=== PATIENT | female | born 1950 | race Caucasian/White ===

== ENCOUNTER 2016-04-10 22:28 | Inpatient (IN) | payer OTHER ==
[~2016-04-10] VITALS: Ht 165.1 cm; Wt 105.4 kg
[~2016-04-10 22:28] MED LIST: ASPEC81 PO; Acetamin/Butalbital/Caffeine PO; CTP/1 PO; LSN20 PO; NTRGSL/4 UT; ONDA4TAB46 PO; PRLSR20 PO; TPM25 PO
[2016-04-10] MEDS ORDERED: ONDANSETRON INJ 2 MG/ML 2 ML VIAL IV STA (22:59)
[2016-04-10] MEDS ORDERED: MoRPHine SULFATE 4 MG/ML 1 ML CARP\\VIAL IV STA (22:59)
[2016-04-10] MEDS ORDERED: CLONIDINE HCL 0.1 MG TAB PO ONE (23:45)
[2016-04-11] VITALS (7 sets, daily range): BP systolic 114–165; BP diastolic 67–91; PULSE 62–69; TEMP 36.3–36.8; O2SAT 92–96; Ht 165.1 cm; Wt 105.4 kg
[2016-04-11 00:21] LABS: BASO % 0.5 %; BASO ABS # 0.04 K/uL (0-0.2); COMPLETE YES; EOS % 1.7 %; HEMATOCRIT 43.6 % (37-47); IG% 0.1 %; LYMPH % 32.1 %; LYMPH ABS # 2.41 K/uL (1.2-3.4); MEAN CELL VOLUME 90.3 fL (80-100); MEAN CORPUSCULAR HEMOGLOBIN 31.1 pg (25-34); MEAN CORPUSCULAR HGB CONC 34.4 g/dl (32-36); MEAN PLATELET VOLUME 10.5 fL (7.4-10.4); MONO % 8.9 %; NEUT % 56.7 %; PLATELET COUNT 181 K/uL (130-400); RED BLOOD COUNT 4.83 M/uL (4.2-5.4)
[2016-04-11 00:30] LABS: ALT/SGPT 75 U/L (12-78); AST/SGOT 27 U/L (15-37); BLOOD UREA NITROGEN 17 mg/dl (7-18); BUN/CREATININE RATIO 22.1 (10-20); CALCIUM 8.7 mg/dl (8.5-10.1); CARBON DIOXIDE 25 mmol/L (21-32); CHLORIDE 110 mmol/L (98-107); CREATININE 0.78 mg/dl (0.60-1.20); GLUCOSE 134 mg/dl (70-99); POTASSIUM 3.7 mmol/L (3.5-5.1); SODIUM 147 mmol/L (136-145)
[2016-04-11] MEDS ORDERED: PRLSR20 PO (00:30)
[2016-04-11 00:32] LABS: PARTIAL THROMBOPLASTIN RATIO 0.9; PROTHROMBIN TIME (PATIENT) 10.4 SECONDS (9.0-12.0)
--- NOTE | 2016-04-11 00:43 | EMERGENCY ROOM VISIT NOTE ---
ED Visit Note First contact with patient: 22:54 I did evaluate and examine this patient myself. I did guide management for the patient. I agree with the PA's assessment as discussed. Please see the PAs dictation for further details. I did independently review the CT of the head, twelve-lead EKG, x-rays and blood work.
[2016-04-11 00:49] LABS: ALKALINE PHOSPHATASE 71 U/L (45-117); CKMB/CK RATIO 1.7 (0-3.0)
[2016-04-11] MEDS ORDERED: MAGNESIUM HYDROXIDE SUSP 30 ML UDC PO PRN (02:00)
[2016-04-11] MEDS ORDERED: ONDANSETRON INJ 2 MG/ML 2 ML VIAL IV PRN (02:00)
[2016-04-11] MEDS ORDERED: ACETAMINOPHEN 325 MG TAB PO PRN (02:00)
[2016-04-11] MEDS ORDERED: NITROGLYCERIN 0.4 MG SL PER TAB CHARGE UT PRN (02:00)
[2016-04-11] MEDS ORDERED: POLYETHYLENE (MIRALAX) 17 GM PACK PO PRN (02:00)
[2016-04-11] MEDS ORDERED: ALUMINUM/MAGNESIUM/SIMETH (MAALOX MAX) 30 ML UDC PO PRN (02:00)
[2016-04-11] MEDS ORDERED: HydrALAZINE HCL 20 MG/ML VIAL ONE (02:09)
[2016-04-11] MEDS ORDERED: OPTIRAY 320 IV PRN (02:15)
--- NOTE | 2016-04-11 02:21 | History and Physical ---
History & Physical Date & Time of Service: Apr 11, 2016 at 02:13 Chief Complaint: Chest Pressure,High Bp Primary Care Physician: RV. Joiner MD History of Present Illness Source: patient, family (granddaughter), spouse Is a pleasant 66-year-old female, who presents today with 4 days of chest pain, headache, malaise. She is accompanied today to the ER, by her and granddaughter. He does not speak Icelandic and her granddaughter translates. She notes that 4 days ago, she had headaches. She had been measuring her blood pressures at home and they were 180/120 which is also what they run when she is apparently well. She is also been having increasing ambulatory difficulty. She describes "blackout periods ". She notes that on several occasions when she tried to stand up, she felt so weak that her had to slowly lower her to the ground. At no point did she lose consciousness. She did not have any usual unilateral weakness. It would take her approximately 15 minutes to summon the strength to stand up. She did not have any dysphagias or aphasias, or altered sensations. In addition, she also describes a sharp, pressing 6/10 chest pain. The pain is on both sides but currently it is only on the left side of her chest. She also notes having some diffuse back pain. The pain does not radiate to the jaw or into the arms. The pain is overall constant but was much worse at home. She cannot time the pain with exertion. She denies palpitations. She has noted that for the first few days of her symptoms she did feel her legs were slightly swollen, but feels that they've improved. She is also getting short of breath with any form of movement, but is not dyspneic at rest. She denies any cough. He does state that her throat hurts. She denies wheezing She is apparently meant to be on oxygen at home by nasal cannula for sleep apnea and nocturnal hypoxemia. She used it for about 6 months, but ran daughter notes that because of equipment issues she has not used. Her appetite has been good. She has no problems with urination or bowel movement He does note a previous history of myocardial infarction, many years ago in [facility]. She did not have stents placed, or CABG. She has been managed medically. She currently does take aspirin, but does not take a statin. She has been on an ARTIE inhibitor in the past but did not tolerate. She does take a nitroglycerin when necessary. Last ejection fraction on May 2014 was 55-60%. Past Medical/Surgical History Medical Problems: (1) ESOPHAGEAL REFLUX Status: Chronic (2) HEART DISEASE NOS Status: Chronic (3) HYPERLIPIDEMIA NEC/NOS Status: Chronic (4) HYPERTENSION NOS Status: Chronic (5) HYPOTHYROIDISM NOS Status: Chronic Family History No pertinent family history Mother had a history of hypertension Social History Smoking Status: Never Smoker Smokeless Tobacco Use: No Alcohol Use: none Drug Use: none Marital Status: Housing status: lives with family Occupational Status: unemployed Immunizations History of Influenza Vaccine: No History of Tetanus Vaccine?: Unknown History of Pneumococcal: Yes History of Hepatitis B Vaccine: Yes Allergies Coded Allergies: Azithromycin (Unverified Allergy, Unknown, BLOOD IN STOOL, MYALGIA, ) Ciprofloxacin (Unverified Allergy, Unknown, BLOOD IN STOOL, MYALGIA, ) Diltiazem (Unverified Allergy, Unknown, HEADACHE, TACHYCARDIA, 04/11/16) Home Medications Scheduled Aspirin (Aspirin Ec), 81 MG PO DAILY Clonidine Hcl (Catapres), 0.1 MG PO TID Omeprazole (Prilosec), 20 MG PO BID Scheduled PRN Nitroglycerin (Nitrostat), 0.4 MG UT PRN PRN for Chest Pain Review of Systems A 10 point review of systems was negative unless stated above in the history of present illness Physical Exam Vital Signs Date Time Temp Pulse Resp B/P Pulse Ox O2 Delivery O2 Flow Rate FiO2 04/11/16 02:03 66 04/11/16 01:54 63 20 173/91 94 Room Air 2.0 04/11/16 00:30 59 20 144/86 95 Room Air 04/10/16 23:55 92 Nasal Cannula 3.0 04/10/16 23:53 63 20 160/84 93 Nasal Cannula 3.0 04/10/16 23:50 85 Room Air 04/10/16 23:20 91 Room Air 04/10/16 22:49 71 04/10/16 22:30 36.5 84 20 223/111 93 Room Air General Appearance: WD/WN, + mild distress, + pertinent finding (plethoric) Head: normocephalic, atraumatic Eyes: normal inspection, EOMI ENT: hearing grossly normal, pharynx normal Neck: supple, no adenopathy, no JVD Respiratory/Chest: + pertinent finding (mild crackles bibasilar) Cardiovascular: regular rate, rhythm, no gallop, no murmur Abdomen/GI: normal bowel sounds, non tender, soft Back: no CVA tenderness, + pertinent finding (diffuse tenderness to palpation along the paraspinal muscles) Extremities/Musculoskelatal: no calf tenderness, no pedal edema Neurologic/Psych: alert, normal mood/affect, oriented x 3 Skin: normal color, warm/dry, + rash Diagnostics Laboratory Results Results Past 24 Hours Test 04/10/16 23:20 Range/Units White Blood Count 7.50 4.8-10.8 K/uL Red Blood Count 4.83 4.2-5.4 M/uL Hemoglobin 15.0 12.0-16.0 g/dL Hematocrit 43.6 37-47 % Mean Corpuscular Volume 90.3 80-100 fL Mean Corpuscular Hemoglobin 31.1 25-34 pg Mean Corpuscular Hemoglobin Concent 34.4 32-36 g/dl Platelet Count 181 130-400 K/uL Mean Platelet Volume 10.5 7.4-10.4 fL Neutrophils (%) (Auto) 56.7 % Lymphocytes (%) (Auto) 32.1 % Monocytes (%) (Auto) 8.9 % Eosinophils (%) (Auto) 1.7 % Basophils (%) (Auto) 0.5 % Neutrophils # (Auto) 4.24 1.4-6.5 K/uL Lymphocytes # (Auto) 2.41 1.2-3.4 K/uL Monocytes # (Auto) 0.67 0.11-0.59 K/uL Eosinophils # (Auto) 0.13 0-0.5 K/uL Basophils # (Auto) 0.04 0-0.2 K/uL RDW Standard Deviation 42.6 36.4-46.3 fL RDW Coefficient of Variation 12.9 11.5-14.5 % Immature Granulocyte % (Auto) 0.1 % Immature Granulocyte # (Auto) 0.01 0.00-0.02 K/uL Prothrombin Time 10.4 9.0-12.0 SECONDS Prothromb Time International Ratio 1.0 0.9-1.1 Activated Partial Thromboplast Time 23.6 21.0-31.0 SECONDS Partial Thromboplastin Ratio 0.9 Sodium Level 147 136-145 mmol/L Potassium Level 3.7 3.5-5.1 mmol/L Chloride Level 110 98-107 mmol/L Carbon Dioxide Level 25 21-32 mmol/L Anion Gap 12.0 3-11 mmol/L Blood Urea Nitrogen 17 7-18 mg/dl Creatinine 0.78 0.60-1.20 mg/dl Estimated GFR () 91.2 Estimated GFR (Non- 78.7 BUN/Creatinine Ratio 22.1 10-20 Random Glucose 134 70-99 mg/dl Calcium Level 8.7 8.5-10.1 mg/dl Total Bilirubin 0.3 0.2-1 mg/dl Direct Bilirubin < 0.1 0-0.2 mg/dl Aspartate Amino Transf (AST/SGOT) 27 15-37 U/L Alanine Aminotransferase (ALT/SGPT) 75 12-78 U/L Alkaline Phosphatase 71 45-117 U/L Total Creatine Kinase 66 26-192 U/L Creatine Kinase MB 1.1 0.5-3.6 ng/ml Creatine Kinase MB Ratio 1.7 0-3.0 Troponin I < 0.015 0-0.045 ng/ml Total Protein 7.0 6.4-8.2 gm/dl Albumin 3.3 3.4-5.0 gm/dl Thyroid Stimulating Hormone (TSH) 4.720 0.300-4.500 uIu/ml Chemistry Specimen Hemolysis Diagnostic Radiology Final report not available yet Chest x-ray does appear to show cardiomegaly, , and possible infiltrate at left base EKG Normal sinus rhythm rate 72 Moderate voltage criteria for LVH, maybe normal variant Nonspecific T-wave abnormality, lateral leads No ectopy or pauses Impression Assessment and Plan 59 -year-old female with a past history of coronary artery disease treated conservatively who presents to the emergency room with malaise and chest pain. Given that she has a history of cardiac disease, she is intermediate probability and requires admission for chest pain rule out and serial cardiac enzyme monitoring. Our plan for her is as follows: Chest pain - Etiology unclear at this time: Would consider ACS, pneumonia, PE, aortic dissection And does not necessarily seem anginal but I still maintain a high index of suspicion because she has a previous history of CAD - Cardiac enzymes 1 are negative; there are nonspecific lateral T-wave changes Trend cardiac enzymes every 6 hours until peak; EKG with chest pain; sublingual nitroglycerin with chest pain ASA 81 mg daily, per home regimen Patient does not take a statin. She would benefit from discussion on taking daily for the purposes of secondary prevention Echocardiogram in a.m.; patient's previous echocardiogram in 05/2014 reports an EF of 55-60% - Blood pressure also noted to be very high at baseline. Given pain in the back , I am concerned as well about possible aortic dissection CT scan dissection protocol - Patient also has history of sleep apnea with questionable compliance, at high risk for pulmonary hypertension Echocardiogram as above Hypertension - Continue home dose of clonidine - Blood pressure remains elevated in the ED, systolic blood pressure 180 - We'll start patient on 10 mg hydralazine IV PRN for SBP > 160 or DBP >100 Obstructive sleep apnea - Patient has been followed for severe obstructive sleep apnea by Dr. lCinton. Patient was reportedly noncompliant with CPAP and it was stopped - Patient apparently changed over oxygen by nasal cannula is at nighttime but has not been doing so for several months - Currently she is on 2 L by nasal cannula Titrate oxygen to goal of greater than 94% GERD - Omeprazole not available in the hospital; pharmacy to replace DVT prophylaxis - Enoxaparin 40 mg subcutaneous daily CODE STATUS - Full level I code - designated as substitute decision-maker if patient cannot make decisions for herself Disposition - Telemetry - OT and PT orders have been placed Resident Physician Supervision Note: I was present with [Name of resident] during the history and exam. I discussed the case with the resident and agree with the findings and plan as documented in the note. Any exceptions or clarifications are listed here: Pt seen/examined - discussed with pt and family at bedside Presents with CP and back pain as above Pt has also been generally ill and weak and symptoms are not acute although they may be worsening Pt has been hypertensive at over 170 systolic O/E AAO x 3 - appears uncomfortable S1,2 reg CTAB - poor effort NT, NT upper ext mild pitting edema - face appears edematous P: Considering labs and symptoms we would want to R/O dissection and possibly SVC syndrome\\ Pt is pending a CTA If negative will focus on eval for ACS and controlling SBP Documented By: Bryan Tran Level of Care Telemetry Resuscitation Status FULL RESUSCITATION VTE Prophylaxis VTE Risk Assessment Done? Y/N: Yes Risk Level: Moderate Given or contraindicated: Enoxaparin (Lovenox)SQ
[2016-04-11] MEDS ORDERED: ASPI81TA28 PO (02:44)
[2016-04-11] MEDS ORDERED: ACETAMINOPHEN IV 100 ML IV STA (03:37)
--- NOTE | 2016-04-11 04:14 | EMERGENCY ROOM VISIT NOTE ---
History First contact with patient: 22:54 Chief Complaint: HEADACHE Stated Complaint: CHEST PAIN History of Present Illness The patient is a 66 year old female who presents to the Emergency Room with complaints of severe headache with chest pain and feeling foggy with elevated blood pressure for the past 3 days. Patient is Palauan-speaking and is requesting her granddaughter to translate. She was offered the language line and declined. She describes the pain as pressure, ranging in severity 8 out of 10 throughout her chest that comes and goes in severity. She's had this pain before. She has prior heart disease. Patient is unsure she's had a heart attack. Patient describe the headache as severe, 9 out of 10 throughout the frontal region. Normal imaging in the past. Patient denies localized weakness , fever, chills, cough, congestion, dyspnea, leg pain or swelling. Review of Systems See HPI for pertinent positives & negatives. A total of 10 systems reviewed and were otherwise negative. Past Medical/Surgical History Medical Problems: (1) Chest pain (2) ESOPHAGEAL REFLUX (3) HEART DISEASE NOS (4) HYPERLIPIDEMIA NEC/NOS (5) HYPERTENSION NOS (6) HYPOTHYROIDISM NOS Family History No pertinent family history Social History Smoking Status: Never Smoker Smokeless Tobacco Use: No Alcohol Use: none Drug Use: none Marital Status: Housing Status: lives with family Occupation Status: unemployed Current/Historical Medications Scheduled Aspirin (Aspirin Ec), 81 MG PO DAILY Clonidine Hcl (Catapres), 0.1 MG PO TID Omeprazole (Prilosec), 20 MG PO BID Scheduled PRN Nitroglycerin (Nitrostat), 0.4 MG UT PRN PRN for Chest Pain Allergies Coded Allergies: Azithromycin (Unverified Allergy, Unknown, BLOOD IN STOOL, MYALGIA, ) Ciprofloxacin (Unverified Allergy, Unknown, BLOOD IN STOOL, MYALGIA, ) Diltiazem (Unverified Allergy, Unknown, HEADACHE, TACHYCARDIA, 04/11/16) Physical Exam Vital Signs Date Time Temp Pulse Resp B/P Pulse Ox O2 Delivery O2 Flow Rate FiO2 04/11/16 01:54 63 20 173/91 94 Room Air 2.0 04/11/16 00:30 59 20 144/86 95 Room Air 04/10/16 23:55 92 Nasal Cannula 3.0 04/10/16 23:53 63 20 160/84 93 Nasal Cannula 3.0 04/10/16 23:50 85 Room Air 04/10/16 23:20 91 Room Air 04/10/16 22:49 71 04/10/16 22:30 36.5 84 20 223/111 93 Room Air Physical Exam VITALS: Vitals are noted on the nurse's note and reviewed by myself. Vital signs hypertensive GENERAL: Pleasant female who appears uncomfortable, in no acute distress, nondiaphoretic, well-developed well-nourished. SKIN: The skin was without rashes, erythema, edema, or bruising. There is no tenting of the skin. Capillary reflex less than 2 seconds. HEAD: Normocephalic atraumatic. EARS: External auditory canals clear, tympanic membranes pearly iglesias without erythema or effusion bilaterally. EYES: Pupils equal round and reactive to light and accommodation. Conjunctivae without injection, sclerae without icterus. Extraocular movements intact. NOSE: Patent, turbinates without inflammation or discharge. No sinus tenderness. MOUTH: Mucous membranes moist. Pharynx without erythema or exudate. Uvula midline. Airway patent. Tongue does not deviate. NECK: Supple without nuchal rigidity. No lymphadenopathy. No thyromegaly. Cervical spine is nontender. No JVD. HEART: Regular rate and rhythm LUNGS: Clear to auscultation bilaterally without wheezes, rales or rhonchi. No dullness to percussion. No retractions or accessory muscle use. ABDOMEN: Positive bowel sounds x 4. Normal tympanic percussion. Soft, nontender, without masses or organomegaly. Hand sign negative. No guarding or rebound tenderness. MUSCULOSKELETAL: No muscle atrophy, erythema, noted. NEURO: Patient was alert and oriented to person place and time. Normal sensation to light and sharp touch. No focal neurological deficits. Cranial nerves II through XII grossly intact. No pharyngeal bruits although exam intact. 5 out of 5 strength throughout Medical Decision & Procedures Laboratory Results 04/10/16 23:20 Red Blood Count 4.83, Mean Corpuscular Volume 90.3, Mean Corpuscular Hemoglobin 31.1, Mean Corpuscular Hemoglobin Concent 34.4, Mean Platelet Volume 10.5, Neutrophils (%) (Auto) 56.7, Lymphocytes (%) (Auto) 32.1, Monocytes (%) (Auto) 8.9, Eosinophils (%) (Auto) 1.7, Basophils (%) (Auto) 0.5, Neutrophils # (Auto) 4.24, Lymphocytes # (Auto) 2.41, Monocytes # (Auto) 0.67, Eosinophils # (Auto) 0.13, Basophils # (Auto) 0.04 04/10/16 23:20 Test 04/10/16 23:20 White Blood Count 7.50 K/uL (4.8-10.8) Red Blood Count 4.83 M/uL (4.2-5.4) Hemoglobin 15.0 g/dL (12.0-16.0) Hematocrit 43.6 % (37-47) Mean Corpuscular Volume 90.3 fL (80-100) Mean Corpuscular Hemoglobin 31.1 pg (25-34) Mean Corpuscular Hemoglobin Concent 34.4 g/dl (32-36) Platelet Count 181 K/uL (130-400) Mean Platelet Volume 10.5 fL (7.4-10.4) Neutrophils (%) (Auto) 56.7 % Lymphocytes (%) (Auto) 32.1 % Monocytes (%) (Auto) 8.9 % Eosinophils (%) (Auto) 1.7 % Basophils (%) (Auto) 0.5 % Neutrophils # (Auto) 4.24 K/uL (1.4-6.5) Lymphocytes # (Auto) 2.41 K/uL (1.2-3.4) Monocytes # (Auto) 0.67 K/uL (0.11-0.59) Eosinophils # (Auto) 0.13 K/uL (0-0.5) Basophils # (Auto) 0.04 K/uL (0-0.2) RDW Standard Deviation 42.6 fL (36.4-46.3) RDW Coefficient of Variation 12.9 % (11.5-14.5) Immature Granulocyte % (Auto) 0.1 % Immature Granulocyte # (Auto) 0.01 K/uL (0.00-0.02) Prothrombin Time 10.4 SECONDS (9.0-12.0) Prothromb Time International Ratio 1.0 (0.9-1.1) Activated Partial Thromboplast Time 23.6 SECONDS (21.0-31.0) Partial Thromboplastin Ratio 0.9 Anion Gap 12.0 mmol/L (3-11) Estimated GFR () 91.2 Estimated GFR (Non- 78.7 BUN/Creatinine Ratio 22.1 (10-20) Calcium Level 8.7 mg/dl (8.5-10.1) Total Bilirubin 0.3 mg/dl (0.2-1) Direct Bilirubin < 0.1 mg/dl (0-0.2) Aspartate Amino Transf (AST/SGOT) 27 U/L (15-37) Alanine Aminotransferase (ALT/SGPT) 75 U/L (12-78) Alkaline Phosphatase 71 U/L (45-117) Total Creatine Kinase 66 U/L (26-192) Creatine Kinase MB 1.1 ng/ml (0.5-3.6) Creatine Kinase MB Ratio 1.7 (0-3.0) Troponin I < 0.015 ng/ml (0-0.045) Total Protein 7.0 gm/dl (6.4-8.2) Albumin 3.3 gm/dl (3.4-5.0) Thyroid Stimulating Hormone (TSH) 4.720 uIu/ml (0.300-4.500) Chemistry Specimen Hemolysis Medications Administered Medications (Trade) Dose Ordered Sig/Jesika Route Start Time Stop Time Status Last Admin Dose Admin Morphine Sulfate (MoRPHine SULFATE INJ) 4 mg NOW STAT IV 04/10/16 22:59 04/10/16 23:01 DC 04/10/16 23:27 4 MG Ondansetron HCl (Zofran Inj) 4 mg NOW STAT IV 04/10/16 22:59 04/10/16 23:02 DC 04/10/16 23:26 4 MG Clonidine HCl (Catapres Tab) 0.1 mg NOW ONCE PO 04/10/16 23:45 04/11/16 00:03 DC 04/10/16 23:52 0.1 MG ED Course Prior records/ancillary studies reviewed. Triage Nursing notes reviewed. Additional history obtained from family. The patient's history was concerning for chest pain. Differential diagnosis: Etiologies such as cardiac ischemia, aortic dissection, pulmonary embolism, pneumonia, pneumothorax, musculoskeletal, infections, pericarditis, myocarditis , esophageal rupture, gastrointestinal, cute intracranial bleed, CVA, postural headache, meningitis, encephalitis, mass or mass effect, sinusitis, infection, temporal arteritis, trigeminal neuralgia, pseudotumor cerebri, tension headache , cluster headache, carbon monoxide exposure, migraine, as well as others were entertained. Physical examination: As above. ER treatment provided: Morphine, Zofran, Catapres On reassessment the patient felt better. Diagnostic interpretation by me: The electrocardiogram was normal sinus, normal intervals, T wave inversions in the anterolateral leads, EKG compared to prior EKG with prior T-wave inversions present. Impression normal sinus rhythm with T-wave inversions in the anterolateral leads started by myself The labs revealed negative troponin. Stable H&H Imaging studies: Chest x-ray with no acute consolidation, pneumothorax or free air. Cardiomegaly unchanged from prior chest x-ray per my interpretation CT of the head was negative for intracranial bleed per radiology Consultation: A consultation was placed with the hospitalist, Dr Tran. The case was discussed and diagnostics were reviewed. The patient was evaluated in the ER for further treatment. Exam and history seem consistent with chest pain concerning for possible ACS. Patient will be evaluated by medicine for possible admission. Head CT was negative. Troponin. Blood pressure came down after being medicated as above. Patient was neurovascularly and neurologically intact. Family agrees to treatment plan of admission. By the evaluation outlined above emergent etiologies such as aortic dissection, pulmonary embolism, pneumonia, pneumothorax, infections, pericarditis, myocarditis, gastrointestinal, as well as others were deemed relatively unlikely. The pt informed about the findings as listed above. All questions were answered and pleased with the treatment. Case reviewed with my attending Medical Decision As above Impression Primary Impression: Precordial chest pain Additional Impressions: Hypertensive urgency Headache Departure Information Dispostion Being Evaluated By Hospitalist Condition FAIR Referrals RV. Joiner MD (PCP) Patient Instructions My [facility] Problem Qualifiers
[2016-04-11] MEDS ORDERED: SODIUM CHLORIDE 0.9% 1000ML 1,000 ML IV ONE (05:00)
--- NOTE | 2016-04-11 06:34 | DIAGNOSTIC IMAGING REPORT ---
CT OF THE HEAD WITHOUT CONTRAST CLINICAL HISTORY: Severe hypertension. Headache. COMPARISON STUDY: Head CT May 22, 2014 and MRI of the brain May 23, 2014. CT DOSE: 614.27 mGy.cm TECHNIQUE: Helical axial images of the head were obtained without IV contrast. Automated exposure control was utilized for the study. FINDINGS: No acute intracranial hemorrhage, midline shift or mass effect is present. Ventricular system is normal. Basilar cisterns are patent. No extra-axial collections are present. Feliciano-white differentiation is maintained. There are no findings to suggest acute dural sinus thrombosis or acute territorial infarct. Visualized portions of the sinuses and mastoid air cells are clear. There are no significant calvarial abnormalities. IMPRESSION: No acute intracranial findings. Electronically signed by: Jaret Stevenson M.D. 04/11/2016 6:33 AM Dictated Date/Time: 04/11/2016 6:31 AM
[2016-04-11] MEDS ORDERED: IV FLUIDS COMPLETED PRN (06:45)
--- NOTE | 2016-04-11 06:48 | DIAGNOSTIC IMAGING REPORT ---
CHEST ONE VIEW PORTABLE CLINICAL HISTORY: Chest pain. COMPARISON STUDY: Chest radiograph May 21, 2014. FINDINGS: Lung volumes are diminished. No consolidation is identified. No pneumothorax or pleural effusion is noted. Mild cardiomegaly is noted. There is no evidence of pulmonary edema. IMPRESSION: 1. No acute findings. 2. Mild cardiomegaly. Electronically signed by: Jaret Stevenson M.D. 04/11/2016 6:47 AM Dictated Date/Time: 04/11/2016 6:45 AM
--- NOTE | 2016-04-11 07:22 | DIAGNOSTIC IMAGING REPORT ---
CT ANGIO ABD/PELVIS COMBO CT DOSE: 3758.58 mGy.cm CLINICAL HISTORY: Chest and abdominal pain. Possible dissection. TECHNIQUE: Unenhanced images were obtained through the upper abdomen. The patient was then scanned in a dynamic helical fashion during intravenous administration of 93 cc of Optiray 320. COMPARISON STUDY: 04/22/2010 FINDINGS: The visualized portions lung bases reveal increased basal markings likely atelectatic. No hepatic masses are visualized. No gallbladder abnormalities are visualized. No splenic masses are visualized. No pancreatic masses are visualized. No adrenal masses are visualized. This 43 mm right renal cyst. There is a 13 mm upper pole left renal cyst. No renal, ureteral, or bladder calculi are visualized. There are no transition zones indicate bowel obstruction. There is no acute diverticulitis. There are no findings to indicate acute appendicitis. There is no evidence of abdominal aortic aneurysm. There is no evidence of celiac or superior mesenteric artery stenosis. There is an accessory left renal artery. There is no evidence of renal artery stenosis. There is no evidence of iliac artery stenosis. Inferior mesenteric artery is patent. IMPRESSION: 1. No evidence of abdominal aortic aneurysm or dissection 2. No evidence of celiac, superior mesenteric, or renal artery stenosis 3. No evidence of bowel obstruction. No evidence of free air. Electronically signed by: Andrew Adame M.D. 04/11/2016 7:21 AM Dictated Date/Time: 04/11/2016 7:16 AM
[2016-04-11 08:33] LABS: BLOOD UREA NITROGEN 16 mg/dl (7-18); BUN/CREATININE RATIO 21.8 (10-20); CALCIUM 8.8 mg/dl (8.5-10.1); CARBON DIOXIDE 28 mmol/L (21-32); CHLORIDE 109 mmol/L (98-107); CHOLESTEROL 160 mg/dl (0-200); CREATININE 0.74 mg/dl (0.60-1.20); GLUCOSE 106 mg/dl (70-99); SODIUM 145 mmol/L (136-145)
[2016-04-11 08:39] LABS: HEMATOCRIT 41.7 % (37-47); MEAN CELL VOLUME 90.8 fL (80-100); MEAN CORPUSCULAR HEMOGLOBIN 30.7 pg (25-34); MEAN CORPUSCULAR HGB CONC 33.8 g/dl (32-36); MEAN PLATELET VOLUME 10.4 fL (7.4-10.4); PLATELET COUNT 197 K/uL (130-400); RED BLOOD COUNT 4.59 M/uL (4.2-5.4); WHITE BLOOD COUNT 7.07 K/uL (4.8-10.8)
[2016-04-11 08:40] LABS: BASO % 0.7 %; BASO ABS # 0.05 K/uL (0-0.2); COMPLETE YES; EOS % 1.3 %; IG% 0.1 %; LYMPH % 26.3 %; LYMPH ABS # 1.86 K/uL (1.2-3.4); MONO % 8.9 %; NEUT % 62.7 %
[2016-04-11 08:42] LABS: CHOLESTEROL/HDL RATIO 3.8; HDL CHOLESTEROL 42 mg/dl; LDL CHOLESTEROL CALCULATED 96 mg/dl; TRIGLYCERIDES 108 mg/dl (0-150); VERY LOW DENSITY LIPOPROT CALC 22 mg/dl
[2016-04-11] MEDS: CLONIDINE HCL 0.1 MG TAB PO SCH ×3 (09:56→21:02)
[2016-04-11] MEDS: ASPIRIN 81 MG ECTAB PO SCH (09:56)
[2016-04-11] MEDS: PANTOprazole SOD 40 MG TAB PO SCH ×2 (09:56→21:02)
[2016-04-11] MEDS: ENOXAPARIN 40 MG/0.4 ML SYR SC SCH (09:57)
[2016-04-11 10:30] LABS: POTASSIUM 3.7 mmol/L (3.5-5.1)
[2016-04-11] MEDS: ACETAMINOPHEN IV 1,000 MG in EMPTY BAG 0 ML IV SCH ×2 (11:41→21:02)
[2016-04-11 15:09] LABS: CKMB/CK RATIO 1.6 (0-3.0)
[2016-04-11 20:06] LABS: CKMB/CK RATIO 1.7 (0-3.0)
--- NOTE | 2016-04-11 20:40 | ECHOCARDIOGRAM REPORT ---
*NOTICE TO RECEIVING [employer] [employer] This information is strictly Confidential and protected under [place] law. [place] law prohibits you from making any further disclosure of this information unless further disclosure is expressly permitted by the written consent of the person to whom it pertains or is authorized by law. A general authorization for the release of medical or other information is not sufficient for this purpose. Hospital accepts no responsibility if the information is made available to any other person, INCLUDING THE PATIENT. Interpretation Summary * Name: LUIS YOUSSEF Study Date: 04/11/2016 07:55 AM BP: 151/84 mmHg * Patient Location: .ED HR: 60 * : 1950 (M/d/yyyy) Gender: Female * Age: 66 yrs Ethnicity: [place] Weight: 235 lb * Ordering Physician: [place] SEGUNDO MD * Performed By: Staci Harp RCS * * Reason For Study: CHEST PAIN * -- Conclusions -- * 1. Normal left ventricular size and systolic function. EF 60-65%. No regional wall motion abnormalities. Moderate concentric left ventricular hypertrophy. Diastolic dysfunction, Grade II (pseudonormalization pattern). * 2. The left atrium is mildly dilated. * 3. No significant valvular abnormalities visualized. * 4. Linear echodensity noted within the aortic arch, which appears to be artifact. If indicated, consider dedicated imaging. * 5. Normal estimated right ventricular systolic pressure; RVSP 27 mmHg. * 6. No significant change from prior study on 05/22/2014. Procedure Details * A complete two-dimensional transthoracic echocardiogram was performed (2D, M-mode, Doppler and color flow Doppler). Left Ventricle * Normal left ventricular size and systolic function. EF 60-65%. No regional wall motion abnormalities. Moderate concentric left ventricular hypertrophy. Right Ventricle * The right ventricle is normal in size and function. * The right ventricular systolic function is normal as assessed by tricuspid annular plane systolic excursion (TAPSE) (normal >1.5 cm). Atria * The left atrium is mildly dilated. * Right atrial size is normal. * There is no evidence of atrial septal defect, but resolution does not allow assessment for a patent foramen ovale. Mitral Valve * The mitral valve is grossly normal. * There is no mitral valve stenosis. * There is trace mitral regurgitation. Tricuspid Valve * The tricuspid valve is not well visualized, but is grossly normal. * There is no tricuspid stenosis. * There is mild tricuspid regurgitation. Aortic Valve * The aortic valve is normal in structure and function. * The aortic valve is trileaflet. * No hemodynamically significant valvular aortic stenosis. * No aortic regurgitation is present. Pulmonic Valve * The pulmonary valve is inadequately visualized, but the Doppler data is adequate for interpretation. * There is no pulmonic valvular stenosis. * Mild pulmonic valvular regurgitation. Great Vessels * The aortic root is normal size. * Ascending aorta of normal dimension * Linear echodensity noted within the aortic arch, which appears to be artifact. If indicated, consider dedicated imaging. * Normal pulmonary venous flow pattern. Pericardium/Pleural * There is no pericardial effusion. Great Vessels * Normal inferior vena cava size and collapsability with sniff indicates a normal right atrial pressure of 3 mmHg Left Ventricular Diastolic Function * Diastolic dysfunction, Grade II (pseudonormalization pattern). MMode 2D Measurements and Calculations IVSd 1.4 cm IVSs 2.0 cm LVIDd 4.6 cm LVIDs 2.9 cm LVPWd 1.4 cm LVPWs 1.4 cm IVS/LVPW 0.96 FS 35.6 % EDV(Teich) 96.4 ml ESV(Teich) 33.6 ml EF(Teich) 65.2 % EDV(cubed) 96.1 ml ESV(cubed) 25.7 ml EF(cubed) 73.3 % % IVS thick 43.1 % % LVPW thick -3.88 % LV mass(C)d 252.6 grams LV mass(C)s 183.7 grams SV(Teich) 62.8 ml SV(cubed) 70.5 ml Ao root diam 3.4 cm Ao root area 8.9 cm\S\2 LA dimension 3.7 cm asc Aorta Diam 2.6 cm LA/Ao 1.1 LVOT diam 2.1 cm LVOT area 3.4 cm\S\2 Doppler Measurements and Calculations MV E max jackelyn 87.9 cm/sec MV A max jackelyn 85.7 cm/sec MV E/A 1.0 MV P1/2t max jackelyn 94.0 cm/sec MV P1/2t 93.1 msec MVA(P1/2t) 2.4 cm\S\2 MV dec slope 296.0 cm/sec\S\2 MV dec time 0.24 sec Ao V2 max 176.0 cm/sec Ao max PG 12.4 mmHg Ao max PG (full) 9.1 mmHg Ao V2 mean 106.0 cm/sec Ao mean PG 5.3 mmHg Ao mean PG (full) 3.7 mmHg Ao V2 VTI 36.8 cm JOCELINE(I,A) 2.0 cm\S\2 JOCELINE(I,D) 2.0 cm\S\2 JOCELINE(V,A) 1.8 cm\S\2 JOCELINE(V,D) 1.8 cm\S\2 LV V1 max PG 3.2 mmHg LV V1 mean PG 1.6 mmHg LV V1 max 90.1 cm/sec LV V1 mean 57.2 cm/sec LV V1 VTI 21.2 cm MR max jackelyn 572.7 cm/sec MR max PG 131.2 mmHg SV(Ao) 326.0 ml SV(LVOT) 72.7 ml TV E max jackelyn 49.6 cm/sec PA V2 max 95.9 cm/sec PA max PG 3.7 mmHg PI max jackelyn 175.4 cm/sec PI max PG 12.3 mmHg PI dec slope 182.3 cm/sec\S\2 PI P1/2t 281.8 msec TR max jackelyn 246.0 cm/sec RVSP(TR) 27.2 mmHg RAP systole 3.0 mmHg
[2016-04-12] VITALS (9 sets, daily range): BP systolic 121–177; BP diastolic 69–104; PULSE 70–95; TEMP 36.2–37; O2SAT 91–97
[2016-04-12 02:23] LABS: BASO % 0.6 %; BASO ABS # 0.04 K/uL (0-0.2); COMPLETE YES; EOS % 1.9 %; HEMATOCRIT 40.9 % (37-47); IG% 0.2 %; LYMPH % 30.1 %; LYMPH ABS # 1.86 K/uL (1.2-3.4); MEAN CELL VOLUME 91.3 fL (80-100); MEAN CORPUSCULAR HEMOGLOBIN 30.4 pg (25-34); MEAN CORPUSCULAR HGB CONC 33.3 g/dl (32-36); MEAN PLATELET VOLUME 9.8 fL (7.4-10.4); MONO % 7.6 %; NEUT % 59.6 %; PLATELET COUNT 165 K/uL (130-400); RED BLOOD COUNT 4.48 M/uL (4.2-5.4); WHITE BLOOD COUNT 6.17 K/uL (4.8-10.8)
[2016-04-12 02:38] LABS: BLOOD UREA NITROGEN 18 mg/dl (7-18); BUN/CREATININE RATIO 24.6 (10-20); CALCIUM 8.3 mg/dl (8.5-10.1); CARBON DIOXIDE 27 mmol/L (21-32); CHLORIDE 109 mmol/L (98-107); CREATININE 0.71 mg/dl (0.60-1.20); GLUCOSE 108 mg/dl (70-99); POTASSIUM 3.9 mmol/L (3.5-5.1); SODIUM 145 mmol/L (136-145)
[2016-04-12 02:43] LABS: CKMB/CK RATIO 1.6 (0-3.0)
[2016-04-12] MEDS: HydrALAZINE HCL 20 MG/ML VIAL IV. PRN ×2 (04:34→14:52)
[2016-04-12] MEDS: ACETAMINOPHEN IV 1,000 MG in EMPTY BAG 0 ML IV SCH ×3 (04:37→22:11)
[2016-04-12] MEDS: CLONIDINE HCL 0.1 MG TAB PO SCH ×3 (07:47→22:00)
[2016-04-12] MEDS: ASPIRIN 81 MG ECTAB PO SCH (07:47)
[2016-04-12] MEDS: ENOXAPARIN 40 MG/0.4 ML SYR SC SCH ×2 (07:47→07:51)
[2016-04-12] MEDS: PANTOprazole SOD 40 MG TAB PO SCH ×2 (07:48→22:00)
[2016-04-12] MEDS ORDERED: BUTALBITAL/ACETAMIN/CAFFEINE TAB PO PRN (11:00)
[2016-04-12] MEDS ORDERED: BUTALBITAL/ACETAMIN/CAFFEINE TAB PO ONE (11:30)
[2016-04-12] MEDS ORDERED: LISINOPRIL 20 MG TAB PO ONE (11:30)
--- NOTE | 2016-04-12 13:51 | Progress Note ---
Subjective Date of Service: Apr 12, 2016. Subjective Pt evaluation today including: conversation w/ patient, physical exam, chart review, lab review, review of studies, review of inpatient medication list Problem List Medical Problems: (1) Headache Status: Acute (2) Hypertensive urgency Status: Acute (3) Precordial chest pain Status: Acute Review of Systems Constitutional: No chills, No fever Respiratory: No cough, No dyspnea on exertion, No shortness of breath, No sputum Cardiac: + palpitations, No chest pain, No orthopnea Abdomen: No constipation, No diarrhea, No nausea, No pain, No vomiting Musculoskeletal: No joint pain, No muscle pain Female : No dysuria, No urinary frequency Neurologic: No paralysis, No weakness Objective Vital Signs Date Time Temp Pulse Resp B/P Pulse Ox O2 Delivery O2 Flow Rate FiO2 04/12/16 13:34 86 142/86 04/12/16 12:00 Nasal Cannula 2.0 04/12/16 11:52 37.0 80 20 177/83 94 Nasal Cannula 2.0 04/12/16 08:00 Nasal Cannula 2.0 04/12/16 07:19 36.2 95 20 174/89 91 Room Air 04/12/16 05:06 36.5 70 18 177/95 97 Nasal Cannula 2.0 04/12/16 04:37 176/104 04/12/16 04:00 Nasal Cannula 2.0 04/12/16 00:00 Nasal Cannula 2.0 04/11/16 23:47 36.3 66 16 154/85 95 Nasal Cannula 2.0 04/11/16 20:00 Nasal Cannula 2.0 04/11/16 19:06 36.7 63 18 126/76 96 2.0 04/11/16 16:00 Nasal Cannula 2.0 04/11/16 15:17 36.5 62 20 114/67 92 Nasal Cannula 2.0 Physical Exam General Appearance: WD/WN, no apparent distress Neck: supple, no adenopathy Respiratory/Chest: lungs clear, normal breath sounds Cardiovascular: no gallop, no JVD Abdomen: non tender, soft Neurologic/Psychiatric: alert, oriented x 3 Laboratory Results Last 24 Hours Test 04/11/16 14:00 04/11/16 19:26 04/12/16 02:15 Total Creatine Kinase 55 U/L 53 U/L 50 U/L Creatine Kinase MB 0.9 ng/ml 0.9 ng/ml 0.8 ng/ml Creatine Kinase MB Ratio 1.6 1.7 1.6 Troponin I < 0.015 ng/ml < 0.015 ng/ml < 0.015 ng/ml White Blood Count 6.17 K/uL Red Blood Count 4.48 M/uL Hemoglobin 13.6 g/dL Hematocrit 40.9 % Mean Corpuscular Volume 91.3 fL Mean Corpuscular Hemoglobin 30.4 pg Mean Corpuscular Hemoglobin Concent 33.3 g/dl Platelet Count 165 K/uL Mean Platelet Volume 9.8 fL Neutrophils (%) (Auto) 59.6 % Lymphocytes (%) (Auto) 30.1 % Monocytes (%) (Auto) 7.6 % Eosinophils (%) (Auto) 1.9 % Basophils (%) (Auto) 0.6 % Neutrophils # (Auto) 3.67 K/uL Lymphocytes # (Auto) 1.86 K/uL Monocytes # (Auto) 0.47 K/uL Eosinophils # (Auto) 0.12 K/uL Basophils # (Auto) 0.04 K/uL RDW Standard Deviation 43.4 fL RDW Coefficient of Variation 13.1 % Immature Granulocyte % (Auto) 0.2 % Immature Granulocyte # (Auto) 0.01 K/uL Sodium Level 145 mmol/L Potassium Level 3.9 mmol/L Chloride Level 109 mmol/L Carbon Dioxide Level 27 mmol/L Anion Gap 9.0 mmol/L Blood Urea Nitrogen 18 mg/dl Creatinine 0.71 mg/dl Est Creatinine Clear Calc Drug Dose 93.3 ml/min Estimated GFR () 102.2 Estimated GFR (Non- 88.1 BUN/Creatinine Ratio 24.6 Random Glucose 108 mg/dl Calcium Level 8.3 mg/dl Assessment and Plan 59 yo female with a past history of coronary artery disease treated conservatively who presents to the emergency room with malaise and chest pain. Given that she has a history of cardiac disease, she is intermediate probability and requires admission for chest pain rule out and serial cardiac enzyme monitoring. Chest pain - Etiology unclear at this time: - Cardiac enzymes 3 negative; there are nonspecific lateral T-wave changes EKG with chest pain; sublingual nitroglycerin with chest pain ASA 81 mg daily, per home regimen Patient does not take a statin. She would benefit from discussion on taking daily for the purposes of secondary prevention Echocardiogram EF 60-65%, no WMA, grade 2 diastolic dysfunction - Blood pressure also noted to be very high at baseline. Started lisinopril and hydralazine PRN and continued clonidine Hypertension - Continue home dose of clonidine, and added hydralazine and lisinopril - Likely contributing to headaches Obstructive sleep apnea - Patient has been followed for severe obstructive sleep apnea by Dr. Clinton. Patient was reportedly noncompliant with CPAP and it was stopped - Patient apparently changed over oxygen by nasal cannula is at nighttime but has not been doing so for several months - Currently she is on 2 L by nasal cannula Titrate oxygen to goal of greater than 94% GERD - Omeprazole not available in the hospital; pharmacy to replace DVT prophylaxis - Enoxaparin 40 mg subcutaneous daily CODE STATUS - Full level I code - designated as substitute decision-maker if patient cannot make decisions for herself Disposition - Telemetry - OT and PT orders have been placed
[2016-04-13 00:19] VITALS: BP 173/90; PULSE 65; TEMP 36.7; O2SAT 95
[2016-04-13] MEDS: ACETAMINOPHEN IV 1,000 MG in EMPTY BAG 0 ML IV SCH ×3 (04:38→21:05)
[2016-04-13 07:03] LABS: BASO % 0.5 %; BASO ABS # 0.03 K/uL (0-0.2); COMPLETE YES; HEMATOCRIT 42.3 % (37-47); LYMPH ABS # 1.77 K/uL (1.2-3.4); MEAN CELL VOLUME 89.2 fL (80-100); MEAN CORPUSCULAR HGB CONC 33.6 g/dl (32-36); MEAN PLATELET VOLUME 9.9 fL (7.4-10.4); MONO % 5.9 %; NEUT % 62.6 %; PLATELET COUNT 166 K/uL (130-400); RED BLOOD COUNT 4.74 M/uL (4.2-5.4); WHITE BLOOD COUNT 6.11 K/uL (4.8-10.8)
[2016-04-13 07:30] LABS: CREATININE 0.68 mg/dl (0.60-1.20)
[2016-04-13 07:32] VITALS: BP 164/88; PULSE 68; TEMP 36.3; O2SAT 98
[2016-04-13] MEDS: ENOXAPARIN 40 MG/0.4 ML SYR SC SCH (08:27)
[2016-04-13] MEDS: LISINOPRIL 20 MG TAB PO SCH (08:28)
[2016-04-13] MEDS: ASPIRIN 81 MG ECTAB PO SCH (08:28)
[2016-04-13] MEDS: PANTOprazole SOD 40 MG TAB PO SCH ×2 (08:28→21:06)
[2016-04-13] MEDS: CLONIDINE HCL 0.1 MG TAB PO SCH ×3 (08:28→21:07)
[2016-04-13] MEDS ORDERED: AMLODIPINE BESYLATE 5 MG TAB PO ONE (08:30)
[2016-04-13] MEDS ORDERED: SUMATRIPTAN SUCCINATE 25 MG TAB PO ONE (11:30)
[2016-04-13 13:35] VITALS: BP 148/87; PULSE 67; O2SAT 93
[2016-04-13 15:32] VITALS: BP 137/80; PULSE 61; TEMP 37.1; O2SAT 94
--- NOTE | 2016-04-13 15:37 | Progress Note ---
Subjective Date of Service: Apr 13, 2016. Subjective Pt evaluation today including: conversation w/ patient, physical exam, chart review, lab review, review of studies, review of inpatient medication list Problem List Medical Problems: (1) Headache Status: Acute (2) Hypertensive urgency Status: Acute (3) Precordial chest pain Status: Acute Review of Systems Constitutional: No chills, No fever Respiratory: No cough, No dyspnea on exertion, No shortness of breath, No sputum, No wheezing Cardiac: No chest pain, No orthopnea Abdomen: No diarrhea, No nausea, No pain, No vomiting Musculoskeletal: No joint pain, No muscle pain Female : No dysuria, No urinary frequency Objective Vital Signs Date Time Temp Pulse Resp B/P Pulse Ox O2 Delivery O2 Flow Rate FiO2 04/13/16 15:32 37.1 61 19 137/80 94 Nasal Cannula 2.0 04/13/16 13:35 67 148/87 93 Nasal Cannula 2.0 04/13/16 09:15 Room Air 04/13/16 07:32 36.3 68 20 164/88 98 Nasal Cannula 2.0 04/13/16 00:19 36.7 65 20 173/90 95 Nasal Cannula 04/13/16 00:13 Nasal Cannula 2.0 04/12/16 19:44 36.5 74 20 121/69 96 Nasal Cannula 2.0 04/12/16 16:00 Nasal Cannula 2.0 Physical Exam General Appearance: WD/WN, + mild distress Neck: supple, no adenopathy Respiratory/Chest: chest non-tender, lungs clear, normal breath sounds Cardiovascular: no gallop, no JVD Abdomen: non tender, soft Neurologic/Psychiatric: alert, normal mood/affect Laboratory Results Last 24 Hours Test 04/13/16 06:30 White Blood Count 6.11 K/uL Red Blood Count 4.74 M/uL Hemoglobin 14.2 g/dL Hematocrit 42.3 % Mean Corpuscular Volume 89.2 fL Mean Corpuscular Hemoglobin 30.0 pg Mean Corpuscular Hemoglobin Concent 33.6 g/dl Platelet Count 166 K/uL Mean Platelet Volume 9.9 fL Neutrophils (%) (Auto) 62.6 % Lymphocytes (%) (Auto) 29.0 % Monocytes (%) (Auto) 5.9 % Eosinophils (%) (Auto) 2.0 % Basophils (%) (Auto) 0.5 % Neutrophils # (Auto) 3.83 K/uL Lymphocytes # (Auto) 1.77 K/uL Monocytes # (Auto) 0.36 K/uL Eosinophils # (Auto) 0.12 K/uL Basophils # (Auto) 0.03 K/uL RDW Standard Deviation 42.5 fL RDW Coefficient of Variation 13.0 % Immature Granulocyte % (Auto) 0.0 % Immature Granulocyte # (Auto) 0.00 K/uL Sodium Level 143 mmol/L Potassium Level 4.0 mmol/L Chloride Level 109 mmol/L Carbon Dioxide Level 28 mmol/L Anion Gap 6.0 mmol/L Blood Urea Nitrogen 20 mg/dl Creatinine 0.68 mg/dl Est Creatinine Clear Calc Drug Dose 96.8 ml/min Estimated GFR () 104.9 Estimated GFR (Non- 90.5 BUN/Creatinine Ratio 29.0 Random Glucose 99 mg/dl Calcium Level 9.0 mg/dl Assessment and Plan 59 yo female with a past history of coronary artery disease treated conservatively who presents to the emergency room with malaise and chest pain. Given that she has a history of cardiac disease, she is intermediate probability and requires admission for chest pain rule out and serial cardiac enzyme monitoring. Chest pain - Etiology unclear at this time: - Cardiac enzymes 3 negative; there are nonspecific lateral T-wave changes EKG with chest pain; sublingual nitroglycerin with chest pain ASA 81 mg daily, per home regimen Patient does not take a statin. She would benefit from discussion on taking daily for the purposes of secondary prevention Echocardiogram EF 60-65%, no WMA, grade 2 diastolic dysfunction - Blood pressure also noted to be very high at baseline. Started lisinopril and hydralazine PRN and continued clonidine, and added norvasc Hypertension - Continue home dose of clonidine, and added hydralazine and lisinopril in addition to norvasc - Likely contributing to headaches Obstructive sleep apnea - Patient has been followed for severe obstructive sleep apnea by Dr. Clinton. Patient was reportedly noncompliant with CPAP and it was stopped - Patient apparently changed over oxygen by nasal cannula is at nighttime but has not been doing so for several months - Currently she is on 2 L by nasal cannula Titrate oxygen to goal of greater than 94% GERD - Omeprazole not available in the hospital; pharmacy to replace DVT prophylaxis - Enoxaparin 40 mg subcutaneous daily CODE STATUS - Full level I code - designated as substitute decision-maker if patient cannot make decisions for herself Disposition - Telemetry - OT and PT orders have been placed
[2016-04-14 00:26] VITALS: BP 161/81; PULSE 59; TEMP 36.5; O2SAT 95
[2016-04-14] MEDS: ACETAMINOPHEN IV 1,000 MG in EMPTY BAG 0 ML IV SCH ×2 (04:17→12:15)
[2016-04-14] MEDS: ENOXAPARIN 40 MG/0.4 ML SYR SC SCH (07:17)
[2016-04-14 07:26] VITALS: BP 164/84; PULSE 66; TEMP 36.5; O2SAT 96
[2016-04-14] MEDS: LISINOPRIL 20 MG TAB PO SCH (07:26)
[2016-04-14] MEDS: PANTOprazole SOD 40 MG TAB PO SCH (07:26)
[2016-04-14] MEDS: CLONIDINE HCL 0.1 MG TAB PO SCH (07:27)
[2016-04-14] MEDS: ASPIRIN 81 MG ECTAB PO SCH (07:27)
[2016-04-14] MEDS ORDERED: AMLODIPINE BESYLATE 5 MG TAB PO SCH (08:00)
[2016-04-14] MEDS ORDERED: APR10 PO (11:19)
[2016-04-14] MEDS ORDERED: NRV5 PO (11:19)
[2016-04-14] MEDS ORDERED: LSN20 PO (11:19)
[2016-04-14] MEDS ORDERED: FRCT/ PO (11:19)
[2016-04-14] MEDS ORDERED: HydrALAZINE 10 MG TAB PO SCH (12:00)
[2016-04-14 12:11] VITALS: BP 148/87; PULSE 64
--- NOTE | 2016-04-14 15:19 | Discharge Instructions ---
Discharge Instructions Admission Reason for Admission: Chest Pain Discharge Discharge Diagnosis / Problem: Chest pain, hypertension Discharge Goals Goal(s): Decrease discomfort, Improve function, Increase independence, Improve disease control, Learn about illness, Diagnostic testing, Prevent Disease Progression Activity Recommendations Activity Limitations: resume your previous activity Lifting Limitations: none Exercise/Sports Limitations: none Shower/Bathe: no limitations . Instructions / Follow-Up Instructions / Follow-Up Patient to be discharged home No need for home oxygen Please note changes in blood pressure medication Hydralazine 10 mg 4 times a day Norvasc 10 mg once daily Lisinopril 20 mg once daily If worsening headache, chest pain or shortness of breath please report to ER Please follow up with Dr Per Gonsales in 1-2 weeks Current Hospital Diet Patient's current hospital diet: AHA Diet (Heart Healthy) Discharge Diet Recommended Diet: AHA Diet (Heart Healthy) Pending Studies Studies pending at discharge: no Laboratory Results Lipid Panel Test 04/11/16 08:00 Range/Units Triglycerides Level 108 0-150 mg/dl Cholesterol Level 160 0-200 mg/dl HDL Cholesterol 42 mg/dl Cholesterol/HDL Ratio 3.8 LDL Cholesterol, Calculated 96 mg/dl Medical Emergencies . Who to Call and When: Medical Emergencies: If at any time you feel your situation is an emergency, please call 911 immediately. . Non-Emergent Contact Non-Emergency issues call your: Primary Care Provider Call Non-Emergent contact if: you have a fever, your pain is not controlled . . "Provider Documentation" section prepared by Fito Pantoja. VTE Core Measure Inpt VTE Proph given/why not?: Enoxaparin (Lovenox)SQ
[2016-04-14 15:30] VITALS: BP 148/87; PULSE 64; TEMP 36.5; O2SAT 96
--- NOTE | 2016-04-14 16:49 | Discharge Summary ---
Discharge Summary Date of Service Apr 14, 2016. Discharge Summary Admission Date: Apr 14, 2016 at 15:11 Discharge Date: Apr 14, 2016 Discharge Disposition: Home Principal Diagnosis: Chest pain, accelerated HTN Immunizations: Have You Had Influenza Vaccine: No History of Tetanus Vaccine?: Unknown History of Pneumococcal: Yes History of Hepatitis B Vaccine: Yes Medication Reconciliation New Medications: Acetamin/Butalbital/Caffeine (Fioricet) 1 Ea Tab 1 TAB PO Q4H PRN for Headache, #30 TAB Amlodipine Besylate (Amlodipine Besylate) 5 Mg Tab 10 MG PO QAM for 30 Days, #30 TAB Hydralazine HCl (Hydralazine HCl) 10 Mg Tab 10 MG PO Q6, #120 TAB Lisinopril (Lisinopril) 20 Mg Tab 20 MG PO QAM for 30 Days, #30 TAB Continued Medications: Aspirin (Aspirin Ec) 81 Mg Tab 81 MG PO DAILY Clonidine Hcl (Catapres) 0.1 Mg Tab 0.1 MG PO TID, TAB Nitroglycerin (Nitrostat) 0.4 Mg Tab 0.4 MG UT PRN PRN for Chest Pain, BTL Omeprazole (Prilosec) 20 Mg Capcr 20 MG PO BID, CAP Discharge Exam Review of Systems: Constitutional: No chills, No fever Respiratory: No cough, No dyspnea at rest, No dyspnea on exertion, No shortness of breath, No sputum, No wheezing Cardiovascular: No chest pain, No orthopnea Abdomen: No constipation, No diarrhea, No nausea, No pain, No vomiting Musculoskeletal: No joint pain Genitourinary - Female: No dysuria, No urinary frequency, No urinary urgency Physical Exam: General Appearance: WD/WN, no apparent distress Neck: supple, no adenopathy Respiratory/Chest: chest non-tender, lungs clear, normal breath sounds Cardiovascular: no edema, no gallop Abdomen / GI: normal bowel sounds, non tender, soft Neurologic/Psychiatric: alert, oriented x 3 Hospital Course 59 yo female with a past history of coronary artery disease treated conservatively who presents to the emergency room with malaise and chest pain. Given that she has a history of cardiac disease, she is intermediate probability and requires admission for chest pain rule out and serial cardiac enzyme monitoring. Chest pain - Etiology unclear at this time: - Cardiac enzymes 3 negative; there are nonspecific lateral T-wave changes EKG with chest pain; sublingual nitroglycerin with chest pain ASA 81 mg daily, per home regimen Patient does not take a statin. She would benefit from discussion on taking daily for the purposes of secondary prevention Echocardiogram EF 60-65%, no WMA, grade 2 diastolic dysfunction - Blood pressure also noted to be very high at baseline. Started lisinopril and hydralazine PRN and continued clonidine, and added norvasc Hypertension - Continue home dose of clonidine, and added hydralazine and lisinopril in addition to norvasc - Likely contributing to headaches - Will need to f/u with PCP for likely titration of antihypertensive medications Obstructive sleep apnea - Patient has been followed for severe obstructive sleep apnea by Dr. Clinton. Patient was reportedly noncompliant with CPAP and it was stopped - Patient apparently changed over oxygen by nasal cannula is at nighttime but has not been doing so for several months - Currently she is on 2 L by nasal cannula Titrate oxygen to goal of greater than 94% GERD - Omeprazole not available in the hospital; pharmacy to replace DVT prophylaxis - Enoxaparin 40 mg subcutaneous daily CODE STATUS - Full level I code - designated as substitute decision-maker if patient cannot make decisions for herself Disposition - Telemetry - OT and PT orders have been placed Total Time Spent: Greater than 30 minutes This includes examination of the patient, discharge planning, medication reconciliation, and communication with other providers. Discharge Instructions Please refer to the electronic Patient Visit Report (Discharge Instructions) for additional information. Additional Copies To RV. Joiner MD
== END 2016-04-14 15:45 | disposition home or self-care (01) | DRG 313 ==
LOC: ENRESERVDT → ENRESERVTM → C.EDB 22:29 → C.EDINP 04-11 01:54 → C.MED 04-11 09:28 → CANBEDREQ 04-12 14:53 → C.MS4W 04-12 21:03 → OBSVTOIN 04-14 15:11
PROVIDERS: ADMIT Student in an Organized Health Care Education/Training Program; ATTEND Hospitalist
DX: R07.9 Chest pain, unspecified (principal); I16.0 Hypertensive urgency; I10 Essential (primary) hypertension; I25.10 Atherosclerotic heart disease of native coronary artery without angina pectoris; R94.31 Abnormal electrocardiogram [ECG] [EKG]; K21.9 Gastro-esophageal reflux disease without esophagitis; G47.33 Obstructive sleep apnea (adult) (pediatric); Z91.19 Patient's noncompliance with other medical treatment and regimen; I25.2 Old myocardial infarction; Z79.82 Long term (current) use of aspirin; Z79.899 Other long term (current) drug therapy

== ENCOUNTER → 2016-05-31 | Outpatient (CLI) | payer OTHER ==
[~2016-05-31] MED LIST changes: +APR10 PO; -ASPEC81 PO; +ASPI81TA28 PO; -Acetamin/Butalbital/Caffeine PO; +FRCT/ PO; +NRV5 PO; -ONDA4TAB46 PO; -TPM25 PO
[2016-05-31 10:07] LABS: BASO % 0.7 %; BASO ABS # 0.04 K/uL (0-0.2); COMPLETE YES; EOS % 1.4 %; IG% 0.2 %; LYMPH % 27.9 %; LYMPH ABS # 1.61 K/uL (1.2-3.4); MEAN CELL VOLUME 88.2 fL (80-100); MEAN PLATELET VOLUME 9.8 fL (7.4-10.4); MONO % 7.8 %; PLATELET COUNT 200 K/uL (130-400); RED BLOOD COUNT 4.76 M/uL (4.2-5.4); WHITE BLOOD COUNT 5.78 K/uL (4.8-10.8)
[2016-05-31 10:39] LABS: ALT/SGPT 57 U/L (12-78); BLOOD UREA NITROGEN 15 mg/dl (7-18); BUN/CREATININE RATIO 20.1 (10-20); CALCIUM 9.1 mg/dl (8.5-10.1); CARBON DIOXIDE 29 mmol/L (21-32); CHLORIDE 106 mmol/L (98-107); CHOLESTEROL 183 mg/dl (0-200); CREATININE 0.75 mg/dl (0.60-1.20); GLUCOSE 90 mg/dl (70-99); POTASSIUM 4.1 mmol/L (3.5-5.1); SODIUM 142 mmol/L (136-145); TRIGLYCERIDES 98 mg/dl (0-150); VERY LOW DENSITY LIPOPROT CALC 20 mg/dl
[2016-05-31 11:09] LABS: ALB/GLOB RATIO 0.9 (0.9-2); ALKALINE PHOSPHATASE 71 U/L (45-117); AST/SGOT 21 U/L (15-37); CHOLESTEROL/HDL RATIO 3.5; HDL CHOLESTEROL 53 mg/dl; LDL CHOLESTEROL CALCULATED 110 mg/dl
== END | disposition home or self-care (01) ==
LOC: C.LAB1850 09:25
PROVIDERS: ATTEND Internal Medicine
DX: I10 Essential (primary) hypertension (principal); E04.2 Nontoxic multinodular goiter

== ENCOUNTER → 2017-04-04 | Outpatient (CLI) | payer OTHER ==
--- NOTE | 2017-04-04 17:22 | DIAGNOSTIC IMAGING REPORT ---
L SHOULDER MIN 2 VIEWS ROUTINE HISTORY: 67 years-old Female M25.512 Left shoulder [id number] acute left shoulder pain COMPARISON: Chest radiograph 04/10/2016 TECHNIQUE: 3 views of the left shoulder FINDINGS: Mild glenohumeral and mild AC joint degenerative changes. The bones appear mildly demineralized. There is no acute fracture or dislocation identified. The clavicle appears intact. Imaged lung saavedra appear clear. There is no opaque foreign body identified. IMPRESSION: Mild degenerative changes without acute fracture or dislocation. The above report was generated using voice recognition software. It may contain grammatical, syntax or spelling errors. Electronically signed by: Marquis Tanner M.D. 04/04/2017 5:21 PM Dictated Date/Time: 04/04/2017 5:20 PM
--- NOTE | 2017-04-04 17:40 | DIAGNOSTIC IMAGING REPORT ---
C-SPINE ROUTINE 4 OR 5 VIEWS CLINICAL HISTORY: 67 years-old Female presenting with M50.90 Cervical disc [id number]. TECHNIQUE: Lateral, bilateral oblique, frontal, open-mouth odontoid, and swimmer's views of the cervical spine were obtained. COMPARISON: None. FINDINGS: Slight straightening of normal cervical lordosis likely positional. The C7 vertebral body is fully visualized on swimmer's view. Vertebral bodies maintain normal height and alignment. Intervertebral disc spaces maintained. No significant degenerative change is radiographically evident. Suboptimal positioning of the oblique view for evaluation of right neural foramina. Within this limitation, no radiographic evidence of osseous neural foraminal narrowing. Lateral masses of C1 articulate normally with C2. Normal atlantodental interval. No prevertebral soft tissue swelling. IMPRESSION: Examination limited by suboptimal positioning on oblique view, which degrades evaluation of right neural foramina. Within this limitation, no significant degenerative change or radiographic evidence of acute osseous injury. Electronically signed by: Zaheer Lopez M.D. 04/04/2017 5:39 PM Dictated Date/Time: 04/04/2017 5:36 PM
== END | disposition home or self-care (01) ==
LOC: C.RAD1850 16:49
PROVIDERS: ATTEND Internal Medicine
DX: M50.90 Cervical disc disorder, unspecified, unspecified cervical region (principal); M25.512 Pain in left shoulder

== ENCOUNTER → 2017-04-12 | Outpatient (CLI) | payer OTHER ==
--- NOTE | 2017-04-12 16:27 | DIAGNOSTIC IMAGING REPORT ---
RIGHT SHOULDER 3 VIEWS HISTORY: Right shoulder pain. COMPARISON: None. FINDINGS: No fracture or dislocation. Mild glenohumeral and AC joint degenerative changes are noted. The right clavicle is intact. Soft tissues are unremarkable. No radiopaque foreign bodies. IMPRESSION: Mild degenerative changes within the right shoulder. No fractures or dislocation. Electronically signed by: Chepe Rose M.D. 04/12/2017 4:26 PM Dictated Date/Time: 04/12/2017 4:24 PM
== END | disposition home or self-care (01) ==
LOC: C.RAD1850 16:00
PROVIDERS: ATTEND Internal Medicine
DX: M25.511 Pain in right shoulder (principal)

== ENCOUNTER → 2017-05-12 | Outpatient (CLI) | payer OTHER ==
[~2017-05-12] MED LIST changes: +ACET-749 PO; +APR25 PO; +ASPI1TAB83 PO; +BUTACAP7 PO; +CTP1CL PO; +LISI-725 PO; +NRN100 PO; +NRV/5 PO; +OMEP20CA9 PO
[2017-05-12 17:30] LABS: BASO % 0.5 %; BASO ABS # 0.04 K/uL (0-0.2); EOS % 1.3 %; HEMATOCRIT 42.7 % (37-47); HEMOGLOBIN 14.5 g/dL (12.0-16.0); IG# 0.01 K/uL (0.00-0.02); LYMPH % 25.7 %; LYMPH ABS # 1.96 K/uL (1.2-3.4); MEAN CELL VOLUME 89.5 fL (80-100); MEAN CORPUSCULAR HEMOGLOBIN 30.4 pg (25-34); MONO % 7.6 %; MONO ABS # 0.58 K/uL (0.11-0.59); NEUT % 64.8 %; NEUT ABS # 4.93 K/uL (1.4-6.5); PLATELET COUNT 185 K/uL (130-400); RED CELL DISTRIBUTION WIDTH CV 12.9 % (11.5-14.5); WHITE BLOOD COUNT 7.62 K/uL (4.8-10.8)
[2017-05-12 17:54] LABS: ALBUMIN 3.4 gm/dl (3.4-5.0); ALT/SGPT 65 U/L (12-78); BLOOD UREA NITROGEN 18 mg/dl (7-18); CALCIUM 8.9 mg/dl (8.5-10.1); CARBON DIOXIDE 29 mmol/L (21-32); CHOLESTEROL 170 mg/dl (0-200); CREATININE 0.88 mg/dl (0.60-1.20); GLUCOSE 103 mg/dl (70-99); POTASSIUM 3.8 mmol/L (3.5-5.1); SODIUM 141 mmol/L (136-145)
[2017-05-12 18:02] LABS: ALKALINE PHOSPHATASE 77 U/L (45-117); AST/SGOT 31 U/L (15-37); LDL CHOLESTEROL CALCULATED 96 mg/dl; TOTAL PROTEIN 7.5 gm/dl (6.4-8.2)
== END | disposition home or self-care (01) ==
LOC: C.LAB1850 17:05
PROVIDERS: ATTEND Internal Medicine
DX: I10 Essential (primary) hypertension (principal); E78.5 Hyperlipidemia, unspecified; E04.2 Nontoxic multinodular goiter

== ENCOUNTER → 2017-05-12 | Outpatient (CLI) | payer OTHER ==
--- NOTE | 2017-05-12 13:54 | DIAGNOSTIC IMAGING REPORT ---
MRI CERVICAL WITHOUT CONTRAST CLINICAL HISTORY: M54.12 Cervical radiculopathy NECK PAIN WITH BILATERAL ARM RADICULOPATHY. TECHNIQUE: Sagittal and axial T1, T2 and STIR images were obtained. COMPARISON STUDY: Conventional radiographic study dated 04/04/2017 [employer] images demonstrate a thyroid goiter. There are no suspicious areas of marrow replacement. No intrinsic cervical cord lesions are visualized. C2-3: There is no evidence of disc bulge or focal herniation. There is no spinal or foraminal stenosis. C3-4: There is no evidence of disc bulge or focal herniation. There is no spinal or foraminal stenosis. C4-5: There is a minor circumferential disc bulge. There is no significant spinal or foraminal stenosis C5-6 :There is a moderate central disc protrusion with deformity anterior thecal sac and mild posterior deflection of the spinal cord. There is no significant foraminal narrowing C6-7: There is no evidence of disc bulge or focal herniation. There is no evidence of spinal or foraminal stenosis. C7-T1: There is no evidence of disc bulge or focal herniation. There is no evidence of spinal or foraminal stenosis. 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 IMPRESSION: 1. Moderate central disc protrusion at the C5-6 level. 2. Prominent thyroid goiter Electronically signed by: Andrew Adame M.D. 05/12/2017 1:52 PM Dictated Date/Time: 05/12/2017 1:47 PM
== END | disposition home or self-care (01) ==
LOC: C.MRI 12:13
PROVIDERS: ATTEND Psychiatry & Neurology Neurology
DX: M50.122 Cervical disc disorder at C5-C6 level with radiculopathy (principal); E04.9 Nontoxic goiter, unspecified

== ENCOUNTER → 2017-05-19 | Outpatient (CLI) | payer OTHER ==
[~2017-05-19] MED LIST changes: +OXYC-57 PO
--- NOTE | 2017-05-19 16:38 | DIAGNOSTIC IMAGING REPORT ---
R UPPER EXT JOINT WITHOUT CLINICAL HISTORY: 67 years-old Female presenting with SHOULDER PAIN, right shoulder pain and limited range of motion, no injury. TECHNIQUE: Multisequence, multiplanar MR imaging of the right shoulder was performed without the use of intravenous contrast. IV contrast: None. COMPARISON: Plain radiographs from 04/12/2017. FINDINGS: Localizer images: Unremarkable. Evaluation limited by motion artifact, which slightly limits diagnostic sensitivity. No bony edema. Mild cartilage thinning of the inferior humeral head suggested. Articular cartilage of the glenoid grossly preserved. Blunting of the posterior labrum likely chronic degenerative change. Tear of the superior glenoid labrum at the level of the biceps labral complex along the undersurface possibly involving the articular cartilage. The tear does not appear to extend through the biceps anchor. This tear appears to extend from 11:00 to 1:00, consistent with a superior labral anterior to posterior tear. The long head of the biceps remains well seated within the intertubercular groove. Short head of the biceps tendon intact. Long head of the triceps tendon intact. Full-thickness tear of the insertional fibers of the supraspinatus. Partial undersurface tear of the critical zone of the anterior infraspinatus suggested. Teres minor and subscapularis tendons intact. Degenerative changes of the acromioclavicular joint. Small shoulder joint effusion. Mild fatty atrophy of the supraspinatus and infraspinatus muscles. Normal signal intensity of the musculature. IMPRESSION: 1. Findings suspicious for superior labral anterior to posterior tear from 11:00 to 1:00. Though this does involve the biceps labral complex, the biceps tendon anchor is spared. 2. Full-thickness tear of the insertional fibers of the supraspinatus. 3. Suspected partial undersurface tear of the critical zone of the anterior fibers of the infraspinatus. 4. Degenerative changes of the acromioclavicular joint. 5. Small shoulder joint effusion. Electronically signed by: Zaheer Lopez M.D. 05/19/2017 4:36 PM Dictated Date/Time: 05/19/2017 4:29 PM
== END | disposition home or self-care (01) ==
LOC: C.MRIBC 15:39
PROVIDERS: ATTEND Internal Medicine
DX: F19.90 Other psychoactive substance use, unspecified, uncomplicated (principal); M25.511 Pain in right shoulder; M25.619 Stiffness of unspecified shoulder, not elsewhere classified; M54.12 Radiculopathy, cervical region; R93.7 Abnormal findings on diagnostic imaging of other parts of musculoskeletal system; S14.3XXA Injury of brachial plexus, initial encounter; X58.XXXA Exposure to other specified factors, initial encounter

== ENCOUNTER 2017-05-23 20:23 | Inpatient (IN) | payer OTHER ==
[~2017-05-23] VITALS: Ht 165.1 cm; Wt 105.0 kg
[~2017-05-23 20:23] MED LIST changes: -ACET-749 PO; -APR25 PO; -ASPI1TAB83 PO; -BUTACAP7 PO; -CTP1CL PO; -LISI-725 PO; -NRN100 PO; -NRV/5 PO; -OMEP20CA9 PO; -OXYC-57 PO
[2017-05-23] MEDS ORDERED: ONDANSETRON INJ 2 MG/ML 2 ML VIAL IV STA (21:21)
[2017-05-23] MEDS ORDERED: MoRPHine SULFATE 10 MG/ML CARP/VIAL IV STA (21:21)
--- NOTE | 2017-05-23 21:38 | DIAGNOSTIC IMAGING REPORT ---
CHEST ONE VIEW PORTABLE HISTORY: Atypical chest pain COMPARISON: Chest 04/10/2016. FINDINGS: The lungs are clear. Cardiac silhouette remains mildly enlarged.. No pleural effusions. No pneumothorax. IMPRESSION: Stable mild cardiomegaly. Electronically signed by: Chepe Rose M.D. 05/23/2017 9:37 PM Dictated Date/Time: 05/23/2017 9:36 PM
[2017-05-23 21:46] LABS: BASO % 0.5 %; BASO ABS # 0.03 K/uL (0-0.2); EOS % 1.6 %; HEMATOCRIT 43.5 % (37-47); HEMOGLOBIN 15.2 g/dL (12.0-16.0); IG# 0.01 K/uL (0.00-0.02); LYMPH % 27.6 %; LYMPH ABS # 1.74 K/uL (1.2-3.4); MEAN CELL VOLUME 88.1 fL (80-100); MEAN CORPUSCULAR HEMOGLOBIN 30.8 pg (25-34); MEAN CORPUSCULAR HGB CONC 34.9 g/dl (32-36); MEAN PLATELET VOLUME 9.8 fL (7.4-10.4); MONO % 7.5 %; MONO ABS # 0.47 K/uL (0.11-0.59); NEUT % 62.6 %; NEUT ABS # 3.95 K/uL (1.4-6.5); PLATELET COUNT 196 K/uL (130-400); RED CELL DISTRIBUTION WIDTH CV 12.8 % (11.5-14.5); RED CELL DISTRIBUTION WIDTH SD 40.6 fL (36.4-46.3)
[2017-05-23] MEDS ORDERED: CTP1CL PO (22:00)
[2017-05-23] MEDS ORDERED: APR25 PO (22:00)
[2017-05-23] MEDS ORDERED: LISI-725 PO (22:00)
[2017-05-23] MEDS ORDERED: NRN100 PO (22:00)
[2017-05-23] MEDS ORDERED: ACET-749 PO (22:00)
[2017-05-23] MEDS ORDERED: OMEP20CA9 PO (22:00)
[2017-05-23] MEDS ORDERED: NRV/5 PO (22:00)
[2017-05-23] MEDS ORDERED: ASPI1TAB83 PO (22:09)
[2017-05-23 22:11] LABS: ALBUMIN 3.5 gm/dl (3.4-5.0); ALT/SGPT 67 U/L (12-78); BLOOD UREA NITROGEN 12 mg/dl (7-18); CALCIUM 9.2 mg/dl (8.5-10.1); CARBON DIOXIDE 29 mmol/L (21-32); CREATININE 0.77 mg/dl (0.60-1.20); GLUCOSE 106 mg/dl (70-99); LIPASE 146 U/L (73-393); POTASSIUM 3.7 mmol/L (3.5-5.1); SODIUM 141 mmol/L (136-145)
[2017-05-23] MEDS ORDERED: BUTACAP7 PO (22:12)
[2017-05-23 22:16] LABS: ALKALINE PHOSPHATASE 77 U/L (45-117); AST/SGOT 26 U/L (15-37); TOTAL PROTEIN 7.9 gm/dl (6.4-8.2)
--- NOTE | 2017-05-23 22:34 | DIAGNOSTIC IMAGING REPORT ---
ABDOMINAL ULTRASOUND, RIGHT UPPER QUADRANT HISTORY: Right upper quadrant abdominal pain. Nausea.. COMPARISON: Abdomen and pelvis CT 04/11/2016. FINDINGS: Pancreas: Obscured by overlying bowel gas. Liver: The liver is echogenic consistent with fatty change. Gallbladder: There is a 1 cm stone at the neck of the gallbladder. Gallbladder wall is borderline thickened at 3 mm. CBD: Not well visualized but may measure up to 7 mm which is top normal in size for the patient's age. Right kidney: No hydronephrosis. A 3.7 cm cyst. IMPRESSION: A 1 cm stone at the neck of the gallbladder with borderline gallbladder wall thickening. Clinical correlation recommended to assess for acute cholecystitis. Electronically signed by: Chepe Rose M.D. 05/23/2017 10:32 PM Dictated Date/Time: 05/23/2017 10:30 PM
--- NOTE | 2017-05-23 23:33 | EMERGENCY ROOM VISIT NOTE ---
ED Visit Note First contact with patient: 23:33 I have personally seen and evaluated the patient with the physician assistant passenger locomotive engineer. I agree with the diagnostic/management decisions and have personally been involved in these decisions and agree with the diagnosis.
[2017-05-24] VITALS (12 sets, daily range): BP systolic 126–174; BP diastolic 69–96; PULSE 61–88; TEMP 36.5–37.1; O2SAT 86–94; Ht 165.1 cm; Wt 105.0 kg
--- NOTE | 2017-05-24 00:10 | Surgery Consultation ---
Consultation Date of Consultation: May 23, 2017. Attending Physician: Reason for Consultation: Acute cholecystitis History of Present Illness Patient is a 67F who presents to the ED this evening due to abdominal pain which started Monday. She is Cam[place]onian-speaking and this history was obtained with assistance from her daughter. She reports her pain has gradually worsened since then. Reports pain wrapping around to her back and right shoulder as well. States she started having pain after she ate a bowl of oatmeal for breakfast on monday. Reports multiple similar episodes in the past but they resolved without any medical intervention. States she has been nauseated but denies any vomiting. Denies changes with bowels or urination. Last ate some soup yesterday around 1100. Denies fever/chills/recent illness. FHx positive for gallbladder disease (mother, sister). She does take Aspirin 81mg PO QD. Denies use of other blood thinning or anticoagulant medications. She has not taken her Aspirin since Monday due to her symptoms. PSHx significant for c- section x2 and appendectomy. PMHx significant for hyperlipidemia, HTN, CVA. WBC and LFTs WNL at this time. RUQ U/S shows a 1 cm gallstone at the gallbladder neck with borderline gallbladder wall thickening suspicious for acute cholecystitis. Past Medical/Surgical History Medical Problems: (1) Headache Status: Acute (2) Precordial chest pain Status: Acute Family History No pertinent family history Social History Smoking Status: Never Smoker Drug Use: none Marital Status: Housing Status: lives with family Occupation Status: unemployed Allergies Coded Allergies: Azithromycin (Unverified Allergy, Unknown, BLOOD IN STOOL, MYALGIA, ) Ciprofloxacin (Unverified Allergy, Unknown, BLOOD IN STOOL, MYALGIA, ) Diltiazem (Unverified Allergy, Unknown, HEADACHE, TACHYCARDIA, 04/11/16) Home Medications Scheduled Amlodipine Besylate (Amlodipine Besylate), 5 MG PO DAILY Aspirin (Aspirin), 1 TAB PO DAILY Clonidine Hcl (Catapres), 0.1 MG PO Q8 Gabapentin (Gabapentin), 200 MG PO HS Hydralazine Hcl (Apresoline), 25 MG PO TID Lisinopril (Zestril), 20 MG PO BID Omeprazole (Prilosec), 20 MG PO BID Scheduled PRN Iekvbrlvev-Khnlykw-Rvdirzur (Butal/Asa/Caff), 1-2 TABS PO Q4 PRN for Headache Review of Systems Constitutional: No fever, No chills Respiratory: No shortness of breath Cardiovascular: No chest pain Abdomen: + pain (RUQ wrapping around to back), + nausea, No vomiting, No diarrhea, No constipation Genitourinary - Female: No dysuria Physical Exam Date Time Temp Pulse Resp B/P (MAP) Pulse Ox O2 Delivery O2 Flow Rate FiO2 05/23/17 22:36 64 05/23/17 22:36 63 18 157/83 91 Room Air 05/23/17 21:55 64 18 181/117 94 Room Air 05/23/17 20:25 36.4 100 18 188/123 94 Room Air General Appearance: WD/WN, no apparent distress Head: normocephalic, atraumatic ENT: hearing grossly normal Neck: trachea midline Respiratory/Chest: no respiratory distress, no accessory muscle use Abdomen/GI: no organomegaly, no pulsatile mass, + tenderness (RUQ TTP, + murphys sign), + distended (mild) Neurologic/Psych: alert, normal mood/affect, oriented x 3 Skin: normal color, warm/dry Laboratory Results Last 24 Hours Test 05/23/17 21:25 05/23/17 21:30 White Blood Count 6.30 K/uL Red Blood Count 4.94 M/uL Hemoglobin 15.2 g/dL Hematocrit 43.5 % Mean Corpuscular Volume 88.1 fL Mean Corpuscular Hemoglobin 30.8 pg Mean Corpuscular Hemoglobin Concent 34.9 g/dl Platelet Count 196 K/uL Mean Platelet Volume 9.8 fL Neutrophils (%) (Auto) 62.6 % Lymphocytes (%) (Auto) 27.6 % Monocytes (%) (Auto) 7.5 % Eosinophils (%) (Auto) 1.6 % Basophils (%) (Auto) 0.5 % Neutrophils # (Auto) 3.95 K/uL Lymphocytes # (Auto) 1.74 K/uL Monocytes # (Auto) 0.47 K/uL Eosinophils # (Auto) 0.10 K/uL Basophils # (Auto) 0.03 K/uL RDW Standard Deviation 40.6 fL RDW Coefficient of Variation 12.8 % Immature Granulocyte % (Auto) 0.2 % Immature Granulocyte # (Auto) 0.01 K/uL Sodium Level 141 mmol/L Potassium Level 3.7 mmol/L Chloride Level 107 mmol/L Carbon Dioxide Level 29 mmol/L Anion Gap 6.0 mmol/L Blood Urea Nitrogen 12 mg/dl Creatinine 0.77 mg/dl Est Creatinine Clear Calc Drug Dose 85.6 ml/min Estimated GFR () 92.0 Estimated GFR (Non- 79.3 BUN/Creatinine Ratio 15.0 Random Glucose 106 mg/dl Calcium Level 9.2 mg/dl Total Bilirubin 0.7 mg/dl Direct Bilirubin 0.1 mg/dl Aspartate Amino Transf (AST/SGOT) 26 U/L Alanine Aminotransferase (ALT/SGPT) 67 U/L Alkaline Phosphatase 77 U/L Troponin I < 0.015 ng/ml Total Protein 7.9 gm/dl Albumin 3.5 gm/dl Lipase 146 U/L Urine Color YELLOW Urine Appearance CLEAR Urine pH 7.0 Urine Specific [place] 1.008 Urine Protein NEG Urine Glucose (UA) NEG Urine Ketones NEG Urine Occult Blood NEG Urine Nitrite NEG Urine Bilirubin NEG Urine Urobilinogen NEG Urine Leukocyte Esterase TRACE Urine WBC (Auto) 1-5 /hpf Urine RBC (Auto) 0-4 /hpf Urine Hyaline Casts (Auto) 0 /lpf Urine Epithelial Cells (Auto) 20-30 /lpf Urine Bacteria (Auto) NEG Assessment & Plan symptomatic cholelithiasis with U/S findings concerning for acute cholecystitis. Discussed findings with patient and her family. Plan for laparoscopic cholecystectomy, possible intraoperative cholangiogram , possible open with Dr. Mathew in the OR Today Admit med/surg, NPO after midnight, IV fluids, IV mefoxin 2g q6h, pain medication PRN, Zofran PRN, SCDs. Will consult medicine for a pre-op risk assessment given her cardiac history. Findings discussed with Dr. Mathew. Please contact with questions or concerns.
--- NOTE | 2017-05-24 00:33 | EMERGENCY ROOM VISIT NOTE ---
History First contact with patient: 20:32 Chief Complaint: ABDOMINAL PAIN Stated Complaint: HIGH BLOOD PRESSURE, ABDOMINAL PAIN Nursing Triage Summary: Pt has been having abdominal pain since breakfast. Nausea. Denies diarrhea. Pt was checking her BP at home and it was 180s/110s. History of Present Illness The patient is a 67 year old female who presents to the Emergency Room with complaints of abdominal pain which began this morning after eating breakfast. The patient states that she had a breakfast of porridge and afterward, developed a vague abdominal pain all over her abdomen. The pain has localized and is mostly in the epigastric region and right upper quadrant. The pain radiates up into her chest and throat as well as down into the lower abdomen. She states it is a burning pain and rates the discomfort in 8/10. She states that nothing has made the pain better or worse. She tried herbal supplements and tea without relief. She has been nauseous but has not vomited. Her last bowel movement was this afternoon and it was normal. She feels more bloated than usual. She does state she has a history of GERD but this is more painful. The patient states that she feels like she has a lump in her throat when she swallows. The patient states that she has been slightly short of breath when she has a severe pain, but denies shortness of breath at rest. She took her blood pressure at home and was concerned because it was elevated, 180/110. She has some dyspnea on exertion but states this is chronic for her. She denies fever/chills or urinary symptoms. The patient does admit that she had a similar episode of pain 2 days ago, but it was not as severe as this. She reports a past medical history of GERD, hypertension, appendectomy, hysterectomy and TIA. History is obtained with the help of the patient's granddaughter, who translates for her as the patient speaks primarily Algerian. Review of Systems A complete 10 point review of systems was reviewed with the patient with pertinent positives and negatives as per history of present illness. All else were negative. Past Medical/Surgical History Medical Problems: (1) Acute cholecystitis due to biliary calculus (2) Chest pain (3) ESOPHAGEAL REFLUX (4) HEART DISEASE NOS (5) HYPERLIPIDEMIA NEC/NOS (6) HYPERTENSION NOS (7) HYPOTHYROIDISM NOS Family History No pertinent family history Social History Smoking Status: Never Smoker Alcohol Use: none Drug Use: none Marital Status: Housing Status: lives with family Occupation Status: unemployed Current/Historical Medications Scheduled Amlodipine Besylate (Amlodipine Besylate), 5 MG PO DAILY Aspirin (Aspirin), 1 TAB PO DAILY Clonidine Hcl (Catapres), 0.1 MG PO Q8 Gabapentin (Gabapentin), 200 MG PO HS Hydralazine Hcl (Apresoline), 25 MG PO TID Lisinopril (Zestril), 20 MG PO BID Omeprazole (Prilosec), 20 MG PO BID Scheduled PRN Ghpjzgamxt-Lxjbcgf-Cmxdfars (Butal/Asa/Caff), 1-2 TABS PO Q4 PRN for Headache Physical Exam Vital Signs Date Time Temp Pulse Resp B/P (MAP) Pulse Ox O2 Delivery O2 Flow Rate FiO2 05/23/17 22:36 64 05/23/17 22:36 63 18 157/83 91 Room Air 05/23/17 21:55 64 18 181/117 94 Room Air 05/23/17 20:25 36.4 100 18 188/123 94 Room Air Physical Exam VITALS: Vitals are noted on the nurse's note and reviewed by myself. Vital signs stable. GENERAL: This is a 67-year-old female, in no acute distress, nondiaphoretic, well-developed well-nourished. SKIN: The skin was without rashes. EARS: External auditory canals clear, tympanic membranes pearly iglesias without erythema or effusion bilaterally. EYES: Pupils equal round and reactive to light and accommodation. MOUTH: Mucous membranes moist. Tonsils are not enlarged. Pharynx without erythema or exudate. NECK: Supple without nuchal rigidity. No lymphadenopathy. HEART: Regular rate and rhythm without murmurs gallops or rubs. LUNGS: Clear to auscultation bilaterally without wheezes, rales or rhonchi. No retractions or accessory muscle use. ABDOMEN: Positive bowel sounds x 4. Soft, nondistended. There is tenderness to palpation across the upper abdomen with marked tenderness in the right upper quadrant. No guarding or rebound tenderness. NEURO: Patient was alert and oriented to person place and time. Medical Decision & Procedures ER Provider Diagnostic Interpretation: CHEST ONE VIEW PORTABLE FINDINGS: The lungs are clear. Cardiac silhouette remains mildly enlarged.. No pleural effusions. No pneumothorax. IMPRESSION: Stable mild cardiomegaly. ABDOMINAL ULTRASOUND, RIGHT UPPER QUADRANT FINDINGS: Pancreas: Obscured by overlying bowel gas. Liver: The liver is echogenic consistent with fatty change. Gallbladder: There is a 1 cm stone at the neck of the gallbladder. Gallbladder wall is borderline thickened at 3 mm. CBD: Not well visualized but may measure up to 7 mm which is top normal in size for the patient's age. Right kidney: No hydronephrosis. A 3.7 cm cyst. IMPRESSION: A 1 cm stone at the neck of the gallbladder with borderline gallbladder wall thickening. Clinical correlation recommended to assess for acute cholecystitis. Laboratory Results 05/23/17 21:25 Red Blood Count 4.94, Mean Corpuscular Volume 88.1, Mean Corpuscular Hemoglobin 30.8, Mean Corpuscular Hemoglobin Concent 34.9, Mean Platelet Volume 9.8, Neutrophils (%) (Auto) 62.6, Lymphocytes (%) (Auto) 27.6, Monocytes (%) (Auto) 7.5, Eosinophils (%) (Auto) 1.6, Basophils (%) (Auto) 0.5, Neutrophils # (Auto) 3.95, Lymphocytes # (Auto) 1.74, Monocytes # (Auto) 0.47, Eosinophils # (Auto) 0.10, Basophils # (Auto) 0.03 05/23/17 21:25 Test 05/23/17 21:25 05/23/17 21:30 White Blood Count 6.30 K/uL (4.8-10.8) Red Blood Count 4.94 M/uL (4.2-5.4) Hemoglobin 15.2 g/dL (12.0-16.0) Hematocrit 43.5 % (37-47) Mean Corpuscular Volume 88.1 fL (80-100) Mean Corpuscular Hemoglobin 30.8 pg (25-34) Mean Corpuscular Hemoglobin Concent 34.9 g/dl (32-36) Platelet Count 196 K/uL (130-400) Mean Platelet Volume 9.8 fL (7.4-10.4) Neutrophils (%) (Auto) 62.6 % Lymphocytes (%) (Auto) 27.6 % Monocytes (%) (Auto) 7.5 % Eosinophils (%) (Auto) 1.6 % Basophils (%) (Auto) 0.5 % Neutrophils # (Auto) 3.95 K/uL (1.4-6.5) Lymphocytes # (Auto) 1.74 K/uL (1.2-3.4) Monocytes # (Auto) 0.47 K/uL (0.11-0.59) Eosinophils # (Auto) 0.10 K/uL (0-0.5) Basophils # (Auto) 0.03 K/uL (0-0.2) RDW Standard Deviation 40.6 fL (36.4-46.3) RDW Coefficient of Variation 12.8 % (11.5-14.5) Immature Granulocyte % (Auto) 0.2 % Immature Granulocyte # (Auto) 0.01 K/uL (0.00-0.02) Anion Gap 6.0 mmol/L (3-11) Est Creatinine Clear Calc Drug Dose 85.6 ml/min Estimated GFR () 92.0 Estimated GFR (Non- 79.3 BUN/Creatinine Ratio 15.0 (10-20) Calcium Level 9.2 mg/dl (8.5-10.1) Total Bilirubin 0.7 mg/dl (0.2-1) Direct Bilirubin 0.1 mg/dl (0-0.2) Aspartate Amino Transf (AST/SGOT) 26 U/L (15-37) Alanine Aminotransferase (ALT/SGPT) 67 U/L (12-78) Alkaline Phosphatase 77 U/L (45-117) Troponin I < 0.015 ng/ml (0-0.045) Total Protein 7.9 gm/dl (6.4-8.2) Albumin 3.5 gm/dl (3.4-5.0) Lipase 146 U/L (73-393) Urine Color YELLOW Urine Appearance CLEAR (CLEAR) Urine pH 7.0 (4.5-7.5) Urine Specific [place] 1.008 (1.000-1.030) Urine Protein NEG (NEG) Urine Glucose (UA) NEG (NEG) Urine Ketones NEG (NEG) Urine Occult Blood NEG (NEG) Urine Nitrite NEG (NEG) Urine Bilirubin NEG (NEG) Urine Urobilinogen NEG (NEG) Urine Leukocyte Esterase TRACE (NEG) Urine WBC (Auto) 1-5 /hpf (0-5) Urine RBC (Auto) 0-4 /hpf (0-4) Urine Hyaline Casts (Auto) 0 /lpf (0-5) Urine Epithelial Cells (Auto) 20-30 /lpf (0-5) Urine Bacteria (Auto) NEG (NEG) Medications Administered Medications (Trade) Dose Ordered Sig/Jesika Route Start Time Stop Time Status Last Admin Dose Admin Morphine Sulfate (MoRPHine SULFATE INJ) 6 mg NOW STAT IV 05/23/17 21:21 05/23/17 21:23 DC 05/23/17 21:55 6 MG Ondansetron HCl (Zofran Inj) 4 mg NOW STAT IV 05/23/17 21:21 05/23/17 21:23 DC 05/23/17 21:55 4 MG ECG Per My Interpretation Indication: abdominal pain Rate (beats per minute): 65 Rhythm: normal sinus Findings: nonspecific-ST abn (Lateral), no acute ischemic change, no ectopy Comparison ECG Date: Nonspecific ST abnormality in lateral leads has improved compared to prior ED Course The patient was evaluated as above. Labs were drawn and IV access was obtained. Patient was medicated with 6 mg morphine IV and 4 mg Zofran IV. Patient was reevaluated and findings were discussed. Ultrasound suggestive of cholecystitis. Case was discussed with Josr Flores PA-C of general surgery. The patient will be admitted by the surgical service. Medical Decision Differential diagnosis includes cholecystitis, gastroenteritis, GERD, gastritis , bowel obstruction, aortic dissection, abdominal aortic aneurysm, ACS, pneumonia, among others. The patient is a 67-year-old female who presents today complaining of upper abdominal pain. Labs revealed no leukocytosis, anemia or concerning electrolyte abnormalities. LFTs were not elevated. Urinalysis was not suggestive of infection. EKG not suggestive of acute ischemia, troponin negative. Chest x-ray shows mild cardiomegaly, unchanged from previous. Patient arrived hypertensive, this did improve after treating pain. Ultrasound of the gallbladder did show a 1 cm stone in the gallbladder neck and findings suggestive of possible cholecystitis. General surgery was consulted and will admit the patient for evaluation and treatment. The patient was independently evaluated by Dr. Grover, ED attending physician, who agreed with my assessment and treatment plan. Medication Reconcilliation Current Medication List: was personally reviewed by me Blood Pressure Screening Patient's blood pressure: Elevated blood pressure Blood pressure disposition: Elevated BP felt to be situational Impression Primary Impression: Calculus of gallbladder with cholecystitis Departure Information Referrals RV. Joiner MD (PCP) Patient Instructions Community Health Problem Qualifiers Primary Impression: Calculus of gallbladder with cholecystitis Cholecystitis acuity: acute
[2017-05-24] MEDS: SODIUM CHLORIDE 0.9% 1000ML 1,000 ML IV SCH ×2 (01:57→12:40)
[2017-05-24] MEDS: ACETAMINOPHEN IV 1,000 MG in EMPTY BAG 0 ML IV SCH ×3 (02:00→18:20)
--- NOTE | 2017-05-24 03:46 | Medical Consult ---
Consultation Date of Consultation: May 24, 2017. Attending Physician: Nilesh Mathew DO Reason for Consultation: Preop Medical Clearance History of Present Illness Pt is a Bolivian speaking 67F with a PMHx of OR, DM2, HTN, "gallbladder issues" that presents with worsening RUQ pain since Monday. Patient is Bolivian speaking and the HPI was done with the assistance of a video equipment services associate phone. Patient rates her pain as 5/10. He states that she has always had gallbladder issues but today the pain became much worse. She understands that he will likely need surgery for the gallbladder to be removed as that's what other doctors have told her. She didn't throw up but she was nauseous. She denies having any fevers or diarrhea. Patient does not see a director of global talent in [place]. ROS: + SOB on exertion, no chest pain on exertion, no fevers, no chills, no diarrhea. PMHx: OR 10 years ago in [facility]. PSHx: appendectomy, fibroidectomy, tubal . FMHx: Gallbladder issues. Allergies: as above Meds: Her prepares her meds and she isn't familiar with the names. SHx: Immigrated to [place] 9 years ago, retired, never smoker, doesn't drink alcohol. Past Medical/Surgical History Medical Problems: (1) Calculus of gallbladder with cholecystitis Status: Acute (2) Headache Status: Acute (3) Precordial chest pain Status: Acute Family History No pertinent family history Social History Smoking Status: Never Smoker Smokeless Tobacco Use: No Alcohol Use: none Drug Use: none Marital Status: Housing Status: lives with family Occupation Status: unemployed Allergies Coded Allergies: Azithromycin (Unverified Allergy, Unknown, BLOOD IN STOOL, MYALGIA, 05/24/17 ) Ciprofloxacin (Unverified Allergy, Unknown, BLOOD IN STOOL, MYALGIA, ) Diltiazem (Unverified Allergy, Unknown, HEADACHE, TACHYCARDIA, 04/11/16) Current Inpatient Medications Current Inpatient Medications Medications (Trade) Dose Ordered Sig/Jesika Route Start Time Stop Time Status Last Admin Dose Admin Ondansetron HCl (Zofran Inj) 4 mg Q6H PRN IV 05/24/17 00:00 06/23/17 00:00 Sodium Chloride 1,000 ml @ 80 mls/hr [id number] IV 05/24/17 02:00 06/23/17 01:59 05/24/17 01:57 80 MLS/HR Cefoxitin Sodium 2000 mg/Dextrose 60 ml @ 100 mls/hr PREOP IV 05/24/17 06:00 05/24/17 18:00 Hydromorphone HCl (Dilaudid Inj) 0.5 mg Q1H PRN IV 05/24/17 00:00 06/07/17 00:00 Hydromorphone HCl (Dilaudid Inj) 1 mg Q1H PRN IV 05/24/17 00:00 06/07/17 00:00 Acetaminophen 1000 mg/Empty Bag 100 ml @ 400 mls/hr Q8H IV 05/24/17 02:00 06/23/17 01:59 05/24/17 02:00 400 MLS/HR Review of Systems Constitutional: No fever, No chills Respiratory: No cough, No sputum, No wheezing, No shortness of breath Abdomen: + pain, + nausea, No vomiting, No diarrhea, No constipation Physical Exam Date Time Temp Pulse Resp B/P (MAP) Pulse Ox O2 Delivery O2 Flow Rate FiO2 05/24/17 00:46 Room Air 05/24/17 00:30 75 18 147/78 98 Room Air 05/23/17 22:36 64 05/23/17 22:36 63 18 157/83 91 Room Air 05/23/17 21:55 64 18 181/117 94 Room Air 05/23/17 20:25 36.4 100 18 188/123 94 Room Air General Appearance: WD/WN, no apparent distress Head: normocephalic, atraumatic Eyes: normal inspection, PERRL ENT: normal ENT inspection Neck: no adenopathy Respiratory/Chest: chest non-tender, lungs clear, normal breath sounds, no respiratory distress, no accessory muscle use Cardiovascular: regular rate, rhythm, no edema, no gallop, no JVD, no murmur, normal peripheral pulses Abdomen/GI: + pertinent finding Back: normal inspection, no CVA tenderness Extremities/Musculoskelatal: normal inspection, no calf tenderness, no pedal edema Neurologic/Psych: registered art therapist II-XII nml as tested, no motor/sensory deficits, alert, normal mood/affect, oriented x 3 Laboratory Results Last 24 Hours Test 05/23/17 21:25 05/23/17 21:30 White Blood Count 6.30 K/uL Red Blood Count 4.94 M/uL Hemoglobin 15.2 g/dL Hematocrit 43.5 % Mean Corpuscular Volume 88.1 fL Mean Corpuscular Hemoglobin 30.8 pg Mean Corpuscular Hemoglobin Concent 34.9 g/dl Platelet Count 196 K/uL Mean Platelet Volume 9.8 fL Neutrophils (%) (Auto) 62.6 % Lymphocytes (%) (Auto) 27.6 % Monocytes (%) (Auto) 7.5 % Eosinophils (%) (Auto) 1.6 % Basophils (%) (Auto) 0.5 % Neutrophils # (Auto) 3.95 K/uL Lymphocytes # (Auto) 1.74 K/uL Monocytes # (Auto) 0.47 K/uL Eosinophils # (Auto) 0.10 K/uL Basophils # (Auto) 0.03 K/uL RDW Standard Deviation 40.6 fL RDW Coefficient of Variation 12.8 % Immature Granulocyte % (Auto) 0.2 % Immature Granulocyte # (Auto) 0.01 K/uL Sodium Level 141 mmol/L Potassium Level 3.7 mmol/L Chloride Level 107 mmol/L Carbon Dioxide Level 29 mmol/L Anion Gap 6.0 mmol/L Blood Urea Nitrogen 12 mg/dl Creatinine 0.77 mg/dl Est Creatinine Clear Calc Drug Dose 85.6 ml/min Estimated GFR () 92.0 Estimated GFR (Non- 79.3 BUN/Creatinine Ratio 15.0 Random Glucose 106 mg/dl Calcium Level 9.2 mg/dl Total Bilirubin 0.7 mg/dl Direct Bilirubin 0.1 mg/dl Aspartate Amino Transf (AST/SGOT) 26 U/L Alanine Aminotransferase (ALT/SGPT) 67 U/L Alkaline Phosphatase 77 U/L Troponin I < 0.015 ng/ml Total Protein 7.9 gm/dl Albumin 3.5 gm/dl Lipase 146 U/L Urine Color YELLOW Urine Appearance CLEAR Urine pH 7.0 Urine Specific [place] 1.008 Urine Protein NEG Urine Glucose (UA) NEG Urine Ketones NEG Urine Occult Blood NEG Urine Nitrite NEG Urine Bilirubin NEG Urine Urobilinogen NEG Urine Leukocyte Esterase TRACE Urine WBC (Auto) 1-5 /hpf Urine RBC (Auto) 0-4 /hpf Urine Hyaline Casts (Auto) 0 /lpf Urine Epithelial Cells (Auto) 20-30 /lpf Urine Bacteria (Auto) NEG Assessment & Plan 67F admitted to surgical service for acute cholecystitis. Pre-Op Clearance. Pt has new T wave changes on EKG - this is of unknown clinical significance. Her last echo was in 2017 with good EF and no wall motion abnormalities. According to the Chema Modified Love Index this patient has a cardiac index score of 2pts or a 6.6% chance of perioperative risk. Will defer to cardiology - pt may need a stress echo prior to surgery. HTN c/w norvasc. c/w Lisinopril. c/w Hydralazine. c/w clonidine. CAD Hold ASA perioperatively. Pinched Nerve c/w Gabapentin. DVT Proph: SCDs Diet: NPO for surgery, has IVF, recommend heart healthy diet when complete. FULL CODE. Attending addendum: I have physically seen this patient, have supervised the medical residents activities, and agree with the H&P unless as otherwise noted. Assessment and Plan: Acute cholecystitis-- Admitted to the surgical service of Dr. Mathew. CAD/hypertension-- Continue with Norvasc, lisinopril, hydralazine and clonidine, all with hold parameters. Hold aspirin. EKG shows new T-wave inversions inferiorly. We will order a 2D echocardiogram with Dopplers, and consult cardiology for their opinion regarding perioperative risk as above. Resident Involvement: Resident Care Provided Care Provided: Adult Hospital Medicine
[2017-05-24 05:57] LABS: BASO % 0.4 %; BASO ABS # 0.03 K/uL (0-0.2); EOS % 0.9 %; EOS ABS # 0.06 K/uL (0-0.5); HEMATOCRIT 44.3 % (37-47); HEMOGLOBIN 15.1 g/dL (12.0-16.0); IG# 0.01 K/uL (0.00-0.02); LYMPH % 25.9 %; LYMPH ABS # 1.82 K/uL (1.2-3.4); MEAN CELL VOLUME 89.5 fL (80-100); MEAN CORPUSCULAR HEMOGLOBIN 30.5 pg (25-34); MEAN CORPUSCULAR HGB CONC 34.1 g/dl (32-36); MEAN PLATELET VOLUME 9.8 fL (7.4-10.4); MONO ABS # 0.49 K/uL (0.11-0.59); NEUT % 65.7 %; NEUT ABS # 4.62 K/uL (1.4-6.5); PLATELET COUNT 188 K/uL (130-400); RED CELL DISTRIBUTION WIDTH CV 12.8 % (11.5-14.5); RED CELL DISTRIBUTION WIDTH SD 41.3 fL (36.4-46.3); WHITE BLOOD COUNT 7.03 K/uL (4.8-10.8)
[2017-05-24] MEDS ORDERED: CEFOXITIN IV 2,000 MG in DEXTROSE 5% 50ML 50 ML IV SCH (06:00)
[2017-05-24 06:36] LABS: ALBUMIN 3.2 gm/dl (3.4-5.0); CREATININE 0.74 mg/dl (0.60-1.20); TOTAL PROTEIN 7.8 gm/dl (6.4-8.2)
[2017-05-24] MEDS: HYDROmorphone INJ 0.5 MG/0.5 ML SYR IV PRN ×2 (07:05→22:22)
[2017-05-24 07:19] LABS: POTASSIUM 3.9 mmol/L (3.5-5.1)
[2017-05-24] MEDS: LISINOPRIL 20 MG TAB PO SCH (07:54)
[2017-05-24] MEDS: PANTOprazole SOD 40 MG TAB PO SCH ×2 (07:54→21:37)
[2017-05-24] MEDS ORDERED: ONDANSETRON INJ 2 MG/ML 2 ML VIAL IV PRN ×3 (08:00→13:15)
[2017-05-24] MEDS ORDERED: ATROPINE SULFATE 0.1 MG/ML 5ML SYR IV PRN ×2 (08:00→13:15)
[2017-05-24] MEDS ORDERED: EpHEDrine SULFATE INJ 50 MG/ML AMP IV PRN ×2 (08:00→13:15)
[2017-05-24] MEDS ORDERED: HYDROmorphone INJ 2 MG/ML SYR/VIAL IV PRN ×2 (08:00)
[2017-05-24] MEDS ORDERED: PHENYLEPHRINE 100MCG/ML 5ML SYR IV PRN ×2 (08:00→13:15)
[2017-05-24] MEDS ORDERED: PNEUMOCOCCAL ADMINISTRATION CHARGE ONE (08:10)
[2017-05-24] MEDS ORDERED: PNEUMOCOCCAL POLYSACCHARIDES 25 MCG/0.5 ML VIAL/SYR IM. ONE (08:10)
[2017-05-24] MEDS ORDERED: AMLODIPINE BESYLATE 5 MG TAB PO SCH (09:00)
[2017-05-24] MEDS ORDERED: HydrALAZINE HCL 20 MG/ML VIAL IV. STA (09:04)
[2017-05-24] MEDS ORDERED: HydrALAZINE HCL 20 MG/ML VIAL IV. PRN (09:15)
[2017-05-24] MEDS ORDERED: AMLODIPINE BESYLATE 5 MG TAB PO ONE (09:59)
[2017-05-24] MEDS ORDERED: LIDOCAINE HCL 2% 2 ML VIAL (20MG/ML) ONE (11:46)
[2017-05-24] MEDS ORDERED: LARYING-O-JET KIT (LTA) ONE (11:46)
[2017-05-24] MEDS ORDERED: FENTANYL CITRATE INJ 50 MCG/1 ML 2 ML VIAL ONE ×2 (11:47→14:17)
--- NOTE | 2017-05-24 11:54 | CARDIOLOGY CONSULTATION REPORT ---
DATE OF CONSULTATION: 05/24/2017 REASON FOR CONSULTATION: 1. Preoperative cardiac evaluation. 2. History of CAD. 3. Acute cholecystitis. HISTORY OF PRESENT ILLNESS: Mrs. Buck is a 67-year-old Monegasque-speaking female with a history of CAD, status post WA (details unknown, occurred 12 years ago in [facility]), Hypertension, Dyslipidemia, GERD, Obesity, and Chronic Abdominal Pain -- who was admitted acutely to [facility] on 05/23/2017 with Acute Cholecystitis. She will be undergoing a laparoscopic cholecystectomy with Dr. Mathew later today. The patient offers no complaints other than her abdominal pain, which radiates to her back and right shoulder. She has also had nausea, but no vomiting. The patient denies any exertional chest pain, heaviness, tightness, pressure, or discomfort. She denies any exertional neck, jaw, back, or arm pain. She does admit to chronic stable dyspnea on exertion, but this has not changed in recent years. The patient is able to walk up 2 flights of stairs with only mild dyspnea. She recovers very quickly. She denies any orthopnea, PND, palpitations, syncope or near syncope. The patient's last Echocardiogram on 04/11/2016 showed normal LV size and systolic function, LVEF 60%-65% without regional wall motion abnormalities, moderate concentric LVH, grade 2 diastolic dysfunction, and a mildly dilated left atrium. Estimated RVSP 27 mmHg. No significant change compared to study in May 2014. MEDICATIONS: 1. Neurontin 200 mg p.o. at bedtime. 2. Hydralazine 10 mg IV q. 6 hours p.r.n. for elevated blood pressure. 3. Norvasc 5 mg daily. 4. Hydralazine 25 mg p.o. t.i.d. 5. Lisinopril 20 mg b.i.d. 6. Protonix 40 mg b.i.d. 7. Dilaudid 0.5 mg IV q. 5 minutes p.r.n. for pain. 8. Zofran 4 mg IV q. 6 hours p.r.n. for nausea and vomiting. 9. Normal saline at 80 mL per hour. 10. Tylenol 1000 mg IV q. 8 hours. ALLERGIES: 1. CIPROFLOXACIN. 2. DILTIAZEM. 3. AZITHROMYCIN. PAST MEDICAL HISTORY: 1. CAD, status post remote myocardial infarction 12 years ago. Details unknown as list occurred when she was still in [facility]. 2. Hypertension. 3. Dyslipidemia. 4. GERD. 5. Obesity. 6. Chronic abdominal pain. 7. History of chest pain syndrome. 8. Currently with acute cholecystitis. 9. History of goiter. 10. Status post appendectomy. 11. History of total abdominal hysterectomy. SOCIAL HISTORY: The patient is and lives with her locally. She did not speak Ethiopian. Her [place] language is Monegasque. Communication was provided through interpreting service today. The patient is a life-long nonsmoker. FAMILY HISTORY: Noncontributory. PHYSICAL EXAMINATION: VITAL SIGNS: Temperature 36.7 degrees Celsius, pulse is 60 and regular, respiratory rate is 16 and unlabored, blood pressure is 170/90, and SpO2 is 94% on 2 L of oxygen via nasal cannula. HEAD, EYES, EARS, NOSE, AND THROAT: Head is atraumatic and normocephalic. EOMs intact. Sclera anicteric. Faces symmetric. No perioral cyanosis. Mucous membranes moist. NECK: Without thyromegaly, adenopathy, or JVD. Carotid upstrokes are +2 bilaterally without bruits. CHEST AND LUNGS: Clear to auscultation throughout all lung saavedra. No wheezes, rales, or rhonchi. CARDIOVASCULAR SYSTEM: S1 and S2 are regular without murmur, gallop, or rub. PMI is nonpalpable. No lifts, heaves, or thrills. No abdominal, aortic or renal bruits. ABDOMINAL EXAMINATION: Bowel sounds are present. Tender to palpation across the bilateral upper quadrants. EXTREMITIES: Without clubbing, cyanosis or edema. Intact femoral pulses bilaterally. Intact radial pulses bilaterally. Intact posterior tibial pulses bilaterally. NEUROLOGIC EXAMINATION: The patient is awake, alert and interactive. Communicates efficiently through a gyroscopic engineering technician service. Follows commands. EKG on admission shows normal sinus rhythm at 65 beats per minute with moderate voltage criteria for LVH and a nonspecific lateral T-wave abnormality. When compared to EKG of 04/11/2016, nonspecific T-wave abnormality in the lateral leads has improved. ASSESSMENT: 1. Acute cholecystitis. 2. Coronary artery disease, status post myocardial infarction 12 years ago (details unknown). 3. Chronic stable dyspnea on exertion. 4. Left ventricular hypertrophy with grade 2 diastolic dysfunction. 5. Hypertension, not adequately controlled. 6. Dyslipidemia. 7. History of gastroesophageal reflux disease. 8. Preoperative cardiac evaluation. 9. Diagnoses as mentioned above. PLAN: 1. The patient presented with acute cholecystitis and will be undergoing laparoscopic cholecystectomy today. Although, the details of her WA and coronary anatomy are unknown she is able to climb 2 flights of stairs with only mild chronic stable dyspnea on exertion and has a normal LV systolic function on most recent Echocardiogram. Additionally, her EKG is improved compared to prior tracing. Based on these factors and the need for her upcoming surgery, the patient is a low to intermediate cardiac surgical risk for laparoscopic cholecystectomy. We would recommend that she take her usual antihypertensive regimen including Hydralazine and Amlodipine on the day of surgery with sips of water. Due to her uncontrolled HTN - we will increase her Amlodipine to 10 mg daily. 2. Continue monitoring daily laboratories. 3. Ongoing DVT prophylaxis as per surgeon. 4. There is no need for further cardiac workup at this time. 5. Resume Lisinopril and Clonidine postoperatively. Thank you for asking us to see this patient in consultation. MALACHI
--- NOTE | 2017-05-24 11:58 | History & Physical Bridge Note ---
H&P Re-Evaluation Bridge Note: I have examined the patient, reviewed the History & Physical and in the interval since the performance of the History & Physical I have noted the following changes of clinical significance: Discussed with cardiology, they do not feel any further testing is needed and allow us to proceed with surgery today. We used the patient's granddaughter who is on staff here as the gta and patient was consented for lap scopic cholecystectomy with possible cholangiogram today. No changes noted
[2017-05-24] MEDS ORDERED: ACETAMINOPHEN 1000 MG/100 ML IV IV ONE (12:25)
[2017-05-24] MEDS ORDERED: PROPOFOL IV EMULSION 10 MG/ML 20 ML VIAL IV ONE (13:38)
[2017-05-24] MEDS ORDERED: ONDANSETRON INJ 2 MG/ML 2 ML VIAL ONE (13:38)
[2017-05-24] MEDS ORDERED: MIDAZOLAM HCL 1 MG/ML 2ML VIAL ONE (13:50)
[2017-05-24] MEDS ORDERED: BUPIVACAINE 0.5 % 5 MG/1 ML MPF 30ML VIAL ONE (13:51)
[2017-05-24] MEDS ORDERED: IOPAMIDOL IV ONE (14:44)
[2017-05-24] MEDS ORDERED: EpHEDrine SULFATE 50MG/5ML SYR ONE (14:59)
[2017-05-24] MEDS ORDERED: VASOPRESSIN 20 UNIT/ML VIAL ONE (14:59)
[2017-05-24] MEDS ORDERED: PHENYLEPHRINE 100MCG/ML 5ML SYR ONE (14:59)
[2017-05-24] MEDS ORDERED: DEXAMETHASONE SOD INJ 4 MG/ML VIAL ONE ×2 (14:59→16:01)
--- NOTE | 2017-05-24 14:59 | DIAGNOSTIC IMAGING REPORT ---
CHOLANGIOGRAM O.R. CLINICAL HISTORY: 67 years-old Female presenting with IOC. TECHNIQUE: Fluoroscopy was provided for an intraoperative cholangiogram status post cholecystectomy. Contrast was injected through the cystic duct remnant. COMPARISON: None. FINDINGS: The common bile duct is normal in course and caliber. There are no filling defects seen within the common bile duct to suggest a retained stone. Contrast extends into the small bowel. There is no intrahepatic bile duct dilatation. Fluoroscopy dosage (mGy): 10.2. Fluoroscopy time: 36.4 seconds. Number of fluoroscopic spot images: 5. IMPRESSION: Fluoroscopy provided for an intraoperative cholangiogram status post cholecystectomy. No filling defects within the common bile duct. Electronically signed by: Zaheer Lopez M.D. 05/24/2017 2:57 PM Dictated Date/Time: 05/24/2017 2:57 PM
--- NOTE | 2017-05-24 15:06 | [facility] Post Operative Brief Note ---
Immediate Operative Summary Operative Date May 24, 2017. Pre-Operative Diagnosis Acute cholecystitis Post-Operative Diagnosis Acute cholecystitis Procedure(s) Performed Laparoscopic Cholecystectomy, Intraoperative Cholangiogram Surgeon Dr. Nilesh Mathew Sales Representative Gas Service Surgeon(s) Fam Green PA-C Estimated Blood Loss 4CC Findings Consistent with Post-Op Diagnosis Window of safety obtained, cholangiogram negative Specimens Permanent specimens A: Gallbladder and contents Drains None Anesthesia Type General Complication(s) none Disposition Accompanied Pt To Recover: no Disposition: Recovery Room / PACU
--- NOTE | 2017-05-24 15:11 | [facility] Operative Report ---
Operative Report Operative Date May 24, 2017. Pre-Operative Diagnosis Acute cholecystitis Post-Operative Diagnosis Acute cholecystitis Procedure(s) Performed Laparoscopic cholecystectomy with intraoperative cholangiogram Surgeon Dr. Nilesh Mathew Generating Plant Superintendent Surgeon(s) Fam Green PA-C Estimated Blood Loss 4CC Findings Window of safety obtained, cholangiogram negative, cystic duct and artery doubly clipped and divided. Good hemostasis. Specimens Permanent specimens A: Gallbladder and contents Drains None Anesthesia General Complication(s) None Disposition Recovery Room / PACU Indications 67-year-old female admitted overnight with acute calculus cholecystitis. After evaluation by internal medicine and cardiology she was deemed appropriate surgical risk. Plan for laparoscopic cholecystectomy with cholangiogram. The risks of the procedure were discussed, all questions were answered, and the patient agreed to proceed with surgery as planned. Description of Procedure The patient was properly identified, consented, and taken to the operating room where she was placed in the supine position. General endotracheal anesthesia was induced. SCDs and a safety belt were placed. Preoperative antibiotics were administered. The patient's abdomen was prepped and draped in the standard sterile fashion. A surgical timeout was performed and all parties were in agreement that this was the correct patient and procedure to be performed and we continued as planned. An incision was made superior and to the left of the umbilicus overlying the rectus muscle and the Veress needle was inserted. Saline drop test confirmed entry into the peritoneum. The abdomen was insufflated with carbon dioxide which the patient tolerated without incident. The abdomen was then entered using the Optiview technique and a 5 mm trocar. The laparoscope was inserted and no damage from initial trocar or Veress needle placement was noted, no gross abnormalities were noted within the 4 quadrants of the abdomen. An 11 mm port was placed in the subxiphoid position and two 5 mm ports were then placed in the right subcostal position. The patient was placed in reverse Trendelenburg position and rotated towards the left. There is moderate inflammation of the gallbladder. The dome of the gallbladder was retracted towards the left upper quadrant and the infundibulum was retracted toward the right lower quadrant revealing Calot's triangle. Peritoneal attachments were taken down with electrocautery and blunt dissection. The cystic duct and artery were circumferentially dissected. A window of safety was obtained showing the cystic duct entering the gallbladder with no aberrant structures noted. The Corby cholangiocatheter was then used to perform an intraoperative cholangiogram which showed no filling defects, and good filling of the duodenum and hepatic radicals with contrast. The cystic duct and artery were doubly clipped and divided. A small posterior branch of the cystic artery was clipped and divided. The gallbladder was then lifted off the gallbladder fossa with electrocautery. The gallbladder was placed in an Endo Catch bag and removed through the umbilical port site. The right upper quadrant was irrigated and hemostasis was found to be good. 5 mm trochars were removed under direct visualization and the abdomen was allowed to collapse. The umbilical port site fascia was closed with 0 Vicryl suture. The wound was irrigated, and the skin of all ports was closed with 4-0 Monocryl subcuticular sutures. Dermabond was placed over the wounds. The patient was extubated in the operating room and taken to the PACU where she recovered without apparent incident. All sponge, instrument and needle counts were correct at the conclusion of the procedure. The patient tolerated the procedure well. The physician's orthodontic technician assistant was present and scrubbed for the entirety of the case. He was critical in positioning the patient, prepping and draping, entry into the abdomen, driving the laparoscope, retraction and exposure, removal of the gallbladder, closure of the incisions, and placement of the dressings per I attest to the content of the Intraoperative Record and any orders documented therein. Any exceptions are noted below.
--- NOTE | 2017-05-24 15:13 | [facility] Operative Report ---
Operative Report Operative Date May 24, 2017. Pre-Operative Diagnosis Acute cholecystitis Surgeon Dr. Nilesh Mathew Findings Fluoroscopy was used and interpreted by the operative surgeon for the cholangiogram. A total of 36.4 seconds of fluoroscopy time was utilized. I attest to the content of the Intraoperative Record and any orders documented therein. Any exceptions are noted below.
--- NOTE | 2017-05-24 15:20 | Progress Note ---
Progress Note Date of Service May 24, 2017. Progress Note Medical consultation completed after midnight. Patient again seen and examined by me this morning. Granddaughter at beside who acted as french pastry cook. Patient reports feeling much better. She only has very minimal pain remaining in the RUQ. She denies any nausea or vomiting. The patient denies fevers, chills, sweats, chest pain, palpitations, claudication, cough, wheezing, shortness of breath, nausea, vomiting, dysuria, hematuria, urinary retention, paralysis, weakness, numbness and tingling. Physical exam positive for mild diffuse tenderness to palpation in the abdomen, otherwise unremarkable. A/P: Acute cholecystitis, pre op clearance -Pt had TWI in leads III, aVF, V3-V6. No chest pain, troponin negative. TWI in leads V3-V6 present in previous EKG as well -Last echo Mar 2016 showed EF 60-65%. No WMA. Moderate LVH. Grade II diastolic dysfunction -Cardiology consulted for pre op clearance, appreciate recs: Patient low to intermediate cardiac surgical risk for lap erica. Recommend continuing usual antihypertensive regimen including hydralazine and amlodipine on day of surgery. Increase amlodipine to 10 mg daily. No further cardiac work up at this time. Resume lisinopril and clonidine postop. -Acceptable risk for surgery -Plan for lap erica today, surgery team to manage HTN--stable -Will hold lisinopril for now, can resume tomorrow if renal function is stable postop. Resume clonidine postop -Continue hydralazine 25 mg PO TID -Amlodipine increased to 10 mg PO qd per cardio CAD, h/o IA -ASA on hold, resume when ok with surgical team Neuropathy -Continue gabapentin 200 mg PO hs
[2017-05-24] MEDS: HYDROmorphone INJ 2 MG/ML SYR/VIAL IV PRN ×3 (15:47→16:10)
[2017-05-24] MEDS ORDERED: SCOPOLAMINE 1.5 MG TDSY TD ONE (16:01)
[2017-05-24] MEDS ORDERED: NURSING VERBAL MED ORDER ONE (16:30)
[2017-05-24] MEDS ORDERED: PROMETHAZINE HCL INJ 6.25 MG in SODIUM CHLORIDE 0.9% 50ML 50 ML IV ONE (16:45)
--- NOTE | 2017-05-24 17:28 | Anesthesiology Progress Note ---
Anesthesia Post Op Note Date & Time May 24, 2017 at 17:28 Vital Signs Pain Intensity: 4 Vital Signs Past 12 Hours Date Time Temp Pulse Resp B/P (MAP) Pulse Ox O2 Delivery O2 Flow Rate FiO2 05/24/17 17:13 64 16 92 05/24/17 17:13 63 16 05/24/17 17:11 121/65 05/24/17 17:08 59 16 94 05/24/17 17:08 58 16 05/24/17 17:06 119/69 05/24/17 17:03 61 17 05/24/17 17:03 60 17 93 05/24/17 17:01 138/66 05/24/17 16:58 62 14 05/24/17 16:58 62 14 92 05/24/17 16:57 61 18 05/24/17 16:57 63 18 92 05/24/17 16:56 134/68 05/24/17 16:52 67 19 05/24/17 16:52 65 19 91 05/24/17 16:51 127/66 05/24/17 16:47 58 14 91 05/24/17 16:47 58 14 05/24/17 16:46 131/63 05/24/17 16:42 58 14 91 05/24/17 16:42 61 14 05/24/17 16:41 133/60 05/24/17 16:37 59 13 05/24/17 16:37 58 13 93 05/24/17 16:36 135/71 05/24/17 16:32 74 47 93 05/24/17 16:32 73 47 05/24/17 16:31 139/63 05/24/17 16:27 62 16 93 05/24/17 16:27 69 16 05/24/17 16:22 57 15 92 05/24/17 16:22 57 15 05/24/17 16:21 138/61 05/24/17 16:18 60 16 05/24/17 16:18 59 16 92 05/24/17 16:16 129/58 05/24/17 16:13 57 15 92 05/24/17 16:13 57 15 05/24/17 16:11 141/67 05/24/17 16:08 74 12 05/24/17 16:08 75 12 97 05/24/17 16:07 84 22 96 05/24/17 16:07 81 22 05/24/17 16:06 129/69 05/24/17 16:02 57 15 05/24/17 16:02 57 15 92 05/24/17 16:01 126/63 05/24/17 15:57 60 15 93 05/24/17 15:57 60 15 05/24/17 15:56 128/63 05/24/17 15:53 57 16 131/68 93 05/24/17 15:53 57 16 05/24/17 15:48 66 14 05/24/17 15:48 66 14 93 05/24/17 15:46 170/97 05/24/17 15:43 85 23 05/24/17 15:43 86 23 99 05/24/17 15:41 148/85 05/24/17 15:38 63 14 05/24/17 15:38 63 14 99 05/24/17 15:36 145/81 05/24/17 15:33 62 16 05/24/17 15:33 63 16 99 05/24/17 15:31 150/82 05/24/17 15:28 71 14 05/24/17 15:28 71 14 95 05/24/17 15:27 71 17 05/24/17 15:27 71 17 94 05/24/17 15:26 147/90 05/24/17 15:22 80 17 05/24/17 15:22 80 17 94 05/24/17 15:21 122/84 05/24/17 15:18 144/78 05/24/17 15:17 96 20 93 05/24/17 15:17 96 20 05/24/17 15:17 36.5 95 18 144/78 93 Oxymask 10 05/24/17 11:57 151/84 (106) 05/24/17 11:50 37.1 86 20 170/96 (120) 94 Nasal Cannula 2.0 05/24/17 10:46 152/92 (112) 05/24/17 09:20 94 Nasal Cannula 2.0 05/24/17 09:08 36.7 61 20 170/90 (116) 94 Nasal Cannula 2.0 05/24/17 09:04 174/84 (114) 05/24/17 07:35 Nasal Cannula 2.0 Notes Mental Status: alert / awake / arousable, participated in evaluation Pt Amnestic to Procedure: Yes Nausea / Vomiting: adequately controlled Pain: adequately controlled Airway Patency, RR, SpO2: stable & adequate BP & HR: stable & adequate Hydration State: stable & adequate Anesthetic Complications: no major complications apparent
[2017-05-24] MEDS: GABAPENTIN 100 MG CAP PO SCH (21:37)
[2017-05-25] VITALS (15 sets, daily range): BP systolic 114–143; BP diastolic 63–78; PULSE 61–70; TEMP 36.8–37.2; O2SAT 85–93
[2017-05-25] MEDS: SODIUM CHLORIDE 0.9% 1000ML 1,000 ML IV SCH ×2 (01:38→13:52)
[2017-05-25] MEDS: ACETAMINOPHEN IV 1,000 MG in EMPTY BAG 0 ML IV SCH ×3 (01:54→17:50)
[2017-05-25] MEDS: HYDROmorphone INJ 0.5 MG/0.5 ML SYR IV PRN ×3 (05:55→20:29)
[2017-05-25 08:10] LABS: HEMATOCRIT 41.8 % (37-47); HEMOGLOBIN 13.9 g/dL (12.0-16.0); MEAN CELL VOLUME 90.7 fL (80-100); MEAN CORPUSCULAR HEMOGLOBIN 30.2 pg (25-34); MEAN CORPUSCULAR HGB CONC 33.3 g/dl (32-36); MEAN PLATELET VOLUME 9.4 fL (7.4-10.4); PLATELET COUNT 203 K/uL (130-400); RED CELL DISTRIBUTION WIDTH SD 42.6 fL (36.4-46.3); WHITE BLOOD COUNT 11.76 K/uL (4.8-10.8)
[2017-05-25 08:44] LABS: CALCIUM 9.1 mg/dl (8.5-10.1); CREATININE 0.83 mg/dl (0.60-1.20); POTASSIUM 4.6 mmol/L (3.5-5.1)
[2017-05-25] MEDS: PANTOprazole SOD 40 MG TAB PO SCH ×2 (08:47→21:57)
[2017-05-25] MEDS: AMLODIPINE BESYLATE 5 MG TAB PO SCH (08:48)
--- NOTE | 2017-05-25 09:01 | Anesthesiology Progress Note ---
Anesthesia Post Op Note Date & Time May 25, 2017 at 08:59 Vital Signs Pain Intensity: 4.0 Vital Signs Past 12 Hours Date Time Temp Pulse Resp B/P (MAP) Pulse Ox O2 Delivery O2 Flow Rate FiO2 05/25/17 07:17 Nasal Cannula 3.0 05/25/17 07:04 36.8 64 16 122/71 (88) 91 3.0 05/25/17 03:40 37.0 68 15 136/74 (94) 92 Nasal Cannula 3.0 05/25/17 00:15 93 Nasal Cannula 4.0 05/24/17 22:49 36.9 88 15 138/80 (99) 90 Nasal Cannula 3.0 Notes Mental Status: alert / awake / arousable Airway Patency, RR, SpO2: stable & adequate BP & HR: stable & adequate Hydration State: stable & adequate RN caring for patient, assessment done by observation only. [place] patient say 4/ 10 pain.
[2017-05-25] MEDS: LISINOPRIL 20 MG TAB PO SCH ×2 (09:28→21:57)
--- NOTE | 2017-05-25 10:12 | CARDIOLOGY PROGRESS NOTE ---
DATE: 05/25/2017 SUBJECTIVE: Mrs. Buck is resting comfortably in bed without complaints of chest pain or dyspnea. Postoperative pain adequately controlled. OBJECTIVE: VITAL SIGNS: Blood pressure 124/74 with a regular pulse of 70. Respiratory rate is 16. The patient is afebrile at 36.8 degrees Celsius. Saturations 92% on 3 liters nasal cannula. NECK: Supple with full carotid upstrokes. No obvious bruits. Jugular venous pressure is flat at 90 degrees. There is no thyromegaly. CARDIOVASCULAR: Reveals a regular rhythm with normal S1, S2. Heart sounds are distant. No obvious murmurs. LUNGS: Clear without rales, rhonchi, or wheeze. ABDOMEN: Soft. Surgical wounds are intact. EXTREMITIES: Reveal intact radial artery pulse bilaterally. Trace pretibial edema is noted. LABORATORY DATA: CBC notes hemoglobin of 13.9, hematocrit 41.8, white count 9.76, and platelet count 203,000. Electrolytes note a sodium of 139, potassium 4.6, chloride 106, bicarbonate 20, BUN 14, creatinine 0.83, glucose 122. IMPRESSION AND PLAN: 1. Status post laparoscopic cholecystectomy -- per Dr. Mathew. 2. Coronary artery disease -- patient has not had a cardiac catheterization, however, apparently had an myocardial infarction approximately 12 years ago. Details unknown. 3. Hypertension -- with mild left ventricular hypertrophy and evidence of diastolic dysfunction. 4. Hypercholesterolemia.
[2017-05-25] MEDS ORDERED: OXYC-57 PO (11:14)
[2017-05-25] MEDS ORDERED: OXYCODONE/ACETAMINOPHEN 5-325 TAB PO PRN (11:15)
--- NOTE | 2017-05-25 11:17 | Discharge Instructions ---
Discharge Instructions Date of Service May 25, 2017. Admission Reason for Admission: Acute Cholecystitis Due To Biliary Calculus Discharge Discharge Diagnosis / Problem: laparoscopic cholecystitis Discharge Goals Goal(s): Decrease discomfort Activity Recommendations Activity Limitations: as noted below Lifting Limitations: no more than 10 pounds Shower/Bathe: no limitations . Instructions / Follow-Up Instructions / Follow-Up Dr. Mathew in 2 weeks, call [phone] to schedule, [address] You can take 2 tabs of the amlodipine you have at home daily until seen by PCP Current Hospital Diet Patient's current hospital diet: Clear Liquid Diet Discharge Diet Recommended Diet: Regular Diet Procedures Procedures Performed: Laparoscopic Cholecystectomy, Intraoperative Cholangiogram Pending Studies Studies pending at discharge: no Laboratory Results Lipid Panel Test 05/12/17 17:08 Range/Units Triglycerides Level 175 H 0-150 mg/dl Cholesterol Level 170 0-200 mg/dl HDL Cholesterol 39 mg/dl Cholesterol/HDL Ratio 4.4 LDL Cholesterol, Calculated 96 mg/dl Medical Emergencies . Who to Call and When: Medical Emergencies: If at any time you feel your situation is an emergency, please call 911 immediately. . Non-Emergent Contact Non-Emergency issues call your: Surgeon Call Non-Emergent contact if: you have a fever, temperature is above 101.5, your pain is not controlled, wound has increased redness, you have any medication questions . "Provider Documentation" section prepared by Fam Green. . [place] Drug Monitoring Program Search Results: no issues identified
[2017-05-25] MEDS ORDERED: NRV5 PO ×3 (11:25→11:30)
--- NOTE | 2017-05-25 12:26 | Surgery Progress Note ---
Surgery Progress Note Date of Service May 25, 2017. Subjective 67-year-old female admitted with acute cholecystitis, POD#1 status post laparoscopic cholecystectomy with negative cholangiogram. She is [place]- speaking and her granddaughter who happens to be an employee in the OR was used for translation. Overall doing well, pain significantly improved, tolerated full liquids this morning. She is still on oxygen. Her blood pressure is significantly improved. Objective Vital Signs: Date Time Temp Pulse Resp B/P (MAP) Pulse Ox O2 Delivery O2 Flow Rate FiO2 05/25/17 12:00 93 Nasal Cannula 3.0 05/25/17 11:59 85 Room Air 05/25/17 11:38 37.2 61 16 92 Room Air 05/25/17 11:16 37.2 61 16 117/63 (81) 92 3.0 05/25/17 11:13 93 Nasal Cannula 3.0 05/25/17 09:25 70 16 124/74 (91) 92 Nasal Cannula 3.0 05/25/17 07:17 Nasal Cannula 3.0 05/25/17 07:04 36.8 64 16 122/71 (88) 91 3.0 05/25/17 03:40 37.0 68 15 136/74 (94) 92 Nasal Cannula 3.0 05/25/17 00:15 93 Nasal Cannula 4.0 05/24/17 22:49 36.9 88 15 138/80 (99) 90 Nasal Cannula 3.0 05/24/17 18:46 36.7 71 20 131/79 (96) 94 Oxymask 4.0 05/24/17 18:17 93 Oxymask 4.0 05/24/17 18:07 36.5 65 16 126/69 (88) 93 Oxymask 4.0 05/24/17 18:00 Oxymask 4.0 05/24/17 17:51 129/68 05/24/17 17:48 36.7 94 Oxymask 4 05/24/17 17:47 64 23 96 05/24/17 17:47 65 23 05/24/17 17:46 131/69 05/24/17 17:42 69 15 05/24/17 17:42 66 15 94 05/24/17 17:41 118/70 05/24/17 17:37 63 17 05/24/17 17:37 64 17 93 4/4/18 17:36 123/71 4/4/18 17:32 65 26 93 4/4/18 17:32 64 26 4/4/18 17:31 116/76 4/4/18 17:27 66 20 95 4/4/18 17:27 65 20 4/4/18 17:26 129/61 4/4/18 17:24 62 15 95 4/4/18 17:24 64 15 4/4/18 17:21 133/66 4/4/18 17:19 63 14 94 4/4/18 17:19 63 14 4/4/18 17:16 124/65 4/4/18 17:14 64 13 //18 17:14 65 13 94 //18 17:13 64 16 92 //18 17:13 63 16 4//18 17:11 121/65 //18 17:08 59 16 94 4//18 17:08 58 16 4//18 17:06 119/69 //18 17:03 61 17 4//18 17:03 60 17 93 4/4/18 17:01 138/66 4//18 16:58 62 14 //18 16:58 62 14 92 //18 16:57 61 18 //18 16:57 63 18 92 4//18 16:56 134/68 4//18 16:52 67 19 4//18 16:52 65 19 91 4/4/18 16:51 127/66 4//18 16:47 58 14 91 /4/18 16:47 58 14 4/4/18 16:46 131/63 4/4/18 16:42 58 14 91 4/4/18 16:42 61 14 4/4/18 16:41 133/60 4/4/18 16:37 59 13 4/4/18 16:37 58 13 93 4/4/18 16:36 135/71 4/4/18 16:32 74 47 93 4/4/18 16:32 73 47 4/4/18 16:31 139/63 4/4/18 16:27 62 16 93 4/4/18 16:27 69 16 4/4/18 16:22 57 15 92 4/4/18 16:22 57 15 4/4/18 16:21 138/61 4/4/18 16:18 60 16 4//18 16:18 59 16 92 4/4/18 16:16 129/58 4/4/18 16:13 57 15 92 4/4/18 16:13 57 15 4//18 16:11 141/67 4/4/18 16:08 74 12 4/4/18 16:08 75 12 97 4//18 16:07 84 22 96 4/4/18 16:07 81 22 4//18 16:06 129/69 4//18 16:02 57 15 4//18 16:02 57 15 92 4//18 16:01 126/63 //18 15:57 60 15 93 4//18 15:57 60 15 4//18 15:56 128/63 //18 15:53 57 16 131/68 93 4//18 15:53 57 16 //18 15:48 66 14 4//18 15:48 66 14 93 4//18 15:46 170/97 4//18 15:43 85 23 4/4/18 15:43 86 23 99 //18 15:41 148/85 //18 15:38 63 14 4//18 15:38 63 14 99 4/4/18 15:36 145/81 4/4/18 15:33 62 16 4//18 15:33 63 16 99 4/4/18 15:31 150/82 4//18 15:28 71 14 4/4/18 15:28 71 14 95 4/4/18 15:27 71 17 4/4/18 15:27 71 17 94 4/4/18 15:26 147/90 4/4/18 15:22 80 17 4/4/18 15:22 80 17 94 4/4/18 15:21 122/84 4/4/18 15:18 144/78 4/4/18 15:17 96 20 93 4/4/18 15:17 96 20 4/4/18 15:17 36.5 95 18 144/78 93 Oxymask 10 General Appearance: WD/WN, no apparent distress Abdomen: normal bowel sounds, non tender, non distended, soft, no organomegaly , no pulsatile mass Incision(s): clean, dry, intact, no erythema, no drainage Laboratory Results: Results Past 24 Hours Test 05/25/17 07:46 Range/Units White Blood Count 11.76 4.8-10.8 K/uL Red Blood Count 4.61 4.2-5.4 M/uL Hemoglobin 13.9 12.0-16.0 g/dL Hematocrit 41.8 37-47 % Mean Corpuscular Volume 90.7 80-100 fL Mean Corpuscular Hemoglobin 30.2 25-34 pg Mean Corpuscular Hemoglobin Concent 33.3 32-36 g/dl RDW Standard Deviation 42.6 36.4-46.3 fL RDW Coefficient of Variation 13.0 11.5-14.5 % Platelet Count 203 130-400 K/uL Mean Platelet Volume 9.4 7.4-10.4 fL Sodium Level 139 136-145 mmol/L Potassium Level 4.6 3.5-5.1 mmol/L Chloride Level 106 98-107 mmol/L Carbon Dioxide Level 28 21-32 mmol/L Anion Gap 6.0 3-11 mmol/L Blood Urea Nitrogen 14 7-18 mg/dl Creatinine 0.83 0.60-1.20 mg/dl Est Creatinine Clear Calc Drug Dose 78.0 ml/min Estimated GFR () 84.0 Estimated GFR (Non- 72.5 BUN/Creatinine Ratio 16.4 10-20 Random Glucose 122 70-99 mg/dl Calcium Level 9.1 8.5-10.1 mg/dl Chemistry Specimen Hemolysis Assessment & Plan POD#1 laparoscopic cholecystectomy with negative cholangiogram, doing well. Advance diet as tolerated Wean oxygen Follow-up internal medicine recommendations for blood pressure Discharge to home later today if tolerates regular diet, pain controlled, and is doing well. Follow up in 2 weeks in the surgery clinic Wound care instructions and return precautions given, call with questions or concerns.
--- NOTE | 2017-05-25 13:18 | Hospitalist Progress Note ---
Hospitalist Progress Note Date of Service May 25, 2017. Subjective Pt evaluation today including: conversation w/ patient, physical exam, chart review, lab review, review of inpatient medication list Patient complains of moderate RUQ pain with intermittent sharp jabs. She is tolerating a PO diet without nausea or vomiting. The patient remains on oxygen. Nursing attempted to wean her off, O2 sat was 85% on room air. She is only 93% on 3L. Pt does not wear oxygen at home. The patient denies fevers, chills, sweats, chest pain, palpitations, claudication, cough, wheezing, shortness of breath, nausea, vomiting, dysuria, hematuria, urinary retention, paralysis, weakness, numbness and tingling. Additional Comments: See HPI for pertinent positives and negatives. All other systems reviewed and negative. Objective Vital Signs Date Time Temp Pulse Resp B/P (MAP) Pulse Ox O2 Delivery O2 Flow Rate FiO2 05/25/17 12:00 93 Nasal Cannula 3.0 05/25/17 11:59 85 Room Air 05/25/17 11:38 37.2 61 16 92 Room Air 05/25/17 11:16 37.2 61 16 117/63 (81) 92 3.0 05/25/17 11:13 93 Nasal Cannula 3.0 05/25/17 09:25 70 16 124/74 (91) 92 Nasal Cannula 3.0 05/25/17 07:17 Nasal Cannula 3.0 05/25/17 07:04 36.8 64 16 122/71 (88) 91 3.0 05/25/17 03:40 37.0 68 15 136/74 (94) 92 Nasal Cannula 3.0 05/25/17 00:15 93 Nasal Cannula 4.0 05/24/17 22:49 36.9 88 15 138/80 (99) 90 Nasal Cannula 3.0 05/24/17 18:46 36.7 71 20 131/79 (96) 94 Oxymask 4.0 05/24/17 18:17 93 Oxymask 4.0 05/24/17 18:07 36.5 65 16 126/69 (88) 93 Oxymask 4.0 05/24/17 18:00 Oxymask 4.0 05/24/17 17:51 129/68 05/24/17 17:48 36.7 94 Oxymask 4 4/4/18 17:47 64 23 96 4//18 17:47 65 23 4//18 17:46 131/69 4//18 17:42 69 15 4//18 17:42 66 15 94 4//18 17:41 118/70 //18 17:37 63 17 4//18 17:37 64 17 93 4//18 17:36 123/71 //18 17:32 65 26 93 //18 17:32 64 26 4//18 17:31 116/76 //18 17:27 66 20 95 //18 17:27 65 20 //18 17:26 129/61 //18 17:24 62 15 95 /18 17:24 64 15 //18 17:21 133/66 /18 17:19 63 14 94 //18 17:19 63 14 /18 17:16 124/65 /18 17:14 64 13 /18 17:14 65 13 94 /18 17:13 64 16 92 /18 17:13 63 16 /18 17:11 121/65 /18 17:08 59 16 94 //18 17:08 58 16 18 17:06 119/69 /18 17:03 61 17 //18 17:03 60 17 93 //18 17:01 138/66 //18 16:58 62 14 //18 16:58 62 14 92 4//18 16:57 61 18 //18 16:57 63 18 92 //18 16:56 134/68 //18 16:52 67 19 //18 16:52 65 19 91 //18 16:51 127/66 //18 16:47 58 14 91 //18 16:47 58 14 //18 16:46 131/63 //18 16:42 58 14 91 //18 16:42 61 14 //18 16:41 133/60 //18 16:37 59 13 4/4/18 16:37 58 13 93 4/4/18 16:36 135/71 4/4/18 16:32 74 47 93 4/4/18 16:32 73 47 4/4/18 16:31 139/63 4/4/18 16:27 62 16 93 4/4/18 16:27 69 16 4/4/18 16:22 57 15 92 4/4/18 16:22 57 15 4/4/18 16:21 138/61 4/4/18 16:18 60 16 4/4/18 16:18 59 16 92 4/4/18 16:16 129/58 4/4/18 16:13 57 15 92 4/4/18 16:13 57 15 4/4/18 16:11 141/67 4/4/18 16:08 74 12 4/4/18 16:08 75 12 97 4/4/18 16:07 84 22 96 4/4/18 16:07 81 22 4/4/18 16:06 129/69 4/4/18 16:02 57 15 4/4/18 16:02 57 15 92 4/4/18 16:01 126/63 4/4/18 15:57 60 15 93 4/4/18 15:57 60 15 4/4/18 15:56 128/63 4/4/18 15:53 57 16 131/68 93 4/4/18 15:53 57 16 4/4/18 15:48 66 14 4/4/18 15:48 66 14 93 4/4/18 15:46 170/97 4/4/18 15:43 85 23 4/4/18 15:43 86 23 99 4/4/18 15:41 148/85 4/4/18 15:38 63 14 4/4/18 15:38 63 14 99 4/4/18 15:36 145/81 4/4/18 15:33 62 16 4/4/18 15:33 63 16 99 4/4/18 15:31 150/82 4/4/18 15:28 71 14 4/4/18 15:28 71 14 95 4/4/18 15:27 71 17 4/4/18 15:27 71 17 94 4/4/18 15:26 147/90 4/4/18 15:22 80 17 4/4/18 15:22 80 17 94 05/24/17 15:21 122/84 05/24/17 15:18 144/78 05/24/17 15:17 96 20 93 05/24/17 15:17 96 20 05/24/17 15:17 36.5 95 18 144/78 93 Oxymask 10 Physical Exam Notes: General appearance: +Obese. Moderate distress. Well-developed, well-nourished Head: Normocephalic, atraumatic Eyes: Normal inspection, PERRL, EOMI ENT: Normal ENT inspection, hearing grossly normal, pharynx normal Neck: Supple, no JVD, trachea midline Respiratory/Chest: +On 3L NC. Lungs clear to auscultation, normal breath sounds, no respiratory distress Cardiovascular: Regular rate & rhythm, no gallop, no murmur Abdomen/GI: +Diffusely TTP, most marked in RUQ. RUQ very tender to even light palpation. Normal bowel sounds, soft Extremities/Musculoskeletal: Normal inspection, no calf tenderness, no pedal edema Neurological/Psych: Alert, normal mood/affect, oriented x 3 Skin: Normal color, warm/dry, no rash Laboratory Results Last 24 Hours Test 05/25/17 07:46 White Blood Count 11.76 K/uL Red Blood Count 4.61 M/uL Hemoglobin 13.9 g/dL Hematocrit 41.8 % Mean Corpuscular Volume 90.7 fL Mean Corpuscular Hemoglobin 30.2 pg Mean Corpuscular Hemoglobin Concent 33.3 g/dl RDW Standard Deviation 42.6 fL RDW Coefficient of Variation 13.0 % Platelet Count 203 K/uL Mean Platelet Volume 9.4 fL Sodium Level 139 mmol/L Potassium Level 4.6 mmol/L Chloride Level 106 mmol/L Carbon Dioxide Level 28 mmol/L Anion Gap 6.0 mmol/L Blood Urea Nitrogen 14 mg/dl Creatinine 0.83 mg/dl Est Creatinine Clear Calc Drug Dose 78.0 ml/min Estimated GFR () 84.0 Estimated GFR (Non- 72.5 BUN/Creatinine Ratio 16.4 Random Glucose 122 mg/dl Calcium Level 9.1 mg/dl Chemistry Specimen Hemolysis Assessment and Plan 67 y/o female with a history of CAD s/p [place], HTN, HLD, neuropathy and GERD who presents with acute cholecystitis. Acute cholecystitis, pre op clearance--s/p lap erica POD #1 -Pt admitted by surgery, medicine consulted for pre op clearance -Pt had TWI in leads III, aVF, V3-V6. No chest pain, troponin negative. TWI in leads V3-V6 present in previous EKG as well -Last echo Mar 2016 showed EF 60-65%. No WMA. Moderate LVH. Grade II diastolic dysfunction -Cardiology consulted for pre op clearance, appreciate recs: Patient low to intermediate cardiac surgical risk for lap erica. Recommend continuing usual antihypertensive regimen including hydralazine and amlodipine on day of surgery. Increase amlodipine to 10 mg daily. No further cardiac work up at this time. Resume lisinopril and clonidine postop. -Acceptable risk for surgery -Plan for lap erica today, surgery team to manage -Pt appears to be moderately distressed secondary to pain on IV pain medications and requiring 3L NC oxygen (new). Would continue to monitor HTN--stable -Renal function stable, resume lisinopril 20 mg PO BID -Resume clonidine 0.1 mg PO q8h -Continue hydralazine 25 mg PO TID -Amlodipine increased to 10 mg PO qd per cardio CAD, h/o [place] -ASA on hold, resume when ok with surgical team Neuropathy -Continue gabapentin 200 mg PO hs
[2017-05-25] MEDS: CLONIDINE HCL 0.1 MG TAB PO SCH ×2 (13:28→21:57)
[2017-05-25] MEDS ORDERED: NURSING VERBAL MED ORDER ONE (18:15)
[2017-05-25] MEDS ORDERED: DiphenhydrAMINE HCL 50 MG/ML VIAL IV PRN ×2 (18:15)
[2017-05-25] MEDS: GABAPENTIN 100 MG CAP PO SCH (21:57)
[2017-05-26] VITALS: O2SAT 92
[2017-05-26] MEDS: ACETAMINOPHEN IV 1,000 MG in EMPTY BAG 0 ML IV SCH ×2 (01:33→10:00)
[2017-05-26] MEDS: CLONIDINE HCL 0.1 MG TAB PO SCH ×2 (06:34→14:12)
[2017-05-26 07:40] VITALS: BP 128/82; PULSE 57; TEMP 37.3; O2SAT 91
[2017-05-26 08:29] LABS: HEMATOCRIT 39.2 % (37-47); MEAN CELL VOLUME 91.6 fL (80-100); MEAN CORPUSCULAR HEMOGLOBIN 30.4 pg (25-34); MEAN CORPUSCULAR HGB CONC 33.2 g/dl (32-36); MEAN PLATELET VOLUME 10.2 fL (7.4-10.4); PLATELET COUNT 137 K/uL (130-400); RED CELL DISTRIBUTION WIDTH CV 13.2 % (11.5-14.5); WHITE BLOOD COUNT 9.88 K/uL (4.8-10.8)
[2017-05-26 09:04] VITALS: BP 120/73; PULSE 71
[2017-05-26 09:05] LABS: CALCIUM 8.8 mg/dl (8.5-10.1); CREATININE 0.7 mg/dl (0.60-1.20)
[2017-05-26] MEDS: LISINOPRIL 20 MG TAB PO SCH (09:05)
[2017-05-26] MEDS: PANTOprazole SOD 40 MG TAB PO SCH (09:05)
[2017-05-26] MEDS: AMLODIPINE BESYLATE 5 MG TAB PO SCH (09:06)
--- NOTE | 2017-05-26 13:19 | Hospitalist Progress Note ---
Hospitalist Progress Note Date of Service May 26, 2017. Subjective Pt evaluation today including: conversation w/ patient, physical exam, chart review, lab review, review of inpatient medication list Patient reports pain is much better controlled now and she is tolerating her diet. She denies any chest pain or shortness of breath. The patient completed a 2 step and will require 2L continuous oxygen. The patient denies fevers, chills, sweats, chest pain, palpitations, claudication, cough, wheezing, shortness of breath, nausea, vomiting, abdominal pain, dysuria, hematuria, urinary retention, paralysis, weakness, numbness and tingling. Additional Comments: See HPI for pertinent positives and negatives. All other systems reviewed and negative. Objective Vital Signs Date Time Temp Pulse Resp B/P (MAP) Pulse Ox O2 Delivery O2 Flow Rate FiO2 05/26/17 09:04 71 120/73 (89) 05/26/17 07:45 Nasal Cannula 3.0 05/26/17 07:40 37.3 57 17 128/82 (97) 91 Room Air 05/26/17 00:00 92 Nasal Cannula 3.0 05/25/17 22:54 93 Nasal Cannula 3.0 05/25/17 22:50 36.9 63 16 114/65 (81) 86 Nasal Cannula 2.0 05/25/17 21:53 143/78 (99) 05/25/17 16:00 Nasal Cannula 3.0 05/25/17 15:44 37.1 66 16 115/69 (84) 91 Nasal Cannula 6.0 05/25/17 13:41 116/63 (80) Physical Exam Notes: General appearance: +Obese. Moderate distress. Well-developed, well-nourished Head: Normocephalic, atraumatic Eyes: Normal inspection, PERRL, EOMI ENT: Normal ENT inspection, hearing grossly normal, pharynx normal Neck: Supple, no JVD, trachea midline Respiratory/Chest: +On 3L NC. Lungs clear to auscultation, normal breath sounds, no respiratory distress Cardiovascular: Regular rate & rhythm, no gallop, no murmur Abdomen/GI: +RUQ and LUQ mildly TTP. Laparoscopic scars healing well, covered in glue. Normal bowel sounds, soft Extremities/Musculoskeletal: Normal inspection, no calf tenderness, no pedal edema Neurological/Psych: Alert, normal mood/affect, oriented x 3 Skin: Normal color, warm/dry, no rash Laboratory Results Last 24 Hours Test 05/26/17 08:21 05/26/17 09:05 White Blood Count 9.88 K/uL Red Blood Count 4.28 M/uL Hemoglobin 13.0 g/dL Hematocrit 39.2 % Mean Corpuscular Volume 91.6 fL Mean Corpuscular Hemoglobin 30.4 pg Mean Corpuscular Hemoglobin Concent 33.2 g/dl RDW Standard Deviation 44.0 fL RDW Coefficient of Variation 13.2 % Platelet Count 137 K/uL Mean Platelet Volume 10.2 fL Sodium Level 139 mmol/L Potassium Level mmol/L 3.8 mmol/L Chloride Level 107 mmol/L Carbon Dioxide Level 27 mmol/L Anion Gap 5.0 mmol/L Blood Urea Nitrogen 12 mg/dl Creatinine 0.70 mg/dl Est Creatinine Clear Calc Drug Dose 92.5 ml/min Estimated GFR () 103.2 Estimated GFR (Non- 89.0 BUN/Creatinine Ratio 16.5 Random Glucose 96 mg/dl Calcium Level 8.8 mg/dl Assessment and Plan 67 y/o female with a history of CAD s/p [place], HTN, HLD, neuropathy and GERD who presents with acute cholecystitis. Acute cholecystitis, pre op clearance--s/p lap erica POD #2 -Pt admitted by surgery, medicine consulted for pre op clearance -Pt had TWI in leads III, aVF, V3-V6. No chest pain, troponin negative. TWI in leads V3-V6 present in previous EKG as well -Last echo Mar 2016 showed EF 60-65%. No WMA. Moderate LVH. Grade II diastolic dysfunction -Cardiology consulted for pre op clearance, appreciate recs: Patient low to intermediate cardiac surgical risk for lap erica. Recommend continuing usual antihypertensive regimen including hydralazine and amlodipine on day of surgery. Increase amlodipine to 10 mg daily. No further cardiac work up at this time. Resume lisinopril and clonidine postop. -Acceptable risk for surgery Hypoxia, likely secondary to atelectasis -Encourage incentive spirometry and ambulation -2 step completed, requires 2L NC continuous HTN--stable -Continue lisinopril 20 mg PO BID and clonidine 0.1 mg PO q8h -Continue hydralazine 25 mg PO TID -Amlodipine increased to 10 mg PO qd per cardio CAD, h/o [place] -ASA on hold, resume when ok with surgical team Neuropathy -Continue gabapentin 200 mg PO hs Pt's pain now controlled and tolerating diet. Stable from a medical standpoint , we will sign off. Clear for discharge as per primary team.
--- NOTE | 2017-05-26 13:20 | Surgery Progress Note ---
Surgery Progress Note Date of Service May 26, 2017. Subjective 67-year-old female postoperative day 2. Laparoscopic cholecystectomy with cholangiogram for acute cholecystitis. She is doing well postop, minimal pain, tolerating food. She remains on oxygen. Objective Vital Signs: Date Time Temp Pulse Resp B/P (MAP) Pulse Ox O2 Delivery O2 Flow Rate FiO2 05/26/17 09:04 71 120/73 (89) 05/26/17 07:45 Nasal Cannula 3.0 05/26/17 07:40 37.3 57 17 128/82 (97) 91 Room Air 05/26/17 00:00 92 Nasal Cannula 3.0 05/25/17 22:54 93 Nasal Cannula 3.0 05/25/17 22:50 36.9 63 16 114/65 (81) 86 Nasal Cannula 2.0 05/25/17 21:53 143/78 (99) 05/25/17 16:00 Nasal Cannula 3.0 05/25/17 15:44 37.1 66 16 115/69 (84) 91 Nasal Cannula 6.0 05/25/17 13:41 116/63 (80) General Appearance: WD/WN, no apparent distress Abdomen: normal bowel sounds, non tender, non distended, soft, no organomegaly , no pulsatile mass Incision(s): clean, dry, intact, no erythema, no drainage Laboratory Results: Results Past 24 Hours Test 05/26/17 08:21 05/26/17 09:05 Range/Units White Blood Count 9.88 4.8-10.8 K/uL Red Blood Count 4.28 4.2-5.4 M/uL Hemoglobin 13.0 12.0-16.0 g/dL Hematocrit 39.2 37-47 % Mean Corpuscular Volume 91.6 80-100 fL Mean Corpuscular Hemoglobin 30.4 25-34 pg Mean Corpuscular Hemoglobin Concent 33.2 32-36 g/dl RDW Standard Deviation 44.0 36.4-46.3 fL RDW Coefficient of Variation 13.2 11.5-14.5 % Platelet Count 137 130-400 K/uL Mean Platelet Volume 10.2 7.4-10.4 fL Sodium Level 139 136-145 mmol/L Potassium Level 3.8 3.5-5.1 mmol/L Chloride Level 107 98-107 mmol/L Carbon Dioxide Level 27 21-32 mmol/L Anion Gap 5.0 3-11 mmol/L Blood Urea Nitrogen 12 7-18 mg/dl Creatinine 0.70 0.60-1.20 mg/dl Est Creatinine Clear Calc Drug Dose 92.5 ml/min Estimated GFR () 103.2 Estimated GFR (Non- 89.0 BUN/Creatinine Ratio 16.5 10-20 Random Glucose 96 70-99 mg/dl Calcium Level 8.8 8.5-10.1 mg/dl Assessment & Plan POD#2 laparoscopic cholecystectomy with negative cholangiogram, doing well. diet as tolerated Wean oxygen, oxygen eval today Discharge to home later today once evaluated for oxygen therapy Follow up in 2 weeks in the surgery clinic Wound care instructions and return precautions given, call with questions or concerns.
[2017-05-26 14:07] VITALS: BP 151/83; PULSE 72; TEMP 37
== END 2017-05-26 16:31 | disposition home or self-care (01) | DRG 419 ==
LOC: C.EDB 20:23 → C.MSW 23:58 → ENRESERV 05-24 00:19
PROVIDERS: ADMIT Surgery; ATTEND Surgery
PROC: 0FT44ZZ Resection of Gallbladder, Percutaneous Endoscopic Approach (ICD-10-PCS; principal; 2017-05-24 10:30)
DX: K80.00 Calculus of gallbladder with acute cholecystitis without obstruction (principal); K21.9 Gastro-esophageal reflux disease without esophagitis; E03.9 Hypothyroidism, unspecified; I10 Essential (primary) hypertension; I25.10 Atherosclerotic heart disease of native coronary artery without angina pectoris; E66.9 Obesity, unspecified; I25.2 Old myocardial infarction; Z90.710 Acquired absence of both cervix and uterus; Z86.73 Personal history of transient ischemic attack (TIA), and cerebral infarction without residual deficits; Z79.82 Long term (current) use of aspirin; Z68.38 Body mass index [BMI] 38.0-38.9, adult

== ENCOUNTER → 2017-06-02 | Outpatient (CLI) | payer OTHER ==
[~2017-06-02] MED LIST changes: +AMLO-110 PO; -APR10 PO; +APR25 PO; +ASPI1TAB83 PO; -ASPI81TA28 PO; +BUTACAP7 PO; +DICL1GEL12 TD; -FRCT/ PO; +LISI-725 PO; -LSN20 PO; +NRN100 PO; -NTRGSL/4 UT; +OMEP20CA9 PO; +OXYC-57 PO; -PRLSR20 PO
--- NOTE | 2017-06-02 12:38 | DIAGNOSTIC IMAGING REPORT ---
SOFT TISS HEAD/NECK-THYROID CLINICAL HISTORY: 67 years-old Female with 241.1,E04.2. Multinodular goiter. COMPARISON: Thyroid ultrasound 05/23/2014 TECHNIQUE: Multiple real time sonographic images of the thyroid were obtained accessing iglesias scale appearance and color doppler flow. FINDINGS: MEASUREMENTS: Right lobe: 6.4 x 3.0 x 3.7 cm Left lobe: 5.2 x 2.1 x 2.6 cm Isthmus: 0.6 cm PARENCHYMA: The thyroid parenchymal echotexture is diffusely heterogeneous. NODULES: Multiple bilateral thyroid nodules are redemonstrated. There is a 1.9 x 1.3 x 1.7 cm isoechoic ovoid circumscribed nodule of the interpolar right thyroid, previously measuring 1.6 x 1.6 x 1.3 cm on study dated 05/23/2014. Suspected isoechoic nodule of the inferior pole right thyroid measures 1.4 x 0.9 x 1.1 cm, previously not measured. Nodule of the interpolar left thyroid is heterogeneous with centrally cystic component and is slightly hyperechoic, 1.5 x 1.0 x 1.0 cm, previously measuring 1.4 x 1.6 x 1.2 cm. IMPRESSION: No significant change of the multinodular goiter from comparison study dated 05/23/2014. The above report was generated using voice recognition software. It may contain grammatical, syntax or spelling errors. Electronically signed by: Marquis Tanner M.D. 06/02/2017 12:37 PM Dictated Date/Time: 06/02/2017 12:33 PM
== END | disposition home or self-care (01) ==
LOC: C.ULTRBC 11:22
PROVIDERS: ATTEND Internal Medicine
DX: E04.2 Nontoxic multinodular goiter (principal)

== ENCOUNTER 2017-06-13 06:22 | Inpatient (IN) | payer OTHER ==
[~2017-06-13] VITALS: Ht 165.1 cm; Wt 101.9 kg
[~2017-06-13 06:22] MED LIST changes: -AMLO-110 PO; -CTP/1 PO; -DICL1GEL12 TD
[2017-06-13] MEDS ORDERED: OXYC-57 PO (06:43)
[2017-06-13] MEDS ORDERED: AMLO-110 PO ×2 (06:43→09:47)
[2017-06-13] MEDS ORDERED: ONDANSETRON INJ 2 MG/ML 2 ML VIAL IV STA (06:47)
[2017-06-13] MEDS ORDERED: SODIUM CHLORIDE 0.9% 1000ML 1,000 ML IV STA (06:47)
[2017-06-13] MEDS ORDERED: CTP/1 PO ×2 (06:47→09:47)
[2017-06-13] MEDS ORDERED: MoRPHine SULFATE 10 MG/ML CARP/VIAL IV STA (06:47)
[2017-06-13] MEDS ORDERED: DICL1GEL12 TD (06:47)
[2017-06-13] MEDS ORDERED: SODIUM CHLORIDE 0.9% 500ML 500 ML IV STA (06:47)
--- NOTE | 2017-06-13 06:57 | EMERGENCY ROOM VISIT NOTE ---
History Report prepared by Niels: Andrew Lopez Under the Supervision of: Dr. Dasia Alcaraz M.D. First contact with patient: 06:36 Chief Complaint: CHEST PAIN Stated Complaint: PAIN Nursing Triage Summary: Pt arrived via [facility] from home. Pt speaks only kittitian. Per EMS, pt presents with severe pain to right chest area that extends to right upper abdomen around flank and into back. Pt reports (with daughter translating) pain started Monday and she feels SOB. Pulse ox reading 89%-92% on room air at rest. Pt had lap choley 1 month ago. Incision areas healing well with no signs of infection. History of Present Illness This HPI was acquired with the help of the patient's daughter and an internet talent program manager as the patient does not speak Kazakh. The patient is a 67 year old female who presents to the Emergency Room with complaints of worsening pain in the right side of her abdomen/ribs for the past 2 days. The patient had a cholecystectomy performed roughly 3 weeks ago. She felt fine following the procedure, and then developed pain on Monday again, 2 days ago. The patient is complaining of shortness of breath, and notes that this is due to worsening of her pain with deep inhalation. She denies any fever or hematochezia. She has vomited since Monday. There have not been any urinary irregularities. Source of History: patient, family, other (Tub Tender) Onset: 2 days Position: abdomen (RUQ) Timing: worsening Modifying Factors (Worsening): breathing (deep inhalation) Associated Symptoms: + vomiting Review of Systems See HPI for pertinent positives & negatives. A total of 10 systems reviewed and were otherwise negative. Past Medical & Surgical Medical Problems: (1) Acute cholecystitis due to biliary calculus (2) Bilateral pulmonary embolism (3) Chest pain (4) ESOPHAGEAL REFLUX (5) HEART DISEASE NOS (6) HYPERLIPIDEMIA NEC/NOS (7) HYPERTENSION NOS (8) HYPOTHYROIDISM NOS Family History No pertinent family history Social History Smoking Status: Never Smoker Alcohol Use: none Drug Use: none Marital Status: Housing Status: lives with family Occupation Status: unemployed Current/Historical Medications Scheduled Amlodipine (Norvasc), 10 MG PO DAILY Clonidine Hcl (Catapres), 0.1 MG PO Q8 Gabapentin (Gabapentin), 200 MG PO HS Hydralazine Hcl (Apresoline), 25 MG PO TID Lisinopril (Zestril), 20 MG PO BID Omeprazole (Prilosec), 20 MG PO BID Scheduled PRN Diclofenac Sodium (Topical) (Voltaren 1% Top Gel), 1 APPLN TD QID PRN for Pain Oxycodone/Acetaminophen 5MG/325MG (Percocet 5MG/325MG), 1-2 TABLETS PO Q4H PRN for Pain Allergies Coded Allergies: Azithromycin (Verified Allergy, Unknown, BLOOD IN STOOL, MYALGIA, 06/13/17) Ciprofloxacin (Verified Allergy, Unknown, BLOOD IN STOOL, MYALGIA, 06/13/17 ) Diltiazem (Verified Allergy, Unknown, HEADACHE, TACHYCARDIA, 06/13/17) Physical Exam Vital Signs Date Time Temp Pulse Resp B/P (MAP) Pulse Ox O2 Delivery O2 Flow Rate FiO2 06/13/17 09:26 79 22 137/81 90 Nasal Cannula 2.0 06/13/17 08:53 93 Nasal Cannula 2.0 06/13/17 08:24 68 22 151/80 93 Nasal Cannula 2.0 06/13/17 07:33 62 18 121/73 94 Nasal Cannula 2.0 06/13/17 06:35 95 Nasal Cannula 2.0 06/13/17 06:35 80 06/13/17 06:32 89 Room Air 06/13/17 06:30 89 06/13/17 06:30 36.8 78 26 133/85 89 Room Air Physical Exam Vital signs reviewed. General: Difficulty taking a deep breath, splinting, no significant distress. HEENT: No scleral icterus, PERRLA, neck supple. Atraumatic. Cardiovascular: Regular rate and rhythm, no extra sounds. Pulmonary: Clear to auscultation bilaterally, normal work of breathing. Splinting, difficulty taking a deep breath. Abdomen: Soft, tender to palpation in the RUQ, nondistended, positive bowel sounds. Musculoskeletal: Atraumatic, no peripheral edema. Neurologic: Patient awake alert and oriented x 3 Skin: Warm, dry, no rash Medical Decision & Procedures ER Provider Diagnostic Interpretation: Radiology results as stated below per my review and radiologist interpretation: SINGLE VIEW CHEST CLINICAL HISTORY: Right upper quadrant abdominal pain, greatest with breathing. FINDINGS: An AP, portable, upright chest radiograph is compared to study dated 05/23/2017. The examination is degraded by portable technique and patient rotation. The heart is mildly enlarged and there is atherosclerotic calcification of the thoracic aorta. The pulmonary vasculature is noncongested. There are low lung volumes. There is patchy airspace consolidation at the right lung base, new from 05/23/2017. Airspace opacities are also simple left lung base. No large pleural effusion or pneumothorax is seen. The skeletal structures are osteopenic. The bony thorax is grossly intact. IMPRESSION: 1. There is patchy airspace consolidation the right lung base, new from 05/23/2017. The appearance is typical for pneumonia. Radiographic follow-up to resolution is recommended. 2. Airspace opacities at the left lung base could represent atelectasis versus pneumonia. 3. Low lung volumes and cardiomegaly. Electronically signed by: Balwinder Page M.D. 06/13/2017 7:09 AM Dictated Date/Time: 06/13/2017 7:07 AM Laboratory Results 06/13/17 06:50 Red Blood Count 4.57, Mean Corpuscular Volume 88.8, Mean Corpuscular Hemoglobin 30.4, Mean Corpuscular Hemoglobin Concent 34.2, Mean Platelet Volume 9.7, Neutrophils (%) (Auto) 74.5, Lymphocytes (%) (Auto) 17.8, Monocytes (%) (Auto) 6.5, Eosinophils (%) (Auto) 0.6, Basophils (%) (Auto) 0.4, Neutrophils # (Auto) 7.91, Lymphocytes # (Auto) 1.89, Monocytes # (Auto) 0.69, Eosinophils # (Auto) 0.06, Basophils # (Auto) 0.04 06/13/17 06:50 Test 06/13/17 06:50 White Blood Count 10.61 K/uL (4.8-10.8) Red Blood Count 4.57 M/uL (4.2-5.4) Hemoglobin 13.9 g/dL (12.0-16.0) Hematocrit 40.6 % (37-47) Mean Corpuscular Volume 88.8 fL (80-100) Mean Corpuscular Hemoglobin 30.4 pg (25-34) Mean Corpuscular Hemoglobin Concent 34.2 g/dl (32-36) Platelet Count 176 K/uL (130-400) Mean Platelet Volume 9.7 fL (7.4-10.4) Neutrophils (%) (Auto) 74.5 % Lymphocytes (%) (Auto) 17.8 % Monocytes (%) (Auto) 6.5 % Eosinophils (%) (Auto) 0.6 % Basophils (%) (Auto) 0.4 % Neutrophils # (Auto) 7.91 K/uL (1.4-6.5) Lymphocytes # (Auto) 1.89 K/uL (1.2-3.4) Monocytes # (Auto) 0.69 K/uL (0.11-0.59) Eosinophils # (Auto) 0.06 K/uL (0-0.5) Basophils # (Auto) 0.04 K/uL (0-0.2) RDW Standard Deviation 39.9 fL (36.4-46.3) RDW Coefficient of Variation 12.5 % (11.5-14.5) Immature Granulocyte % (Auto) 0.2 % Immature Granulocyte # (Auto) 0.02 K/uL (0.00-0.02) Prothrombin Time 10.7 SECONDS (9.0-12.0) Prothromb Time International Ratio 1.0 (0.9-1.1) Anion Gap 8.0 mmol/L (3-11) Estimated GFR () 81.6 Estimated GFR (Non- 70.4 BUN/Creatinine Ratio 14.6 (10-20) Calcium Level 8.8 mg/dl (8.5-10.1) Total Bilirubin 1.1 mg/dl (0.2-1) Direct Bilirubin 0.2 mg/dl (0-0.2) Aspartate Amino Transf (AST/SGOT) 20 U/L (15-37) Alanine Aminotransferase (ALT/SGPT) 63 U/L (12-78) Alkaline Phosphatase 79 U/L (45-117) Troponin I < 0.015 ng/ml (0-0.045) Total Protein 7.9 gm/dl (6.4-8.2) Albumin 3.3 gm/dl (3.4-5.0) Lipase 149 U/L (73-393) Laboratory results per my review. Medications Administered Medications (Trade) Dose Ordered Sig/Jesika Route Start Time Stop Time Status Last Admin Dose Admin Sodium Chloride 1,000 ml @ 150 mls/hr Q6H40M STAT IV 06/13/17 06:47 06/13/17 10:34 DC 06/13/17 06:54 150 MLS/HR Sodium Chloride 500 ml @ 999 mls/hr Q31M STAT IV 06/13/17 06:47 06/13/17 07:17 DC 06/13/17 06:54 999 MLS/HR Morphine Sulfate (MoRPHine SULFATE INJ) 6 mg NOW STAT IV 06/13/17 06:47 06/13/17 06:50 DC 06/13/17 06:54 6 MG Ondansetron HCl (Zofran Inj) 4 mg NOW STAT IV 06/13/17 06:47 06/13/17 06:50 DC 06/13/17 06:53 4 MG Heparin Sodium/ Dextrose (Heparin 25,000 Unit/500ml D5W) 25,000 unit STK-MED ONCE .ROUTE 06/13/17 08:36 06/13/17 08:37 DC 06/13/17 08:44 25,000 UNIT Heparin Sodium (Porcine) (Heparin Sq 5000 Unit/0.5ml) 10,000 unit STK-MED ONCE .ROUTE 06/13/17 08:36 06/13/17 08:37 DC 06/13/17 08:45 6,000 UNIT Morphine Sulfate (MoRPHine SULFATE INJ) 4 mg NOW STAT IV 06/13/17 09:09 06/13/17 09:10 DC 06/13/17 09:20 4 MG ECG Per My Interpretation Indication: chest pain Rate (beats per minute): 80 Rhythm: normal sinus Findings: T-wave inversion (Anterior, Lateral), other (No KATHY/STD) ED Course 0639: Past medical records reviewed. The patient was evaluated in room B2. A complete history and physical examination was performed. 0647: Ordered Zofran 4 mg IV, Morphine Sulfate 6 mg IV, Sodium Chloride 500 mL @ 999 mL/hr IV, Sodium Chloride 1000 mL @ 150 mL?hr IV. 0827: Ordered Heparin Sodium 10,000 units. 0845: I discussed the case with Dr. Rolanda LEONARD Detective Supervisor. He will accept the patient to the floor. 0851: I discussed the case with Dr. Caron LEONARD Hospitalist. He will evaluate the patient for further treatment. 0909: Ordered Morphine Sulfate 4 mg IV. Medical Decision Differential diagnosis: Etiologies such as appendicitis, diverticulitis, PUD, biliary pathology, UTI, pancreatitis, obstruction, mesenteric ischemia, aortic pathology, infections, inflammatory bowel disease, renal colic, as well as others were entertained. This patient was evaluated and appeared to be in no significant distress. IV access was obtained and laboratory work was drawn. The patient was placed on the equipment monitor phototypesetting and found to be in normal sinus rhythm. She has a stable blood pressure. Oxygen saturations have been low however she maintained her oxygen well on nasal cannula. IV fluids were initiated and the patient was given IV morphine and Zofran. CT scans of the chest and abdomen/pelvis were performed and reveal bilateral pulmonary emboli with likely pulmonary infarct. There is no evidence for bile leak. Patient received additional IV morphine for pain management. Patient and family were educated to the findings. An IV heparin drip with bolus was initiated. Initially this presentation was considered provoked as she was recently hospitalized with surgery however the hospitalist has requested a thrombophilia workup. This was ordered but the IV heparin had been initiated already. This will need to be pursued as an outpatient. The patient was discussed with Dr. Del Rio of the geographic analyst service as well as Dr. Reardon of the hospitalist service. Medication Reconcilliation Current Medication List: was personally reviewed by me Blood Pressure Screening Patient's blood pressure: Elevated blood pressure Referred to geographic analyst Consults Time Called: 0843 Consulting Physician: Dr. Rolanda LEONARD Detective Supervisor Returned Call: 0845 I discussed the case with Dr. Rolanda LEONARD Detective Supervisor. He will accept the patient to the floor. Additional Consults: Time Called: 0846 Consulted Physician: Dr. Caron LEONARD Hospitalist Returned Call: 0851 Additional Comments: I discussed the case with Dr. Caron LEONARD Hospitalist. He will evaluate the patient for further treatment. Impression Primary Impression: Bilateral pulmonary embolism Additional Impression: Pulmonary infarct Critical Care * I have personally spent greater than 60 minutes of critical care time in the direct management of this patient. This includes bedside care, interpretation of diagnostic studies, and testing, discussion with consultants, patient, and family members, and other required patient management activities. This 60 minutes is in excess of all separately billable procedures. Scribe Attestation The scribe's documentation has been prepared under my direction and personally reviewed by me in its entirety. I confirm that the note above accurately reflects all work, treatment, procedures, and medical decision making performed by me. Departure Information Dispostion Being Evaluated By Hospitalist Prescriptions Clonidine Hcl (CATAPRES) 0.1 Mg Tab 0.1 MG PO Q8 for 30 Days, #90 TAB PRN IF B/P SIGNIFICANTLY ABOVE 160/90, TAKE ADDITIONAL 0.1 MG. Prov: Lashanda Andrade .PRICILLA 06/13/17 Amlodipine (Norvasc) 5 Mg Tab 10 MG PO DAILY for 30 Days, #60 TAB Prov: Lashanda Andrade PA-C 06/13/17 Referrals RV. Joiner MD (PCP) Patient Instructions My [facility] Problem Qualifiers
[2017-06-13] MEDS ORDERED: OPTIRAY 320 IV PRN (07:00)
[2017-06-13 07:01] LABS: BASO % 0.4 %; BASO ABS # 0.04 K/uL (0-0.2); EOS % 0.6 %; EOS ABS # 0.06 K/uL (0-0.5); HEMATOCRIT 40.6 % (37-47); HEMOGLOBIN 13.9 g/dL (12.0-16.0); IG# 0.02 K/uL (0.00-0.02); LYMPH % 17.8 %; LYMPH ABS # 1.89 K/uL (1.2-3.4); MEAN CELL VOLUME 88.8 fL (80-100); MEAN CORPUSCULAR HEMOGLOBIN 30.4 pg (25-34); MEAN CORPUSCULAR HGB CONC 34.2 g/dl (32-36); MEAN PLATELET VOLUME 9.7 fL (7.4-10.4); MONO % 6.5 %; MONO ABS # 0.69 K/uL (0.11-0.59); NEUT % 74.5 %; NEUT ABS # 7.91 K/uL (1.4-6.5); PLATELET COUNT 176 K/uL (130-400); RED CELL DISTRIBUTION WIDTH CV 12.5 % (11.5-14.5); RED CELL DISTRIBUTION WIDTH SD 39.9 fL (36.4-46.3); WHITE BLOOD COUNT 10.61 K/uL (4.8-10.8)
--- NOTE | 2017-06-13 07:10 | DIAGNOSTIC IMAGING REPORT ---
SINGLE VIEW CHEST CLINICAL HISTORY: Right upper quadrant abdominal pain, greatest with breathing. FINDINGS: An AP, portable, upright chest radiograph is compared to study dated 05/23/2017. The examination is degraded by portable technique and patient rotation. The heart is mildly enlarged and there is atherosclerotic calcification of the thoracic aorta. The pulmonary vasculature is noncongested. There are low lung volumes. There is patchy airspace consolidation at the right lung base, new from 05/23/2017. Airspace opacities are also simple left lung base. No large pleural effusion or pneumothorax is seen. The skeletal structures are osteopenic. The bony thorax is grossly intact. IMPRESSION: 1. There is patchy airspace consolidation the right lung base, new from 05/23/2017. The appearance is typical for pneumonia. Radiographic follow-up to resolution is recommended. 2. Airspace opacities at the left lung base could represent atelectasis versus pneumonia. 3. Low lung volumes and cardiomegaly. Electronically signed by: Balwinder Page M.D. 06/13/2017 7:09 AM Dictated Date/Time: 06/13/2017 7:07 AM
[2017-06-13 07:24] LABS: ALBUMIN 3.3 gm/dl (3.4-5.0); AST/SGOT 20 U/L (15-37); BLOOD UREA NITROGEN 12 mg/dl (7-18); CALCIUM 8.8 mg/dl (8.5-10.1); CARBON DIOXIDE 25 mmol/L (21-32); CREATININE 0.85 mg/dl (0.60-1.20); GLUCOSE 153 mg/dl (70-99); LIPASE 149 U/L (73-393); POTASSIUM 3.5 mmol/L (3.5-5.1); SODIUM 139 mmol/L (136-145)
[2017-06-13 07:29] LABS: ALKALINE PHOSPHATASE 79 U/L (45-117); ALT/SGPT 63 U/L (12-78); TOTAL PROTEIN 7.9 gm/dl (6.4-8.2)
[2017-06-13 07:45] LABS: PTT PATIENT 25.4 SECONDS (21.0-31.0)
--- NOTE | 2017-06-13 07:58 | DIAGNOSTIC IMAGING REPORT ---
ABD/PELVIS IV CONTRAST ONLY CT DOSE: HISTORY: Pain RUQ pain x 2 days, 3 weeks post erica TECHNIQUE: Multiaxial CT images of the abdomen and pelvis were performed following the use of intravenous contrast. A dose lowering technique was utilized adhering to the principles of ALARA. COMPARISON STUDY: 04/11/2016 FINDINGS: interval development of right basilar parenchymal infiltrate. Dependent basilar atelectasis bilaterally. Interval cholecystectomy. Mild fatty infiltration of liver. Kidneys enhance uniformly. There is a stable right renal cyst. Nonobstructive bowel pattern. No free fluid within the pelvic cul-de-sac. No evidence for abscess or collection within the gallbladder fossa region. Bladder is midline. There are several pelvic vascular calcifications. IMPRESSION: 1. No significant abnormality identified within the abdomen or pelvis. 2. Prior cholecystectomy. 3. Interval parenchymal infiltrate right base with superimposed dependent basilar atelectatic change. The above report was generated using voice recognition software. It may contain grammatical, syntax or spelling errors. Electronically signed by: Ibrahima Cruz M.D. 06/13/2017 7:56 AM Dictated Date/Time: 06/13/2017 7:49 AM
--- NOTE | 2017-06-13 08:05 | DIAGNOSTIC IMAGING REPORT ---
CT ANGIOGRAM OF THE CHEST CLINICAL HISTORY: Dyspnea. Atypical chest pain. COMPARISON STUDY: Chest x-ray dated 06/13/2017. Chest CT dated 11/13/2007. TECHNIQUE: Following the IV administration of 94 cc of Optiray 320, CT angiogram of the chest was performed from the upper abdomen to the thoracic inlet utilizing the pulmonary embolus protocol. Images are reviewed in the axial, sagittal, and coronal planes. 3-D MIPS images are created and assessed. IV contrast was administered without complication. A dose lowering technique was utilized adhering to the principles of ALARA. CT DOSE: 2184.26 mGy.cm FINDINGS: Thyroid: The thyroid gland is enlarged and heterogeneous. This causes mild leftward deviation of the trachea. Thoracic aorta: There is mild atherosclerotic calcification of the thoracic aorta, which is normal in caliber and demonstrates standard 3-vessel arch anatomy. No dissection is seen. Pulmonary vasculature: The pulmonary trunk is dilated measuring 3.3 cm in transverse diameter. This suggests pulmonary artery hypertension. There is extensive bilateral pulmonary embolus. Thrombus is seen within the distal right main pulmonary artery. This extends into the right upper, middle, and lower lobar pulmonary arteries into segmental and subsegmental branches. Filling defects are seen within the left lower lobar pulmonary artery extending into segmental and subsegmental branches. Thrombus is also seen within segmental and subsegmental branches of the left upper lobe pulmonary artery. Heart: The heart is enlarged and without pericardial effusion. Lungs and pleural spaces: Evaluation of the lung parenchyma is degraded by motion artifact. There are trace pleural effusions with dependent consolidation. A subpleural consolidation is identified in the right lower lobe. A small calcified granuloma is seen in the left upper lobe. There is a 7 mm right middle lobe nodule seen image #101 and a 6 mm paramediastinal right upper lobe nodule seen image #127. These have only modestly increased in size dating back to 2007. No new pulmonary nodule is seen. Mediastinum: There is no mediastinal lymphadenopathy. Opal: Clear. Axillae: There is no axillary lymphadenopathy. Upper abdomen: The liver is enlarged and steatotic. There is a small hiatal hernia. Diverticula are noted in the partially imaged left colon. Skeletal structures: The skeletal structures are osteopenic. Degenerative change is seen throughout the thoracic spine. No lytic or blastic bony lesions are seen. IMPRESSION: 1. Extensive bilateral pulmonary emboli as above. 2. There is subpleural consolidation in the right lower lobe, likely representing a pulmonary infarct given the extensive pulmonary emboli. Correlate clinically for evidence of superimposed pneumonia. 3. There are trace pleural effusions with bibasilar consolidation. This likely represent atelectasis. Clinical correlation will be required. 4. Cardiomegaly with evidence of pulmonary artery hypertension. 5. There are 2 right-sided pulmonary nodules measuring up to 7 mm. These have only minimally increased in size dating back to 2007 and are of low suspicion. Any follow-up should be based on clinical grounds. 6. Hepatomegaly and hepatic steatosis. 7. Hiatal hernia. 8. The thyroid gland is enlarged and heterogeneous. Correlation with serum thyroid function studies is recommended. Electronically signed by: Balwinder Page M.D. 06/13/2017 8:04 AM Dictated Date/Time: 06/13/2017 7:48 AM
[2017-06-13] MEDS ORDERED: HEPARIN SOD 5000 UNIT/0.5 ML CARP ONE (08:36)
[2017-06-13] MEDS ORDERED: HEPARIN 25000 UNIT/500 ML D5W ONE (08:36)
[2017-06-13 08:53] VITALS: O2SAT 93; Ht 165.1 cm; Wt 101.9 kg
[2017-06-13] MEDS ORDERED: MoRPHine SULFATE 4 MG/ML 1 ML CARP\\VIAL IV STA (09:09)
[2017-06-13] MEDS ORDERED: ALUMINUM/MAGNESIUM/SIMETH (MAALOX MAX) 30 ML UDC PO PRN (09:30)
[2017-06-13] MEDS ORDERED: DICLOFENAC SOD 1% GEL 100 GM TUBE EXT PRN (09:30)
[2017-06-13] MEDS ORDERED: NITROGLYCERIN 0.4 MG SL PER TAB CHARGE SL PRN (09:30)
[2017-06-13] MEDS ORDERED: MAGNESIUM HYDROXIDE SUSP 30 ML UDC PO PRN (09:30)
--- NOTE | 2017-06-13 09:48 | History and Physical ---
History & Physical Date & Time of Service: Jun 13, 2017 at 09:28 Chief Complaint: PAIN Primary Care Physician: RV. Joiner MD History of Present Illness Source: patient, family (daughter), clinic records, hospital records Patient is a 67 y/o Indian-only speaking female, with PMHx of HTN, CAD, cervical radiculopathy, and GERD, who presented to the ED because of worsening R -sided chest pain since Monday. History is limited due to speech barrier- translation through daughter and [employer] interpreting system. Patient was most recently admitted to [facility] on 05/24/17 for acute cholecystics s/p cholecystectomy by Dr. Mathew. Since discharge, she has required O2 supplement thought to be due to atelectasis. She has been very immobile as well. Patient was found to have bilateral PEs. Heparin gtt was started in ED. Hypercoagulability panel was obtained. Denies h/o TIA/CVA, DVT/PE. Denies h/o GI bleed. +R-sided chest pain. +SOB. Limited ROS due to speech barrier. Past Medical/Surgical History Medical Problems: HTN CAD cervical radiculopathy GERD acute cholecystics s/p cholecystectomy on 05/24/[address] Mathew Family History No pertinent family history Social History Smoking Status: Never Smoker Drug Use: none Marital Status: Housing status: lives with family Occupational Status: unemployed Immunizations History of Influenza Vaccine: No History of Tetanus Vaccine?: Unknown History of Pneumococcal: Yes History of Hepatitis B Vaccine: Yes Allergies Coded Allergies: Azithromycin (Verified Allergy, Unknown, BLOOD IN STOOL, MYALGIA, 06/13/17) Ciprofloxacin (Verified Allergy, Unknown, BLOOD IN STOOL, MYALGIA, 06/13/17 ) Diltiazem (Verified Allergy, Unknown, HEADACHE, TACHYCARDIA, 06/13/17) Home Medications Scheduled Amlodipine (Norvasc), 10 MG PO DAILY Clonidine Hcl (Catapres), 0.1 MG PO Q8 Gabapentin (Gabapentin), 200 MG PO HS Hydralazine Hcl (Apresoline), 25 MG PO TID Lisinopril (Zestril), 20 MG PO BID Omeprazole (Prilosec), 20 MG PO BID Scheduled PRN Diclofenac Sodium (Topical) (Voltaren 1% Top Gel), 1 APPLN TD QID PRN for Pain Oxycodone/Acetaminophen 5MG/325MG (Percocet 5MG/325MG), 1-2 TABLETS PO Q4H PRN for Pain Physical Exam Vital Signs Date Time Temp Pulse Resp B/P (MAP) Pulse Ox O2 Delivery O2 Flow Rate FiO2 06/13/17 08:53 93 Nasal Cannula 2.0 06/13/17 08:24 68 22 151/80 93 Nasal Cannula 2.0 06/13/17 07:33 62 18 121/73 94 Nasal Cannula 2.0 06/13/17 06:35 95 Nasal Cannula 2.0 06/13/17 06:35 80 06/13/17 06:32 89 Room Air 06/13/17 06:30 89 06/13/17 06:30 36.8 78 26 133/85 89 Room Air General Appearance: no apparent distress, + obese, + pertinent finding (O2 NC 2L) Head: normocephalic, atraumatic Eyes: normal inspection, PERRL ENT: hearing grossly normal Neck: supple Respiratory/Chest: lungs clear, no respiratory distress, no accessory muscle use Cardiovascular: regular rate, rhythm Abdomen/GI: normal bowel sounds, non tender, soft Back: normal inspection Extremities/Musculoskelatal: no calf tenderness, no pedal edema Neurologic/Psych: alert, oriented x 3 Skin: normal color, warm/dry, no rash Diagnostics Laboratory Results Results Past 24 Hours Test 06/13/17 06:50 06/13/17 08:47 Range/Units White Blood Count 10.61 4.8-10.8 K/uL Red Blood Count 4.57 4.2-5.4 M/uL Hemoglobin 13.9 12.0-16.0 g/dL Hematocrit 40.6 37-47 % Mean Corpuscular Volume 88.8 80-100 fL Mean Corpuscular Hemoglobin 30.4 25-34 pg Mean Corpuscular Hemoglobin Concent 34.2 32-36 g/dl Platelet Count 176 130-400 K/uL Mean Platelet Volume 9.7 7.4-10.4 fL Neutrophils (%) (Auto) 74.5 % Lymphocytes (%) (Auto) 17.8 % Monocytes (%) (Auto) 6.5 % Eosinophils (%) (Auto) 0.6 % Basophils (%) (Auto) 0.4 % Neutrophils # (Auto) 7.91 1.4-6.5 K/uL Lymphocytes # (Auto) 1.89 1.2-3.4 K/uL Monocytes # (Auto) 0.69 0.11-0.59 K/uL Eosinophils # (Auto) 0.06 0-0.5 K/uL Basophils # (Auto) 0.04 0-0.2 K/uL RDW Standard Deviation 39.9 36.4-46.3 fL RDW Coefficient of Variation 12.5 11.5-14.5 % Immature Granulocyte % (Auto) 0.2 % Immature Granulocyte # (Auto) 0.02 0.00-0.02 K/uL Prothrombin Time 10.7 9.0-12.0 SECONDS Prothromb Time International Ratio 1.0 0.9-1.1 Activated Partial Thromboplast Time 25.4 21.0-31.0 SECONDS Partial Thromboplastin Ratio 1.0 Sodium Level 139 136-145 mmol/L Potassium Level 3.5 3.5-5.1 mmol/L Chloride Level 106 98-107 mmol/L Carbon Dioxide Level 25 21-32 mmol/L Anion Gap 8.0 3-11 mmol/L Blood Urea Nitrogen 12 7-18 mg/dl Creatinine 0.85 0.60-1.20 mg/dl Estimated GFR () 81.6 Estimated GFR (Non- 70.4 BUN/Creatinine Ratio 14.6 10-20 Random Glucose 153 70-99 mg/dl Calcium Level 8.8 8.5-10.1 mg/dl Total Bilirubin 1.1 0.2-1 mg/dl Direct Bilirubin 0.2 0-0.2 mg/dl Aspartate Amino Transf (AST/SGOT) 20 15-37 U/L Alanine Aminotransferase (ALT/SGPT) 63 12-78 U/L Alkaline Phosphatase 79 45-117 U/L Troponin I < 0.015 0-0.045 ng/ml Total Protein 7.9 6.4-8.2 gm/dl Albumin 3.3 3.4-5.0 gm/dl Lipase 149 73-393 U/L Diagnostic Radiology CT ANGIOGRAM OF THE CHEST CLINICAL HISTORY: Dyspnea. Atypical chest pain. COMPARISON STUDY: Chest x-ray dated 06/13/2017. Chest CT dated 11/13/2007. TECHNIQUE: Following the IV administration of 94 cc of Optiray 320, CT angiogram of the chest was performed from the upper abdomen to the thoracic inlet utilizing the pulmonary embolus protocol. Images are reviewed in the axial, sagittal, and coronal planes. 3-D MIPS images are created and assessed. IV contrast was administered without complication. A dose lowering technique was utilized adhering to the principles of ALARA. CT DOSE: 2184.26 mGy.cm FINDINGS: Thyroid: The thyroid gland is enlarged and heterogeneous. This causes mild leftward deviation of the trachea. Thoracic aorta: There is mild atherosclerotic calcification of the thoracic aorta, which is normal in caliber and demonstrates standard 3-vessel arch anatomy. No dissection is seen. Pulmonary vasculature: The pulmonary trunk is dilated measuring 3.3 cm in transverse diameter. This suggests pulmonary artery hypertension. There is extensive bilateral pulmonary embolus. Thrombus is seen within the distal right main pulmonary artery. This extends into the right upper, middle, and lower lobar pulmonary arteries into segmental and subsegmental branches. Filling defects are seen within the left lower lobar pulmonary artery extending into segmental and subsegmental branches. Thrombus is also seen within segmental and subsegmental branches of the left upper lobe pulmonary artery. Heart: The heart is enlarged and without pericardial effusion. Lungs and pleural spaces: Evaluation of the lung parenchyma is degraded by motion artifact. There are trace pleural effusions with dependent consolidation. A subpleural consolidation is identified in the right lower lobe. A small calcified granuloma is seen in the left upper lobe. There is a 7 mm right middle lobe nodule seen image #101 and a 6 mm paramediastinal right upper lobe nodule seen image #127. These have only modestly increased in size dating back to 2007. No new pulmonary nodule is seen. Mediastinum: There is no mediastinal lymphadenopathy. Opal: Clear. Axillae: There is no axillary lymphadenopathy. Upper abdomen: The liver is enlarged and steatotic. There is a small hiatal hernia. Diverticula are noted in the partially imaged left colon. Skeletal structures: The skeletal structures are osteopenic. Degenerative change is seen throughout the thoracic spine. No lytic or blastic bony lesions are seen. IMPRESSION: 1. Extensive bilateral pulmonary emboli as above. 2. There is subpleural consolidation in the right lower lobe, likely representing a pulmonary infarct given the extensive pulmonary emboli. Correlate clinically for evidence of superimposed pneumonia. 3. There are trace pleural effusions with bibasilar consolidation. This likely represent atelectasis. Clinical correlation will be required. 4. Cardiomegaly with evidence of pulmonary artery hypertension. 5. There are 2 right-sided pulmonary nodules measuring up to 7 mm. These have only minimally increased in size dating back to 2007 and are of low suspicion. Any follow-up should be based on clinical grounds. 6. Hepatomegaly and hepatic steatosis. 7. Hiatal hernia. 8. The thyroid gland is enlarged and heterogeneous. Correlation with serum thyroid function studies is recommended. Electronically signed by: Balwinder Page M.D. 06/13/2017 8:04 AM Dictated Date/Time: 06/13/2017 7:48 AM The status of this report is Signed. Draft = Not yet reviewed or approved by Radiologist. Signed = Reviewed and approved by Radiologist. ABD/PELVIS IV CONTRAST ONLY CT DOSE: HISTORY: Pain RUQ pain x 2 days, 3 weeks post erica TECHNIQUE: Multiaxial CT images of the abdomen and pelvis were performed following the use of intravenous contrast. A dose lowering technique was utilized adhering to the principles of ALARA. COMPARISON STUDY: 04/11/2016 FINDINGS: interval development of right basilar parenchymal infiltrate. Dependent basilar atelectasis bilaterally. Interval cholecystectomy. Mild fatty infiltration of liver. Kidneys enhance uniformly. There is a stable right renal cyst. Nonobstructive bowel pattern. No free fluid within the pelvic cul-de-sac. No evidence for abscess or collection within the gallbladder fossa region. Bladder is midline. There are several pelvic vascular calcifications. IMPRESSION: 1. No significant abnormality identified within the abdomen or pelvis. 2. Prior cholecystectomy. 3. Interval parenchymal infiltrate right base with superimposed dependent basilar atelectatic change. The above report was generated using voice recognition software. It may contain grammatical, syntax or spelling errors. Electronically signed by: Ibrahima Cruz M.D. 06/13/2017 7:56 AM Dictated Date/Time: 06/13/2017 7:49 AM The status of this report is Signed. Draft = Not yet reviewed or approved by Radiologist. Signed = Reviewed and approved by Radiologist. SINGLE VIEW CHEST CLINICAL HISTORY: Right upper quadrant abdominal pain, greatest with breathing. FINDINGS: An AP, portable, upright chest radiograph is compared to study dated 05/23/2017. The examination is degraded by portable technique and patient rotation. The heart is mildly enlarged and there is atherosclerotic calcification of the thoracic aorta. The pulmonary vasculature is noncongested. There are low lung volumes. There is patchy airspace consolidation at the right lung base, new from 05/23/2017. Airspace opacities are also simple left lung base. No large pleural effusion or pneumothorax is seen. The skeletal structures are osteopenic. The bony thorax is grossly intact. IMPRESSION: 1. There is patchy airspace consolidation the right lung base, new from 05/23/2017. The appearance is typical for pneumonia. Radiographic follow-up to resolution is recommended. 2. Airspace opacities at the left lung base could represent atelectasis versus pneumonia. 3. Low lung volumes and cardiomegaly. Electronically signed by: Balwinder Page M.D. 06/13/2017 7:09 AM Dictated Date/Time: 06/13/2017 7:07 AM The status of this report is Signed. Draft = Not yet reviewed or approved by Radiologist. Signed = Reviewed and approved by Radiologist. EKG YONNYNORBERTCapoLUIS ID:[id number] 13-JUN-2017 06:30:15 [facility] Normal sinus rhythm Minimal voltage criteria for LVH, may be normal variant Nonspecific ST and T wave abnormality Abnormal ECG When compared with ECG of 23-MAY-2017 21:40, No significant change was found 25mm/s 10mm/mV 150Hz 8.0 SP2 12SL 241 FAIZAN: 0 Referred by: Referred Self Unconfirmed Vent. rate 80 BPM DE interval 144 ms QRS duration 90 ms QT/QTc 384/442 ms P-R-T axes 40 -23 2 1950 (67 yr) Female Room: Loc:15 [employer] Supervisor:NENA Montero ind: Impression Assessment and Plan Patient is a 67 y/o Indian-only speaking female, with PMHx of HTN, CAD, cervical radiculopathy, and GERD, who presented to the ED because of worsening R -sided chest pain since Monday. Extensive bilateral PE, RLL infarct: - Admit to tele for cardiac monitoring - EKG w/out significant changes - Cardiac enzymes negative x1 - Hypercoagulability panel pending - IV Heparin gtt- transition to PO anticoagulation if remains hemodynamically stable - Obtain ECHO and BLE venous Doppler - Oxycodone q4 hrs PRN and IV Morphine 1 mg q3 hrs PRN severe pain HTN: Continue Catapres, Hydralazine, Norvasc, Lisinopril h/o CAD- STABLE- follows w/ Dr. Ya Cervical radiculopathy: Continue Gabapentin Enlarged thyroid gland on CT- TSH 1.8 in 04/2017 Hepatomegaly and hepatic steatosis: Encourage healthy diet and exercise 2 right-sided pulmonary nodules- STABLE since 2007 GERD, hiatal hernia: Protonix daily- resume Prilosec at discharge DVT prophylaxis: IV Heparin gtt Code status: LEVEL I, FULL Dispo: From home- PT/OT and CM consulted Advanced Directives Existing Living Will: No Existing Power of [employer] Planner: No Resuscitation Status LEVEL I, FULL VTE Prophylaxis Will order VTE Prophylaxis: Yes
[2017-06-13 10:37] VITALS: BP 137/84; PULSE 75; TEMP 36.9; O2SAT 91
[2017-06-13] MEDS: MoRPHine SULFATE 2 MG/ML CARP IV PRN ×3 (11:17→21:01)
--- NOTE | 2017-06-13 13:27 | ECHOCARDIOGRAM REPORT ---
*NOTICE TO RECEIVING [employer] This information is strictly Confidential and protected under [place] law. [place] law prohibits you from making any further disclosure of this information unless further disclosure is expressly permitted by the written consent of the person to whom it pertains or is authorized by law. A general authorization for the release of medical or other information is not sufficient for this purpose. Hospital accepts no responsibility if the information is made available to any other person, INCLUDING THE PATIENT. Interpretation Summary * Name: LUIS YOUSSEF Study Date: 06/13/2017 11:24 AM BP: 137/81 mmHg * Patient Location: .[facility]\S\N275\S\2 HR: 79 * : 1950 (M/d/yyyy) Gender: Female Height: 65 in * Age: 67 yrs Ethnicity: [place] Weight: 250 lb * Ordering Physician: Lashanda Andrade * Referring Physician: Self, Referred * Performed By: Sloan Wilkinson RCS * * Reason For Study: B/L PE * BSA: 2.2 m2 * -- Conclusions -- * Left ventricular systolic function is normal. * The right ventricular systolic function is normal as assessed by tricuspid annular plane systolic excursion (TAPSE) (normal >1.5 cm). * Right ventricular systolic pressure is elevated at 30-40mmHg. Procedure Details * A complete two-dimensional transthoracic echocardiogram was performed (2D, M-mode, Doppler and color flow Doppler). * A contrast injection of Definity was performed to improve assessment of LV function. * Contrast was injected into an intravenous site in the left arm. * One vial of Definity ultrasound contrast was diluted in normal saline to a total volume of 10 ml. A total of '1' ml of solution was administered during imaging. * Lot # [id number] of Definity utilized for procedure. * Expiration date 1APR19. Left Ventricle * The left ventricle is normal in size. * There is normal left ventricular wall thickness. * Ejection Fraction = 55-60%. * Left ventricular systolic function is normal. * The left ventricular wall motion is normal. Right Ventricle * The right ventricle is grossly normal size. * The right ventricular systolic function is normal as assessed by tricuspid annular plane systolic excursion (TAPSE) (normal >1.5 cm). Atria * The left atrial size is normal. * Right atrial size is normal. Mitral Valve * The mitral valve is grossly normal. * Significant mitral regurgitation is absent. Tricuspid Valve * The tricuspid valve is not well visualized, but is grossly normal. * There is mild tricuspid regurgitation. * Right ventricular systolic pressure is elevated at 30-40mmHg. Aortic Valve * The aortic valve is normal in structure and function. * No hemodynamically significant valvular aortic stenosis. * There is no significant aortic regurgitation. Pulmonic Valve * The pulmonic valve is not well visualized. * Trace pulmonic valvular regurgitation. Great Vessels * The aortic root is normal size. Pericardium/Pleural * There is no pericardial effusion. MMode 2D Measurements and Calculations IVSd 1.1 cm IVSs 1.3 cm LVIDd 4.8 cm LVIDs 3.2 cm LVPWd 1.1 cm LVPWs 1.4 cm IVS/LVPW 0.99 FS 34.2 % EDV(Teich) 110.1 ml ESV(Teich) 40.6 ml EF(Teich) 63.1 % EDV(cubed) 114.0 ml ESV(cubed) 32.4 ml EF(cubed) 71.6 % % IVS thick 22.1 % % LVPW thick 25.1 % LV mass(C)d 192.7 grams LV mass(C)dI 88.6 grams/m\S\2 LV mass(C)s 141.4 grams LV mass(C)sI 65.0 grams/m\S\2 SV(Teich) 69.5 ml SI(Teich) 31.9 ml/m\S\2 SV(cubed) 81.6 ml SI(cubed) 37.5 ml/m\S\2 Ao root diam 3.5 cm Ao root area 9.7 cm\S\2 ACS 1.6 cm LA dimension 3.8 cm asc Aorta Diam 3.1 cm LA/Ao 1.1 LVAd ap4 39.0 cm\S\2 LVLd ap4 8.7 cm EDV(MOD-sp4) 145.2 ml EDV(sp4-el) 147.8 ml LVAs ap4 25.0 cm\S\2 LVLs ap4 7.8 cm ESV(MOD-sp4) 66.1 ml ESV(sp4-el) 67.6 ml EF(MOD-sp4) 54.5 % EF(sp4-el) 54.2 % LVAd ap2 35.1 cm\S\2 LVLd ap2 8.4 cm EDV(MOD-sp2) 122.2 ml EDV(sp2-el) 123.9 ml LVAs ap2 20.8 cm\S\2 LVLs ap2 7.4 cm ESV(MOD-sp2) 48.7 ml ESV(sp2-el) 49.5 ml EF(MOD-sp2) 60.2 % EF(sp2-el) 60.0 % LVLd %diff -3.79 % EDV(MOD-bp) 136.0 ml LVLs %diff -6.07 % ESV(MOD-bp) 58.0 ml EF(MOD-bp) 57.4 % SV(MOD-sp4) 79.1 ml SI(MOD-sp4) 36.4 ml/m\S\2 SV(MOD-sp2) 73.5 ml SI(MOD-sp2) 33.8 ml/m\S\2 SV(MOD-bp) 78.0 ml SI(MOD-bp) 35.9 ml/m\S\2 SV(sp4-el) 80.1 ml SI(sp4-el) 36.8 ml/m\S\2 SV(sp2-el) 74.4 ml SI(sp2-el) 34.2 ml/m\S\2 Doppler Measurements and Calculations MV E max jackelyn 74.1 cm/sec MV A max jackelyn 77.1 cm/sec MV E/A 0.96 MV P1/2t max jackelyn 82.7 cm/sec MV P1/2t 89.8 msec MVA(P1/2t) 2.5 cm\S\2 MV dec slope 269.7 cm/sec\S\2 MV dec time 0.27 sec Ao V2 max 120.1 cm/sec Ao max PG 5.8 mmHg Ao max PG (full) 2.5 mmHg LV V1 max PG 3.2 mmHg LV V1 max 89.7 cm/sec PA V2 max 104.5 cm/sec PA max PG 4.4 mmHg PI max jackelyn 156.0 cm/sec PI max PG 9.8 mmHg PI dec slope 126.4 cm/sec\S\2 PI P1/2t 361.5 msec TR max jackelyn 254.3 cm/sec
[2017-06-13] MEDS: CLONIDINE HCL 0.1 MG TAB PO SCH ×2 (14:40→21:05)
[2017-06-13] MEDS: HEPARIN 25,000 UNIT/500ML D5W 500 ML IV SCH (14:41)
[2017-06-13 15:18] VITALS: BP 143/80; PULSE 67; TEMP 37.3; O2SAT 91
[2017-06-13 16:00] LABS: PTT PATIENT 53.1 SECONDS (21.0-31.0)
[2017-06-13] MEDS: ONDANSETRON INJ 2 MG/ML 2 ML VIAL IV PRN (16:56)
--- NOTE | 2017-06-13 19:38 | DIAGNOSTIC IMAGING REPORT ---
ULTRASOUND VENOUS DOPPLER LWR EXT BILA CLINICAL HISTORY: Bilateral pulmonary embolism COMPARISON STUDY: 11/13/2007 FINDINGS: Real-time and color flow Doppler imaging were performed. Flow was seen within the femoral, popliteal and calf veins with no intraluminal thrombus demonstrated. The saphenous vein is patent. IMPRESSION: No evidence of lower extremity DVT. Electronically signed by: Andrew Adame M.D. 06/13/2017 7:37 PM Dictated Date/Time: 06/13/2017 7:36 PM
[2017-06-13 19:50] VITALS: BP 128/77; PULSE 71; TEMP 38; O2SAT 92
[2017-06-13 21:00] VITALS: BP 147/87; PULSE 76
[2017-06-13] MEDS: LISINOPRIL 20 MG TAB PO SCH (21:02)
[2017-06-13] MEDS: GABAPENTIN 100 MG CAP PO SCH (21:02)
[2017-06-13] MEDS: OXYCODONE/ACETAMINOPHEN 5-325 TAB PO PRN (23:27)
[2017-06-13 23:58] VITALS: BP 154/83; PULSE 80; TEMP 37.7; O2SAT 91
[2017-06-14] VITALS (17 sets, daily range): BP systolic 96–145; BP diastolic 57–85; PULSE 58–73; TEMP 36.3–38.3; O2SAT 82–93
[2017-06-14] MEDS: MoRPHine SULFATE 2 MG/ML CARP IV PRN ×2 (02:43→07:59)
[2017-06-14] MEDS: HEPARIN 25,000 UNIT/500ML D5W 500 ML IV SCH ×2 (02:47→22:58)
[2017-06-14] MEDS: CLONIDINE HCL 0.1 MG TAB PO SCH ×3 (06:19→22:00)
[2017-06-14 06:33] LABS: HEMATOCRIT 35.1 % (37-47); HEMOGLOBIN 11.7 g/dL (12.0-16.0); MEAN CELL VOLUME 90.2 fL (80-100); MEAN CORPUSCULAR HEMOGLOBIN 30.1 pg (25-34); MEAN CORPUSCULAR HGB CONC 33.3 g/dl (32-36); MEAN PLATELET VOLUME 9.5 fL (7.4-10.4); PLATELET COUNT 168 K/uL (130-400); RED CELL DISTRIBUTION WIDTH CV 12.8 % (11.5-14.5); RED CELL DISTRIBUTION WIDTH SD 42.2 fL (36.4-46.3); WHITE BLOOD COUNT 9.25 K/uL (4.8-10.8)
[2017-06-14 06:56] LABS: PTT PATIENT 79.3 SECONDS (21.0-31.0)
[2017-06-14 07:04] LABS: CALCIUM 8.5 mg/dl (8.5-10.1); CREATININE 0.64 mg/dl (0.60-1.20); POTASSIUM 3.7 mmol/L (3.5-5.1)
--- NOTE | 2017-06-14 07:13 | Clinical Documentation Query ---
ALEA Meek : CLINICAL DOCUMENTATION QUERY In your clinical opinion is this patient being managed for: ( ) Postoperative bilateral pulmonary emboli, RLL, a complication of care ( x ) Postoperative bilateral pulmonary emboli, RLL, possible incidental/unrelated to recent surgery ( ) Not Agree ( ) Other explanation of clinical findings (Please Explain) ( ) Unable to determine (Please Define) ( ) Need to Discuss The medical record reflects the following clinical findings, treatment, and risk factors. Clinical Indicators: Bilateral PE, pulmonary infarct in the setting of recent cholecystectomy Treatment: IV heparin, telemetry, hypercoagulability panel, echocardiogram, BLE doppler, analgesia Risk Factors: Recent surgery, pain, immobility Please clarify and document your clinical opinion in the progress notes and discharge summary. Terms such as "probable", "suspected", "likely", "questionable", "possible", or "still to be ruled out" are acceptable. IF IN AGREEMENT, YOU MUST DOCUMENT ABOVE DIAGNOSTIC STATEMENT IN DAILY PROGRESS NOTES AND DISCHARGE SUMMARY. This document is not part of the patient's record. Thank You, Josr Teague, RN [phone]
[2017-06-14] MEDS: AMLODIPINE BESYLATE 5 MG TAB PO SCH (07:55)
[2017-06-14] MEDS: PANTOprazole SOD 40 MG TAB PO SCH (07:55)
[2017-06-14] MEDS: LISINOPRIL 20 MG TAB PO SCH ×2 (07:56→21:00)
[2017-06-14] MEDS: ONDANSETRON INJ 2 MG/ML 2 ML VIAL IV PRN (07:59)
[2017-06-14] MEDS ORDERED: HYDROmorphone INJ 2 MG/ML SYR/VIAL IV PRN (10:45)
[2017-06-14] MEDS: OXYCODONE/ACETAMINOPHEN 5-325 TAB PO PRN ×3 (10:46→21:47)
[2017-06-14] MEDS: KETOROLAC TROMETHAMINE 15 MG/ML VIAL IV. PRN (12:02)
[2017-06-14] MEDS: ACETAMINOPHEN 325 MG TAB PO PRN (12:03)
[2017-06-14] MEDS: POLYETHYLENE (MIRALAX) 17 GM PACK PO PRN (12:05)
--- NOTE | 2017-06-14 12:22 | Hospitalist Progress Note ---
Hospitalist Progress Note Date of Service Jun 14, 2017. Subjective Pt evaluation today including: conversation w/ patient, conversation w/ family (granddaughter), physical exam, lab review, review of studies, review of inpatient medication list Voiding: san catheter in place Talked w/ patient through [employer] translation and granddaughter. Complains of severe 9/10 R-sided pain. Pain comes in waves. Sharp-like. Discussed PEs, IV anticoagulation, and starting Coumadin- patient in understanding. Addressed all questions/concerns. Had some nausea yesterday, but none today. Ate little for breakfast due to pain. Encouraged patient to work w/ PT, OOB in chair, deep breathing. Limited ROS due to language barrier. +R-sided chest pain, +on/off nausea, + decreased appetite. Denies SOB, cough, palpitations, abdominal pain. Medications Current Inpatient Medications Medications (Trade) Dose Ordered Sig/Jesika Route Start Time Stop Time Status Last Admin Dose Admin Ioversol (Optiray 320) 100 ml UD PRN IV 06/13/17 07:00 06/17/17 06:59 Acetaminophen (Tylenol Tab) 650 mg Q4H PRN PO 06/13/17 09:30 07/13/17 09:29 Al Hydrox/Mg Hydrox/Simethicone (Maalox Max Susp) 15 ml Q4H PRN PO 06/13/17 09:30 07/13/17 09:29 06/14/17 06:24 15 ML Magnesium Hydroxide (Milk Of Magnesia Susp) 30 ml Q12H PRN PO 06/13/17 09:30 07/13/17 09:29 Ondansetron HCl (Zofran Inj) 4 mg Q6H PRN IV 06/13/17 09:30 07/13/17 09:29 06/14/17 07:59 4 MG Nitroglycerin (Nitrostat Tab) 0.4 mg UD PRN SL 06/13/17 09:30 07/13/17 09:29 Polyethylene (Miralax Powder Packet) 17 gm DAILY PRN PO 06/13/17 09:30 07/13/17 09:29 Amlodipine Besylate (Norvasc Tab) 10 mg DAILY PO 06/14/17 09:00 07/14/17 08:59 06/14/17 07:55 10 MG Clonidine HCl (Catapres Tab) 0.1 mg Q8 PO 06/13/17 14:00 07/13/17 13:59 06/14/17 06:19 0.1 MG Diclofenac Sodium (Voltaren 1% Top Gel) 1 appln QID PRN EXT 06/13/17 09:30 07/13/17 09:29 Gabapentin (Neurontin Cap) 200 mg HS PO 06/13/17 21:00 07/13/17 20:59 06/13/17 21:02 200 MG Hydralazine HCl (Apresoline Tab) 25 mg TID PO 06/13/17 14:00 07/13/17 13:59 06/14/17 07:55 25 MG Lisinopril (Zestril Tab) 20 mg BID PO 06/13/17 21:00 07/13/17 20:59 06/14/17 07:56 20 MG Oxycodone/ Acetaminophen (Percocet 5-325mg Tab) 1 tab Q4H PRN PO 06/13/17 09:30 06/27/17 09:29 06/14/17 10:46 1 TAB Pantoprazole Sodium (Protonix Tab) 40 mg QAM PO 06/14/17 09:00 06/17/17 09:01 06/14/17 07:55 40 MG Heparin Sodium/ Dextrose 500 ml @ 26 mls/hr [id number] IV 06/13/17 12:30 07/13/17 12:29 06/14/17 02:47 29 MLS/HR Hydromorphone HCl (Dilaudid Inj) 1 mg Q3H PRN IV 06/14/17 10:45 06/28/17 10:44 Ketorolac Tromethamine (Toradol Inj) 15 mg Q6H PRN IV. 06/14/17 10:45 06/19/17 10:44 Warfarin Sodium (Coumadin Tab) 5 mg DAILY@16 PO 06/14/17 16:00 07/14/17 15:59 Objective Vital Signs Date Time Temp Pulse Resp B/P (MAP) Pulse Ox O2 Delivery O2 Flow Rate FiO2 06/14/17 08:00 90 Nasal Cannula 4.0 06/14/17 07:42 37.2 66 18 133/84 (100) 90 4.0 06/14/17 06:18 69 145/85 (105) 06/14/17 04:00 Nasal Cannula 4.0 06/14/17 04:00 36.8 66 20 120/74 (89) 91 4.0 06/14/17 00:00 Nasal Cannula 4.0 06/13/17 23:58 37.7 80 20 154/83 (106) 91 4.0 06/13/17 21:00 76 147/87 (107) 06/13/17 20:00 Nasal Cannula 4.0 06/13/17 19:50 38.0 71 20 128/77 (94) 92 Nasal Cannula 4.0 06/13/17 16:00 Nasal Cannula 4.0 06/13/17 15:18 37.3 67 20 143/80 (101) 91 Nasal Cannula 4.0 06/13/17 12:00 Nasal Cannula 4.0 Physical Exam General Appearance: + mild distress (secondary to acute pain ), + obese, + pertinent finding (O2 NC ) Eyes: normal inspection, PERRL ENT: hearing grossly normal Neck: supple Respiratory/Chest: lungs clear, no respiratory distress, no accessory muscle use, + pertinent finding (Severe R-sided chest pain to palpitation ) Cardiovascular: regular rate, rhythm Abdomen: normal bowel sounds, non tender, soft Extremities: no pedal edema, no calf tenderness Neurologic/Psychiatric: alert, normal mood/affect, oriented x 3 Skin: normal color, warm/dry, no rash Laboratory Results Last 24 Hours Test 06/13/17 15:27 06/14/17 06:09 Activated Partial Thromboplast Time 53.1 SECONDS 79.3 SECONDS Partial Thromboplastin Ratio 2.0 3.1 White Blood Count 9.25 K/uL Red Blood Count 3.89 M/uL Hemoglobin 11.7 g/dL Hematocrit 35.1 % Mean Corpuscular Volume 90.2 fL Mean Corpuscular Hemoglobin 30.1 pg Mean Corpuscular Hemoglobin Concent 33.3 g/dl RDW Standard Deviation 42.2 fL RDW Coefficient of Variation 12.8 % Platelet Count 168 K/uL Mean Platelet Volume 9.5 fL Sodium Level 138 mmol/L Potassium Level 3.7 mmol/L Chloride Level 105 mmol/L Carbon Dioxide Level 29 mmol/L Anion Gap 4.0 mmol/L Blood Urea Nitrogen 11 mg/dl Creatinine 0.64 mg/dl Est Creatinine Clear Calc Drug Dose 102.1 ml/min Estimated GFR () 106.3 Estimated GFR (Non- 91.7 BUN/Creatinine Ratio 16.9 Random Glucose 131 mg/dl Calcium Level 8.5 mg/dl Assessment and Plan Patient is a 67 y/o Italian-only speaking female, with PMHx of HTN, CAD, cervical radiculopathy, and GERD, who presented to the ED because of worsening R -sided chest pain since Monday. Extensive bilateral PE, RLL infarct: - Admit to tele for cardiac monitoring - EKG w/out significant changes - Cardiac enzymes negative x1 - Hypercoagulability panel pending - IV Heparin gtt- bridge w/ Coumadin- follow PT/INR -- Coumadin over NOAC due to BMI of 39 - ECHO- preserved EF, elevated RVSP - BLE venous Doppler- no evidence of DVT - Oxycodone q4 hrs PRN and IV Dilaudid 1 mg q3 hrs PRN severe pain, IV Toradol 15 mg q6 hrs PRN pain - Fevers, likely secondary to PE- will continue to monitor - Consult pulmonary, appreciate recommendations HTN: Continue Catapres, Hydralazine, Norvasc, Lisinopril h/o CAD- STABLE- follows w/ Dr. Ya Cervical radiculopathy: Continue Gabapentin Enlarged thyroid gland on CT- TSH 1.8 in 04/2017 Hepatomegaly and hepatic steatosis: Encourage healthy diet and exercise 2 right-sided pulmonary nodules- STABLE since 2007 GERD, hiatal hernia: Protonix daily- resume Prilosec at discharge DVT prophylaxis: IV Heparin gtt + Coumadin Code status: LEVEL I, FULL Dispo: From home- PT/OT and CM consulted
--- NOTE | 2017-06-14 12:48 | Clinical Documentation Query ---
JUDITH JOHNSON : CLINICAL DOCUMENTATION QUERY In your clinical opinion is this patient being managed for: ( ) Postoperative bilateral pulmonary emboli, RLL, a complication of care ( ) Postoperative bilateral pulmonary emboli, RLL, incidental/unrelated to recent surgery ( ) Not Agree ( ) Other explanation of clinical findings (Please Explain) ( X ) Unable to determine (Please Define) ( ) Need to Discuss The medical record reflects the following clinical findings, treatment, and risk factors. Clinical Indicators: Bilateral PE, pulmonary infarct in the setting of recent cholecystectomy Treatment: IV heparin, telemetry, hypercoagulability panel, echocardiogram, BLE doppler, analgesia Risk Factors: Recent surgery, pain, immobility Please clarify and document your clinical opinion in the progress notes and discharge summary. Terms such as "probable", "suspected", "likely", "questionable", "possible", or "still to be ruled out" are acceptable. IF IN AGREEMENT, YOU MUST DOCUMENT ABOVE DIAGNOSTIC STATEMENT IN DAILY PROGRESS NOTES AND DISCHARGE SUMMARY. This document is not part of the patient's record. Thank You, Josr Teague, RN [phone]
[2017-06-14 13:37] LABS: PTT PATIENT 50.5 SECONDS (21.0-31.0)
[2017-06-14] MEDS ORDERED: CEFTRIAXONE SOD INJ 1 GM in DEXTROSE 5% ADD-VANTAGE 50ML 50 ML IV SCH (16:00)
[2017-06-14] MEDS ORDERED: CEFTRIAXONE SOD INJ 1 GM in DEXTROSE 5% ADD-VANTAGE 50ML 50 ML IV ONE (16:00)
[2017-06-14] MEDS ORDERED: WARFARIN SOD 5 MG TAB PO SCH (16:00)
[2017-06-14] MEDS: ALBUT/IPRATROP 3MG/0.5MG NEB 3 ML VIAL INH SCH ×2 (16:00→19:48)
--- NOTE | 2017-06-14 16:47 | PULMONARY CONSULTATION ---
DATE OF CONSULTATION: 06/14/2017 TIME: 3:10 p.m. The patient was seen in room 275 bed 2. HISTORY OF PRESENT ILLNESS: She is a 67-year-old female who originates from [place]. She speaks minimal [place] Irish. Her history is that she had her gallbladder removed approximately 05/24/2017. Yesterday, she presented to the Emergency Room with pain in the right inferior lateral and posterior chest area. The pain somewhat extended down into the upper abdomen. The pain began on June 11. It became progressively worse. Reportedly, she had an episode of vomiting. She has had shortness of breath related to the pain. A CT angio of the chest was done which showed evidence of extensive bilateral pulmonary emboli involving all lobes. It also showed a 7 mm right middle lobe nodule, 6 mm right upper lobe nodule, left upper lobe granuloma, and a fairly extensive right lower lobe infiltrate. This may well represent pulmonary infarction with an inability to exclude pneumonia. The patient is very difficult to get a history from. Nursing staff has not reported any major problems today. I discussed the case with her nurse from day shift and also with her nurse just coming on. To the best of my knowledge, there is no prior history of pulmonary emboli, but I cannot be 100% certain of that. PAST SURGICAL HISTORY: Information obtained from prior record, shows history of appendectomy, tubal , and the cholecystectomy mentioned above. PAST MEDICAL HISTORY: 1. Reflux. 2. Hyperlipidemia. 3. Hypertension. 4. Hypothyroidism. 5. Reportedly ID 10 years ago in [facility]. SOCIAL HISTORY: Reportedly, she never smoked and does not drink alcohol. ALLERGIES: LISTED ALLERGIES TO AZITHROMYCIN, CIPRO, AND DILTIAZEM. FAMILY HISTORY: Reportedly negative but I could not confirm that myself. REVIEW OF SYSTEMS: Difficult to obtain as noted above. PHYSICAL EXAMINATION: GENERAL: The patient is a 67-year-old female who was cooperative, alert, and oriented. She did not appear in any distress. VITAL SIGNS: Weight is 106.6 kg. Most recent temperature is 36.8. Temperature earlier today was 38.3. HEENT: Pupils were reactive to light. Nares were mildly congested. Mouth exam shows a Mallampati grade 3 pharynx. There was marked crowding. NECK: She has a large neck. No lymph nodes were palpable. CARDIOVASCULAR: The cardiac rate is 62 per minute. The rhythm is regular. Blood pressure was 118/74. CHEST: The chest showed diminished excursions. The patient is splinting somewhat. Auscultation revealed decreased breath sounds especially in the right lower lung field but also in the left lower lung field. No active wheeze was heard. Soon after she laid back down after I sat her up, I checked the pulse oximetry and it was only 77% on 3 L nasal cannula. The oxygen was turned up to 4 L. Within 3-5 minutes of just lying down, her saturations were in the upper 80s. This is lower than she had been earlier today, however. She did not appear in any distress. The respiratory rate was 18. GASTROINTESTINAL: The abdomen is obese. She has small scars from prior recent surgery. Bowel sounds were present. There was no tenderness to palpation. EXTREMITIES: Showed no cyanosis, clubbing, or edema. She looks like she might have small scars on the right knee. IMAGING: Venous Doppler of both lower extremities was negative. CT of the abdomen and pelvis was negative except for showing the parenchymal infiltrate at the right lung base. Chest x-ray on admission showed consolidation at the right lung base which was new compared with 05/23/2017. Low lung volumes and cardiomegaly were noted. LABORATORY DATA: White count today is 9.25, hemoglobin 11.7, platelets 168,000. PTT today is 50.5. She is on IV heparin. Electrolytes show sodium 138, potassium 3.7, chloride 105, bicarb 29, BUN is 11, with creatinine 0.64, blood sugar 131. Albumin has decreased to 3.3. Lipase 149. Troponin was negative. Liver functions show normal enzymes with total bilirubin of 1.1. IMPRESSION: 1. Extensive acute bilateral pulmonary emboli. 2. Large right lower lobe infiltrate, questionable pulmonary infarction versus pneumonia. 3. Obesity. 4. Hypoxemia. COMMENTS AND RECOMMENDATIONS: The patient is on IV heparin. She has been ordered to start warfarin. I am not certain if she is an ideal patient for warfarin in light of her language difficulties. It certainly is appropriate to use this medication. However, I am concerned that if she did not understand about getting the blood checked or what to do with the results if somebody would call about her INR results, would this be the best treatment for her. Consideration could be given to treatment with Xarelto or Eliquis. Perhaps a conversation with the patient's family and better understanding their situation might help make that decision. She has been started on nebulizer treatments. She is instructed to do incentive spirometry. I am hopeful that her hypoxia will improve relatively soon. She did have an echocardiogram done that showed normal left and right ventricular functions. In light of the infiltrate, I believe she should have antibiotic therapy for this in the event it is a bronchopneumonia. Will use ceftriaxone for now. SHE IS REPORTED TO BE ALLERGIC TO CIPRO AND AZITHROMYCIN. Thank you very much for asking me to assist in her care.
[2017-06-14] MEDS: GABAPENTIN 100 MG CAP PO SCH (21:49)
[2017-06-15] VITALS (15 sets, daily range): BP systolic 97–156; BP diastolic 61–85; PULSE 60–79; TEMP 36.5–36.9; O2SAT 90–95
[2017-06-15] MEDS: CLONIDINE HCL 0.1 MG TAB PO SCH ×3 (06:33→21:55)
[2017-06-15] MEDS: POLYETHYLENE (MIRALAX) 17 GM PACK PO PRN (07:11)
[2017-06-15] MEDS: KETOROLAC TROMETHAMINE 15 MG/ML VIAL IV. PRN ×2 (07:11→13:28)
[2017-06-15] MEDS: ALBUT/IPRATROP 3MG/0.5MG NEB 3 ML VIAL INH SCH ×4 (07:29→18:59)
[2017-06-15 07:51] LABS: HEMATOCRIT 34.5 % (37-47); HEMOGLOBIN 11.9 g/dL (12.0-16.0); MEAN CELL VOLUME 90.1 fL (80-100); MEAN CORPUSCULAR HEMOGLOBIN 31.1 pg (25-34); MEAN CORPUSCULAR HGB CONC 34.5 g/dl (32-36); MEAN PLATELET VOLUME 9.6 fL (7.4-10.4); PLATELET COUNT 162 K/uL (130-400); RED CELL DISTRIBUTION WIDTH CV 12.7 % (11.5-14.5); RED CELL DISTRIBUTION WIDTH SD 41.3 fL (36.4-46.3); WHITE BLOOD COUNT 7.55 K/uL (4.8-10.8)
[2017-06-15] MEDS: PANTOprazole SOD 40 MG TAB PO SCH (07:52)
[2017-06-15] MEDS: AMLODIPINE BESYLATE 5 MG TAB PO SCH (07:53)
[2017-06-15] MEDS: LISINOPRIL 20 MG TAB PO SCH ×2 (07:53→21:55)
[2017-06-15 08:15] LABS: CALCIUM 8.6 mg/dl (8.5-10.1); CREATININE 0.66 mg/dl (0.60-1.20); POTASSIUM 3.9 mmol/L (3.5-5.1)
[2017-06-15 08:25] LABS: PTT PATIENT 55.2 SECONDS (21.0-31.0)
[2017-06-15] MEDS: HEPARIN 25,000 UNIT/500ML D5W 500 ML IV SCH ×2 (08:37→19:43)
[2017-06-15] MEDS ORDERED: DOCUSATE SODIUM 100 MG CAP PO PRN (12:45)
--- NOTE | 2017-06-15 12:56 | Hospitalist Progress Note ---
Hospitalist Progress Note Date of Service Jun 15, 2017. Subjective Pt evaluation today including: conversation w/ patient, physical exam, lab review, review of inpatient medication list Voiding: no voiding problems Talked w/ patient through [employer] interpreting system. Pain is still R-sided, sharp-like, but has significantly improved since yesterday. Continued to encouraged deep breathing, incentive spirometer, OOB in chair, ambulation. +constipation x4 days. Bowel regimen ordered Patient denied any other questions/concerns. Thanked me for her great care so far during her stay. Patient denies any fever, chills, sweats, lightheadedness, dizziness, vision changes, palpitations, edema, SOB, wheezing, cough, abdominal pain, nausea, vomiting, diarrhea, urinary symptoms, melena, numbness/tingling, weakness, muscle/joint pain, anxiety/depression, active bleeding, or new skin discoloration/changes. Medications Current Inpatient Medications Medications (Trade) Dose Ordered Sig/Jesika Route Start Time Stop Time Status Last Admin Dose Admin Ioversol (Optiray 320) 100 ml UD PRN IV 06/13/17 07:00 06/17/17 06:59 Acetaminophen (Tylenol Tab) 650 mg Q4H PRN PO 06/13/17 09:30 07/13/17 09:29 06/14/17 12:03 650 MG Al Hydrox/Mg Hydrox/Simethicone (Maalox Max Susp) 15 ml Q4H PRN PO 06/13/17 09:30 07/13/17 09:29 06/14/17 06:24 15 ML Magnesium Hydroxide (Milk Of Magnesia Susp) 30 ml Q12H PRN PO 06/13/17 09:30 07/13/17 09:29 Ondansetron HCl (Zofran Inj) 4 mg Q6H PRN IV 06/13/17 09:30 07/13/17 09:29 06/14/17 07:59 4 MG Nitroglycerin (Nitrostat Tab) 0.4 mg UD PRN SL 06/13/17 09:30 07/13/17 09:29 Polyethylene (Miralax Powder Packet) 17 gm DAILY PRN PO 06/13/17 09:30 07/13/17 09:29 06/15/17 07:11 17 GM Amlodipine Besylate (Norvasc Tab) 10 mg DAILY PO 06/14/17 09:00 07/14/17 08:59 06/15/17 07:53 10 MG Clonidine HCl (Catapres Tab) 0.1 mg Q8 PO 06/13/17 14:00 07/13/17 13:59 06/15/17 06:33 0.1 MG Diclofenac Sodium (Voltaren 1% Top Gel) 1 appln QID PRN EXT 06/13/17 09:30 07/13/17 09:29 Gabapentin (Neurontin Cap) 200 mg HS PO 06/13/17 21:00 07/13/17 20:59 06/14/17 21:49 200 MG Hydralazine HCl (Apresoline Tab) 25 mg TID PO 06/13/17 14:00 07/13/17 13:59 06/15/17 07:52 25 MG Lisinopril (Zestril Tab) 20 mg BID PO 06/13/17 21:00 07/13/17 20:59 06/15/17 07:53 20 MG Oxycodone/ Acetaminophen (Percocet 5-325mg Tab) 1 tab Q4H PRN PO 06/13/17 09:30 06/27/17 09:29 06/14/17 21:47 1 TAB Pantoprazole Sodium (Protonix Tab) 40 mg QAM PO 06/14/17 09:00 06/17/17 09:01 06/15/17 07:52 40 MG Heparin Sodium/ Dextrose 500 ml @ 26 mls/hr [id number] IV 06/13/17 12:30 06/16/17 09:00 06/15/17 08:37 26 MLS/HR Hydromorphone HCl (Dilaudid Inj) 1 mg Q3H PRN IV 06/14/17 10:45 06/28/17 10:44 Ketorolac Tromethamine (Toradol Inj) 15 mg Q6H PRN IV. 06/14/17 10:45 06/19/17 10:44 06/15/17 07:11 15 MG Albuterol/ Ipratropium (Duoneb) 3 ml QIDR INH 06/14/17 16:00 07/14/17 15:59 06/15/17 07:29 3 ML Ceftriaxone Sodium 1 gm/ Dextrose 50 ml @ 100 mls/hr Q24H IV 06/15/17 16:00 06/21/17 15:59 Rivaroxaban (Xarelto Tab) 15 mg BID PO 06/16/17 09:00 07/06/17 21:01 Miscellaneous (Stop Order) 1 ea TODAY@0900 ONCE N/A 06/16/17 09:00 06/16/17 09:01 Objective Vital Signs Date Time Temp Pulse Resp B/P (MAP) Pulse Ox O2 Delivery O2 Flow Rate FiO2 06/15/17 11:39 36.6 64 20 122/75 (91) 95 4.0 06/15/17 08:34 95 Nasal Cannula 4.0 06/15/17 07:30 95 Nasal Cannula 4.0 06/15/17 07:29 77 16 91 Mask 5.0 06/15/17 07:25 36.9 70 18 143/83 (103) 92 5.0 06/15/17 04:56 36.6 62 18 156/75 (102) 90 Oxymask 4.0 06/15/17 04:05 Oxymask 5.0 06/15/17 00:00 Oxymask 5.0 06/14/17 23:53 36.3 58 18 109/69 (82) 92 Nasal Cannula 5.0 06/14/17 21:41 96/57 (70) 06/14/17 20:00 92 Oxymask 50.0 06/14/17 19:48 68 16 92 Nasal Cannula 3.0 06/14/17 19:23 36.6 65 18 104/61 (75) 90 Nasal Cannula 4.0 06/14/17 18:03 36.6 90 Nasal Cannula 4.0 06/14/17 16:00 91 Nasal Cannula 4.0 06/14/17 15:22 36.8 61 16 114/68 (83) 90 4.0 06/14/17 14:55 82 Nasal Cannula 3.0 06/14/17 14:05 36.8 73 18 118/74 (89) 93 Nasal Cannula 3.0 06/14/17 13:00 90 Nasal Cannula 3.0 Physical Exam General Appearance: no apparent distress, + obese, + pertinent finding (O2 NC) Eyes: normal inspection, PERRL ENT: hearing grossly normal Neck: supple Respiratory/Chest: no respiratory distress, no accessory muscle use, + decreased breath sounds (throughout ), + pertinent finding (ttp of R-sided chest ) Cardiovascular: regular rate, rhythm Abdomen: normal bowel sounds Extremities: no pedal edema, no calf tenderness Neurologic/Psychiatric: alert, normal mood/affect, oriented x 3 Skin: normal color, warm/dry, no rash Laboratory Results Last 24 Hours Test 06/14/17 13:06 06/14/17 23:15 06/15/17 07:25 Activated Partial Thromboplast Time 50.5 SECONDS 55.2 SECONDS Partial Thromboplastin Ratio 1.9 2.1 Urine Color DK YELLOW Urine Appearance CLEAR Urine pH 5.5 Urine Specific Girard 1.024 Urine Protein NEG Urine Glucose (UA) NEG Urine Ketones NEG Urine Occult Blood NEG Urine Nitrite NEG Urine Bilirubin NEG Urine Urobilinogen NEG Urine Leukocyte Esterase SMALL Urine WBC (Auto) 10-30 /hpf Urine RBC (Auto) 0-4 /hpf Urine Hyaline Casts (Auto) 5-10 /lpf Urine Epithelial Cells (Auto) >30 /lpf Urine Bacteria (Auto) NEG White Blood Count 7.55 K/uL Red Blood Count 3.83 M/uL Hemoglobin 11.9 g/dL Hematocrit 34.5 % Mean Corpuscular Volume 90.1 fL Mean Corpuscular Hemoglobin 31.1 pg Mean Corpuscular Hemoglobin Concent 34.5 g/dl RDW Standard Deviation 41.3 fL RDW Coefficient of Variation 12.7 % Platelet Count 162 K/uL Mean Platelet Volume 9.6 fL Prothrombin Time 10.9 SECONDS Prothromb Time International Ratio 1.0 Sodium Level 140 mmol/L Potassium Level 3.9 mmol/L Chloride Level 106 mmol/L Carbon Dioxide Level 32 mmol/L Anion Gap 2.0 mmol/L Blood Urea Nitrogen 14 mg/dl Creatinine 0.66 mg/dl Est Creatinine Clear Calc Drug Dose 97.3 ml/min Estimated GFR () 105.2 Estimated GFR (Non- 90.8 BUN/Creatinine Ratio 20.9 Random Glucose 113 mg/dl Calcium Level 8.6 mg/dl Assessment and Plan Patient is a 67 y/o Taiwanese-only speaking female, with PMHx of HTN, CAD, cervical radiculopathy, and GERD, who presented to the ED because of worsening R -sided chest pain since Monday. Extensive bilateral PE, RLL infarct, unknown etiology: - Admit to tele for cardiac monitoring - EKG w/out significant changes - Cardiac enzymes negative x1 - O2 protocol- wean as tolerated- has recently been placed on 2L O2 NC at home - [place] QID SOB, encourage incentive spirometer, OOB in chair - IV Heparin gtt- bridge w/ Coumadin- follow PT/INR -- Coumadin over NOAC due to BMI of 39- patient reweighed on standing scale, BMI 37- will start Xarelto 15 mg BID x21 days, then 20 mg daily -- Discussed w/ pharmacy, due to getting Coumadin last evening, will continue Heparin gtt today and start Xarelto tomorrow AM - ECHO- preserved EF, elevated RVSP - BLE venous Doppler- no evidence of DVT - Oxycodone q4 hrs PRN and IV Dilaudid 1 mg q3 hrs PRN severe pain, IV Toradol 15 mg q6 hrs PRN pain - Consult pulmonary, appreciate recommendations Fevers, ?secondary to PE vs infection- RESOLVED: - ?PNA vs infarct on imaging- IV Rocephin started on 06/14 - UCx and BCx pending - Tylenol PRN for fever Constipation: MiraLAX daily PRN, Senokot daily, Colace BID PRN HTN: Continue Catapres, Hydralazine, Norvasc, Lisinopril h/o CAD- STABLE- follows w/ Dr. Ya Cervical radiculopathy: Continue Gabapentin Enlarged thyroid gland on CT- TSH 1.8 in 04/2017 Hepatomegaly and hepatic steatosis: Encourage healthy diet and exercise 2 right-sided pulmonary nodules- STABLE since 2007 GERD, hiatal hernia: Protonix daily- resume Prilosec at discharge DVT prophylaxis: IV Heparin gtt Code status: LEVEL I, FULL Dispo: From home- PT/OT and CM consulted Tried to call daughter 4 times to update her about patient and anticoagulation. No answer- left message for her to return phone call.
[2017-06-15] MEDS ORDERED: SENNA 8.6 MG TAB PO ONE (13:00)
[2017-06-15] MEDS: CEFTRIAXONE SOD INJ 1 GM in DEXTROSE 5% ADD-VANTAGE 50ML 50 ML IV SCH (16:23)
[2017-06-15] MEDS: GABAPENTIN 100 MG CAP PO SCH (21:55)
[2017-06-16] VITALS (15 sets, daily range): BP systolic 108–141; BP diastolic 70–97; PULSE 60–79; TEMP 36.5–36.8; O2SAT 92–98
[2017-06-16] MEDS: KETOROLAC TROMETHAMINE 15 MG/ML VIAL IV. PRN (00:07)
[2017-06-16] MEDS: CLONIDINE HCL 0.1 MG TAB PO SCH ×3 (06:32→20:47)
[2017-06-16] MEDS: ALBUT/IPRATROP 3MG/0.5MG NEB 3 ML VIAL INH SCH ×4 (07:01→19:06)
[2017-06-16 07:50] LABS: HEMATOCRIT 38.1 % (37-47); HEMOGLOBIN 12.7 g/dL (12.0-16.0); MEAN CELL VOLUME 89.9 fL (80-100); MEAN CORPUSCULAR HGB CONC 33.3 g/dl (32-36); MEAN PLATELET VOLUME 10.3 fL (7.4-10.4); PLATELET COUNT 168 K/uL (130-400); RED CELL DISTRIBUTION WIDTH CV 12.8 % (11.5-14.5); RED CELL DISTRIBUTION WIDTH SD 41.7 fL (36.4-46.3); WHITE BLOOD COUNT 5.66 K/uL (4.8-10.8)
[2017-06-16 08:13] LABS: PTT PATIENT 47.1 SECONDS (21.0-31.0)
[2017-06-16 08:25] LABS: CALCIUM 8.8 mg/dl (8.5-10.1); CREATININE 0.67 mg/dl (0.60-1.20); POTASSIUM 3.7 mmol/L (3.5-5.1)
[2017-06-16] MEDS: LISINOPRIL 20 MG TAB PO SCH ×2 (08:41→20:46)
[2017-06-16] MEDS: RIVAROXABAN TAB 15 MG TAB PO SCH ×2 (08:41→20:46)
[2017-06-16] MEDS: SENNA 8.6 MG TAB PO SCH (08:42)
[2017-06-16] MEDS: AMLODIPINE BESYLATE 5 MG TAB PO SCH (08:43)
[2017-06-16] MEDS: PANTOprazole SOD 40 MG TAB PO SCH (08:44)
[2017-06-16] MEDS ORDERED: POLYETHYLENE (MIRALAX) 17 GM PACK PO ONE (13:06)
--- NOTE | 2017-06-16 13:51 | Hospitalist Progress Note ---
Hospitalist Progress Note Date of Service Jun 16, 2017. 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 ROS limited due to language barrier. She still reports some chest pain that goes to her back. She states her appetite remains poor but denies any nausea or vomiting. She reports a non- productive cough and some shortness of breath. She also reports having no BM for 5 days. The patient denies wheezing, nausea, vomiting, abdominal pain, dysuria, hematuria, urinary retention, paralysis, weakness, numbness and tingling. Additional Comments: See HPI for pertinent positives and negatives. All other systems reviewed and negative. Objective Vital Signs Date Time Temp Pulse Resp B/P (MAP) Pulse Ox O2 Delivery O2 Flow Rate FiO2 06/16/17 11:39 36.7 77 18 120/76 (91) 95 3.0 06/16/17 11:05 67 16 97 Nasal Cannula 3.0 06/16/17 11:03 3.0 06/16/17 08:00 97 4.0 06/16/17 07:45 36.5 65 18 139/83 (101) 98 3.0 06/16/17 07:02 60 16 98 Nasal Cannula 3.0 06/16/17 04:49 36.8 61 17 126/73 (90) 95 Nasal Cannula 3.0 06/16/17 04:00 Nasal Cannula 4.0 06/16/17 00:00 36.8 66 20 117/71 (86) 92 Nasal Cannula 2.0 06/16/17 00:00 Nasal Cannula 4.0 06/15/17 21:51 67 124/75 (91) 95 Nasal Cannula 4.0 06/15/17 20:07 36.5 76 18 137/85 (102) 92 Nasal Cannula 2.0 06/15/17 20:00 93 Nasal Cannula 4.0 06/15/17 18:59 79 16 95 Nasal Cannula 3.0 06/15/17 16:08 65 16 95 Nasal Cannula 3.0 06/15/17 16:00 93 Nasal Cannula 4.0 06/15/17 15:13 36.5 60 20 97/61 (73) 94 Nasal Cannula 2.0 Physical Exam Notes: General appearance: +Obese. Well-developed, well-nourished, no apparent distress Head: Normocephalic, atraumatic Eyes: Normal inspection, PERRL, EOMI ENT: Normal ENT inspection, hearing grossly normal, pharynx normal Neck: Supple, no JVD, trachea midline Respiratory/Chest: +Decreased breath sounds. Currently on 2L NC. Lungs clear to auscultation, no respiratory distress Cardiovascular: Regular rate & rhythm, no gallop, no murmur Abdomen/GI: +Healing lap erica scars. Normal bowel sounds, non-tender, soft Extremities/Musculoskeletal: Normal inspection, no calf tenderness, no pedal edema Neurological/Psych: Alert, normal mood/affect Skin: Normal color, warm/dry, no rash Laboratory Results Last 24 Hours Test 06/16/17 07:28 White Blood Count 5.66 K/uL Red Blood Count 4.24 M/uL Hemoglobin 12.7 g/dL Hematocrit 38.1 % Mean Corpuscular Volume 89.9 fL Mean Corpuscular Hemoglobin 30.0 pg Mean Corpuscular Hemoglobin Concent 33.3 g/dl RDW Standard Deviation 41.7 fL RDW Coefficient of Variation 12.8 % Platelet Count 168 K/uL Mean Platelet Volume 10.3 fL Activated Partial Thromboplast Time 47.1 SECONDS Partial Thromboplastin Ratio 1.8 Sodium Level 141 mmol/L Potassium Level 3.7 mmol/L Chloride Level 107 mmol/L Carbon Dioxide Level 30 mmol/L Anion Gap 4.0 mmol/L Blood Urea Nitrogen 13 mg/dl Creatinine 0.67 mg/dl Est Creatinine Clear Calc Drug Dose 95.7 ml/min Estimated GFR () 104.7 Estimated GFR (Non- 90.3 BUN/Creatinine Ratio 19.5 Random Glucose 107 mg/dl Calcium Level 8.8 mg/dl Assessment and Plan 67 y/o female with a history of HTN, CAD, remote [place], cervical radiculopathy, and GERD, who presented to the ED because of worsening R-sided chest pain since Monday. Extensive bilateral PE, RLL infarct--stable - Admit to tele for cardiac monitoring, stable, moved to med/surg - EKG w/out significant changes - Cardiac enzymes negative x1 - O2 protocol- wean as tolerated- has recently been placed on 2L O2 NC at home. Currently on 2L. Nursing attempting to wean, had dropped to 89% on room air - DuoNebs QID SOB, encourage incentive spirometer, OOB in chair - Heparin drip d/c'd. Xarelto 15 mg PO BID x 21 days, then 20 mg PO qd. Started today - ECHO- preserved EF, elevated RVSP - BLE venous Doppler- no evidence of DVT - Oxycodone q4 hrs PRN and IV Dilaudid 1 mg q3 hrs PRN severe pain, IV Toradol 15 mg q6 hrs PRN pain - Consult pulmonary, appreciate recommendations: Recommend ceftriaxone for possible bronchopneumonia. Recommend NOAC due to language barriers for ease of use. Continue incentive spirometry. Fevers, ?secondary to PE vs infection--resolved - ?PNA vs infarct on imaging - Continue Rocephin, day #3 - UCx pending - Blood cultures NGTD - Tylenol PRN for fever Constipation--ongoing - Increase Miralax to daily scheduled, one dose now - Continue Senokot daily, Colace BID PRN HTN--stable -Continue Catapres, Hydralazine, Norvasc, Lisinopril H/o CAD, h/o [place]--stable -Follows w/ Dr. Ya, seen by cardiology earlier in month for preop clearance prior to lap erica Cervical radiculopathy -Continue Gabapentin Enlarged thyroid gland on CT--stable -TSH 1.8 in 04/2017 DVT prophylaxis -Xarelto Code Status -Level I, FULL RESUSCITATION STATUS Dispo -PT/OT recommend short stay at rehab if discharge is imminent. If staying for a few days and improves, could discharge home with home health
--- NOTE | 2017-06-16 14:34 | PULMONARY PROGRESS NOTE ---
DATE: 06/16/2017 SUBJECTIVE: The patient was communicated with using the [employer] Interpreting system. Essentially, patient feels that she has continued to improve. Her breathing is getting better. She is not as short of breath, but she still has some right-sided chest pain with deep inspiration, but this is improved. She is not really having any cough or congestion, no wheezing, no increased shortness of breath. She is on 3 liters of oxygen and doing well with that. In questioning her further, she has no cardiac symptoms, no chest pain, no palpitations, no chest heaviness or tightness. We did discuss her GI symptoms. She is having some left-sided abdominal pain. She states her bowels have not moved in 5 days. She states that she is passing air. She is voiding well, not really having any swelling. She states that she has been getting up and walking around a little bit in the room. OBJECTIVE: GENERAL: The patient is a 67-year-old Eastern female, does not appear in any acute distress and listening to her converse with the java programmer analyst. She did not get breathless with her communication. She is alert and oriented x3. She is interactive and cooperative. VITAL SIGNS: Temp 36.7, pulse 77, respirations 18, blood pressure is 120/76, pulse ox is 95% on 3 liters. HEENT: Normocephalic, atraumatic. Pupils equal, round, reactive to light and accommodation. Extraocular movements are intact. [place], moist gingival and buccal mucosa. NECK: Supple. No mass, no adenopathy, no bruit. CHEST: The patient has diminished breath sounds bilaterally. No appreciated wheeze. No rale or rhonchi. CARDIOVASCULAR: Regular rate and rhythm. No murmurs, gallops or rubs noted. ABDOMEN: Bowel sounds are present. Abdomen is soft. She does have some mild tenderness to palpation in the left lower quadrant. No guarding, rigidity or organomegaly noted. EXTREMITIES: No erythema or edema. LABORATORY DATA: Shows white count of 5000, H and H 12.7 and 38.1, platelet count of 158,000. BUN 13, creatinine 0.67. No new imaging. IMPRESSION: 1. This is a 67-year-old [place] female who was admitted to [facility] with acute bilateral pulmonary emboli which extends up. She was also found to have a large right lower lobe infiltrate, question if there is pulmonary infarction versus pneumonia. 2. Hypoxemia. 3. Obesity. At this point, the patient seems to be improving. I am reviewing the hospitalist's note. She actually is on Xarelto at this point. Her BMI is 37, which makes her eligible for this. She is tolerating it well. There is no bruising, no blood in the stool that she is aware of at present. For now, main thing to do is to continue the anticoagulation with Xarelto, continue to make sure she is oxygenating well. Right now, she is at 95-97% on 3 liters. My suspicion is that when she is discharged home, she actually will need to go home with oxygen if she was not on previously. She will need a 6-minute walk prior to going home also. She is to continue the antibiotic. She is tolerating that well. The patient will be reevaluated tomorrow.
[2017-06-16] MEDS: CEFTRIAXONE SOD INJ 1 GM in DEXTROSE 5% ADD-VANTAGE 50ML 50 ML IV SCH (15:26)
[2017-06-16] MEDS: ACETAMINOPHEN 325 MG TAB PO PRN (15:26)
[2017-06-16] MEDS: GABAPENTIN 100 MG CAP PO SCH (20:46)
[2017-06-17] VITALS (9 sets, daily range): BP systolic 135–154; BP diastolic 79–87; PULSE 63–77; TEMP 36.4–36.7; O2SAT 91–98
[2017-06-17] MEDS: CLONIDINE HCL 0.1 MG TAB PO SCH ×2 (05:42→14:50)
[2017-06-17] MEDS: ALBUT/IPRATROP 3MG/0.5MG NEB 3 ML VIAL INH SCH ×3 (06:55→15:12)
[2017-06-17 07:21] LABS: HEMATOCRIT 35.8 % (37-47); HEMOGLOBIN 12.7 g/dL (12.0-16.0); MEAN CELL VOLUME 89.7 fL (80-100); MEAN CORPUSCULAR HEMOGLOBIN 31.8 pg (25-34); MEAN CORPUSCULAR HGB CONC 35.5 g/dl (32-36); MEAN PLATELET VOLUME 9.3 fL (7.4-10.4); PLATELET COUNT 211 K/uL (130-400); RED CELL DISTRIBUTION WIDTH CV 12.7 % (11.5-14.5); RED CELL DISTRIBUTION WIDTH SD 41.2 fL (36.4-46.3); WHITE BLOOD COUNT 5.37 K/uL (4.8-10.8)
[2017-06-17 07:58] LABS: CREATININE 0.65 mg/dl (0.60-1.20); POTASSIUM 4.2 mmol/L (3.5-5.1)
[2017-06-17] MEDS: LISINOPRIL 20 MG TAB PO SCH (08:26)
[2017-06-17] MEDS: RIVAROXABAN TAB 15 MG TAB PO SCH (08:26)
[2017-06-17] MEDS: SENNA 8.6 MG TAB PO SCH (08:26)
[2017-06-17] MEDS: PANTOprazole SOD 40 MG TAB PO SCH (08:26)
[2017-06-17] MEDS: AMLODIPINE BESYLATE 5 MG TAB PO SCH (08:26)
[2017-06-17] MEDS ORDERED: POLYETHYLENE (MIRALAX) 17 GM PACK PO SCH (09:00)
--- NOTE | 2017-06-17 10:09 | PULMONARY PROGRESS NOTE ---
DATE: 06/17/2017 TIME: 9:30 a.m. SUBJECTIVE: The patient seems to be doing much better. She is verbalizing more today. She does speak a little bit of Nepalese and she understands a little bit of Nepalese. She denies having significant pain. She denies shortness of breath. OBJECTIVE: GENERAL: The patient looks well. She is very comfortable. VITAL SIGNS: Temperature is 36.7. Heart rate is 70 beats per minute. The rhythm is regular. Blood pressure 135/87. Respiratory rate is 16 breaths per minute and not labored. Saturation is 91% on 3 liters. LUNGS: Lung saavedra were clear bilaterally. EXTREMITIES: Showed no cyanosis, clubbing or edema. IMPRESSIONS: 1. Acute bilateral pulmonary emboli. 2. Right lower lobe infiltrate -- likely secondary to myocardial infarction -- cannot entirely exclude pneumonic infiltrate. 3. Multiple right-sided lung nodules with minimal change in 10 years. COMMENTS AND RECOMMENDATIONS: The patient is doing well. She is now on Xarelto. She has been on ceftriaxone for antibiotic coverage in light of the infiltrate. I believe that could be changed to an oral cephalosporin. I would give her a total of 7 days. I would anticipate she may be getting discharged soon. She seems well from a pulmonary perspective. I believe the neb treatments could be changed to p.r.n. only. I am doubtful she will need them at home. The lung nodules do not need further followup. Pulmonary will sign off. We will be happy to see her again if requested.
[2017-06-17] MEDS ORDERED: XRL15 PO (12:15)
[2017-06-17] MEDS ORDERED: MRLP17 PO (12:15)
[2017-06-17] MEDS ORDERED: KETO10TA PO (12:15)
[2017-06-17] MEDS ORDERED: IPRA1AER2 INH (12:15)
[2017-06-17] MEDS ORDERED: HYDCR1CL TOP (12:15)
--- NOTE | 2017-06-17 12:16 | Discharge Instructions ---
Discharge Instructions Date of Service Jun 17, 2017. Admission Reason for Admission: Bilateral Pe Discharge Discharge Diagnosis / Problem: (1) Pulmonary infarct VTE Date & Time Date of VTE Diagnosis: Jun 13, 2017 Time of VTE Diagnosis: 07:28 Discharge Goals Goal(s): Decrease discomfort, Improve function, Increase independence, Improve disease control, Improve nutritional status, Learn about illness, Diagnostic testing, Therapeutic intervention, Prevent Disease Progression, Specific goals Activity Recommendations Activity Limitations: as noted below . Instructions / Follow-Up Instructions / Follow-Up you have Extensive bilateral pulmonary embolization you have been 2L O2 NC at home. please continue I ordered Combivent inhaler please use as directed has started Xarelto 15 mg PO BID x 21 days,( started from 06/16/2017), then 20 mg PO qd. will give Keflex for 3 days more for total 7 days Rx of Miralax to daily scheduled to you for constipation - you need to follow up with your primary care physician in 1 week, - call your pcp if have chest pain, sob, palpitation, or if has any questions - take medication as instructed, never overdose or any misuse, or take with alcohol, because misuse of medicine may cause organ damage or , call your primary care physician if have questions of medicaitons. - call your primary care physician OR go to local emergency room if has any fever/chill, chest pain, shortness of breathing, nausea/vomiting/abdominal pain , facial droop/slurry speech/local weakness, or if has any questions. - fall precaution - diet as instructed - you need to follow up with your subspecialist - you should understand that it is important to follow up the above instruction , and "not following the above instruction" may cause delayed or missed care of your medical conditions which may cause permanent organ damage and even . Medication Instructions: Your condition is typically treated with an anticoagulant. Anticoagulants will thin your blood to help prevent new clots. * You should take her medication exactly as directed. * Never skip a dose. * Never take a double dose. If you miss a dose, take it as soon as you remember. Call your Primary Care doctor if you experience any of the following: * Swelling or Pain in your leg * Sudden, continuous pain deep in a muscle * Pain that worsens when you are active or when you stand still for a long time * Chest Pain * Sudden Shortness of Breath * Rapid or pounding heart beat * Fainting * Dizziness * Cough with blood or bloody sputum * Sweating more than normal * Bruises * Heavy or uncontrolled bleeding * Blood in your urine, stool or vomit * Black or tarry stools Caring for Your Self at Home: * Avoid sitting, standing or lying down for long periods without moving your legs and feet * When traveling by car, stop to get out and move around at least once every 3 hours * On long airplane, train or bus rides, get up and move around when possible * If you can't get up, wiggle your toes and tighten your calves to keep your blood moving Follow Up: It is important for you to keep your follow up appointments with your medical provider. Current Hospital Diet Patient's current hospital diet: AHA Diet (Heart Healthy) Discharge Diet Recommended Diet: AHA Diet (Heart Healthy) Pending Studies Studies pending at discharge: no Laboratory Results Lipid Panel Test 05/12/17 17:08 Range/Units Triglycerides Level 175 H 0-150 mg/dl Cholesterol Level 170 0-200 mg/dl HDL Cholesterol 39 mg/dl Cholesterol/HDL Ratio 4.4 LDL Cholesterol, Calculated 96 mg/dl Medical Emergencies . Who to Call and When: Medical Emergencies: If at any time you feel your situation is an emergency, please call 911 immediately. . Non-Emergent Contact Non-Emergency issues call your: Primary Care Provider, Legal Document Assistant . . "Provider Documentation" section prepared by Jhoan Reardon. .
[2017-06-17] MEDS ORDERED: CEPH500C2 PO (12:29)
--- NOTE | 2017-06-17 15:45 | Discharge Summary ---
Discharge Summary Date of Service Jun 17, 2017. Discharge Summary Admission Date: Jun 13, 2017 at 09:27 Discharge Date: Jun 17, 2017 Principal Diagnosis: Extensive bilateral pulmonary embolization Problems/Secondary Diagnoses: Possible chronic respiratory failure home O2 dependent Possible pulmonary infarction Immunizations: Have You Had Influenza Vaccine: No History of Tetanus Vaccine?: Unknown History of Pneumococcal: Yes History of Hepatitis B Vaccine: Yes Procedures: No Consultations: Clinical Nutrition Manager Medication Reconciliation New Medications: Cephalexin Monohydrate (Keflex) 500 Mg Cap 500 MG PO QID for 3 Days, #12 CAP Hydrocortisone 1% (Hydrocortisone 1%) 90 Appln/30 Gm Cr 1 APPL TOP BID for 7 Days, #1 Ipratropium-Albuterol (Combivent Respimat) 1 Aer Aer 1 PUFFS INH QID for 14 Days, #1 INH Ketorolac Tromethamine (Toradol) 10 Mg Tab 1 TAB PO TID for Pain for 5 Days, #15 TAB Polyethylene (Miralax) 17 Gm Pow 17 GM PO DAILY for 7 Days Rivaroxaban (Xarelto) 15 Mg Tab 15 MG PO BID for 20 Days, #40 TAB use as directed Continued Medications: Amlodipine (Norvasc) 5 Mg Tab 10 MG PO DAILY for 30 Days, #60 TAB Clonidine Hcl (Catapres) 0.1 Mg Tab 0.1 MG PO Q8 for 30 Days, #90 TAB PRN IF B/P SIGNIFICANTLY ABOVE 160/90, TAKE ADDITIONAL 0.1 MG. Diclofenac Sodium (Topical) (Voltaren 1% Top Gel) 1 % Gel 1 APPLN TD QID PRN for Pain APPLY TO AFFECTED AREA Gabapentin (Gabapentin) 100 Mg Cap 200 MG PO HS Hydralazine Hcl (Apresoline) 25 Mg Tab 25 MG PO TID LAST REFILL 05/02/17 FOR 30 DAYS. Lisinopril (Zestril) 20 Mg Tab 20 MG PO BID, TAB Omeprazole (Prilosec) 20 Mg Cap 20 MG PO BID Oxycodone/Acetaminophen 5MG/325MG (Percocet 5MG/325MG) Tab 1-2 TABLETS PO Q4H PRN for Pain, TAB PAIN Discharge Exam Out of bed to the chair, pain better controlled, deny cough hemoptysis, shortness of breath is in baseline eating voiding good, has bowel movement yesterday Review of Systems: Constitutional: + weakness, + fatigue, No fever, No chills, No sweats, No weight loss, No problem reported Eyes: No worsening of vision, No eye pain, No redness, No discharge, No diplopia, No problem reported ENT: No hearing loss, No unusual epistaxis, No nasal symptoms, No sore throat, No tinnitus, No dental problems, No trouble swallowing, No problem reported Respiratory: + cough, + shortness of breath, + problem reported (Pleuritic pain) Cardiovascular: No chest pain, No orthopnea, No PND, No edema, No claudication, No palpitations, No problem reported Abdomen: No pain, No nausea, No vomiting, No diarrhea, No constipation, No GI bleeding, No problem reported Musculoskeletal: No joint pain, No muscle pain, No swelling, No calf pain, No problem reported Genitourinary - Female: No dysuria, No urinary frequency, No urinary urgency , No urinary incontinence, No urinary retention, No hematuria, No dysmenorrhea, No menorrhagia, No metrorrhagia, No rash, No vaginal bleeding, No vaginal discharge, No vaginal itching, No vulvodynia, No , No problem reported Neurologic: No memory loss, No paralysis, No weakness, No numbness/tingling , No vertigo, No balance problems, No problem reported Psychiatric: No depression symptoms, No anhedonism, No anxiety, No insomnia , No substance abuse, No problem reported Endocrine: No fatigue, No excessive thirst, No excessive urination, No problem reported Hematologic / Lymphatic: No abnormal bleeding/bruising, No clotting problems , No swollen lymph nodes, No night sweats, No problem reported Physical Exam: General Appearance: WD/WN, no apparent distress, + obese, + pertinent finding (Generally much better than yesterday) Eyes: normal inspection, PERRL ENT: normal ENT inspection, hearing grossly normal, TMs normal Neck: supple, no adenopathy, thyroid normal, no JVD Respiratory/Chest: + decreased breath sounds Cardiovascular: regular rate, rhythm, no gallop, no JVD, + pertinent finding (Trace edema) Abdomen / GI: normal bowel sounds, non tender, soft, no organomegaly, no pulsatile mass Extremities: normal inspection, no calf tenderness, normal capillary refill Neurologic/Psychiatric: chief clerk shelter II-XII nml as tested, no motor/sensory deficits , alert, normal mood/affect, normal reflexes, oriented x 3 Skin: normal color, warm/dry Hospital Course 67 y/o female with a history of HTN, CAD, remote [place], cervical radiculopathy, and GERD, who presented to the ED because of worsening R-sided chest pain since Monday. Extensive bilateral PE, RLL infarct--stable -Has been admitted to [facility] for cardiac monitoring, stable, moved to med/surg - EKG w/out significant changes - Cardiac enzymes negative x1 - O2 protocol- wean as tolerated- has recently been placed on 2L O2 NC at home. Currently on 2L. Nursing attempting to wean, had dropped to 89% on room air, patient was discharged home with nasal cannula oxygen in previous admission, she has home oxygen setting up - DuoNebs QID SOB, encourage incentive spirometer, OOB in chair - Heparin drip d/c'd. Xarelto 15 mg PO BID x 21 days, then 20 mg PO qd. Started yesterday - ECHO- preserved EF, elevated RVSP - BLE venous Doppler- no evidence of DVT - Oxycodone q4 hrs PRN and IV Dilaudid 1 mg q3 hrs PRN severe pain, IV Toradol 15 mg q6 hrs PRN pain, upon discharge is will give Toradol p.o. as needed for the pain - Consult pulmonary, appreciate recommendations: Recommend ceftriaxone for possible bronchopneumonia. Recommend NOAC due to language barriers for ease of use. Continue incentive spirometry. Fevers, ?secondary to PE vs infection--resolved - ?PNA vs infarct on imaging - Continue Rocephin, day #4, has ordered Keflex to continue for 3 days more upon discharge - UCx pending - Blood cultures NGTD - Tylenol PRN for fever Constipation, resolved HTN--stable -Continue Catapres, Hydralazine, Norvasc, Lisinopril H/o CAD, h/o [place]--stable -Follows w/ Dr. Ya, seen by cardiology earlier in month for preop clearance prior to lap erica Cervical radiculopathy -Continue Gabapentin Enlarged thyroid gland on CT--stable -TSH 1.8 in 04/2017 DVT prophylaxis -Xarelto Code Status -Level I, FULL RESUSCITATION STATUS Dispo PT/OT initially recommend short stay at rehab if discharge is imminent, however patient's condition significantly improved, she has been able up and walk, pain is much better control, feel no need help, so will discharge home, advised her to call PCP if feeling the need of home health care Discharge instruction you have Extensive bilateral pulmonary embolization you have been 2L O2 NC at home. please continue I ordered Combivent inhaler please use as directed has started Xarelto 15 mg PO BID x 21 days,( started from 06/16/2017), then 20 mg PO qd. will give Keflex for 3 days more for total 7 days Rx of Miralax to daily scheduled to you for constipation - you need to follow up with your primary care physician in 1 week, - call your pcp if have chest pain, sob, palpitation, or if has any questions - take medication as instructed, never overdose or any misuse, or take with alcohol, because misuse of medicine may cause organ damage or , call your primary care physician if have questions of medicaitons. - call your primary care physician OR go to local emergency room if has any fever/chill, chest pain, shortness of breathing, nausea/vomiting/abdominal pain , facial droop/slurry speech/local weakness, or if has any questions. - fall precaution - diet as instructed - you need to follow up with your subspecialist - you should understand that it is important to follow up the above instruction , and "not following the above instruction" may cause delayed or missed care of your medical conditions which may cause permanent organ damage and even . Total Time Spent: Greater than 30 minutes This includes examination of the patient, discharge planning, medication reconciliation, and communication with other providers. Discharge Instructions Please refer to the electronic Patient Visit Report (Discharge Instructions) for additional information. Additional Copies To RV. Joiner MD
== END 2017-06-17 17:24 | disposition home health service (06) | DRG 175 ==
LOC: EDBD 06:22 → C.EDB 06:23 → C.MED 09:27 → ENRESERV 10:01
PROVIDERS: ADMIT Hospitalist; ATTEND Hospitalist
DX: I26.99 Other pulmonary embolism without acute cor pulmonale (principal); J18.9 Pneumonia, unspecified organism; J96.11 Chronic respiratory failure with hypoxia; I10 Essential (primary) hypertension; I25.10 Atherosclerotic heart disease of native coronary artery without angina pectoris; M54.12 Radiculopathy, cervical region; K21.9 Gastro-esophageal reflux disease without esophagitis; Z88.1 Allergy status to other antibiotic agents; Z88.8 Allergy status to other drugs, medicaments and biological substances; R16.0 Hepatomegaly, not elsewhere classified; K76.0 Fatty (change of) liver, not elsewhere classified; R91.8 Other nonspecific abnormal finding of lung field; K44.9 Diaphragmatic hernia without obstruction or gangrene; E78.5 Hyperlipidemia, unspecified; E03.9 Hypothyroidism, unspecified; E66.9 Obesity, unspecified; Z99.81 Dependence on supplemental oxygen

== ENCOUNTER → 2017-06-30 | Outpatient (CLI) | payer OTHER ==
[~2017-06-30] MED LIST changes: +AMLO-110 PO; -ASPI1TAB83 PO; -BUTACAP7 PO; +CTP/1 PO; +DICL1GEL12 TD; +HYDCR1CL TOP; +IPRA1AER2 INH; +MRLP17 PO; -NRV5 PO; +XRL15 PO
--- NOTE | 2017-06-30 16:09 | DIAGNOSTIC IMAGING REPORT ---
CHEST 2 VIEWS ROUTINE CLINICAL HISTORY: 67 years-old Female presenting with I26.99 Pulmonary [id number] Pulmonary [id number]. TECHNIQUE: PA and lateral views of the chest were obtained. COMPARISON: 06/13/2017. FINDINGS: Atherosclerosis of aortic arch. Cardiac silhouette mildly enlarged. Significant interval decrease in peripheral opacities most prominently on the right. Decreased prominence of pulmonary vasculature. No new focal opacity. No large effusion or pneumothorax. Degenerative changes of the thoracic spine. Cholecystectomy clips noted. IMPRESSION: 1. Significant interval decrease in bilateral pulmonary opacities consistent with evolving/resolving pulmonary infarcts in the setting of recent pulmonary emboli. No new focal consolidation. 2. Mild cardiomegaly. Electronically signed by: Zaheer Lopez M.D. 06/30/2017 4:07 PM Dictated Date/Time: 06/30/2017 4:06 PM
== END | disposition home or self-care (01) ==
LOC: C.RAD1850 15:23
PROVIDERS: ATTEND Internal Medicine Pulmonary Disease
DX: I26.99 Other pulmonary embolism without acute cor pulmonale (principal)

== ENCOUNTER 2018-05-17 10:32 | Observation (INO) ==
[2018-05-17] MEDS ORDERED: methylPREDNISolone 125 MG/2 ML VIAL IV STA (11:03)
[2018-05-17] MEDS ORDERED: DiphenhydrAMINE HCL 50 MG/ML VIAL IV STA (11:03)
--- NOTE | 2018-05-17 11:36 | XRay Report ---
XR chest 1V portable HISTORY: Atypical Chest Pain COMPARISON: Chest 04/30/2018. FINDINGS: No pneumothorax. No pleural effusions. The heart remains mildly enlarged. No focal lung con solidations to suggest pneumonia. No evidence for pulmonary edema. IMPRESSION: No significant change compared to the prior study. No acute process. Stable mild cardiomegaly. Electronically signed by: Chepe Rose M.D. 05/17/2018 11:35 AM
[2018-05-17 11:37] LABS: Basophils # (auto) 0.03 K/uL (0-0.2); Basophils % (auto) 0.5 %; Eosinophils # (auto) 0.08 K/uL (0-0.5); Eosinophils % (auto) 1.3 %; Hematocrit (blood only) 42.6 % (37-47); Hemoglobin 14.5 g/dL (12.0-16.0); Immature Granulocytes # (auto) 0.01 K/uL (0.00-0.02); Immature Granulocytes % (auto) 0.2 %; Lymphocytes # (auto) 1.59 K/uL (1.2-3.4); Lymphocytes % (auto) 25.9 %; Mean Corpuscular Volume 87.8 fL (80-100); Monocytes # (auto) 0.63 K/uL (0.11-0.59); Monocytes % (auto) 10.2 %; Neutrophils # (auto) 3.81 K/uL (1.4-6.5); Neutrophils % (auto) 61.9 %; Platelet Count 167 K/uL (130-400); RDW Coefficient of Variation 13.2 % (11.5-14.5); RDW Standard Deviation 41.9 fL (36.4-46.3); Red Blood Count 4.85 M/uL (4.2-5.4); White Blood Count 6.15 K/uL (4.8-10.8)
[2018-05-17 11:55] LABS: Albumin Level 3.3 gm/dl (3.4-5.0); BUN Creatinine Ratio 16.4 (10-20); Calcium 9.2 mg/dl (8.5-10.1); Creatinine Clr Calc Pharmacy 89.2 ml/min; Est GFR (African American) 102.9; Est GFR (Non-African American) 88.8; Potassium 3.6 mmol/L (3.5-5.1)
[2018-05-17 11:58] LABS: Albumin Globulin Ratio 0.8 (0.9-2); Bilirubin,Total 0.8 mg/dl (0.2-1); Globulin 4.2 gm/dl (2.5-4.0); Total Protein 7.5 gm/dl (6.4-8.2)
[2018-05-17] MEDS ORDERED: CYCLOBENZAPRINE HCL 10 MG TAB PO PRN (14:33)
[2018-05-17] MEDS ORDERED: ONDANSETRON INJ 2 MG/ML 2 ML VIAL IV PRN (14:33)
[2018-05-17] MEDS: DiphenhydrAMINE HCL 50 MG/ML VIAL IV SCH ×2 (15:57→20:28)
[2018-05-17] MEDS: cloNIDine HCl 0.1 MG TAB PO SCH ×2 (15:57→20:29)
[2018-05-17] MEDS: XYZAL~ORDER AWAITING ACTION SCH ×2 (16:02→23:41)
[2018-05-17] MEDS: ALUMINUM/MAGNESIUM SUSP 30 ML UDC PO PRN ×2 (16:10→20:35)
--- NOTE | 2018-05-17 17:22 | Emergency Department Note ---
Entered by Memo Reid acting as a scribe for Josr Sheffield MD History of Present Illness General Chief complaint: Allergic Reaction Stated complaint: REACTION TO MEDICATION Time Seen by Provider: 05/17/18 10:52 Source: patient Mode of arrival: ambulatory History of Present Illness Provider complaint: Allergic Reaction Onset (ago): day(s) 4 Location: mouth (throat) Maximum Pain Intensity: 5 Current Pain Intensity: 5 Quality: + other (allergy) Associated symptoms: no chest pain and no shortness of breath Patient is a 68 year old female who presents herself to the ER with complains of an allergic reaction beginning four days ago. Patient does not speak Bhutanese. She is accompanies with daughter in law who translated and provides history. Patient states last night at 6am she checked her blood pressure and it was very high. Patient states she may have gotten something stuck in her throat and that she could not swallow. She reports it is very painful to swallow. She rates her constant pain at a value of 5 on the pain intensity scale. Patient states she stopped blood thinners last month. She also reports last month she had flu and cough. She denies chest pain and shortness of breath. Home Medications Home Medications Medication Instructions Recorded Confirmed Type amlodipine 10 mg PO QAM 01/16/18 05/17/18 History clonidine HCl 0.1 mg PO TID 01/16/18 05/17/18 History lisinopril 20 mg PO BID 01/16/18 05/17/18 History omeprazole 20 mg PO BID 01/16/18 05/17/18 History ugdyqnwsnm-hvbwrdsebwwhc-ffnl 1 - 2 tab PO Q4H PRN 05/17/18 05/17/18 History cyclobenzaprine 10 mg PO HS PRN 05/17/18 05/17/18 History doxycycline hyclate 100 mg PO BID 05/17/18 05/17/18 History gabapentin 200 mg PO HS 05/17/18 05/17/18 History levocetirizine 5 mg PO HS 05/17/18 05/17/18 History metronidazole 250 mg PO QID 05/17/18 05/17/18 History nitroglycerin [Nitrostat] 0.4 mg SUBLINGUAL UD 05/17/18 05/17/18 History Allergies Allergy/AdvReac Type Severity Reaction Status Date / Time Cipro Allergy Unknown BLOOD IN Verified 06/13/17 06:36 STOOL, MYALGIA ciprofloxacin Allergy Unknown BLOOD IN Verified 05/17/18 12:03 STOOL, MYALGIA diltiazem Allergy Unknown HEADACHE, Verified 05/17/18 12:03 TACHYCARDIA mivacurium Allergy Unknown BLOOD IN Verified 05/17/18 12:03 STOOL, MYALGIA orange AdvReac Verified 05/17/18 15:50 Past Med/Surg History Medical History Bilateral pulmonary embolism 05/2017 after gallbladder sx--on xarelto Cyst of left kidney just monitoring Cyst of right kidney just monitoring GERD (gastroesophageal reflux disease) H. pylori infection ? hx of Hypertension follows with Dr. 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 and A total of 10 systems reviewed and were otherwise negative Physical Exam Vital Signs Vital Signs - 24 hr 05/17/18 10:45 05/17/18 11:39 05/17/18 13:14 Temperature 36.5 C Temperature Source Oral Sepsis Recent Fever Within 48 Hours No Sepsis Action Taken by Nursing No Action Required Pulse Rate 71 Pulse Rate [Apical] 66 Pulse Rhythm Regular Pulse Rhythm [Apical] Pulse Strength Normal Pulse Strength [Apical] Respiratory Rate 20 19 Respiratory Effort / Characteristics Non-Labored Spontaneous Respiratory Depth Normal Respiratory Pattern Regular Blood Pressure 180/99 H Blood Pressure [Left Arm] Blood Pressure [Right Arm] 179/107 H Blood Pressure Mean 126 Blood Pressure Mean [Left Arm] Blood Pressure Mean [Right Arm] 131 Blood Pressure Position Sitting Blood Pressure Position [Left Arm] Blood Pressure Position [Right Arm] Pulse Oximetry 93 92 Oxygen Delivery Method Room Air Room Air Room Air 05/17/18 13:44 05/17/18 14:04 05/17/18 14:30 Temperature 36.4 C L Temperature Source Oral Sepsis Recent Fever Within 48 Hours Sepsis Action Taken by Nursing Pulse Rate Pulse Rate [Apical] 66 68 Pulse Rhythm Pulse Rhythm [Apical] Regular Pulse Strength Pulse Strength [Apical] Normal Respiratory Rate 19 16 Respiratory Effort / Characteristics Non-Labored Spontaneous Respiratory Depth Normal Respiratory Pattern Regular Blood Pressure Blood Pressure [Left Arm] Blood Pressure [Right Arm] 168/97 H 181/98 H Blood Pressure Mean Blood Pressure Mean [Left Arm] Blood Pressure Mean [Right Arm] 120 125 Blood Pressure Position Blood Pressure Position [Left Arm] Blood Pressure Position [Right Arm] Lying Pulse Oximetry 92 91 Oxygen Delivery Method Room Air Room Air Room Air 05/17/18 15:44 Temperature 37.0 C Temperature Source Oral Sepsis Recent Fever Within 48 Hours Sepsis Action Taken by Nursing Pulse Rate Pulse Rate [Apical] 72 Pulse Rhythm Pulse Rhythm [Apical] Pulse Strength Pulse Strength [Apical] Respiratory Rate 16 Respiratory Effort / Characteristics Respiratory Depth Respiratory Pattern Blood Pressure Blood Pressure [Left Arm] 162/87 H Blood Pressure [Right Arm] Blood Pressure Mean Blood Pressure Mean [Left Arm] 112 Blood Pressure Mean [Right Arm] Blood Pressure Position Blood Pressure Position [Left Arm] Lying Blood Pressure Position [Right Arm] Pulse Oximetry 93 Oxygen Delivery Method Room Air General: Non-ill appearing 68 year old female in no acute distress. HEENT: Normal cephalic atraumatic. Pupils are equal round and reactive to light. Extraocular movements are intact. Oropharynx is pink with moist mucous. Tongue is not swollen. Uvula mild swelling, Post interior oropharynx is open.No swelling of the mouth lips or tongue. Neck: Supple with a midline trachea. No meningeal signs or stiffness, no JVD or bruits. No Stridor. Chest: Clear to auscultation bilaterally. No wheezes or rhonchi. No increased work of breathing. Heart: regular rate and rhythm. Abdomen: Soft nontender, nondistended without rebound guarding or rigidity. Extremities: No cyanosis clubbing or edema. No calf tenderness or asymmetry Spine/Back. Non tender to palpation. No CVA tenderness Skin: Good turgor without rashes. Neurologic exam: Cranial nerves two through 12 are intact. Motor and sensation are intact and symmetrical throughout. Course 1153-: The patient is feeling better and vital signs are stable. 1229: I spoke with HORACIO Singer who will admit the patient. The patient has verbalized agreement to treatment plan. Consultations Consultation #1: HORACIO Singer Time: 12:29 Administered Medications Al Hydrox/Mg Hydrox/Simethicone (Maalox) 15 ml PO Q4H PRN PRN Reason: Dyspepsia Stop: 06/16/18 14:32 Last Admin: 05/17/18 16:10 Dose: 15 ml Documented by: [id number] Clonidine HCl (Catapres) 0.1 mg PO TID MARGARITA Stop: 06/16/18 15:14 Last Admin: 05/17/18 15:57 Dose: 0.1 mg Documented by: [id number] Diphenhydramine HCl (Benadryl) 25 mg IV TID MARGARITA Stop: 06/16/18 15:14 Last Admin: 05/17/18 15:57 Dose: 25 mg Documented by: [id number] Miscellaneous (Order Awaiting Action) 1 ea N/A QS MARGARITA Stop: 06/16/18 15:59 Last Admin: 05/17/18 16:02 Dose: Not Given Documented by: [id number] Discontinued Medications Diphenhydramine HCl (Benadryl) 25 mg IV NOW STA Stop: 05/17/18 11:04 Last Admin: 05/17/18 11:35 Dose: 25 mg Documented by: [id number] Ranitidine HCl 50 mg/ Dextrose 102 mls @ 200 mls/hr IV NOW STA Stop: 05/17/18 11:33 Last Infusion: 05/17/18 12:09 Dose: 0 mls/hr Documented by: [id number] Admin: 05/17/18 11:35 Dose: 200 mls/hr Documented by: [id number] Methylprednisolone (Solumedrol) 125 mg IV NOW STA Stop: 05/17/18 11:04 Last Admin: 05/17/18 11:35 Dose: 125 mg Documented by: [id number] Medical Decision Making Differential Diagnosis Allergic reaction, infection, cardiac disease, GERD, electrolyte or metabolic abnormality Medical Records Attestation: I reviewed the patient's medical records. Home Medications Current Medication List: was personally reviewed by me Laboratory Data Attestation: I reviewed the patient's lab results. Result diagrams: 05/17/18 11:22 05/17/18 11:22 Lab Results 05/17/18 05/17/18 05/17/18 Range/Units 11:22 11:22 11:31 WBC 6.15 (4.8-10.8) K/uL RBC 4.85 (4.2-5.4) M/uL Hgb 14.5 (12.0-16.0) g/dL Hct 42.6 (37-47) % MCV 87.8 (80-100) fL MCH 29.9 (25-34) pg MCHC 34.0 (32-36) g/dL RDW Std Deviation 41.9 (36.4-46.3) fL RDW Coeff of Missy 13.2 (11.5-14.5) % Plt Count 167 (130-400) K/uL MPV 10.0 (7.4-10.4) fL Immature Gran % (Auto) 0.2 % Neut % (Auto) 61.9 % Lymph % (Auto) 25.9 % [place] % (Auto) 10.2 % Eos % (Auto) 1.3 % Baso % (Auto) 0.5 % Immature Gran # (Auto) 0.01 (0.00-0.02) K/uL Neut # (Auto) 3.81 (1.4-6.5) K/uL Lymph # (Auto) 1.59 (1.2-3.4) K/uL [place] # (Auto) 0.63 H (0.11-0.59) K/uL Eos # (Auto) 0.08 (0-0.5) K/uL Baso # (Auto) 0.03 (0-0.2) K/uL Sodium 140 (136-145) mmol/L Potassium 3.6 (3.5-5.1) mmol/L Chloride 108 H (98-107) mmol/L Carbon Dioxide 29 (21-32) mmol/L Anion Gap 3.0 (3-11) BUN 11 (7-18) mg/dl Creatinine 0.69 (0.6-1.2) mg/dl Est Cr Clr Drug Dosing 89.2 ml/min Est GFR ( Amer) 102.9 Est GFR (Non-Af Amer) 88.8 BUN/Creatinine Ratio 16.4 (10-20) Glucose 101 H (70-99) mg/dl Calcium 9.2 (8.5-10.1) mg/dl Total Bilirubin 0.8 (0.2-1) mg/dl AST 29 (15-37) U/L ALT 60 (12-78) U/L Alkaline Phosphatase 65 (45-117) U/L POC Troponin I < 0.03 (0-0.045) ng/ml Total Protein 7.5 (6.4-8.2) gm/dl Albumin 3.3 L (3.4-5.0) gm/dl Globulin 4.2 H (2.5-4.0) gm/dl Albumin/Globulin Ratio 0.8 L (0.9-2) Lipase 128 (73-393) U/L Imaging Data Attestation: I personally reviewed and interpreted this imaging study as follows: Radiologist's Impression: Radiology results as stated below per my review and the radiologist's interpretation: XR chest 1V portable HISTORY: Atypical Chest Pain COMPARISON: Chest 04/30/2018. FINDINGS: No pneumothorax. No pleural effusions. The heart remains mildly enlarged. No focal lung consolidations to suggest pneumonia. No evidence for pulmonary edema. IMPRESSION: No significant change compared to the prior study. No acute process. Stable mild cardiomegaly. Electronically signed by: Chepe Rose M.D. 05/17/2018 11:35 AM Dictated: 05/17/18 1134 Transcribed: 05/17/18 1134 ECG Data Attestation: I personally reviewed and interpreted this ECG as follows: Indication: other (Allergy) Rate (beats per minute): 67 Rhythm: normal sinus Findings: + other (LVH, T WAVE ABNOMRALITY ) Comparison ECG Date: from (April 30, 2018) Change: no significant change Blood Pressure Blood Pressure Findings: Elevated blood pressure Blood Pressure Disposition: further management by hospitalist [facility] Narrative This patient comes in as described above . she has not felt well for couple days. She has been on doxycycline as well as Flagyl for H. pylori she tells me. She is also had a sore throat since this morning . she is on ARTIE inhibitor as well. she has no visible facial swelling. she has had no rash. She has had some nausea but no chest pain. She appears non-ill and speaking and swallowing without any difficulty. On exam, she does have some swelling of her uvula but the rest of the oropharynx is nonswollen. this may be more of a uvulitis but it could also be an angioedema related to either antibiotics or her ARTIE inhibitor. she was given IV hydration as well as Benadryl 25 mg IV, Zantac 25 mg IV, Solu- Medrol 125 mg IV. EKG does not suggest acute coronary syndrome or arrhythmia. She has no significant electrolyte or metabolic abnormalities. She is starting to feel better. At this point do not feel she needs epinephrine I am concerned about the potential etiology for this and I do think she needs to be observed in the hospital for further treatment and evaluation I have consulted Dr. Caballero from internal medicine was on the ER for these measures. Impression & Plan Angioedema, Allergic reaction Critical Care Time I have personally spent greater than 30 minutes of critical care time in the direct management of this patient. This includes bedside care, interpretation of diagnostic studies, and testing, discussion with consultants, patient, and family members, and other required patient management activities. This 30 minutes is in excess of all separately billable procedures. Critical Care Time: Yes Total Critical Care Time: 30 Discharge Plan Visit Data *Final* Discharge Date/Time: 05/17/18 14:04 Chief Complaint: Allergic Reaction Stated Complaint: REACTION TO MEDICATION ED Provider: Josr Sheffield Discharge Problem: Angioedema, Allergic reaction Patient Disposition: Admitted As Inpatient Discharge Instructions Interventions: ED Discharge Assessment Last Done: 05/17/18 14:04 Discharge Problem: Angioedema Qualifiers: Encounter type: initial encounter Qualified Code(s): T78.3XXA - Angioneurotic edema, initial encounter Allergic reaction Qualifiers: Encounter type: initial encounter Qualified Code(s): T78.40XA - Allergy, unspecified, initial encounter The scribe's documentation has been prepared under my direction and personally reviewed by me in its entirety. I confirm that the note above accurately reflects all work, treatment, procedures, and medical decision making performed by me.
[2018-05-17] MEDS ORDERED: HydrALAZINE HCL 20 MG/ML VIAL IV PRN (19:09)
[2018-05-17] MEDS ORDERED: ACETAMINOPHEN 65 ML IV PRN (19:15)
--- NOTE | 2018-05-17 19:45 | History & Physical Report ---
Date of Service May 17, 2018 Assessment & Plan (1) Allergic reaction: Concern for angioedema. Patient on Lisinopril. Complaining of throat pain and swelling. Has visible swelling of uvula and soft palate. No respiratory compromise. No stridor. Patient given Solumedrol, Benadryl in the ER. -Hold Lisinopril -Benadryl 25mg IV q 8 hours -Zantac 50 mg IV q 8 hours -Prednisone 40mg po daily -Closely monitor for progression of airway swelling (2) Hypertension: Blood pressure mildly elevated at present -Hold Lisinopril due to concern for angioedema -Start Chlorthalidone 25mg po daily for additional blood pressure control -Continue Amlodipine 10mg po génesis -Continue Clonidine 0.1mg po TID -Continue Hydralazine 10mg po BID. Consider increasing to TID if additional control is needed -Hydralazine 5mg IV q 4 hours PRN (3) H. pylori infection: Patient started on Bismuth, Doxy and Flagyl for treatment of H.pylori. She is allergic to ciprofloxacin -Will hold new medications for now -Consider starting regimen that does not contain Flagyl, may be better tolerated History of Present Illness Chief Complaint: Throat swelling Primary Care Provider: Mario Camara MD History obtained through nurse college services. Patient's daughter in law at bedside as well. Patient is a 68yo [place]ic speaking female with history of CAD s/p HI, HTN, GERD, PE and DM. She was recently diagnosed with H. Pylori and started on Flagyl and Doxycycline on 05/14 to complete a 2 week course. Patient reports severe nausea after taking her pills. She woke this AM at 06:30 with severe nausea, headache and shortness of breath. Also with throat pain and the feeling of throat fullness/swelling. Also reports some swelling in her lips and tongue as well as around her eyes. Patient also with diffuse abdominal pain. She denies vomiting, no diarrhea but occasional constipation. She denies rash, wheezing, stridor. She has never had an allergic reaction or anyphylaxis in the past. She has been taking Lisinopril for years. ER Course: Benadryl, Solumedrol, Ranitidine Allergies Allergy/AdvReac Type Severity Reaction Status Date / Time Cipro Allergy Unknown BLOOD IN Verified 06/13/17 06:36 STOOL, MYALGIA ciprofloxacin Allergy Unknown BLOOD IN Verified 05/17/18 12:03 STOOL, MYALGIA diltiazem Allergy Unknown HEADACHE, Verified 05/17/18 12:03 TACHYCARDIA mivacurium Allergy Unknown BLOOD IN Verified 05/17/18 12:03 STOOL, MYALGIA orange AdvReac Verified 05/17/18 15:50 Home Medications Home Medications Medication Instructions Recorded Confirmed Type amlodipine 10 mg PO QAM 01/16/18 05/17/18 History clonidine HCl 0.1 mg PO TID 01/16/18 05/17/18 History lisinopril 20 mg PO BID 01/16/18 05/17/18 History omeprazole 20 mg PO BID 01/16/18 05/17/18 History qwpbsmglnc-eajqnfdbmccbj-qrhw 1 - 2 tab PO Q4H PRN 05/17/18 05/17/18 History cyclobenzaprine 10 mg PO HS PRN 05/17/18 05/17/18 History doxycycline hyclate 100 mg PO BID 05/17/18 05/17/18 History gabapentin 200 mg PO HS 05/17/18 05/17/18 History hydralazine 10 mg PO BID 05/17/18 05/17/18 History levocetirizine 5 mg PO HS 05/17/18 05/17/18 History metronidazole 250 mg PO QID 05/17/18 05/17/18 History nitroglycerin [Nitrostat] 0.4 mg SUBLINGUAL UD 05/17/18 05/17/18 History Past Med/Surg History Medical History Bilateral pulmonary embolism 05/2017 after gallbladder sx--on xarelto Cyst of left kidney just monitoring Cyst of right kidney just monitoring GERD (gastroesophageal reflux disease) H. pylori infection ? hx of Hypertension follows with Dr. 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 Required: Yes and Video Beliefs That Will Affect Care: Yazidism Current Living Situation: Spouse Feels Safe at Home: Yes Safety Concerns: Feels Safe At This Time Smoking Status: Never smoker Hx Alcohol Use: No Hx Substance Use: No Review of Systems All systems reviewed & are unremarkable except as noted in HPI & below Physical Exam Vital Signs (Past 24 Hours): Last Vital Signs Temp 37.0 C 05/17/18 15:44 Pulse 63 05/17/18 18:49 Resp 16 05/17/18 15:44 BP 162/87 H 05/17/18 15:44 Pulse Ox 93 05/17/18 15:44 Physical Exam: General: patient resting comfortably, NAD, non-toxic in appearance Skin: warm, dry, intact, no rashes or lesions HEENT: NC/AT, PERRL, EOMI, anicteric sclera, conjunctiva without injection, external ear normal to inspection and nontender, nares patent, moist mucus membranes, dentition intact, mild swelling and redness of the soft palate and uvula, neck supple, trachea midline, no LAD, no thyromegaly, no JVD Heart: +S1/S2, regular, no m/r/g Lungs: equal air entry bilaterally, no rales/rhonchi/wheezes, no stridor Abd: +BS, soft, NT/ND, no masses/organomegaly/ascites Ext: warm, 2+ pulses in UE/LE bilaterally, no clubbing/cyanosis or edema Neuro: nonfocal, patient AA&O x 4, speech intact, no facial droop, moving all extremities on command with equal strength 5/5 Results & Data Laboratory Results Lab Results 05/17/18 05/17/18 05/17/18 Range/Units 11:22 11:22 11:31 WBC 6.15 (4.8-10.8) K/uL RBC 4.85 (4.2-5.4) M/uL Hgb 14.5 (12.0-16.0) g/dL Hct 42.6 (37-47) % MCV 87.8 (80-100) fL MCH 29.9 (25-34) pg MCHC 34.0 (32-36) g/dL RDW Std Deviation 41.9 (36.4-46.3) fL RDW Coeff of Missy 13.2 (11.5-14.5) % Plt Count 167 (130-400) K/uL MPV 10.0 (7.4-10.4) fL Immature Gran % (Auto) 0.2 % Neut % (Auto) 61.9 % Lymph % (Auto) 25.9 % [place] % (Auto) 10.2 % Eos % (Auto) 1.3 % Baso % (Auto) 0.5 % Immature Gran # (Auto) 0.01 (0.00-0.02) K/uL Neut # (Auto) 3.81 (1.4-6.5) K/uL Lymph # (Auto) 1.59 (1.2-3.4) K/uL [place] # (Auto) 0.63 H (0.11-0.59) K/uL Eos # (Auto) 0.08 (0-0.5) K/uL Baso # (Auto) 0.03 (0-0.2) K/uL Sodium 140 (136-145) mmol/L Potassium 3.6 (3.5-5.1) mmol/L Chloride 108 H (98-107) mmol/L Carbon Dioxide 29 (21-32) mmol/L Anion Gap 3.0 (3-11) BUN 11 (7-18) mg/dl Creatinine 0.69 (0.6-1.2) mg/dl Est Cr Clr Drug Dosing 89.2 ml/min Est GFR ( Amer) 102.9 Est GFR (Non-Af Amer) 88.8 BUN/Creatinine Ratio 16.4 (10-20) Glucose 101 H (70-99) mg/dl Calcium 9.2 (8.5-10.1) mg/dl Total Bilirubin 0.8 (0.2-1) mg/dl AST 29 (15-37) U/L ALT 60 (12-78) U/L Alkaline Phosphatase 65 (45-117) U/L POC Troponin I < 0.03 (0-0.045) ng/ml Total Protein 7.5 (6.4-8.2) gm/dl Albumin 3.3 L (3.4-5.0) gm/dl Globulin 4.2 H (2.5-4.0) gm/dl Albumin/Globulin Ratio 0.8 L (0.9-2) Lipase 128 (73-393) U/L Diagnostic Findings XR chest 1V portable HISTORY: Atypical Chest Pain COMPARISON: Chest 04/30/2018. FINDINGS: No pneumothorax. No pleural effusions. The heart remains mildly enlarged. No focal lung consolidations to suggest pneumonia. No evidence for pulmonary edema. IMPRESSION: No significant change compared to the prior study. No acute process. Stable mild cardiomegaly. Electronically signed by: Chepe Rose M.D. 05/17/2018 11:35 AM Dictated: 05/17/18 1134 Transcribed: 05/17/18 1134 ECG Additional Comments: The study shows NSR at 67bpm, left axis, no acute ischemic findings Code Status & VTE Plan Code Status FULL VTE Prophylaxis Plan VTE Prophylaxis will be ordered: Yes Critical Care Time Critical Care Time: No (1) Allergic reaction Encounter type: initial encounter Qualified Code(s): T78.40XA - Allergy, un specified, initial encounter (2) Hypertension Hypertension type: essential hypertension Qualified Code(s): I10 - Essential (primary) hypertension
[2018-05-17] MEDS: HydrALAZINE 10 MG TAB PO SCH (20:28)
[2018-05-17] MEDS: GABAPENTIN 100 MG CAP PO SCH (20:29)
[2018-05-17] MEDS: PANTOprazole 40 MG TAB PO SCH (20:29)
[2018-05-18 07:10] LABS: Basophils # (auto) 0.01 K/uL (0-0.2); Basophils % (auto) 0.1 %; Hemoglobin 13.8 g/dL (12.0-16.0); Immature Granulocytes # (auto) 0.02 K/uL (0.00-0.02); Immature Granulocytes % (auto) 0.2 %; Lymphocytes # (auto) 1.48 K/uL (1.2-3.4); Lymphocytes % (auto) 16.5 %; Mean Corpuscular Hgb Conc 33.7 g/dL (32-36); Mean Corpuscular Volume 88.6 fL (80-100); Mean Platelet Volume 10.3 fL (7.4-10.4); Monocytes # (auto) 0.69 K/uL (0.11-0.59); Monocytes % (auto) 7.7 %; Neutrophils # (auto) 6.75 K/uL (1.4-6.5); Neutrophils % (auto) 75.5 %; Platelet Count 187 K/uL (130-400); RDW Coefficient of Variation 13.2 % (11.5-14.5); RDW Standard Deviation 42.4 fL (36.4-46.3); Red Blood Count 4.63 M/uL (4.2-5.4); White Blood Count 8.95 K/uL (4.8-10.8)
[2018-05-18] MEDS: XYZAL~ORDER AWAITING ACTION SCH ×2 (07:26→15:18)
[2018-05-18 07:51] LABS: BUN Creatinine Ratio 18.2 (10-20); Calcium 9.1 mg/dl (8.5-10.1); Creatinine Clr Calc Pharmacy 75.1 ml/min; Est GFR (African American) 85.9; Est GFR (Non-African American) 74.1; Potassium 4.4 mmol/L (3.5-5.1)
[2018-05-18] MEDS: DiphenhydrAMINE HCL 50 MG/ML VIAL IV SCH ×3 (07:53→20:34)
[2018-05-18] MEDS: HydrALAZINE 10 MG TAB PO SCH ×2 (07:53→20:33)
[2018-05-18] MEDS: predniSONE 20 MG TAB PO SCH (07:54)
[2018-05-18] MEDS: PANTOprazole 40 MG TAB PO SCH ×2 (07:54→20:33)
[2018-05-18] MEDS: AMLODIPINE BESYLATE 5 MG TAB PO SCH (07:54)
[2018-05-18] MEDS: CHLORTHALIDONE 25 MG TAB PO SCH (07:54)
[2018-05-18] MEDS: cloNIDine HCl 0.1 MG TAB PO SCH ×3 (07:54→20:33)
[2018-05-18] MEDS: GABAPENTIN 100 MG CAP PO SCH (20:33)
--- NOTE | 2018-05-18 23:18 | Hospitalist Progress Note ---
Date of Service May 18, 2018 Assessment & Plan (1) Allergic reaction: Concern for angioedema. Patient on Lisinopril. Complaining of throat pain and swelling. Has visible swelling of uvula and soft palate. No respiratory compromise. No stridor. Patient given Solumedrol, Benadryl in the ER. -Hold Lisinopril -Benadryl 25mg IV q 8 hours -Zantac 50 mg IV q 8 hours -Prednisone 40mg po daily -Patient appears to be improving, will continue to hold lisinopril. Continue current antibiotics. (2) Hypertension: Blood pressure mildly elevated at present -Hold Lisinopril due to concern for angioedema -Start Chlorthalidone 25mg po daily for additional blood pressure control -Continue Amlodipine 10mg po génesis -Continue Clonidine 0.1mg po TID -Continue Hydralazine 10mg po BID. Consider increasing to TID if additional control is needed -Hydralazine 5mg IV q 4 hours PRN BP appears to be better controlled. (3) H. pylori infection: Patient started on Bismuth, Doxy and Flagyl for treatment of H.pylori. She is allergic to ciprofloxacin -Will hold new medications for now Spent 35 minutes in management of patient. Subjective Patient was seen with help of corrugator helper (via tablet). Patient reports feeling better today. Patient reports decreased swelling of her throat and feels like its easier for her to swallow. She reports she has not had an apisode like this in the past. Patient however does reports having symptoms of grief due to her pasing away about 5 months ago. Patient though denies any thoughts of self harm and suicidal ideation and reports good support from family. Review of Systems All systems reviewed & are unremarkable except as noted in HPI & below Physical Exam Vital Signs (Past 24 Hours): Last Vital Signs Temp 36.4 C L 05/18/18 23:00 Pulse 63 05/18/18 23:00 Resp 17 05/18/18 23:00 BP 126/78 05/18/18 23:00 Pulse Ox 90 05/18/18 23:00 Physical Exam: General: patient resting comfortably, NAD, non-toxic in appearance Skin: warm, dry, intact, no rashes or lesions HEENT: NC/AT, PERRL, EOMI, anicteric sclera, conjunctiva without injection, external ear normal to inspection and nontender, nares patent, moist mucus membranes, dentition intact, neck supple, trachea midline, no LAD, no thyromegaly, no JVD Heart: +S1/S2, regular, no m/r/g Lungs: equal air entry bilaterally, no rales/rhonchi/wheezes, no stridor Abd: +BS, soft, NT/ND, no masses/organomegaly/ascites Ext: warm, 2+ pulses in UE/LE bilaterally, no clubbing/cyanosis or edema Neuro: nonfocal, patient AA&O x 4, speech intact, no facial droop, moving all extremities on command with equal strength 5/5 (1) Allergic reaction Encounter type: initial encounter Qualified Code(s): T78.40XA - Allergy, unspecified, initial encounter (2) Hypertension Hypertension type: essential hypertension Qualified Code(s): I10 - Essential (primary) hypertension
[2018-05-19] MEDS: XYZAL~ORDER AWAITING ACTION SCH ×2 (01:26→06:57)
[2018-05-19] MEDS: cloNIDine HCl 0.1 MG TAB PO SCH (07:38)
[2018-05-19] MEDS: AMLODIPINE BESYLATE 5 MG TAB PO SCH (07:38)
[2018-05-19] MEDS: predniSONE 20 MG TAB PO SCH (07:39)
[2018-05-19] MEDS: PANTOprazole 40 MG TAB PO SCH (07:39)
[2018-05-19] MEDS: HydrALAZINE 10 MG TAB PO SCH (07:39)
[2018-05-19] MEDS: CHLORTHALIDONE 25 MG TAB PO SCH (07:39)
[2018-05-19] MEDS: DiphenhydrAMINE HCL 50 MG/ML VIAL IV SCH ×2 (07:40→14:25)
--- NOTE | 2018-05-22 12:03 | Discharge Summary ---
Date of Service May 19, 2018 Admission HPI Per Admitting Provider History obtained through [employer]. Patient's daughter in law at bedside as well. Patient is a 68yo Romanian speaking female with history of CAD s/p KS, HTN, GERD, PE and DM. She was recently diagnosed with H. Pylori and started on Flagyl and Doxycycline on 05/14 to complete a 2 week course. Patient reports severe nausea after taking her pills. She woke this AM at 06:30 with severe nausea, headache and shortness of breath. Also with throat pain and the feeling of throat fullness/swelling. Also reports some swelling in her lips and tongue as well as around her eyes. Patient also with diffuse abdominal pain. She denies vomiting, no diarrhea but occasional constipation. She denies rash, wheezing, stridor. She has never had an allergic reaction or anyphylaxis in the past. She has been taking Lisinopril for years. ER Course: Benadryl, Solumedrol, Ranitidine Principal Diagnosis Allergic reaction or angioedema induced by lisnopril Discharge Exam General: patient resting comfortably, NAD, non-toxic in appearance Skin: warm, dry, intact, no rashes or lesions HEENT: NC/AT, PERRL, EOMI, anicteric sclera, conjunctiva without injection, external ear normal to inspection and nontender, nares patent, moist mucus membranes, dentition intact, neck supple, trachea midline, no LAD, no thyro megaly, no JVD Heart: +S1/S2, regular, no m/r/g Lungs: equal air entry bilaterally, no rales/rhonchi/wheezes, no stridor Abd: +BS, soft, NT/ND, no masses/organomegaly/ascites Ext: warm, 2+ pulses in UE/LE bilaterally, no clubbing/cyanosis or edema Neuro: nonfocal, patient AA&O x 4, speech intact, no facial droop, moving all extremities on command with equal strength 5/5 Discharge Data Allergies Allergy/AdvReac Type Severity Reaction Status Date / Time Cipro Allergy Unknown BLOOD IN Verified 06/13/17 06:36 STOOL, MYALGIA ciprofloxacin Allergy Unknown BLOOD IN Verified 05/17/18 12:03 STOOL, MYALGIA diltiazem Allergy Unknown HEADACHE, Verified 05/17/18 12:03 TACHYCARDIA mivacurium Allergy Unknown BLOOD IN Verified 05/17/18 12:03 STOOL, MYALGIA orange AdvReac Verified 05/17/18 15:50 Hospital Course (1) Allergic reaction: Concern for angioedema. Patient on Lisinopril. Complaining of throat pain and swelling. Has visible swelling of uvula and soft palate. No respiratory compromise. No stridor. Patient given Solumedrol, Benadryl in the ER. -Hold Lisinopril -Benadryl 25mg IV q 8 hours -Zantac 50 mg IV q 8 hours -Prednisone 40mg po daily -Patient appears to be improving, will continue to hold lisinopril. Continue current antibiotics. On day of discharge, patient improved. Unsure if culprit is from antibiotic flagyl or lisinopril. Will hold both and continue steroid taper. Once this acute event subsided, will defer to GI/PCP treatment of H. Pylori. (2) Hypertension: Blood pressure mildly elevated at present -Hold Lisinopril due to concern for angioedema -Start Chlorthalidone 25mg po daily for additional blood pressure control -Continue Amlodipine 10mg po génesis -Continue Clonidine 0.1mg po TID -Continue Hydralazine 10mg po BID. -Hydralazine 5mg IV q 4 hours PRN BP appears to be better controlled. (3) H. pylori infection: Patient started on Bismuth, Doxy and Flagyl for treatment of H.pylori. She is allergic to ciprofloxacin -Will hold new medications for now -will defer to PCP and GI. Total Time Total Time Spent Total Time Spent (In Minutes): 32 Total Time Includes: Examination of the Patient, Discharge Planning and Medication Reconciliation Discharge Plan Discharge Items Patient Disposition: Home - Self-Care Reason For Visit: THROAT SWELLING Discharge Diagnosis: Throat swelling from lisinopril Discharge Goals: Decrease discomfort and Improve function Activity: Resume your previous activity Non-emergency contact: Primary Care Provider Call non-emergency contact if: you have any medication questions Follow-up/Referrals: Mario Camara MD [Primary Care Provider] - Diet: Regular Addtl Provider Instructions: You had a reaction to lisinopril. Will stop this medicine. Will place you on a different anti hypertensive medicine. Will check blood work in 1 week. F/U with PCP in 1-2 weeks Prescriptions: New diphenhydramine HCl [Benadryl] 25 mg capsule 25 mg PO UD Qty: 12 RF: 0 prednisone 10 mg tablet 10 mg PO DAILY Qty: 12 RF: 0 hydralazine 10 mg Tablet 10 mg PO BID Qty: 60 RF: 0 chlorthalidone 25 mg Tablet 25 mg PO QAM Qty: 30 RF: 0 Continued clonidine HCl 0.1 mg Tablet 0.1 mg PO TID RF: 0 amlodipine 5 mg Tablet 10 mg PO QAM RF: 0 omeprazole 20 mg Tablet,Delayed Release (Dr/Ec) 20 mg PO BID RF: 0 cyclobenzaprine 10 mg Tablet 10 mg PO HS PRN (Reason: Muscle Spasm) RF: 0 umtfulejyf-aueiumnpulofs-zxfl 50-325-40 mg Tablet 1 - 2 tab PO Q4H PRN (Reason: Headache) RF: 0 gabapentin 100 mg capsule 200 mg PO HS RF: 0 levocetirizine 5 mg tablet 5 mg PO HS RF: 0 doxycycline hyclate 100 mg capsule 100 mg PO BID RF: 0 metronidazole 250 mg tablet 250 mg PO QID RF: 0 hydralazine 10 mg PO BID RF: 0 Discontinued lisinopril 20 mg Tablet 20 mg PO BID RF: 0 nitroglycerin [Nitrostat] 0.4 mg Tablet, Sublingual 0.4 mg sublingual UD RF: 0 Stand-Alone Forms: [facility] Discharge Orders: Discharge Order (Routine); Ordered 05/19/18 Ordered By: Ezekiel Flannery Admission Data Admit Date/Time: 05/17/18 13:12 Attending Provider: Ezekiel Flannery Admit Provider: Tamara Caballero Primary Care Provider: Mario Camara V. Service: Medical Other Interventions: Discharge Summary Assessment (RN) Last Done: 05/19/18 15:00 DC Date/Time DO NOT enter until pt leaves facility: 05/19/18 15:38
== END 2018-05-19 15:38 | disposition home or self-care (01) ==
LOC: ED 10:32 → 2E 10:32 → SUATTDRO 13:12 → 2E 14:04 → 4W 05-18 19:53

== ENCOUNTER 2019-11-14 17:50 | Inpatient (IN) ==
[2019-11-14] MEDS ORDERED: KETOROLAC 30 MG/ML VIAL IV STA (18:20)
--- NOTE | 2019-11-14 18:27 | Emergency Department Note ---
History of Present Illness General Chief complaint: Leg Injury/Pain Stated complaint: LEFT LEG PAIN Source: patient and family ([id number] who is at the bedside) Mode of arrival: ambulatory Limitations: language barrier ([id number] acted as portainer operator. language line was offered) History of Present Illness Maximum Pain Intensity: 10 This patient comes in with continuing left leg pain. It starts in her left back and radiates down to her knee. SHe had extensive work-up done which included blood work and ultrasound. The ultrasound was negative for DVT. It hurts worse when she moves. She lives on a two-story house and cannot take care of her self according to the daughter. She has had no fall. No chest pain or shortness of breath. No known COVID exposure. No flulike symptoms. She did have an equivocal Lyme titer the other daY and is on Doxy. She also had CAT scans of the chest and abdomen that were unremarkable Home Medications Home Medications Medication Instructions Recorded Confirmed Type Oxygen Home #1 ea 08/15/18 03/28/19 History incontinence pad, liner, disp #200 ea 08/15/18 03/28/19 History azelastine 0.05 % eye drops 1 drp OP BID PRN ml 01/29/19 11/14/19 History prochlorperazine maleate 10 mg PO QID PRN #14 tab 03/23/19 11/14/19 Rx furosemide 20 mg tablet 20 mg PO DAILY PRN #20 tab 05/13/19 11/14/19 Rx omeprazole 20 mg tablet,delayed 20 mg PO BID #180 tab 05/29/19 11/14/19 Rx release clonidine HCl 0.1 mg tablet 0.1 mg PO TID PRN #120 tab 08/19/19 11/14/19 Rx amlodipine 5 mg tablet 10 mg PO QAM #60 tab 10/15/19 11/14/19 Rx levocetirizine 5 mg tablet 5 mg PO HS #30 tab 10/21/19 11/14/19 Rx doxycycline hyclate 100 mg PO Q12H 21 Days #42 tab 11/11/19 11/14/19 Rx Allergies Allergy/AdvReac Type Severity Reaction Status Date / Time azithromycin AdvReac Intermediate myalgia, Verified 11/14/19 19:59 other verapamil AdvReac Intermediate myalgia, Verified 11/14/19 19:59 other ciprofloxacin AdvReac Unknown BLOOD IN Verified 11/14/19 19:59 STOOL, MYALGIA diltiazem AdvReac Unknown HEADACHE, Verified 11/14/19 19:59 TACHYCARDIA orange AdvReac Unknown Unknown Verified 11/14/19 19:59 DUST MITES Allergy Unknown POSITIVE Uncoded 11/14/19 19:59 ALLERGY TEST Past Med/Surg History Medical History Angioedema Bilateral pulmonary embolism 05/2017 after gallbladder sx--on xarelto Cyst of left kidney just monitoring Cyst of right kidney just monitoring GERD (gastroesophageal reflux disease) H. pylori infection ? hx of Helicobacter pylori (H. pylori) infection Hypertension follows with Dr. Ya Hypoxia Migraine Myocardial Infarction 1997--chest pain Nocturnal hypoxemia On anticoagulant therapy Xarelto On home oxygen therapy 2L N/C at hs Pulmonary embolism Thyroid cyst just monitoring Traumatic tear of supraspinatus tendon of right shoulder Surgical History H/O abdominal hysterectomy History of appendectomy History of cholecystectomy History of colonoscopy History of esophagogastroduodenoscopy (EGD) History of hysterectomy Hx of cholecystectomy S/P cholecystectomy Family History Father Prostate cancer Sister Cancer of kidney Grandfather (Maternal) Stomach cancer Denies family history of Colon cancer Ovarian cancer Myocardial infarction Breast cancer Social History Smoking Status: Never smoker Second Hand Exposure: No; Hx Alcohol Use: No Hx Substance Use: No Preferred Language: Cuban Communication Ability: Effective Twister Operator Required: Yes and Video Beliefs That Will Affect Care: Latter-Day Latter-Day Beliefs: Confucianist Current Living Situation: Spouse Feels Safe at Home: Yes Seatbelt Use: always Assistive Devices: Oxygen - at Night Review of Systems A total of 10 systems reviewed and were otherwise negative Physical Exam Vital Signs Vital Signs - 24 hr 11/14/19 18:00 11/14/19 19:54 11/14/19 20:49 Temperature 36.9 C Temperature Source Oral Pulse Rate 79 Pulse Rate [Finger] 64 60 Pulse Rhythm [Finger] Respiratory Rate 18 18 18 Respiratory Effort / Characteristics Respiratory Depth Blood Pressure 156/100 H Blood Pressure [Right Arm] 136/79 157/85 H Blood Pressure Mean 118 Blood Pressure Mean [Right Arm] 98 109 Pulse Oximetry 93 94 94 Oxygen Delivery Method Room Air Room Air Room Air Oxygen Flow Rate Sepsis Recent Fever Within 48 Hours No Sepsis New/Unexplained Change in Mental Status No Sepsis Action Taken by Nursing No Action Required 11/14/19 21:11 11/14/19 21:15 11/14/19 22:00 Temperature Temperature Source Pulse Rate Pulse Rate [Finger] 58 L 60 Pulse Rhythm [Finger] Respiratory Rate 18 18 18 Respiratory Effort / Characteristics Respiratory Depth Blood Pressure Blood Pressure [Right Arm] 144/82 H 173/92 H Blood Pressure Mean Blood Pressure Mean [Right Arm] 102 119 Pulse Oximetry 88 L 94 94 Oxygen Delivery Method Room Air Nasal Cannula Nasal Cannula Oxygen Flow Rate 2 2 Sepsis Recent Fever Within 48 Hours Sepsis New/Unexplained Change in Mental Status Sepsis Action Taken by Nursing 11/14/19 23:17 Temperature Temperature Source Pulse Rate Pulse Rate [Finger] 58 L Pulse Rhythm [Finger] Regular Respiratory Rate 18 Respiratory Effort / Characteristics Non-Labored Respiratory Depth Normal Blood Pressure Blood Pressure [Right Arm] 178/62 H Blood Pressure Mean Blood Pressure Mean [Right Arm] 100 Pulse Oximetry 98 Oxygen Delivery Method Nasal Cannula Oxygen Flow Rate Sepsis Recent Fever Within 48 Hours Sepsis New/Unexplained Change in Mental Status Sepsis Action Taken by Nursing General: Well developed well nourished older female who in no acute distress, breathing comfortably on room air. Normal speech HEENT: Normal cephalic atraumatic. Pupils are equal round and reactive to light. Extraocular movements are intact. Oropharynx is pink with moist mucous membranes. No swelling of the mouth lips or tongue. Neck: Supple with a midline trachea. No meningeal signs or stiffness, no JVD or bruits. No Stridor. Chest: Clear to auscultation bilaterally. No wheezes or rhonchi. No increased work of breathing. Heart: Regular rate and rhythm without murmurs or gallops. Abdomen: Soft nontender, nondistended without rebound guarding or rigidity. Extremities: No cyanosis clubbing or edema. No calf tenderness or assymetry. The knee or hip are not red or warm. She does have pain that seems to start in her back and radiate down the leg when I straight leg raise her left leg. Normal Achilles function. Spine/Back. Non tender to palpation. No CVA tenderness Skin: Good turgor without rashes. Neurologic exam: Cranial nerves two through 12 are intact. Motor and sensation are intact and symmetrical throughout. Course Administered Medications Discontinued Medications Ketorolac Tromethamine (Ketorolac 30 Mg/Ml Vial) 30 mg IV NOW STA Stop: 11/14/19 18:21 Last Admin: 11/14/19 18:44 Dose: Not Given Documented by: [id number] Morphine Sulfate (Morphine Sulfate 2 Mg/Ml Carp) 2 mg IV NOW STA Stop: 11/14/19 20:43 Last Admin: 11/14/19 20:50 Dose: 2 mg Documented by: [id number] Ondansetron HCl (Ondansetron Inj 2 Mg/Ml 2 Ml Vial) 4 mg IV NOW STA Stop: 11/14/19 20:43 Last Admin: 11/14/19 20:51 Dose: 4 mg Documented by: [id number] Medical Decision Making Differential Diagnosis Sciatica, Lyme disease, musculoskeletal, arthritis, fracture, dislocation, infection, sepsis, COVID Medical Records Attestation: I reviewed the patient's medical records. Home Medications Current Medication List: was personally reviewed by me Laboratory Data Attestation: I reviewed the patient's lab results. Result diagrams: 11/14/19 19:32 11/14/19 19:32 Lab Results 11/14/19 11/14/19 Range/Units 19:32 19:32 WBC 6.93 (4.8-10.8) K/uL RBC 4.60 (4.2-5.4) M/uL Hgb 13.8 (12.0-16.0) g/dL Hct 41.8 (37-47) % MCV 90.9 (80-100) fL MCH 30.0 (25-34) pg MCHC 33.0 (32-36) g/dL RDW Std Deviation 42.7 (36.4-46.3) fL RDW Coeff of Missy 13.1 (11.5-14.5) % Plt Count 176 (130-400) K/uL MPV 10.2 (7.4-10.4) fL Immature Gran % (Auto) 0.1 % Neut % (Auto) 57.2 % Lymph % (Auto) 33.8 % Randall % (Auto) 6.5 % Eos % (Auto) 2.0 % Baso % (Auto) 0.4 % Neut # (Auto) 3.96 (1.4-6.5) K/uL Lymph # (Auto) 2.34 (1.2-3.4) K/uL Randall # (Auto) 0.45 (0.11-0.59) K/uL Eos # (Auto) 0.14 (0-0.5) K/uL Baso # (Auto) 0.03 (0-0.2) K/uL Immature Gran # (Auto) 0.01 (0.00-0.02) K/uL Sodium 144 (136-145) mmol/L Potassium 4.3 (3.5-5.1) mmol/L Chloride 110 H (98-107) mmol/L Carbon Dioxide 28 (21-32) mmol/L Anion Gap 5.0 (3-11) BUN 14 (7-18) mg/dl Creatinine 0.74 (0.6-1.2) mg/dl Est Cr Clr Drug Dosing Not Reportable Est GFR ( Amer) 95.1 Est GFR (Non-Af Amer) 82.1 BUN/Creatinine Ratio 18.3 (10-20) Glucose 100 H (70-99) mg/dl Calcium 9.2 (8.5-10.1) mg/dl Total Bilirubin 0.4 (0.2-1) mg/dl AST 30 (15-37) U/L ALT 79 H (12-78) U/L Alkaline Phosphatase 79 (45-117) U/L Total Protein 7.0 (6.4-8.2) gm/dl Albumin 3.1 L (3.4-5.0) gm/dl Globulin 3.9 (2.5-4.0) gm/dl Albumin/Globulin Ratio 0.8 L (0.9-2) Lipase 194 (73-393) U/L Imaging Data Radiologist's Impression: XR lumbar spine min 4V routine HISTORY: 69 years-old Female Back pain radiating to left leg acute low back pain with radiation into the left lower extremity COMPARISON: CT abdomen and pelvis 11/11/2019 TECHNIQUE: 4 views of the lumbar spine FINDINGS: Cholecystectomy. 5 nonrib-bearing lumbar type vertebral segments are present. Minimal levoscoliosis. No spondylolysis or spondylolisthesis. Minimal spondylitic spurring with moderate L4/L5 and L5-S1 facet arthrosis. Moderate L5- S1 disc space narrowing. L1 vertebral body hemangioma. No acute fracture or subluxation. IMPRESSION: No acute fracture or subluxation. XR knee LT 1 or 2V routine HISTORY: 69 years-old Female KNEE PAIN acute left knee pain without reported trauma COMPARISON: None TECHNIQUE: 3 views of the left knee FINDINGS: Demineralized appearance of the bones. Mild to moderate tricompartmental osteoarthritis. No acute fracture, dislocation, or opaque foreign body. Small joint effusion. IMPRESSION: Small joint effusion without acute fracture. XR hip LT 2V w pelvis HISTORY: 69 years-old Female PAIN . Acute pelvis and left hip pain without known injury COMPARISON: CT abdomen and pelvis 11/11/2019 TECHNIQUE: AP view the pelvis with 2 views of the left hip FINDINGS: Mild to moderate osteoarthritis of the femoral acetabular joints. Mildly demineralized appearance of the bones. No acute fracture, dislocation, avascular necrosis or opaque foreign body. Probable phleboliths of the pelvis. IMPRESSION: No acute fracture or dislocation. Blood Pressure Blood Pressure Findings: Normal blood pressure MDM Narrative This patient comes in as described above she has left leg pain that continues. It seems to start from back may be sciatica. She had extensive work-up done the other day. I did order x-rays today of the back hip and knee. She was initially ordered Toradol 15 mg IV but then told the nurse that she was allergic to ibuprofen so this was canceled. She was given morphine 2 mg IV and Zofran 4 mg IV.. Her [id number] acted as portainer operator and she was offered the language line as well. She has no fever or white count to suggest infection. she has no acute electrolyte or metabolic abnormalities. I did x-rays of the left hip back and knee which do not show any acute findings she does have a lot of degenerative changes this may more be more of a sciatica type situation. She has nothing to suggest cauda equina syndrome and has no focal numbness or weakness which is seems to be generally weak due to pain. I am concerned at this point she has ambulatory dysfunction cannot take care of herself at home. I do think she needs to come into the hospital for further evaluation and p ossible rehabilitation placement as well. I have consulted the [facility] hospitalist to see her in the ER for these measures. Patient and daughter in law are happy with the plan. Continuous cardiac monitoring: An order was placed in the EMR for continuous cardiac monitoring. The patient was noted to be in normal sinus rhythm with a rate of 60. Impression & Plan Weakness, Acute leg pain, Sciatica, Ambulatory dysfunction, Degenerative joint disease (DJD) of lumbar spine Discharge Plan Visit Data Chief Complaint: Leg Injury/Pain Stated Complaint: LEFT LEG PAIN ED Provider: Josr Sheffield Discharge Problem: Weakness, Acute leg pain, Sciatica, Ambulatory dysfunction, Degenerative joint disease (DJD) of lumbar spine Forms Stand Alone Forms: [facility] Prescriptions Prescriptions: No Action furosemide 20 mg tablet 20 mg PO DAILY PRN (Reason: Fluid Retention) Qty: 20 RF: 5 omeprazole 20 mg tablet,delayed release (DR/EC) 20 mg PO BID Qty: 180 RF: 1 Hold Instructions: new dose instructions clonidine HCl 0.1 mg tablet 0.1 mg PO TID PRN (Reason: NEEDED) Qty: 120 RF: 5 amlodipine 5 mg tablet 10 mg PO QAM Qty: 60 RF: 3 levocetirizine 5 mg tablet 5 mg PO HS Qty: 30 RF: 5 (DME) Bladder Control Pad Ultra Plus pad See Dose Instructions .ROUTE .MEDSUPPLY Qty: 200 RF: 0 (DME) Oxygen Home Liters Per Minute See Dose Instructions .ROUTE .MEDSUPPLY Qty: 1 RF: 0 azelastine 0.05 % drops 1 drp OP BID PRN (Reason: Nasal Congestion) RF: 0 prochlorperazine maleate 10 mg tablet 10 mg PO QID PRN (Reason: nausea and vomiting) Qty: 14 RF: 0 doxycycline hyclate 100 mg tablet 100 mg PO Q12H 21 Days Qty: 42 RF: 0 Discharge Problem: Acute leg pain Qualifiers: Laterality: left Qualified Code(s): M79.605 - Pain in left leg Sciatica Qualifiers: Laterality: left Qualified Code(s): M54.32 - Sciatica, left side Degenerative joint disease (DJD) of lumbar spine Qualifiers: Spinal osteoarthritis complication: with radiculopathy Qualified Code(s): M47.26 - Other spondylosis with radiculopathy, lumbar region
--- NOTE | 2019-11-14 19:33 | XRay Report ---
XR hip LT 2V w pelvis HISTORY: 69 years-old Female PAIN . Acute pelvis and left hip pain without known injury COMPARISON: CT abdomen and pelvis 11/11/2019 TECHNIQUE: AP view the pelvis with 2 views of the left hip FINDINGS: Mild to moderate osteoarthritis of the femoral acetabular joints. Mildly demineralized appearance of the bones. No acute fracture, dislocation, avascular necrosis or opaque foreign body. Probable phlebo liths of the pelvis. IMPRESSION: No acute fracture or dislocation. ACT 112: Negative or not required by law. The above report was generated using voice recognition software. It may contain grammatical, syntax o r spelling errors. Electronically signed by: Marquis Tanner M.D. 11/14/2019 7:31 PM
--- NOTE | 2019-11-14 19:36 | XRay Report ---
XR knee LT 1 or 2V routine HISTORY: 69 years-old Female KNEE PAIN acute left knee pain without reported trauma COMPARISON: None TECHNIQUE: 3 views of the left knee FINDINGS: Demineralized appearance of the bones. Mild to moderate tricompartmental osteoarthritis. No acute fra cture, dislocation, or opaque foreign body. Small joint effusion. IMPRESSION: Small joint effusion without acute fracture. ACT 112: Negative or not required by law. The above report was generated using voice recognition software. It may contain grammatical, syntax o r spelling errors. Electronically signed by: Marquis Tanner M.D. 11/14/2019 7:34 PM
--- NOTE | 2019-11-14 19:37 | XRay Report ---
XR lumbar spine min 4V routine HISTORY: 69 years-old Female Back pain radiating to left leg acute low back pain with radiation into the left lower extremity COMPARISON: CT abdomen and pelvis 11/11/2019 TECHNIQUE: 4 views of the lumbar spine FINDINGS: Cholecystectomy. 5 nonrib-bearing lumbar type vertebral segments are present. Minimal levoscoliosis. No spondylolysis or spondylolisthesis. Minimal spondylitic spurring with moderate L4/L5 and L5-S1 fac et arthrosis. Moderate L5-S1 disc space narrowing. L1 vertebral body hemangioma. No acute fracture or subluxation. IMPRESSION: No acute fracture or subluxation. ACT 112: Negative or not required by law. The above report was generated using voice recognition software. It may contain grammatical, syntax o r spelling errors. Electronically signed by: Marquis Tanner M.D. 11/14/2019 7:36 PM
[2019-11-14 19:45] LABS: Basophils # (auto) 0.03 K/uL (0-0.2); Basophils % (auto) 0.4 %; Eosinophils # (auto) 0.14 K/uL (0-0.5); Hematocrit (blood only) 41.8 % (37-47); Hemoglobin 13.8 g/dL (12.0-16.0); Immature Granulocytes # (auto) 0.01 K/uL (0.00-0.02); Immature Granulocytes % (auto) 0.1 %; Lymphocytes # (auto) 2.34 K/uL (1.2-3.4); Lymphocytes % (auto) 33.8 %; Mean Corpuscular Volume 90.9 fL (80-100); Mean Platelet Volume 10.2 fL (7.4-10.4); Monocytes # (auto) 0.45 K/uL (0.11-0.59); Monocytes % (auto) 6.5 %; Neutrophils # (auto) 3.96 K/uL (1.4-6.5); Neutrophils % (auto) 57.2 %; Platelet Count 176 K/uL (130-400); RDW Coefficient of Variation 13.1 % (11.5-14.5); RDW Standard Deviation 42.7 fL (36.4-46.3); White Blood Count 6.93 K/uL (4.8-10.8)
[2019-11-14 20:02] LABS: Alanine Aminotransferase 79 U/L (12-78); Albumin Level 3.1 gm/dl (3.4-5.0); Aspartate Aminotransferase 30 U/L (15-37); BUN Creatinine Ratio 18.3 (10-20); Blood Urea Nitrogen 14 mg/dl (7-18); Calcium 9.2 mg/dl (8.5-10.1); Carbon Dioxide 28 mmol/L (21-32); Chloride 110 mmol/L (98-107); Est GFR (African American) 95.1; Est GFR (Non-African American) 82.1; Glucose 100 mg/dl (70-99); Lipase 194 U/L (73-393); Potassium 4.3 mmol/L (3.5-5.1); Sodium 144 mmol/L (136-145)
[2019-11-14 20:05] LABS: Albumin Globulin Ratio 0.8 (0.9-2); Alkaline Phosphatase 79 U/L (45-117); Bilirubin,Total 0.4 mg/dl (0.2-1); Globulin 3.9 gm/dl (2.5-4.0)
[2019-11-14] MEDS ORDERED: ONDANSETRON INJ 2 MG/ML 2 ML VIAL IV STA (20:42)
[2019-11-14] MEDS ORDERED: MoRPHine SULFATE 2 MG/ML CARP IV STA (20:42)
--- NOTE | 2019-11-14 23:07 | History & Physical Report ---
Date of Service November 14, 2019 Assessment & Plan (1) Back pain: 69-year-old female with past medical history hypertension, GERD presents with concerns of ongoing low back and left leg pain admitted for likely placement. LBP with Sciatic Sxs Admit to MedSurg Likely secondary to arthritic changes noted on imaging as outlined below Venous Doppler study: There is no sonographic evidence of deep venous thrombosis identified in the left lower extremity Hip/pelvis x-ray: Mild to moderate osteoarthritis of the femoral acetabular joints. Mildly demineralized appearance of the bones. No acute fracture, dislocation, avascular necrosis or opaque foreign body. Probable phleboliths of the pelvis Knee x-ray: Mild to moderate tricompartmental osteoarthritis. No acute fracture, dislocation, or opaque foreign body. Small joint effusion Lumbar spine x-ray: Minimal levoscoliosis. No spondylolysis or spondylolisthesis. Minimal spondylitic spurring with moderate L4/L5 and L5-S1 facet arthrosis. Moderate L5-S1 disc space narrowing. L1 vertebral body hemangioma. No acute fracture or subluxation Patient has previously declined bone density scans per review of outpatient notes Pain management with scheduled Tylenol, lidocaine patch, Robaxin, heat pad. IV Toradol for severe pain and morphine for breakthrough pain Fall precautions ordered PT OT eval is pending Patient will likely need placement. Appreciate CM assistance Hypertension Likely elevated above patient's baseline secondary to pain. Fluctuating BPs noted on outpatient records as well Continue amlodipine 10 mg daily, clonidine 0.1 mg twice daily, lisinopril 5 mg daily IV hydralazine PRN for urgency ranges GERD Continue omeprazole 20 mg twice daily History of PE Seen on imaging from May 2017 Patient was on course of Xarelto 20 mg for 9 months with follow-up CT August 2018 that was negative for PE and Xarelto discontinued Lyme's disease We will discontinue doxy as Western blot resulted negative FEN/GI: Heart healthy diet DVT prophylaxis: Lovenox SQ Full code Dispo: MedSurg History of Present Illness Chief Complaint: Hip leg pain Primary Care Provider: Mario Raymond MD 69-year-old female with past medical history hypertension, GERD presents with concerns of ongoing low back and left leg pain. History obtained by [id number] who is at bedside as patient does not speak any Yi, limited as DIL is also ESL. Patient was recently in the ED 11/11/2019 for similar complaint. Patient notes that her back pain started in October of this year, however in the past week or so is gotten much worse to the point where she can no longer ambulate. Patient describes pain described in her left lumbar/hip area with a shooting pain down into the left leg. 9 or 10 on severity scale. Patient is tried Tylenol for this, which only helped a little. Exacerbated by any sort of movement. Patient never had pain like this ever before. Patient with no history of back surgeries and no hardware present. Patient lives in a two-story house by herself, however can no longer take the steps up to the second floor. Patient was previously able to do all activities of daily living by herself independently. She feels like her left leg is more swollen compared to her right, however she thinks this has been since July of this year. Patient denies any falls or trauma that preceded pain. Denies any numbness, tingling, or other red flag symptoms of bowel or bladder incontinence or saddle anesthesia. No fevers, chills, sweats, chest pain, shortness of breath, abdominal pain, urinary symptoms, known sick contacts or recent travel anywhere. Patient with no other acute concerns or complaints. Pertinent labs: Unremarkable CBC CMP Venous Doppler study: There is no sonographic evidence of deep venous thrombosis identified in the left lower extremity. Hip/pelvis x-ray: Mild to moderate osteoarthritis of the femoral acetabular joints. Mildly demineralized appearance of the bones. No acute fracture, dislocation, avascular necrosis or opaque foreign body. Probable phleboliths of the pelvis. Knee x-ray: Mild to moderate tricompartmental osteoarthritis. No acute fracture, dislocation, or opaque foreign body. Small joint effusion. Lumbar spine x-ray: Minimal levoscoliosis. No spondylolysis or spondylolisthesis. Minimal spondylitic spurring with moderate L4/L5 and L5-S1 facet arthrosis. Moderate L5-S1 disc space narrowing. L1 vertebral body hemangioma. No acute fracture or subluxation. ER course: IV Toradol 30 mg, IV morphine 2 mg, IV Zofran 4 mg Allergies Allergy/AdvReac Type Severity Reaction Status Date / Time azithromycin AdvReac Intermediate myalgia, Verified 11/14/19 19:59 other verapamil AdvReac Intermediate myalgia, Verified 11/14/19 19:59 other ciprofloxacin AdvReac Unknown BLOOD IN Verified 11/14/19 19:59 STOOL, MYALGIA diltiazem AdvReac Unknown HEADACHE, Verified 11/14/19 19:59 TACHYCARDIA orange AdvReac Unknown Unknown Verified 11/14/19 19:59 Home Medications Home Medications Medication Instructions Recorded Confirmed Type Oxygen Home #1 ea 08/15/18 03/28/19 History incontinence pad, liner, disp #200 ea 08/15/18 03/28/19 History azelastine 0.05 % eye drops 1 drp OP BID PRN ml 01/29/19 11/14/19 History prochlorperazine maleate 10 mg PO QID PRN #14 tab 03/23/19 11/14/19 Rx furosemide 20 mg tablet 20 mg PO DAILY PRN #20 tab 05/13/19 11/14/19 Rx omeprazole 20 mg tablet,delayed 20 mg PO BID #180 tab 05/29/19 11/14/19 Rx release clonidine HCl 0.1 mg tablet 0.1 mg PO TID PRN #120 tab 08/19/19 11/14/19 Rx amlodipine 5 mg tablet 10 mg PO QAM #60 tab 10/15/19 11/14/19 Rx levocetirizine 5 mg tablet 5 mg PO HS #30 tab 10/21/19 11/14/19 Rx doxycycline hyclate 100 mg PO Q12H 21 Days #42 tab 11/11/19 11/14/19 Rx Past Med/Surg History Medical History Angioedema Bilateral pulmonary embolism 05/2017 after gallbladder sx--on xarelto Cyst of left kidney just monitoring Cyst of right kidney just monitoring GERD (gastroesophageal reflux disease) H. pylori infection ? hx of Helicobacter pylori (H. pylori) infection Hypertension follows with Dr. Ya Hypoxia Migraine Myocardial Infarction 1997--chest pain Nocturnal hypoxemia On anticoagulant therapy Xarelto On home oxygen therapy 2L N/C at hs Pulmonary embolism Thyroid cyst just monitoring Traumatic tear of supraspinatus tendon of right shoulder Surgical History H/O abdominal hysterectomy History of appendectomy History of cholecystectomy History of colonoscopy History of esophagogastroduodenoscopy (EGD) History of hysterectomy Hx of cholecystectomy S/P cholecystectomy Family History Father Prostate cancer Sister Cancer of kidney Grandfather (Maternal) Stomach cancer Denies family history of Colon cancer Ovarian cancer Myocardial infarction Breast cancer Social History Smoking Status: Never smoker Second Hand Exposure: No; Hx Alcohol Use: No Hx Substance Use: No Preferred Language: Polish Communication Ability: Effective Communication Ability Comment: Unable to read chinese. Paper Spooler Required: Yes Beliefs That Will Affect Care: None Current Living Situation: Alone Other Information That Helps Us Care for You: No Feels Safe at Home: Yes Safety Concerns: Feels Safe At This Time Seatbelt Use: always Assistive Devices: None Review of Systems Review of Systems: All systems reviewed & are unremarkable except as noted in HPI & below Physical Exam Constitutional: + obese Eyes: PERRL, conjunctivae normal, anicteric sclerae ENMT: external ear and nose normal, oropharynx normal Respiratory: normal respiratory effort, lungs clear to auscultation Cardiovascular: RRR, no murmur, no edema Gastrointestinal (Abdomen): normal bowel sounds, soft, nontender, no hepatosplenomegaly Musculoskeletal: Tenderness to palpation lumbar paraspinals Range of motion limited in hip extension bilaterally secondary to pain Normal strength lower extremity Patient cannot tolerate straight leg raise on left side Dermatomal sensation L4, L5, S1 intact Skin: no rashes, warm and dry Psychiatric: A+Ox3, euthymic affect Lymphatic: No swelling noted left lower extremity compared to right Results & Data Results & Data ([facility]) Vital Signs (Past 12 Hours) Vital Signs Temp Pulse Pulse Resp BP BP Pulse Ox 11/14/19 22:00 60 18 173/92 H 94 11/14/19 21:15 18 94 11/14/19 21:11 58 L 18 144/82 H 88 L 11/14/19 20:49 60 18 157/85 H 94 11/14/19 19:54 64 18 136/79 94 11/14/19 18:00 36.9 C 79 18 156/100 H 93 Laboratory Results Laboratory Results - last 24 hr 11/14/19 11/14/19 19:32 19:32 WBC 6.93 RBC 4.60 Hgb 13.8 Hct 41.8 MCV 90.9 MCH 30.0 MCHC 33.0 RDW Std Deviation 42.7 RDW Coeff of Missy 13.1 Plt Count 176 MPV 10.2 Immature Gran % (Auto) 0.1 Neut % (Auto) 57.2 Lymph % (Auto) 33.8 Stafford % (Auto) 6.5 Eos % (Auto) 2.0 Baso % (Auto) 0.4 Neut # (Auto) 3.96 Lymph # (Auto) 2.34 Stafford # (Auto) 0.45 Eos # (Auto) 0.14 Baso # (Auto) 0.03 Immature Gran # (Auto) 0.01 Sodium 144 Potassium 4.3 Chloride 110 H Carbon Dioxide 28 Anion Gap 5.0 BUN 14 Creatinine 0.74 Est Cr Clr Drug Dosing Not Reportable Est GFR ( Amer) 95.1 Est GFR (Non-Af Amer) 82.1 BUN/Creatinine Ratio 18.3 Glucose 100 H Calcium 9.2 Total Bilirubin 0.4 AST 30 ALT 79 H Alkaline Phosphatase 79 Total Protein 7.0 Albumin 3.1 L Globulin 3.9 Albumin/Globulin Ratio 0.8 L Lipase 194 Code Status & VTE Plan Code Status Full Supervising Physician Co-Signing Physician Notes Patient seen and examined, chart reviewed, case discussed with Dr. Marino and I agree with his assessment and plan as documented above. Briefly, patient is s 69yo female presenting with acute worsening of chronic back pain, radiation down posterior thigh and difficulty ambulating. On exam patient is afebrile, hypertensive. She speaks minimal Yi and prefers communication in Polish. Her DIL is at bedside for now Skin - LLE mildly erythematous HEENT - NC/AT, PERRL, MMM Heart - +S1/S2, regular, no m/r/g Lungs - CTA Abd- +BS, soft, NT/ND Ext - LLE edema. MS preserved although exam is limited by pain, sensation intact Labs and images reviewed. Recent doppler negative for DVT. No fracture, dislocations noted Assessment/Plan: Acute on chronic low back pain with sciatic symptoms, limiting mobility and ADLs -Admit to medical floor -Pain control with scheduled Tylenol, Lidoderm, Heat. Toradol and Morphine PRN -PT/OT evaluation -Management of chronic medical problems as above
[2019-11-15] MEDS ORDERED: hydrALAZINE HCL 20 MG/ML VIAL IV PRN (01:35)
[2019-11-15] MEDS ORDERED: ONDANSETRON INJ 2 MG/ML 2 ML VIAL IV PRN (01:35)
[2019-11-15] MEDS ORDERED: PROCHLORPERAZINE MALEATE 10 MG TAB PO PRN (01:35)
[2019-11-15] MEDS ORDERED: MoRPHine SULFATE 2 MG/ML CARP IV PRN (01:35)
[2019-11-15] MEDS ORDERED: KETOROLAC TROMETHAMINE 15 MG/ML VIAL IV PRN (01:35)
[2019-11-15] MEDS ORDERED: FUROSEMIDE 20 MG TAB PO PRN (01:35)
[2019-11-15] MEDS ORDERED: ALUMINUM/MAGNESIUM SUSP 30 ML UDC PO PRN (01:35)
[2019-11-15] MEDS ORDERED: MoRPHine SULFATE 2 MG/ML CARP ONE (01:58)
[2019-11-15] MEDS: cloNIDine HCL 0.1 MG TAB PO SCH ×3 (02:31→21:51)
[2019-11-15] MEDS: LIDOCAINE 5% 1 PATCH TD SCH ×2 (02:32→21:52)
[2019-11-15] MEDS: ACETAMINOPHEN 500 MG TAB PO SCH ×3 (02:33→21:51)
--- NOTE | 2019-11-15 02:57 | Billing Data ---
Date of Service November 14, 2019 Coding Level of Care Code 02619 Initial Inpt Care Lvl 3
[2019-11-15 06:21] LABS: Basophils # (auto) 0.03 K/uL (0-0.2); Basophils % (auto) 0.5 %; Eosinophils # (auto) 0.16 K/uL (0-0.5); Eosinophils % (auto) 2.5 %; Hematocrit (blood only) 42.4 % (37-47); Immature Granulocytes # (auto) 0.01 K/uL (0.00-0.02); Immature Granulocytes % (auto) 0.2 %; Lymphocytes # (auto) 1.89 K/uL (1.2-3.4); Lymphocytes % (auto) 29.7 %; Mean Corpuscular Hemoglobin 30.3 pg (25-34); Mean Corpuscular Volume 91.8 fL (80-100); Monocytes # (auto) 0.54 K/uL (0.11-0.59); Monocytes % (auto) 8.5 %; Neutrophils # (auto) 3.74 K/uL (1.4-6.5); Neutrophils % (auto) 58.6 %; Platelet Count 170 K/uL (130-400); RDW Coefficient of Variation 13.3 % (11.5-14.5); RDW Standard Deviation 44.1 fL (36.4-46.3); Red Blood Count 4.62 M/uL (4.2-5.4); White Blood Count 6.37 K/uL (4.8-10.8)
[2019-11-15] MEDS ORDERED: METHOCARBAMOL 500 MG TABLET PO PRN (06:35)
[2019-11-15 06:46] LABS: BUN Creatinine Ratio 17.4 (10-20); Calcium 9.2 mg/dl (8.5-10.1); Creatinine Clr Calc Pharmacy 92.6 ml/min; Est GFR (African American) 103.2; Est GFR (Non-African American) 89.1; Potassium 4.3 mmol/L (3.5-5.1)
[2019-11-15 07:53] LABS: Appearance Urine Clear (Clear); Bilirubin Urine Negative (Negative); Blood Urine Negative (Negative); Color Urine Yellow; Glucose Urine UA Negative (Negative); Ketones Urine Negative (Negative); Leukocyte Esterase Urine Negative (Negative); Nitrite Urine Negative (Negative); Protein Urine Negative (Negative); Specific Gravity Urine 1.016 (1.000-1.030); Urobilinogen Urine Negative (Negative); pH Urine 5.5 (4.5-7.5)
[2019-11-15] MEDS: PANTOprazole 40 MG TAB PO SCH ×2 (08:26→21:51)
[2019-11-15] MEDS: amLODIPine BESYLATE 5 MG TAB PO SCH (08:26)
[2019-11-15] MEDS: lisinopril 5 MG TAB PO SCH (08:27)
[2019-11-15] MEDS: ENOXAPARIN INJ 40 MG/0.4 ML SYR SQ SCH (08:27)
--- NOTE | 2019-11-15 15:29 | Ultrasound Report ---
LEFT LOWER EXTREMITY VENOUS DOPPLER CLINICAL HISTORY: left lower leg pain, edema COMPARISON STUDY: Left lower extremity venous Doppler ultrasound November 11, 2019. TECHNIQUE: Sonography of the deep venous system of the left lower extremity was performed. Compressi on and augmentation were evaluated. FINDINGS: The left common femoral, superficial femoral and popliteal veins were compressible. Augmen tation was normal. Flow was shown within the deep calf vessels. IMPRESSION: No evidence of deep venous thrombus within the left lower extremity. ACT 112: Negative or not required by law. Electronically signed by: Jaret Stevenson M.D. 11/15/2019 3:28 PM
[2019-11-15] MEDS ORDERED: HYDROCODONE/ACETAMOPHEN 5/325MG TAB PO PRN (16:45)
--- NOTE | 2019-11-15 17:08 | Pain Management Consultation ---
Date of Consultation November 15, 2019 Assessment & Plan (1) Lumbar radicular pain: Present on Admission?: Yes (2) Degenerative joint disease (DJD) of lumbar spine: Spinal osteoarthritis complication: with radiculopathy Qualified Code(s): M47.26 - Other spondylosis with radiculopathy, lumbar region Present on Admission?: Yes (3) Arthralgia of multiple sites: Present on Admission?: Yes (4) Effusion of left knee: * Patient schedule for MRI of lumbar spine later today. Further recommendations pending results. * Start gabapentin 300 mg qhs x1 day titrating to TID over the next 3 days. * Add hydrocodone 5/325 mg q4h PRN and reserve IV morphine for pain not well controlled with hydrocodone * Consider aspiration of left knee effusion with diagnostic evaluation of aspirate if MRI of lumbar spine fails to find potential etiology of complaints. Also, consider Rheumatology evaluation due to +JIAN.[ * Potential for interventional treatment options will be determined pending MRI Thank you for allowing us to participate in the care of Mrs. Buck. Present on Admission?: Yes History of Present Illness Reason for Consultation: Intractable left lower extremity pain/left knee pain Requesting Physician: Kim Valentine MD Attending Physician: Kim Valentine MD History of Present Illness Mrs. Buck is a 69 year old Congol[place] female admitted with intractable left lower extremity predominately involving the knee area. Patient does not speak Cambodian, interpretation was though [employer] interpretation service and I also spoke with patients daughter. They report onset of pain complaints in July 2019, which is described as fairly diffuse arthralgia focused on left knee area. They report pain in upper extremity joints, low back, hip area and knee bilaterally. Increased pain over the past 1-2 weeks in low back and left lower extremity with some radicular pain to foot. Pain described as sharp, shooting and burning with movement. They deny an swelling, warmth or redness of the joint. She reportedly underwent extension outpatient workup this summer without definitive answer for pain complaints. Right knee pain less severe than left, but no overt radicular pain on right. Denies overt weakness although has had some falls in the home with left shoulder injury with reported "tear of tendon" per daughter. Denies any bowel or bladder incontinence. No further consitutional compliants. Plan of care discussed with Dr. Colindres. Pain Assessment Full Body Front + Back: 1. Lumbosacral spine, equal bilaterally 2. Left lower extremity radicular pain 3. Left knee greater than right 4. Left knee greater than right Pain scale - at its best (0-10): 3 Pain scale - at its worst (0-10): 8 Allergies Allergy/AdvReac Type Severity Reaction Status Date / Time azithromycin AdvReac Intermediate myalgia, Verified 11/14/19 19:59 other verapamil AdvReac Intermediate myalgia, Verified 11/14/19 19:59 other ciprofloxacin AdvReac Unknown BLOOD IN Verified 11/14/19 19:59 STOOL, MYALGIA diltiazem AdvReac Unknown HEADACHE, Verified 11/14/19 19:59 TACHYCARDIA orange AdvReac Unknown Unknown Verified 11/14/19 19:59 Home Medications Home Medications Medication Instructions Recorded Confirmed Type Oxygen Home #1 ea 08/15/18 03/28/19 History incontinence pad, liner, disp #200 ea 08/15/18 03/28/19 History azelastine 0.05 % eye drops 1 drp OP BID PRN ml 01/29/19 11/14/19 History prochlorperazine maleate 10 mg PO QID PRN #14 tab 03/23/19 11/14/19 Rx furosemide 20 mg tablet 20 mg PO DAILY PRN #20 tab 05/13/19 11/14/19 Rx omeprazole 20 mg tablet,delayed 20 mg PO BID #180 tab 05/29/19 11/14/19 Rx release clonidine HCl 0.1 mg tablet 0.1 mg PO TID PRN #120 tab 08/19/19 11/14/19 Rx amlodipine 5 mg tablet 10 mg PO QAM #60 tab 10/15/19 11/14/19 Rx levocetirizine 5 mg tablet 5 mg PO HS #30 tab 10/21/19 11/14/19 Rx doxycycline hyclate 100 mg PO Q12H 21 Days #42 tab 11/11/19 11/14/19 Rx Pain History Pain Intensity Pain scale - at its best (0-10): 3 Pain scale - at its worst (0-10): 8 Patient History Medical History Angioedema Bilateral pulmonary embolism 05/2017 after gallbladder sx--on xarelto Cyst of left kidney just monitoring Cyst of right kidney just monitoring GERD (gastroesophageal reflux disease) H. pylori infection ? hx of Helicobacter pylori (H. pylori) infection Hypertension follows with Dr. Ya Hypoxia Migraine Myocardial Infarction 1997--chest pain Nocturnal hypoxemia On anticoagulant therapy Xarelto On home oxygen therapy 2L N/C at hs Pulmonary embolism Thyroid cyst just monitoring Traumatic tear of supraspinatus tendon of right shoulder Surgical History H/O abdominal hysterectomy History of appendectomy History of cholecystectomy History of colonoscopy History of esophagogastroduodenoscopy (EGD) History of hysterectomy Hx of cholecystectomy S/P cholecystectomy Family History Father Prostate cancer Sister Cancer of kidney Grandfather (Maternal) Stomach cancer Denies family history of Colon cancer Ovarian cancer Myocardial infarction Breast cancer Social History Smoking Status: Never smoker Second Hand Exposure: No; Hx Alcohol Use: No Hx Substance Use: No Preferred Language: Congolese Communication Ability: Effective Communication Ability Comment: Unable to read [place] islander. Communication Tools: IPad and Letter Board Balloon Pilot Required: Yes Beliefs That Will Affect Care: None Current Living Situation: Alone Other Information That Helps Us Care for You: No Feels Safe at Home: Yes Safety Concerns: Feels Safe At This Time Seatbelt Use: always Assistive Devices: Oxygen - Continuous Physical Exam Physical Exam: General: Patient lying quietly in the exam room in NAD. Cognition intact. Interpretation through [employer] stogy roller services and daughter via telephone. MSK: Generalized tenderness to palpation throughout myofasical areas at greater than 11/18 sites identified by ACR relating to fibromyalgia. Back: Tender to palpation over entire lumbosacral spine which is non-focal to midline, facet or SI joints. Patient able to log roll for examination. Lower extremities: SLR positive on left with increase knee pain and radicular component. Left knee tenderness to palpation throughout. Left knee tender t hroughout ROM. No warmth or obvious edema. Exquisitely tender over pes anserine and greater trochanter. Sensation intact. Strength 5/5 with dorsi and plantar flexion. Neuro: CN grossly intact.
--- NOTE | 2019-11-15 18:22 | Hospitalist Progress Note ---
Date of Service November 15, 2019 Assessment & Plan (1) Back pain: Adeline is a very pleasant 69-year-old female with a notable past medical history including bilateral pulmonary emboli in May 2017, subsequently treated with Xarelto, [place] in 1997, GERD, and hypertension who presented to [facility] on 11/14 for evaluation and work-up of chronic, worsening low back pain associated with sciatic symptoms in the left lower extremity. Of note, patient has limited Bulgarian proficiency and requires interpretation services in [place] for conversing. 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 No avascular necrosis. Probable phleboliths of the pelvis Knee x-ray: Mild to moderate tricompartmental osteoarthritis. No acute fracture, dislocation, or opaque foreign body. Small joint effusion Lumbar spine x-ray: Minimal spondylitic spurring with moderate L4/L5 and L5- S1 facet arthrosis. Moderate L5-S1 disc space narrowing. L1 vertebral body hemangioma. - LLE venous Doppler performed today did not reveal any evidence of a DVT (reperformed after negative study a few days ago d/t patient reporting of worsening pain) - Based on the patient's history, physical, and imaging findings, suspect that this is most likely an MSK-related issue -- likely multifocal MSK etiology involving arthritic changes in the lumbar spine, hip, and possibly knee - Low suspicion for vascular origin 2/2 normal Doppler x 2 alongside good peripheral pulses and perfusion - MRI of lumbar spine ordered for further characterization of spinal, vertebral, and surrounding soft tissue involvement (r/o stenosis, herniation, compression, malignancy, etc.) - Pain management consulted -- appreciate recs - Gabapentin 300mg qHS x 1 day, titrate to TID over the next three days - Hydrocodone 5/325mg PO q4h PRN - Morphine 2mg IV q4h for break-through pain - Can consider aspiration of L knee effusion with diagnostic evaluation of aspirate if MRI does not reveal substantial explanation for pain - Consider rheumatology consult for h/o +JIAN - Continue Tylenol, lidocaine patch, head pads as needed - On methocarbamol at home. continue - Await PT/OT evaluations and recommendations - Anticipate placement in a care facility to aid with management of ambulation, pain -- appreciate case management assistance on this Hypertension - BPs were initially elevated upon arrival, but have since been stable throughout today (120-130/70s) - Does have a history of fluctuating BPs in the outpatient setting, but initial elevation to 170-200s/90-100s was likely 2/2 pain Continue amlodipine 10 mg PO daily, clonidine 0.1 mg PO b.i.d., lisinopril 5 mg PO daily IV hydralazine PRN for urgency ranges GERD Continue omeprazole 20 mg twice daily History of Bilateral Pulmonary Emboli - 05/2017 - Bilateral pulmonary emboli demonstrated on imaging in May 2017 - Given history of PEs in the past, threshold for lower extremity dopplers have been lower -Status post treatment with Xarelto 20 mg for approximately 9 months, after follow-up CT in August 2018 that was negative for any PE, therapy was discontinued Lyme's disease - Doxycycline discontinued upon admission 2/2 negative western blot test Obese, BMI 40.0 kg/m*m - encourage weight management discussion/referral Dispo: MedSurg with Fall Precautions FEN/GI: Heart healthy diet DVT prophylaxis: Lovenox SQ Full code Admission and Anticipated Discharge Date Admission Date: November 14, 2019 Supervising Physician Co-Signing Physician Notes Resident Physician Supervision Note: I independently interviewed and examined the patient and verified the arias history and physical, reviewed labs and image studies, discussed the case with the resident Dr. Ferreira and agree with the findings and care plan. Subjective Patient has limited Bulgarian language proficiency; audiovisual interpretation services were utilized throughout the encounter. Since her admission last night, patient did require 2 mg of morphine as well as a lidocaine patch and took 1 dose of Tylenol to help control her lower back and left leg pain. At the bedside this morning, patient reports that when she is lying still, her her baseline lower back and left lower extremity pain are very well controlled and are almost absent. However, even with minimal movements (and especially with ambulation) she says the pain can shoot up to a 10 out of 10 in intensity. She describes this pain as a "shooting pain" that shoots down her extremities, favoring the left side. She denies intermittent and unclear numbness and tingling that is sometimes present in her lower extremities, but denies any saddle anesthesia. No pain elsewhere at the moment. She denies any chest pains or palpitations at this time. No abdominal pain. Of note, since her bilateral pulmonary emboli several years ago, she does report a baseline level shortness of breath that does require home oxygen. As such she is on nasal cannula here. Clarifying history from last night, the patient endorses that approximately 3 months ago, she noticed that her legs were getting more swollen. Then over the last few weeks, she noticed that her lower back pain as well as left-sided pain were starting to get significantly worse. She noticed this pain mostly when she was walking, getting out of bed, and doing any movements with her legs. The pain is almost exclusively reduced with rest. When she describes the pain, she says it is a "shooting pain". No bowel or urinary incontinence. Over the time but this pain and swelling has appeared, she denies any new fevers, chills, night sweats. She denies any previous or current use of intravenous recreational drugs. Review of Systems Constitutional: as per Subjective / HPI; no fever, no chills and no sweats Respiratory: Patient Dors is a baseline level shortness of breath that is unchanged right now. She denies any new cough. Cardiovascular: Additional Comments: Denies any chest pains, palpitations, or shortness of breath. Gastrointestinal: Denies abdominal pain. Musculoskeletal: as per Subjective / HPI Denies saddle anesthesia / denies urinary or bowel incontinence. Physical Exam Constitutional: Well-appearing 69-year-old female who is lying back in the hospital bed in a slightly elevated position. She has a nasal cannula on, but is not short of breath. She converses in full sentences. Of note, interpretation services were used as the patient has limited Bulgarian proficie ncy. No acute distress. Respiratory: Good respiratory effort with symmetric expansion of the chest. Lungs were clear to auscultation bilaterally without any crackles or wheezes. Cardiovascular: Normal rate and regular rhythm. S1 and S2 are present without any murmurs rubs or gallops. There is 1+ pitting edema in the lower extremities bilaterally. Musculoskeletal: Musculoskeletal exam of the lower extremities was significantly limited due to pain. Visual observation of the lower extremities reveals good perfusion without any obvious rashes, deformities, or diffuse swelling. Gentle palpation of the calf does not reveal any abnormal firmness, but does elicit significant pain for the patient. Skin is warm to the touch. Range of motion of L ankle was full; strength testing was 5/5 to dorsiflexion and plantar flexion. Patient is able to wiggle toes without any difficulty. Dorsalis pedis pulse is 2+. Range of motion and strength testing of the knee were significantly limited due to patient's reported pain. There is no appreciable edema in the left knee. Gentle palpation of the distal thigh also elicited mild tenderness. Palpation down the midline of the back did perhaps reveal some point tenderness at the level of the lower thoracic vertebrae. There is no associated paraspinal tenderness or firmness. Skin: no rashes, warm and dry Results & Data Results & Data ([facility]) Vital Signs (Past 12 Hours) Vital Signs Temp Pulse Resp BP Pulse Ox 11/15/19 15:40 36.5 C 59 L 15 122/77 94 11/15/19 09:34 135/85 11/15/19 07:43 36.6 C 65 18 183/90 H 95 Resident Activity Tracking Resident Involvement: Resident Care Provided Care Provided: Adult [facility]
[2019-11-15] MEDS: GABAPENTIN 300 MG CAP PO SCH (21:51)
[2019-11-16] MEDS: ACETAMINOPHEN 500 MG TAB PO SCH ×2 (06:04→13:40)
--- NOTE | 2019-11-16 08:55 | Magnetic Resonance Report ---
MRI OF THE LUMBAR SPINE WITHOUT CONTRAST CLINICAL HISTORY: significant back and LLE pain COMPARISON STUDY: Lumbar spine radiographs 11/14/2019. TECHNIQUE: Utilizing a 1.5 Mercedes magnet and dedicated coil, multiplanar, multiecho imaging of the rigoberto ar spine was performed without IV contrast. FINDINGS: For purposes of numbering on this exam, the L5-S1 disc space is assigned to axial image 23 of 25. Ali gnment of the lumbar spine is anatomic. Vertebral body heights are maintained. There is no suspicious marrow replacement. There is a hemangioma within the L1 vertebral body. No intracanalicular mass or fluid collection is present. The conus terminates at the L1-L2 level. Discogenic changes are noted at multiple levels. A right renal cyst is better depicted on prior contrast enhanced abdominal CT. L1-2: The central canal and neural foramen are patent. L2-3: The central canal and neural foramen are patent. There is mild facet arthrosis. L3-4: The central canal and neural foramen are patent. L4-5: There is a disc bulge. Small central annular tear is noted with tiny central disc protrusion. T here is moderate facet arthrosis. There is mild narrowing of the central canal and lateral recesses a s well as both neural foramen. L5-S1: There is moderate disc space narrowing. There is mild facet arthrosis. Central canal is patent . Neural foramen are patent. IMPRESSION: 1. Mild multilevel degenerative disc disease and moderate multilevel facet arthrosis within lumbar sp ine. No severe central canal stenosis. Mild central canal and bilateral neural foraminal narrowing at L4-L5. 2. No lumbar spine fracture. 3. No acute process within the lumbar spine by MRI. ACT 112: Negative or not required by law. Electronically signed by: Jaret Stevenson M.D. 11/16/2019 8:53 AM
[2019-11-16] MEDS: lisinopril 5 MG TAB PO SCH (09:21)
[2019-11-16] MEDS: amLODIPine BESYLATE 5 MG TAB PO SCH (09:21)
[2019-11-16] MEDS: cloNIDine HCL 0.1 MG TAB PO SCH (09:21)
[2019-11-16] MEDS: PANTOprazole 40 MG TAB PO SCH (09:21)
[2019-11-16] MEDS: ENOXAPARIN INJ 40 MG/0.4 ML SYR SQ SCH (09:22)
[2019-11-16] MEDS: GABAPENTIN 300 MG CAP PO SCH ×2 (09:22→13:40)
[2019-11-16 10:51] LABS: Appearance Urine Clear (Clear); Bilirubin Urine Negative (Negative); Blood Urine Negative (Negative); Color Urine Yellow; Glucose Urine UA Negative (Negative); Ketones Urine Negative (Negative); Leukocyte Esterase Urine Negative (Negative); Nitrite Urine Negative (Negative); Protein Urine Negative (Negative); Specific Gravity Urine 1.024 (1.000-1.030); Urobilinogen Urine Negative (Negative)
--- NOTE | 2019-11-16 16:35 | Discharge Summary ---
Date of Service November 16, 2019 Admission HPI Per Admitting Provider 69-year-old female with past medical history hypertension, GERD presents with concerns of ongoing low back and left leg pain. History obtained by [id number] who is at bedside as patient does not speak any [place], limited as DIL is also ESL. Patient was recently in the ED 11/11/2019 for similar complaint. Patient notes that her back pain started in October of this year, however in the past week or so is gotten much worse to the point where she can no longer ambulate. Patient describes pain described in her left lumbar/hip area with a shooting pain down into the left leg. 9 or 10 on severity scale. Patient is tried Tylenol for this, which only helped a little. Exacerbated by any sort of movement. Patient never had pain like this ever before. Patient with no history of back surgeries and no hardware present. Patient lives in a two-story house by herself, however can no longer take the steps up to the second floor. Patient was previously able to do all activities of daily living by herself independently. She feels like her left leg is more swollen compared to her right, however she thinks this has been since July of this year. Patient denies any falls or trauma that preceded pain. Denies any numbness, tingling, or other red flag symptoms of bowel or bladder incontinence or saddle anesthesia. No fevers, chills, sweats, chest pain, shortness of breath, abdominal pain, urinary symptoms, known sick contacts or recent travel anywhere. Patient with no other acute concerns or complaints. Pertinent labs: Unremarkable CBC CMP Venous Doppler study: There is no sonographic evidence of deep venous thrombosis identified in the left lower extremity. Hip/pelvis x-ray: Mild to moderate osteoarthritis of the femoral acetabular joints. Mildly demineralized appearance of the bones. No acute fracture, dislocation, avascular necrosis or opaque foreign body. Probable phleboliths of the pelvis. Knee x-ray: Mild to moderate tricompartmental osteoarthritis. No acute fracture, dislocation, or opaque foreign body. Small joint effusion. Lumbar spine x-ray: Minimal levoscoliosis. No spondylolysis or spondylolisthesis. Minimal spondylitic spurring with moderate L4/L5 and L5-S1 facet arthrosis. Moderate L5-S1 disc space narrowing. L1 vertebral body hemangioma. No acute fracture or subluxation. ER course: IV Toradol 30 mg, IV morphine 2 mg, IV Zofran 4 mg Admission Exam Per Admitting Provider Constitutional: + obese Eyes: PERRL, conjunctivae normal, anicteric sclerae ENMT: external ear and nose normal, oropharynx normal Respiratory: normal respiratory effort, lungs clear to auscultation Cardiovascular: RRR, no murmur, no edema Gastrointestinal (Abdomen): normal bowel sounds, soft, nontender, no hepatosplenomegaly Musculoskeletal: Tenderness to palpation lumbar paraspinals Range of motion limited in hip extension bilaterally secondary to pain Normal strength lower extremity Patient cannot tolerate straight leg raise on left side Dermatomal sensation L4, L5, S1 intact Skin: no rashes, warm and dry Psychiatric: A+Ox3, euthymic affect Lymphatic: No swelling noted left lower extremity compared to right Principal Diagnosis Lower back pain with radiculopathy Discharge Exam Constitutional WD/WN, vitals as above no acute distress Respiratory normal respiratory effort, lungs clear to auscultation no labored breathing Auscultation: no crackles, no rales, no rhonchi and no wheezes Cardiovascular RRR, no murmur, no edema Heart Sounds: normal S1 and normal S2; no gallop, no murmur and no cardiac rub Gastrointestinal (Abdomen) normal bowel sounds, soft, nontender, no hepatosplenomegaly Skin no rashes, warm and dry Discharge Data Allergies Allergy/AdvReac Type Severity Reaction Status Date / Time azithromycin AdvReac Intermediate myalgia, Verified 11/14/19 19:59 other verapamil AdvReac Intermediate myalgia, Verified 11/14/19 19:59 other ciprofloxacin AdvReac Unknown BLOOD IN Verified 11/14/19 19:59 STOOL, MYALGIA diltiazem AdvReac Unknown HEADACHE, Verified 11/14/19 19:59 TACHYCARDIA orange AdvReac Unknown Unknown Verified 11/14/19 19:59 Consultations 11/14/19 20:46 ED Decision to Admit Stat 11/15/19 01:35 Consult Case Management - Discharge Planning Routine 11/15/19 15:58 Consult Pain Management Routine Ordered Studies 11/15/19 13:30 US venous doppler LE LT Urgent 11/15/19 14:17 MR lumbar spine wo con Routine Hospital Course (1) Back pain: Adeline is a very pleasant 69-year-old female with a notable past medical history including bilateral pulmonary emboli in May 2017, subsequently treated with Xarelto, [place] in 1997, GERD, and hypertension who presented to [facility] on 11/14 for evaluation and work-up of chronic, worsening low back pain associated with sciatic symptoms in the left lower extremity. Of note, patient has limited [place] Islander proficiency and requires interpretation services in [place]ian for conversing. Intractable low back and left leg pain - Patient described several months of worsening low back pain associated with stiffness that is aggravated with exertion and associated with a sciatic-like shooting pain that extends down her left side - Imaging studies performed in the ED demonstrated the following pertinent findings: Hip/pelvis x-ray: Mild to moderate osteoarthritis of the femoral acetabular joints. No avascular necrosis. Probable phleboliths of the pelvis Knee x-ray: Mild to moderate tricompartmental osteoarthritis. No acute fracture, dislocation, or opaque foreign body. Small joint effusion Lumbar spine x-ray: Minimal spondylitic spurring with moderate L4/L5 and L5- S1 facet arthrosis. Moderate L5-S1 disc space narrowing. L1 vertebral body hemangioma. Lumbar spine MRI: Mild multilevel degenerative disc disease and moderate multilevel facet arthrosis within lumbar spine. No severe central canal stenosis. Mild central canal and bilateral neural foraminal narrowing at L4- L5. - LLE venous Doppler did not reveal any evidence of a DVT (reperformed after negative study a few days ago d/t patient reporting of worsening pain) - Based on the patient's history, physical, and imaging findings, suspected that this is most likely an MSK-related issue -- likely multifocal MSK etiology involving arthritic changes in the lumbar spine, hip, and possibly knee - Pain management consulted - - Gabapentin 300mg qHS x 1 day, titrate to TID over the next three days - Hydrocodone 5/325mg PO q4h PRN - Continue Tylenol, lidocaine patch, head pads as needed - On methocarbamol at home. continue - Home health services for continued rehab per PT/OT recommendation - Consider outpatient follow-up with pain management Hypertension - BPs were initially elevated upon arrival, but since stable (120-130/70s) - Does have a history of fluctuating BPs in the outpatient setting, but initial elevation to 170-200s/90-100s was likely 2/2 pain Continue amlodipine 10 mg PO daily, clonidine 0.1 mg PO b.i.d., lisinopril 5 mg PO daily GERD Continue omeprazole 20 mg twice daily History of Bilateral Pulmonary Emboli - 05/2017 - Bilateral pulmonary emboli demonstrated on imaging in May 2017 - Given history of PEs in the past, threshold for lower extremity dopplers have been lower -Status post treatment with Xarelto 20 mg for approximately 9 months, after follow-up CT in August 2018 that was negative for any PE, therapy was discontinued Lyme's disease - Doxycycline discontinued upon admission / negative western blot test Obese, BMI 40.0 kg/m*m - encourage weight management discussion/referral Dispo: Home Health Services FEN/GI: Heart healthy diet Full code Total Time Total Time Spent Total Time Spent (In Minutes): see Attending attestation Discharge Plan Discharge Items Patient Disposition: Home - Home Health Services Reason For Visit: LEG PAIN, LBP Discharge Diagnosis: Lumbar radicular pain Activity: Per Instructions section Non-emergency contact: Primary Care Provider and Pain Management Call non-emergency contact if: your symptoms worsen and your pain is not controlled Follow-up/Referrals: Mario Camara MD [Primary Care Provider] - Diet: Heart Healthy Addtl Attending Provider Instructions: You were admitted to [facility] due to low back pain and left knee pain. You were evaluated and found to have arthritis at multiple levels in your spine as well as narrowing of the central canal at the L4-L5 level. You were evaluated by physical therapy and deemed to need continued care at home. Case management worked with you to find home health. Additionally, you were started here on gabapentin to help manage your symptoms--you will go home with some of this medication as well. Please follow up with your primary care provider to discuss further management of your symptoms and medications. Pending Studies at Discharge: No Stand-Alone Forms: My [facility], Smoking Cessation Medications and DC Order Prescriptions: New lidocaine 5 % Adhesive Patch,Medicated 1 patch transdermal DAILY Qty: 30 RF: 0 gabapentin 300 mg Capsule 300 mg PO TID Qty: 90 RF: 0 Continued furosemide 20 mg tablet 20 mg PO DAILY PRN (Reason: Fluid Retention) Qty: 20 RF: 5 omeprazole 20 mg tablet,delayed release (DR/EC) 20 mg PO BID Qty: 180 RF: 1 Hold Instructions: new dose instructions clonidine HCl 0.1 mg tablet 0.1 mg PO TID PRN (Reason: NEEDED) Qty: 120 RF: 5 amlodipine 5 mg tablet 10 mg PO QAM Qty: 60 RF: 3 levocetirizine 5 mg tablet 5 mg PO HS Qty: 30 RF: 5 (DME) Bladder Control Pad Ultra Plus pad See Dose Instructions .ROUTE .MEDSUPPLY Qty: 200 RF: 0 (DME) Oxygen Home Liters Per Minute See Dose Instructions .ROUTE .MEDSUPPLY Qty: 1 RF: 0 azelastine 0.05 % drops 1 drp OP BID PRN (Reason: Nasal Congestion) RF: 0 prochlorperazine maleate 10 mg tablet 10 mg PO QID PRN (Reason: nausea and vomiting) Qty: 14 RF: 0 Discontinued doxycycline hyclate 100 mg tablet 100 mg PO Q12H 21 Days Qty: 42 RF: 0 Discharge Orders: Discharge Order (Routine); Ordered 11/16/19 Ordered By: Nate Doan/Other Patient Handouts: Gabapentin capsules or tablets Admission Data Admit Date/Time: 11/14/19 23:56 Attending Provider: Kim Valentine Admit Provider: Tamara Caballero Primary Care Provider: Mario Camara V. Other Providers: Tamara Caballero ; Mark Medina ; [facility],Home Healthcare Other Interventions: Discharge Summary Assessment (RN) Last Done: 11/16/19 16:50 Supervising Physician Co-Signing Physician Notes Resident Physician Supervision Note: I independently interviewed and examined the patient and verified the arias history and physical, reviewed labs and image studies, discussed the case with the resident Dr. Bui and agree with the findings and care plan. Resident Activity Tracking Resident Involvement: Resident Care Provided Care Provided: Adult Hospital Medicine
== END 2019-11-16 18:00 | disposition home health service (06) | DRG 552 ==
LOC: ED 17:50 → SUATTDRO 23:56 → 3E 23:56

== ENCOUNTER 2021-03-07 09:23 | Inpatient (IN) ==
[2021-03-07] MEDS ORDERED: ONDANSETRON INJ 2 MG/ML 2 ML VIAL IV STA ×2 (09:48→13:29)
--- NOTE | 2021-03-07 09:54 | Emergency Department Note ---
History of Present Illness General Chief complaint: Shortness of Breath/Dyspnea Stated complaint: SOB, HEADACHE, VOMITTING, FEVER Time Seen by Provider: 03/07/21 09:40 History of Present Illness Maximum Pain Intensity: 9 71-year-old female presents to the ED with a chief complaint of shortness of breath, fever, headache, cough, nausea vomiting for the past couple of weeks. She also reports some low back pain. The patient states that she had a friend who was COVID-positive. She was tested 3 days ago and was negative. The patient states that she has been vomiting about 4 times a day. Her last episode was 3:30 AM. Denies any abdominal pains. No chest pains. No additional comp laints at this time. Home Medications Medication Instructions Recorded Confirmed Type levocetirizine 5 mg tablet 5 mg PO BID 06/16/20 03/07/21 History lidocaine 5 % topical patch 1 patch TRANSDERMAL DAILY PRN 06/16/20 03/07/21 History nitroglycerin 0.4 mg sublingual 0.4 mg SUBLINGUAL UD PRN 06/24/20 03/07/21 History tablet clonidine HCl 0.1 mg tablet 0.1 mg PO TID PRN #120 tab 08/24/20 03/07/21 Rx amlodipine 10 mg tablet 10 mg PO QAM #90 tab 12/30/20 03/07/21 Rx famotidine 40 mg tablet 40 mg PO DAILY #90 tab 02/24/21 03/07/21 Rx furosemide 20 mg tablet 20 mg PO QDL PRN #30 tab 02/24/21 03/07/21 Rx lisinopril 10 mg tablet 10 mg PO BID #60 tab 02/24/21 03/07/21 Rx omeprazole 40 mg capsule,delayed 40 mg PO DAILY #90 cap 02/24/21 03/07/21 Rx release cholecalciferol (vitamin D3) 1,250 50,000 unit PO WK #12 cap 02/26/21 03/07/21 Rx mcg (50,000 unit) capsule Allergies Allergy/AdvReac Type Severity Reaction Status Date / Time azithromycin AdvReac Intermediate myalgia, Verified 03/07/21 11:07 other ciprofloxacin AdvReac Intermediate BLOOD IN Verified 03/07/21 11:07 STOOL, MYALGIA diltiazem AdvReac Intermediate HEADACHE, Verified 03/07/21 11:07 TACHYCARDIA verapamil AdvReac Intermediate myalgia, Verified 03/07/21 11:07 other orange AdvReac Unknown Unknown Verified 03/07/21 11:07 Past Med/Surg History Medical History Arthralgia of multiple sites Bilateral pulmonary embolism Bilateral pulmonary embolism 05/2017 after gallbladder sx--treated with AC therapy Cyst of left kidney just monitoring Cyst of right kidney just monitoring Epigastric pain Esophageal reflux (04/18/12) GERD (gastroesophageal reflux disease) Helicobacter pylori (H. pylori) infection hx Hepatic steatosis Hypertension Migraine Morbid obesity Myocardial Infarction 1997; follows with Dr. Ya On home oxygen therapy 2L N/C PRN Thyroid cyst just monitoring Surgical History H/O abdominal hysterectomy History of appendectomy History of appendectomy History of cholecystectomy History of cholecystectomy History of colonoscopy History of esophagogastroduodenoscopy (EGD) History of hysterectomy Family History Father Prostate cancer Sister Cancer of kidney Grandfather (Maternal) Stomach cancer Denies family history of Colon cancer Ovarian cancer Myocardial infarction Breast cancer Social History Smoking Status: Never smoker Second Hand Exposure: No; Hx Alcohol Use: No Hx Substance Use: No Preferred Language: Namibian Communication Ability: Effective Communication Tools: IPad Drafter Geophysical Required: Yes Beliefs That Will Affect Care: None Current Living Situation: Alone Feels Safe at Home: Yes Seatbelt Use: always Assistive Devices: Walker Review of Systems A total of 10 systems reviewed and were otherwise negative Physical Exam Vital Signs Vital Signs - 24 hr 03/07/21 09:35 03/07/21 09:50 03/07/21 10:04 Temperature 37.5 C Temperature Source Temporal Artery Scan Pulse Rate 102 H Pulse Rate from SpO2 Sensor Pulse Rhythm Regular Pulse Strength Normal Respiratory Rate 22 Respiratory Effort / Characteristics Non-Labored Spontaneous Non-Labored Respiratory Depth Normal Respiratory Pattern Regular Blood Pressure 157/92 H Blood Pressure Mean 113 Blood Pressure Position Sitting Pulse Oximetry 91 83 L Oxygen Delivery Method Room Air Room Air Nasal Cannula Oxygen Flow Rate Sepsis Recent Fever Within 48 Hours Yes Sepsis New/Unexplained Change in Mental Status No Sepsis Action Taken by Nursing No Action Required Oxygen Flow Rate - Titration 3 Pulse Oximetry Post Tiitration 92 03/07/21 10:10 03/07/21 10:30 03/07/21 11:00 Temperature Temperature Source Pulse Rate 84 81 82 Pulse Rate from SpO2 Sensor 84 81 82 Pulse Rhythm Pulse Strength Respiratory Rate 19 27 H 23 Respiratory Effort / Characteristics Respiratory Depth Respiratory Pattern Blood Pressure 160/89 H 148/73 H 150/71 H Blood Pressure Mean 112 98 97 Blood Pressure Position Pulse Oximetry 94 92 96 Oxygen Delivery Method Nasal Cannula Nasal Cannula Nasal Cannula Oxygen Flow Rate 3 3 3 Sepsis Recent Fever Within 48 Hours Sepsis New/Unexplained Change in Mental Status Sepsis Action Taken by Nursing Oxygen Flow Rate - Titration Pulse Oximetry Post Tiitration CONSTITUTIONAL/VITAL SIGNS: Reviewed / noted above. GENERAL: Non-toxic in appearance. INTEGUMENTARY: Warm, dry, and [place]. HEAD: Normocephalic. EYES: without scleral icterus or trauma. ENT/OROPHARYNX: clear and moist. LYMPHADENOPATHY/NECK: Is supple without lymphadenopathy or meningismus. RESPIRATORY: Clear to auscultation bilaterally. No increased work of breathing. CARDIOVASCULAR: Regular rate and rhythm. GI/ABDOMEN: Soft and nontender. No organomegaly or pulsatile mass. EXTREMITIES: Warm and well perfused. BACK: No CVA tenderness. NEUROLOGICAL: Intact without focal deficits. Patient does have some generalized weakness. PSYCHIATRIC: normal affect. MUSCULOSKELETAL: Normally developed with good muscle tone. TRIAGE NURSING DOCUMENTATION REVIEWED. Course Administered Medications Discontinued Medications Dexamethasone Sodium Phosphate (DexamethasonePf 10 Mg/Ml Vial) 10 mg IV NOW ONE Stop: 03/07/21 11:05 Last Admin: 03/07/21 11:20 Dose: 10 mg Documented by: [id number] Sodium Chloride (Nss) 500 mls @ 999 mls/hr IV .Q31M MARGARITA Stop: 03/07/21 10:30 Last Infusion: 03/07/21 10:31 Dose: 0 mls/hr Documented by: [id number] Admin: 03/07/21 09:59 Dose: 999 mls/hr Documented by: [id number] Ondansetron HCl (Ondansetron Inj 2 Mg/Ml 2 Ml Vial) 4 mg IV NOW STA Stop: 03/07/21 09:49 Last Admin: 03/07/21 09:59 Dose: 4 mg Documented by: [id number] Medical Decision Making Differential Diagnosis Differential includes acute coronary syndrome, myocardial infarction, CVA, TIA, anemia, infection, pneumonia, UTI, pyelonephritis, poor nutrition, dehydration, electrolyte disturbance,hypoglycemia. Medical Records Attestation: I reviewed the patient's medical records. Home Medications Current Medication List: was personally reviewed by me Laboratory Data Attestation: I reviewed the patient's lab results. Result diagrams: 03/07/21 10:00 03/07/21 10:00 Lab Results 03/07/21 03/07/21 03/07/21 Range/Units 09:54 10:00 10:00 WBC 5.14 (4.8-10.8) K/uL RBC 4.94 (4.2-5.4) M/uL Hgb 15.1 (12.0-16.0) g/dL Hct 45.5 (37-47) % MCV 92.1 (80-100) fL MCH 30.6 (25-34) pg MCHC 33.2 (32-36) g/dL RDW Std Deviation 43.5 (36.4-46.3) fL RDW Coeff of Missy 12.9 (11.5-14.5) % Plt Count 124 L (130-400) K/uL MPV 10.4 (7.4-10.4) fL Immature Gran % (Auto) 0.0 % Neut % (Auto) 76.4 % Lymph % (Auto) 15.2 % [place] % (Auto) 7.8 % Eos % (Auto) 0.4 % Baso % (Auto) 0.2 % Neut # (Auto) 3.93 (1.4-6.5) K/uL Lymph # (Auto) 0.78 L (1.2-3.4) K/uL [place] # (Auto) 0.40 (0.11-0.59) K/uL Eos # (Auto) 0.02 (0-0.5) K/uL Baso # (Auto) 0.01 (0-0.2) K/uL Immature Gran # (Auto) 0.00 (0.00-0.02) K/uL Sodium 137 (136-145) mmol/L Potassium 3.8 (3.5-5.1) mmol/L Chloride 102 (98-107) mmol/L Carbon Dioxide 25 (21-32) mmol/L Anion Gap 10 (3-11) BUN 9 (6-23) mg/dl Creatinine 0.67 (0.6-1.2) mg/dl Est Cr Clr Drug Dosing 95.9 ml/min Est GFR ( Amer) 101.8 ml/min Est GFR (Non-Af Amer) 87.8 ml/min BUN/Creatinine Ratio 13.4 (10-20) Glucose 120 H (70-99) mg/dl Calcium 8.6 (8.5-10.1) mg/dl Total Bilirubin 0.8 (0.2-1.0) mg/dl AST 47 H (13-39) U/L ALT 74 H (7-52) U/L Alkaline Phosphatase 61 (34-104) U/L Total Protein 7.3 (6.0-8.3) gm/dl Albumin 3.7 (3.4-5.0) gm/dl Globulin 3.6 (2.5-4.0) gm/dl Albumin/Globulin Ratio 1.0 (0.9-2) SARS-CoV-2 (PCR) POSITIVE A* (Negative) Influenza Type A (PCR) Negative (Neg) Influenza Type B (PCR) Negative (Neg) RSV (RT-PCR) Negative (Neg) Imaging Data Radiologist's Impression: Chest X-Ray 03/07/21 09:49 XR chest 1V portable CLINICAL HISTORY: weakness. Evaluate cardiopulmonary status COMPARISON STUDY: 06/24/2020 TECHNIQUE: 1 view of the chest FINDINGS: Single frontal view of the chest demonstrates the heart size to again be enlarged. The lungs are clear of alveolar opacities. There is no evidence for pleural effusion. There is no evidence for vascular congestion. There is no acute osseous pathology. IMPRESSION: No acute cardiopulmonary disease. ACT 112: Negative or not required by law. Electronically signed by: Amilcar Davalos M.D. 03/07/2021 11:01 AM ECG Data Attestation: I personally reviewed and interpreted this ECG as follows: Additional Comments: Twelve-lead EKG: Per my interpretation shows a normal sinus rhythm at a rate of 64. Mild T wave inversions and ST depressions laterally. No ST elevation. No PVCs. Normal QTC. MDM Narrative 71-year-old female with some upper respiratory complaints as well as nausea and vomiting with a negative COVID test a few days ago. Her vital signs revealed mild tachycardia and hypertension. Ox saturations are 91% on room air. She does appear to have some generalized weakness on my exam but is otherwise in no distress. The patient became hypoxic with oxygen saturations in the low 80s with ambulating to the bathroom which is only about 8 feet away. COVID test was positive. Chest x-ray did not show acute process. EKG shows a normal sinus rhythm. The patient was treated with IV fluids. She was given IV Zofran for her nausea. She was also given IV Decadron. She will be seen by the hospitalist for further inpatient evaluation and care. Impression & Plan COVID-19, Hypoxia, Nausea & vomiting Discharge Plan Visit Data Chief Complaint: Shortness of Breath/Dyspnea Stated Complaint: SOB, HEADACHE, VOMITTING, FEVER ED Provider: Bossmna Grover Discharge Problem: COVID-19, Hypoxia, Nausea & vomiting Patient Disposition: Being Evaluated by Hospitalist Forms Stand Alone Forms: [facility] Prescriptions Prescriptions: No Action clonidine HCl 0.1 mg tablet 0.1 mg PO TID PRN (Reason: NEEDED) Qty: 120 RF: 5 amlodipine 10 mg tablet 10 mg PO QAM Qty: 90 RF: 1 cholecalciferol (vitamin D3) 1,250 mcg (50,000 unit) capsule 50,000 unit PO WK Qty: 12 RF: 3 lisinopril 10 mg tablet 10 mg PO BID Qty: 60 RF: 5 famotidine 40 mg tablet 40 mg PO DAILY Qty: 90 RF: 3 omeprazole 40 mg capsule,delayed release(DR/EC) 40 mg PO DAILY Qty: 90 RF: 3 furosemide 20 mg tablet 20 mg PO QDL PRN (Reason: Fluid Retention) Qty: 30 RF: 1 lidocaine 5 % adhesive patch,medicated 1 patch transdermal DAILY PRN (Reason: Pain) RF: 0 levocetirizine 5 mg tablet 5 mg PO BID RF: 0 nitroglycerin 0.4 mg Tablet, Sublingual 0.4 mg sublingual UD PRN (Reason: Chest Pain) RF: 0 Referrals Referrals: Mario Camara MD [Primary Care Provider] -
[2021-03-07] MEDS ORDERED: SODIUM CHLORIDE 0.9% 500 ML IV SCH (10:00)
[2021-03-07 10:13] LABS: Basophils # (auto) 0.01 K/uL (0-0.2); Basophils % (auto) 0.2 %; Eosinophils # (auto) 0.02 K/uL (0-0.5); Eosinophils % (auto) 0.4 %; Hematocrit (blood only) 45.5 % (37-47); Hemoglobin 15.1 g/dL (12.0-16.0); Lymphocytes # (auto) 0.78 K/uL (1.2-3.4); Lymphocytes % (auto) 15.2 %; Mean Corpuscular Hemoglobin 30.6 pg (25-34); Mean Corpuscular Hgb Conc 33.2 g/dL (32-36); Mean Corpuscular Volume 92.1 fL (80-100); Mean Platelet Volume 10.4 fL (7.4-10.4); Monocytes % (auto) 7.8 %; Neutrophils # (auto) 3.93 K/uL (1.4-6.5); Neutrophils % (auto) 76.4 %; Platelet Count 124 K/uL (130-400); RDW Coefficient of Variation 12.9 % (11.5-14.5); RDW Standard Deviation 43.5 fL (36.4-46.3); Red Blood Count 4.94 M/uL (4.2-5.4); White Blood Count 5.14 K/uL (4.8-10.8)
[2021-03-07 10:35] LABS: Albumin Level 3.7 gm/dl (3.4-5.0); BUN Creatinine Ratio 13.4 (10-20); Bilirubin,Total 0.8 mg/dl (0.2-1.0); Calcium 8.6 mg/dl (8.5-10.1); Creatinine Clr Calc Pharmacy 95.9 ml/min; Est GFR (African American) 101.8 ml/min; Est GFR (Non-African American) 87.8 ml/min; Globulin 3.6 gm/dl (2.5-4.0); Potassium 3.8 mmol/L (3.5-5.1); Total Protein 7.3 gm/dl (6.0-8.3)
[2021-03-07 10:41] LABS: Influenza A virus by PCR Negative (Neg); Influenza B virus by PCR Negative (Neg); RSV by PCR Negative (Neg)
--- NOTE | 2021-03-07 11:02 | XRay Report ---
XR chest 1V portable CLINICAL HISTORY: weakness. Evaluate cardiopulmonary status COMPARISON STUDY: 06/24/2020 TECHNIQUE: 1 view of the chest FINDINGS: Single frontal view of the chest demonstrates the heart size to again be enlarged. The lungs are sri r of alveolar opacities. There is no evidence for pleural effusion. There is no evidence for vascular congestion. There is no acute osseous pathology. IMPRESSION: No acute cardiopulmonary disease. ACT 112: Negative or not required by law. Electronically signed by: Amilcar Davalos M.D. 03/07/2021 11:01 AM
[2021-03-07 11:03] LABS: SARS CoV2 RNA(COVID-19) InHosp POSITIVE (Negative)
[2021-03-07] MEDS ORDERED: dexAMETHasone**PF** 10 MG/ML VIAL IV ONE (11:04)
--- NOTE | 2021-03-07 11:45 | History & Physical Report ---
Date of Service March 07, 2021 Assessment & Plan (1) COVID-19: Plan: -Unvaccinated, unaware of what day of illness this is for pt, therefore is outside the window for remdesevir. -Initial SaO2 was 81% on room air, patient was placed on 2 L nasal cannula and saturations remained in mid 90s. -CRP and procalcitonin ordered. Pending. -Given patient's history of PEs, D-dimer has been ordered, is 660. Based on patient's morbid obesity and clinical picture, this lab value is likely not indicative of acute PE, therefore we will continue to monitor patient but will not order CTA chest at this time. -Decadron 6 mg IV daily. (2) Hypoxia: Plan: -Secondary to COVID-19, however pt has hx of b/l PE s/p surgery. -Patient does have oxygen for as needed use at home, which was ordered after dx of the bilateral PE in 2017 -Initial SaO2 was 81% on room air, patient was placed on 2 L nasal cannula and saturations remained in mid 90s. -D-dimer 660, see above. (3) Acid reflux disease: Plan: -Patient complaining of emesis and some epigastric pain, will give famotidine 20 mg IV and IV Zofran 4mg now. -Famotidine 20 mg IV BID starting tomorrow. -Zofran 4 mg IV every 6 as needed ordered. -Patient states she has had melanotic stool for the past 3 days. Fecal occult blood test ordered. -Tested positive for H. pylori several years ago, but was unable to complete treatment due to side effects. -EGD in June 2020 showed a few gastric polyps and chronic inflammation otherwise unremarkable. (4) History of pulmonary embolism: Plan: -May 2017 following surgery. Patient was placed on Xarelto for 9 months. -See above. (5) Dysuria: Plan: - Patient has complaints of dysuria, UA has been ordered, pending. (6) Hypertension: Plan: -Continue continue amlodipine 10 mg daily and lisinopril 10 mg twice daily. -Can continue patient's home medication of clonidine point 0.1 mg as needed for SBP >180 mg or DBP > 90 mg. (7) Elevated liver enzymes: Plan: -AST is 47, ALT is 74. These are consistent with patient's baseline. -Does not complain of any right upper quadrant pain today. Patient has a history of hepatic steatosis. (8) DVT prophylaxis: Plan: -SCDs ordered. -Lovenox 40 mg BID. History of Present Illness Chief Complaint: Nausea and vomiting, COVID-19 + Primary Care Provider: Mario Camara MD Patient is a 71-year-old female with a past medical history hypertension, GERD, hepatic steatosis, bilateral PE status post gallbladder surgery in 2018, VICKY, and morbid obesity who presents today with worsening nausea and vomiting. Patient began feeling generally unwell a week ago, experiencing fever, headache, body aches, and decreased appetite. Over the past several days, she has been experiencing nausea and vomiting, approximately 4 episodes/day for the past 4 days. She has had difficulty maintaining adequate p.o. intake. Patient also notes she may have increasing shortness of breath. Patient does have home oxygen for as needed use, and was using it Monday, [id number] states her oxygen saturation was 92, but does not know how many liters of oxygen she was on. Patient was tested for COVID-19 in the ED today and was positive. Patient is not vaccinated, it is unclear when her symptoms started as she had been feeling unwell for the past week or 2 and got better until she started to decline again over the past 4 days. Patient received 500 cc normal saline, 10 mg IV Decadron, and Zofran in the ED and hospitalist team was consulted for admission. Allergies Allergy/AdvReac Type Severity Reaction Status Date / Time azithromycin AdvReac Intermediate myalgia, Verified 03/07/21 11:07 other ciprofloxacin AdvReac Intermediate BLOOD IN Verified 03/07/21 11:07 STOOL, MYALGIA diltiazem AdvReac Intermediate HEADACHE, Verified 03/07/21 11:07 TACHYCARDIA verapamil AdvReac Intermediate myalgia, Verified 03/07/21 11:07 other orange AdvReac Unknown Unknown Verified 03/07/21 11:07 Home Medications Medication Instructions Recorded Confirmed Type levocetirizine 5 mg tablet 5 mg PO BID 06/16/20 03/07/21 History lidocaine 5 % topical patch 1 patch TRANSDERMAL DAILY PRN 06/16/20 03/07/21 History nitroglycerin 0.4 mg sublingual 0.4 mg SUBLINGUAL UD PRN 06/24/20 03/07/21 History tablet clonidine HCl 0.1 mg tablet 0.1 mg PO TID PRN #120 tab 08/24/20 03/07/21 Rx amlodipine 10 mg tablet 10 mg PO QAM #90 tab 12/30/20 03/07/21 Rx famotidine 40 mg tablet 40 mg PO DAILY #90 tab 02/24/21 03/07/21 Rx furosemide 20 mg tablet 20 mg PO QDL PRN #30 tab 02/24/21 03/07/21 Rx lisinopril 10 mg tablet 10 mg PO BID #60 tab 02/24/21 03/07/21 Rx omeprazole 40 mg capsule,delayed 40 mg PO DAILY #90 cap 02/24/21 03/07/21 Rx release cholecalciferol (vitamin D3) 1,250 50,000 unit PO WK #12 cap 02/26/21 03/07/21 Rx mcg (50,000 unit) capsule Past Med/Surg History Medical History Arthralgia of multiple sites Bilateral pulmonary embolism Bilateral pulmonary embolism 05/2017 after gallbladder sx--treated with AC therapy Cyst of left kidney just monitoring Cyst of right kidney just monitoring Epigastric pain Esophageal reflux (04/18/12) GERD (gastroesophageal reflux disease) Helicobacter pylori (H. pylori) infection hx Hepatic steatosis Hypertension Migraine Morbid obesity Myocardial Infarction 1997; follows with Dr. Ya On home oxygen therapy 2L N/C PRN Thyroid cyst just monitoring Surgical History H/O abdominal hysterectomy History of appendectomy History of appendectomy History of cholecystectomy History of cholecystectomy History of colonoscopy History of esophagogastroduodenoscopy (EGD) History of hysterectomy Family History Father Prostate cancer Sister Cancer of kidney Grandfather (Maternal) Stomach cancer Denies family history of Colon cancer Ovarian cancer Myocardial infarction Breast cancer Social History Smoking Status: Never smoker Second Hand Exposure: No; Hx Alcohol Use: No Hx Substance Use: No Preferred Language: Tuvaluan Communication Ability: Tuvaluan Communication Tools: IPad Turf Keeper Required: Yes Beliefs That Will Affect Care: None marital status: / Current Living Situation: Alone Feels Safe at Home: Yes Safety Concerns: Feels Safe At This Time Seatbelt Use: always Assistive Devices: None Assistive Devices Comment: oxygen use occasionally at home Review of Systems Review of Systems: Review of systems: Constitutional: Reports fever/body chills, fatigue, myalgia, generalized weakness, and anorexia; denies night sweats Eyes: No diplopia, no worsening or blurred vision ENT: normal hearing, no trouble swallowing Respiratory: Reports SOB wt rest and with activity; cough, sputum Cardiovascular: No chest pain, tightness or palpitations Abdomen: Reports nausea, vomiting 4x/day x4 days and melanotic stools; no diarrhea or constipation Musculoskeletal: No joint pain, calf pain, swelling Neurologic: No weakness, numbness/tingling, or balance problems Psychiatric: No anxiety or depression Skin: No rash or itch Physical Exam Physical Exam: Physical exam: General: Patient is morbidly obese resting comfortably on 2L NC with sat 95%. Awake, alert, no apparent distress. Head: Normocephalic, atraumatic ENT: PERRL, EOMI, no pharyngeal exudate, mucous membranes moist Chest: Breath sounds difficult to appreciate due to patient's weight; on 2L NC Cardiac: Regular rate and rhythm, no murmur, no JVD, normal peripheral pulses, good capillary refill Abdominal: NABS x 4 quadrants, soft, with midl pain in epigastric region that radiates to back, otherwise nontender to palpation, no rebound, guarding or tenderness Extremities: Normal inspection, no peripheral edema or erythema, calfs nontender to palpation Psych: Normal mood and affect Neuro: AAO x 3, strength intact bilaterally and rated 5/5, no motor deficits, speech is clear, no peripheral sensory deficits Skin: skin is warm, no rash or erythema Results & Data Results & Data ([facility]) Vital Signs (Past 12 Hours) Vital Signs Temp Pulse Resp BP Pulse Ox 03/07/21 11:00 82 23 150/71 H 96 03/07/21 10:30 81 27 H 148/73 H 92 03/07/21 10:10 84 19 160/89 H 94 03/07/21 10:04 83 L 03/07/21 09:35 37.5 C 102 H 22 157/92 H 91 Laboratory Results Abnormal lab results 03/07/21 03/07/21 03/07/21 Range/Units 09:54 10:00 10:00 Plt Count 124 L (130-400) K/uL Lymph # (Auto) 0.78 L (1.2-3.4) K/uL Glucose 120 H (70-99) mg/dl AST 47 H (13-39) U/L ALT 74 H (7-52) U/L SARS-CoV-2 (PCR) POSITIVE A* (Negative) Diagnostic Findings Chest X-Ray 03/07/21 09:49 XR chest 1V portable CLINICAL HISTORY: weakness. Evaluate cardiopulmonary status COMPARISON STUDY: 06/24/2020 TECHNIQUE: 1 view of the chest FINDINGS: Single frontal view of the chest demonstrates the heart size to again be enlarged. The lungs are clear of alveolar opacities. There is no evidence for pleural effusion. There is no evidence for vascular congestion. There is no acute osseous pathology. IMPRESSION: No acute cardiopulmonary disease. ACT 112: Negative or not required by law. Electronically signed by: Amilcar Davalos M.D. 03/07/2021 11:01 AM Supervising Physician Co-Signing Physician Notes I personally saw and examined the patient. I verified all arias points and agree with Gena Medeiros PA-C with the following exceptions and/or additions: Tuvaluan validation leader Ashley using the ER iPad was used for translation 71 year old Tuvaluan speaker presents to ER with nausea, vomiting, shortness of breath and fatigue. Initially she was sick at the end of January prior to seeing her PCP on February 23. Then sick again starting February 25. Contact with COVID positive cousin but subsequent home testing was negative. She reports having bad reflux making her nausea worse but unable to keep down her usual reflux medication this morning. No chest pain, abdominal pain, diarrhea, constipation. O/E Morbidly obese, Chest - reduced breath sounds throughout, using accessory muscles, HS 1+2, no murmurs, RRR, Abdo SNT, no pedal edema A/P Acute on chronic respiratory failure with hypoxia - unknown baseline O2 requirement ?2LPM since prior cholecystectomy in 2018 COVID-19 pneumonia - Unvaccinated. Poor inspiratory effort on CXR but findings suggestive of COVID-19 pneumonia per my read in addition to subjective symptoms above. CRP 5.77. Day 11 of illness therefore no remdesivir given. Start Dexamethasone 6mg IV as suspected increased oxygen requirement. Chronic untreated h. pylori - start famotidine 20mg IV BID as unable to tolerate oral meds due to nausea, continue PPI in AM Melena - Fecal occult blood, hemoglobin stable Nausea and vomiting - suspect secondary to COVID-19 pneumonia and GERD, Ondansetron and famotidine as above VTE Prophylaxis - d-dimer 660, performed due to history of PE. Do not suspect PE with this minimally raised value, below age-adjusted normal range, Lovenox 40mg SQ BID although could consider increasing per recent NIH guidelines PG Care Time/CCT Total # of Minutes Spent Total Time Spent with Patient: Total time spent is greater than 50% in coordination of care (as documented) at patient's floor/unit and/or counseling patient: Coding Level of Care Code 12169 Initial Inpt Care Lvl 3 Diagnoses COVID-19 U07.1 Hypoxia R09.02 Hypertension I10 Hypertension type: essential hypertension Elevated liver enzymes R74.8 Acid reflux disease K21.9 History of pulmonary embolism Z86.711 DVT prophylaxis Z29.9 Dysuria R30.0 (1) Hypertension Hypertension type: essential hypertension Qualified Code(s): I10 - Essential (primary) hypertension
[2021-03-07] MEDS ORDERED: FAMOTIDINE 20 MG in SYRINGE 3 ML IV STA (13:25)
[2021-03-07 13:30] LABS: D Dimer 660 ug/L FEU (0-500)
[2021-03-07] MEDS ORDERED: ACETAMINOPHEN 325 MG TAB PO ONE (14:40)
[2021-03-07] MEDS ORDERED: ONDANSETRON INJ 2 MG/ML 2 ML VIAL IV PRN (15:35)
[2021-03-07] MEDS ORDERED: cloNIDine HCL 0.1 MG TAB PO PRN (15:35)
[2021-03-07] MEDS ORDERED: NITROGLYCERIN SL 0.4 MG/TAB TAB SL PRN (15:35)
[2021-03-07] MEDS: ENOXAPARIN INJ 40 MG/0.4 ML SYR SQ SCH (17:17)
[2021-03-08] MEDS: ENOXAPARIN INJ 40 MG/0.4 ML SYR SQ SCH ×2 (06:27→17:38)
[2021-03-08] MEDS: PANTOprazole 40 MG TAB PO SCH (08:25)
[2021-03-08] MEDS: amLODIPine BESYLATE 5 MG TAB PO SCH (08:25)
[2021-03-08] MEDS: lisinopril 10 MG TAB PO SCH ×2 (08:25→20:59)
[2021-03-08] MEDS ORDERED: ACETAMINOPHEN 325 MG TAB PO PRN (08:30)
[2021-03-08] MEDS: dexAMETHasone 6 MG in SYRINGE 0 ML IV SCH (08:31)
--- NOTE | 2021-03-08 08:31 | Electrocardiogram Report ---
Test Reason : Blood Pressure : / mmHG Vent. Rate : 094 BPM Atrial Rate : 094 BPM P-R Int : 142 ms QRS Dur : 090 ms QT Int : 364 ms P-R-T Axes : 058 -17 050 degrees QTc Int : 455 ms Normal sinus rhythm Possible Old Inferior infarct Poor R wave progression, consider anterior OH vs. lead placement vs. LVH Nonspecific T wave abnormality Anterior leads Abnormal ECG When compared with ECG of 24-JUN-2020 19:47, No significant change was found Confirmed by Allen Ya ([id number]) on 03/08/2021 8:30:56 AM Referred By: REFERRED SELF Confirmed By:Allen Ya
[2021-03-08] MEDS ORDERED: FAMOTIDINE 20 MG in SYRINGE 3 ML IV SCH (09:00)
[2021-03-08 14:10] LABS: Appearance Urine Cloudy (Clear); Bacteria Urine Automated Negative (Negative); Blood Urine Negative (Negative); Color Urine Dark Yellow; Epithelial Cell Urine Auto >30 /lpf (0-5); Glucose Urine UA Negative (Negative); Ketones Urine Trace (Negative); Leukocyte Esterase Urine Negative (Negative); Nitrite Urine Negative (Negative); Protein Urine Trace (Negative); RBC Urine Automated 0-4 /hpf (0-4); Specific Gravity Urine 1.027 (1.000-1.030); Urobilinogen Urine Negative (Negative); pH Urine 5.5 (4.5-7.5)
[2021-03-08 14:12] LABS: Bilirubin Urine 1+ (Negative)
--- NOTE | 2021-03-08 14:50 | Hospitalist Progress Note ---
Date of Service March 08, 2021 Assessment & Plan (1) COVID-19: Plan: -Unvaccinated First date of symptoms: 02/25/2021 First tested positive: 03/07/2021 - CRP 5.77 - Decadron 6 mg IV daily - Remdesivir not given due to Day of presentation - Baricitinib - does not meet criteria for this (2) Acute on chronic respiratory failure with hypoxemia: Plan: ?2LPm O2 - patient is unsure of amount since PEs diagnosed after surgery in 2018 Appears to be off her baseline however. Do not suspect recurrent PEs with d-dimer 660 however would prescribe Xarelto prophylaxis on discharge in this high risk patient (3) Hypoxia: Plan: -Secondary to COVID-19, however pt has hx of b/l PE s/p surgery. -Patient does have oxygen for as needed use at home, which was ordered after dx of the bilateral PE in 2018 -Initial SaO2 was 81% on room air, patient was placed on 2 L nasal cannula and saturations remained in mid 90s. -D-dimer 660, see above. (4) Chest pain: Plan: Echo 02/2019 relatively unremarkable. Describes typical anginal chest pain since this however. Will trend troponins but low likelihood of ACS. Admission EKG unremarkable to prior in June 2020. If serial troponins positive will consult cardiology otherwise consider stress testing once over COVID Certainly she has some reproducible MSK pain in addition Also some chest pain likely related to reflux below (5) Acid reflux disease: Plan: -Famotidine 20 mg IV BID - switch to PO tonight. Omeprazole switched to pantoprazole per hospital formulary. -Patient states she has had melanotic stool for the past 3 days. Fecal occult blood test still pending. -Tested positive for H. pylori several years ago, but was unable to complete treatment due to side effects. -EGD in June 2020 showed a few gastric polyps and chronic inflammation otherwise unremarkable. (6) History of pulmonary embolism: Plan: -May 2017 following surgery. Patient was placed on Xarelto for 9 months. -See above. (7) Dysuria: Plan: - Patient has complaints of dysuria, UA has been ordered, pending. (8) Hypertension: Plan: -Continue continue amlodipine 10 mg daily and lisinopril 10 mg twice daily. -Can continue patient's home medication of clonidine point 0.1 mg as needed for SBP >180 mg or DBP > 90 mg. (9) Elevated liver enzymes: Plan: -AST is 47, ALT is 74. These are consistent with patient's baseline. -Does not complain of any right upper quadrant pain today. Patient has a history of hepatic steatosis. (10) DVT prophylaxis: Plan: -SCDs ordered. -Lovenox 40 mg BID. 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 All questions and concerns answered. Reports feeling better since yesterday, concerned about weight gain effects of dexamethasone and reassured this would only be for maximum of 10 days. Still some shortness of breath on ambulation. Mentions ongoing chest pain on exertion and that her PCP planning on consulting cardiology. Reports chest pain on exertion radiating down left arm for last 6 months but progressively getting worse. On EHR review she was seen by cardiology in 01/2019 due to shortness of breath on exertion with unremarkable echocardiogram but no stress test performed at that time. Review of Systems Review of Systems: All systems reviewed & are unremarkable except as noted in HPI & below Physical Exam Constitutional: + morbidly obese; no acute distress Eyes: + anicteric sclerae; normal pupil size ENMT: external ear and nose normal, oropharynx normal Neck: trachea midline, no thyromegaly Respiratory: normal respiratory effort, lungs clear to auscultation Cardiovascular: Rate/Rhythm: regular rate and regular rhythm Heart Sounds: no murmur Extremities: normal capillary refill and + pedal edema (trace ankles, equal b/l) Gastrointestinal (Abdomen): Percussion/Palpation: abdomen soft; abdomen nontender Skin: no rashes, warm and dry Neurologic: moves all extremities and awake; not confused Psychiatric: A+Ox3, euthymic affect Results & Data Results & Data ([facility]) Vital Signs (Past 12 Hours) Vital Signs Temp Pulse Resp BP Pulse Ox 03/08/21 08:17 64 172/91 H 94 03/08/21 08:07 36.5 C 75 18 197/98 H 93 PG Care Time/CCT Total # of Minutes Spent Total Time Spent with Patient: Total time spent is greater than 50% in coordination of care (as documented) at patient's floor/unit and/or counseling patient: Coding Level of Care Code 90087 Subseq Hosp Care Lvl 2 Diagnoses COVID-19 U07.1 Hypoxia R09.02 Acid reflux disease K21.9 History of pulmonary embolism Z86.711 Dysuria R30.0 Hypertension I10 Hypertension type: essential hypertension Elevated liver enzymes R74.8 DVT prophylaxis Z29.9 Chest pain R07.9 Acute on chronic respiratory failure with hypoxemia J96.21 (1) Hypertension Hypertension type: essential hypertension Qualified Code(s): I10 - Essential (primary) hypertension
[2021-03-08 16:31] LABS: Anion Gap 6 (3-11); BUN Creatinine Ratio 17.2 (10-20); Blood Urea Nitrogen 15 mg/dl (6-23); Calcium 8.8 mg/dl (8.5-10.1); Carbon Dioxide 29 mmol/L (21-32); Chloride 106 mmol/L (98-107); Est GFR (African American) 77.1 ml/min; Est GFR (Non-African American) 66.6 ml/min; Glucose 158 mg/dl (70-99(Fasting)); Potassium 4.1 mmol/L (3.5-5.1); Sodium 141 mmol/L (136-145); Troponin I < 0.03 ng/ml (0-0.04)
[2021-03-08] MEDS: FAMOTIDINE 20 MG TAB PO SCH (20:59)
[2021-03-09] MEDS: ENOXAPARIN INJ 40 MG/0.4 ML SYR SQ SCH ×2 (05:43→17:37)
[2021-03-09 05:59] LABS: Basophils # (auto) 0.01 K/uL (0-0.2); Basophils % (auto) 0.2 %; Hematocrit (blood only) 44.1 % (37-47); Hemoglobin 14.2 g/dL (12.0-16.0); Immature Granulocytes # (auto) 0.01 K/uL (0.00-0.02); Immature Granulocytes % (auto) 0.2 %; Lymphocytes # (auto) 0.74 K/uL (1.2-3.4); Lymphocytes % (auto) 12.4 %; Mean Corpuscular Hemoglobin 30.1 pg (25-34); Mean Corpuscular Hgb Conc 32.2 g/dL (32-36); Mean Corpuscular Volume 93.4 fL (80-100); Mean Platelet Volume 10.2 fL (7.4-10.4); Monocytes # (auto) 0.39 K/uL (0.11-0.59); Monocytes % (auto) 6.5 %; Neutrophils # (auto) 4.83 K/uL (1.4-6.5); Neutrophils % (auto) 80.7 %; Platelet Count 171 K/uL (130-400); RDW Coefficient of Variation 12.9 % (11.5-14.5); RDW Standard Deviation 44.2 fL (36.4-46.3); Red Blood Count 4.72 M/uL (4.2-5.4); White Blood Count 5.98 K/uL (4.8-10.8)
[2021-03-09 06:24] LABS: Troponin I < 0.03 ng/ml (0-0.04)
[2021-03-09 06:34] LABS: Alanine Aminotransferase 56 U/L (7-52); Albumin Globulin Ratio 0.9 (0.9-2); Albumin Level 3.3 gm/dl (3.4-5.0); Anion Gap 8 (3-11); BUN Creatinine Ratio 20.5 (10-20); Bilirubin,Total 0.6 mg/dl (0.2-1.0); Blood Urea Nitrogen 18 mg/dl (6-23); Calcium 8.3 mg/dl (8.5-10.1); Carbon Dioxide 26 mmol/L (21-32); Chloride 103 mmol/L (98-107); Creatinine Clr Calc Pharmacy 73.2 ml/min; Est GFR (African American) 76.1 ml/min; Est GFR (Non-African American) 65.6 ml/min; Globulin 3.5 gm/dl (2.5-4.0); Glucose 93 mg/dl (70-99(Fasting)); Sodium 137 mmol/L (136-145); Total Protein 6.8 gm/dl (6.0-8.3)
[2021-03-09 06:51] LABS: Alkaline Phosphatase 53 U/L (34-104); Aspartate Aminotransferase 38 U/L (13-39); Potassium 3.8 mmol/L (3.5-5.1)
[2021-03-09] MEDS ORDERED: traMADol HCL 50 MG TABLET PO PRN (07:48)
[2021-03-09] MEDS: dexAMETHasone 6 MG in SYRINGE 0 ML IV SCH (07:59)
[2021-03-09] MEDS: amLODIPine BESYLATE 5 MG TAB PO SCH (08:36)
[2021-03-09] MEDS: lisinopril 10 MG TAB PO SCH (08:37)
[2021-03-09] MEDS: FAMOTIDINE 20 MG TAB PO SCH (08:37)
[2021-03-09] MEDS: PANTOprazole 40 MG TAB PO SCH (08:37)
[2021-03-09] MEDS ORDERED: guaiFENesin 600 MG TABCR PO SCH (09:00)
--- NOTE | 2021-03-09 17:02 | Discharge Summary ---
Date of Service March 09, 2021 Admission HPI Per Admitting Provider Patient is a 71-year-old female with a past medical history hypertension, GERD, hepatic steatosis, bilateral PE status post gallbladder surgery in 2018, VICKY, and morbid obesity who presents today with worsening nausea and vomiting. Patient began feeling generally unwell a week ago, experiencing fever, headache, body aches, and decreased appetite. Over the past several days, she has been experiencing nausea and vomiting, approximately 4 episodes/day for the past 4 days. She has had difficulty maintaining adequate p.o. intake. Patient also notes she may have increasing shortness of breath. Patient does have home oxygen for as needed use, and was using it Monday, [id number] states her oxygen saturation was 92, but does not know how many liters of oxygen she was on. Patient was tested for COVID-19 in the ED today and was positive. Patient is not vaccinated, it is unclear when her symptoms started as she had been feeling unwell for the past week or 2 and got better until she started to decline again over the past 4 days. Patient received 500 cc normal saline, 10 mg IV Decadron, and Zofran in the ED and hospitalist team was consulted for admission. Principal Diagnosis COVID-19 pneumonia, nausea and vomiting Discharge Exam Constitutional + morbidly obese; no acute distress Eyes + anicteric sclerae; normal pupil size ENMT external ear and nose normal, oropharynx normal Neck trachea midline, no thyromegaly Respiratory normal respiratory effort, lungs clear to auscultation Cardiovascular Rate/Rhythm: regular rate and regular rhythm Heart Sounds: no murmur Extremities: normal capillary refill and + pedal edema (trace ankles, equal b/l) Gastrointestinal (Abdomen) Percussion/Palpation: abdomen soft; abdomen nontender Skin no rashes, warm and dry Neurologic moves all extremities and awake; not confused Psychiatric A+Ox3, euthymic affect Discharge Data Allergies Allergy/AdvReac Type Severity Reaction Status Date / Time azithromycin AdvReac Intermediate myalgia, Verified 03/07/21 11:07 other ciprofloxacin AdvReac Intermediate BLOOD IN Verified 03/07/21 11:07 STOOL, MYALGIA diltiazem AdvReac Intermediate HEADACHE, Verified 03/07/21 11:07 TACHYCARDIA verapamil AdvReac Intermediate myalgia, Verified 03/07/21 11:07 other orange AdvReac Unknown Unknown Verified 03/07/21 11:07 Consultations 03/07/21 11:45 ED Decision to Admit Stat Hospital Course (1) COVID-19: Adeline Buck is a 71 year old female admitted to [facility] from March 07 to 2021 due to fatigue, nausea, vomiting, headache and shortness of breath. She was diagnosed with COVID-19 pneumonia. She was requiring 3LPM O2 from baseline 2LPM O2 therefore started on dexamethasone. She should continue dexamethasone for 7 further days. Regarding her ongoing nausea she was started on ondansetron as needed. Likely secondary to GERD and COVID-19. She should continue to take her reflux medications with omeprazole and famotidine. If her reflux is getting worse she may need to stop the dexamethasone. Oxygen requirement has now been stable for the last 2 days. We discussed possible rehabilitation and physical therapy given her ongoing weakness however she wished to return home at this time. She should follow up with her PCP in the next 1-2 weeks. (2) Acute on chronic respiratory failure with hypoxemia: (3) Hypoxia: (4) Chest pain: (5) Acid reflux disease: (6) History of pulmonary embolism: (7) Dysuria: (8) Hypertension: (9) Elevated liver enzymes: Total Time Total Time Spent Total Time Spent (In Minutes): 50 Discharge Plan Discharge Items Patient Disposition: Home - Self-Care Reason For Visit: COVID+,NAUSEA AND VOMITING Discharge Diagnosis: COVID +ve, nausea and vomiting Activity: Resume your previous activity Non-emergency contact: Primary Care Provider Call non-emergency contact if: you have any medication questions and your symptoms worsen Follow-up/Referrals: Mario Camara MD [Primary Care Provider] - (Please phone your primary care office to schedule a follow up appointment with Dr. Camara. The office may be able to arrange an appointment with her and not be placed on a waitlist. You were not scheduled to meet with another provider to avoid a possible language barrier.) Diet: Heart Healthy Addtl Attending Provider Instructions: You were admitted to [facility] from March 07 to 2021 due to the fatigue, nausea, vomiting, headache, shortness of breath. You were diagnosed with COVID-19 pneumonia. Given your oxygen requirement was above baseline he was started on treatment for this with dexamethasone. Please continue to take dexamethasone for 7 further days. Regarding your nausea I recommend taking ondansetron as needed. Continue to take your reflux medications with omeprazole and famotidine. If your reflux is getting worse you may need to stop the dexamethasone. Your oxygen requirement has not been stable for the last 2 days. We discussed possible rehabilitation and physical therapy given your ongoing weakness however you wish to return home at this time. Please continue to use the incentive spirometer every few hours, keep as active as possible, when lying try to lie on your side and abdomen as much as possible. Please return to the emergency room if your shortness of breath is getting worse. Pending Studies at Discharge: No Stand-Alone Forms: [facility] [employer], Smoking Cessation Medications and DC Order Prescriptions: New guaifenesin [Mucinex] 600 mg Tablet Extended Release 12hr 600 mg PO Q12 7 Days Qty: 14 RF: 0 dexamethasone 6 mg tablet 6 mg PO DAILY 7 Days Qty: 7 RF: 0 Xarelto 10 mg tablet 10 mg PO DAILY 28 Days Qty: 28 RF: 0 Continued clonidine HCl 0.1 mg tablet 0.1 mg PO TID PRN (Reason: NEEDED) Qty: 120 RF: 5 amlodipine 10 mg tablet 10 mg PO QAM Qty: 90 RF: 1 cholecalciferol (vitamin D3) 1,250 mcg (50,000 unit) capsule 50,000 unit PO WK Qty: 12 RF: 3 lisinopril 10 mg tablet 10 mg PO BID Qty: 60 RF: 5 famotidine 40 mg tablet 40 mg PO DAILY Qty: 90 RF: 3 omeprazole 40 mg capsule,delayed release(DR/EC) 40 mg PO DAILY Qty: 90 RF: 3 furosemide 20 mg tablet 20 mg PO QDL PRN (Reason: Fluid Retention) Qty: 30 RF: 1 lidocaine 5 % adhesive patch,medicated 1 patch transdermal DAILY PRN (Reason: Pain) RF: 0 levocetirizine 5 mg tablet 5 mg PO BID RF: 0 nitroglycerin 0.4 mg Tablet, Sublingual 0.4 mg sublingual UD PRN (Reason: Chest Pain) RF: 0 Discharge Orders: Discharge Order (Routine); Ordered 03/09/21 Ordered By: Nirmal Doan/Other Patient Handouts: Chest and Lung Problems Admission Data Admit Date/Time: 03/07/21 13:35 Attending Provider: Nirmal Bagley Admit Provider: Gena Medeiros Primary Care Provider: Mario Camara V. Other Providers: Nirmal Bagley Other Interventions: Discharge Summary Assessment (RN) Last Done: 03/09/21 17:05 Coding Level of Care Code D/C DAY MANAGEMENT >30 MINS Diagnoses COVID-19 U07.1 Acute on chronic respiratory failure with hypoxemia J96.21 Hypoxia R09.02 Chest pain R07.9 Acid reflux disease K21.9 History of pulmonary embolism Z86.711 Dysuria R30.0 Hypertension I10 Hypertension type: essential hypertension Elevated liver enzymes R74.8
== END 2021-03-09 18:08 | disposition home or self-care (01) | DRG 177 ==
LOC: ED 09:23 → 3E 13:35

== ENCOUNTER 2023-03-31 14:29 | Inpatient (IN) ==
[2023-03-31 16:33] LABS: Basophils # (auto) 0.03 K/uL (0.00-0.20); Basophils % (auto) 0.3 %; Eosinophils # (auto) 0.02 K/uL (0.00-0.50); Eosinophils % (auto) 0.2 %; Hematocrit (blood only) 46.7 % (37.0-47.0); Hemoglobin 15.6 g/dl (12.0-16.0); Immature Granulocytes # (auto) 0.04 K/uL (0.01-0.20); Immature Granulocytes % (auto) 0.5 %; Lymphocytes # (auto) 1.03 K/uL (1.20-3.40); Lymphocytes % (auto) 11.8 %; Mean Corpuscular Hgb Conc 33.4 g/dL (32.0-36.0); Mean Corpuscular Volume 89.8 fL (80.0-100.0); Mean Platelet Volume 10.1 fL (9.4-12.4); Monocytes # (auto) 0.99 K/uL (0.11-0.59); Monocytes % (auto) 11.3 %; Neutrophils # (auto) 6.62 K/uL (1.40-6.50); Neutrophils % (auto) 75.9 %; Platelet Count 170 K/uL (130-400); RDW Coefficient of Variation 12.9 % (11.5-14.5); White Blood Count 8.73 K/ul (4.8-10.8)
--- NOTE | 2023-03-31 16:34 | XRay Report ---
XR chest 1V not portable CLINICAL HISTORY: Shortness of breath. COMPARISON STUDY: Chest radiograph June 18, 2021. Chest CT June 30, 2021. FINDINGS: Lung volumes are normal. Lungs are clear. There is no pneumothorax or pleural effusion. Mod erate cardiomegaly is unchanged. Mediastinal contours are normal. There is no evidence for pulmonary edema. IMPRESSION: No acute cardiopulmonary findings. Stable cardiomegaly. ACT 112: Negative or not required by law. Electronically signed by: Jaret Stevenson M.D. 03/31/2023 4:33 PM
--- NOTE | 2023-03-31 16:48 | Electrocardiogram Report ---
Test Reason : Blood Pressure : / mmHG Vent. Rate : 102 BPM Atrial Rate : 102 BPM P-R Int : 136 ms QRS Dur : 092 ms QT Int : 368 ms P-R-T Axes : 038 -19 086 degrees QTc Int : 479 ms Sinus tachycardia Minimal voltage criteria for LVH, may be normal variant ( R in aVL ) Cannot rule out Anterior infarct , age undetermined Abnormal ECG When compared with ECG of 12-APR-2021 10:40, Non-specific change in ST segment in Inferior leads Inverted T waves have replaced nonspecific T wave abnormality in Lateral leads Confirmed by Adam Staples ([id number]) on 03/31/2023 4:47:36 PM Referred By: Confirmed By:Adam Staples
[2023-03-31 16:49] LABS: Alanine Aminotransferase 41 U/L (7-52); Albumin Globulin Ratio 1.2 (0.9-2); Albumin Level 4.2 gm/dl (3.4-5.0); Alkaline Phosphatase 63 U/L (34-104); Anion Gap 9 (3-11); Aspartate Aminotransferase 26 U/L (13-39); BUN Creatinine Ratio 24.5 (10-20); Bilirubin,Total 1.3 mg/dl (0.2-1.0); Blood Urea Nitrogen 25 mg/dl (6-23); Calcium 9.3 mg/dl (8.6-10.3); Carbon Dioxide 28 mmol/L (21-32); Chloride 98 mmol/L (98-107); Est GFR (African American) 62.8 ml/min; Est GFR (Non-African American) 54.1 ml/min; Globulin 3.6 gm/dl (2.5-4.0); Glucose 127 mg/dl (70-99(Fasting)); Potassium 3.4 mmol/L (3.5-5.1); Sodium 135 mmol/L (136-145); Total Protein 7.8 gm/dl (6.0-8.3)
[2023-03-31 16:56] LABS: Adenovirus PCR Not Detected (NotDetected); Bordetella parapertussis PCR Not Detected (NotDetected); Bordetella pertussis PCR Not Detected (NotDetected); Chlamydia pneumoniae PCR Not Detected (NotDetected); Coronavirus 229E PCR Not Detected (NotDetected); Coronavirus CoV-2 (COVID19)PCR DETECTED (NotDetected); Coronavirus HKU1 PCR Not Detected (NotDetected); Coronavirus NL63 PCR Not Detected (NotDetected); Coronavirus OC43PCR Not Detected (NotDetected); Human Metapneumovirus PCR Not Detected (NotDetected); Influenza A PCR Not Detected (NotDetected); Influenza B PCR Not Detected (NotDetected); Mycoplasma pneumoniae PCR Not Detected (NotDetected); Parainfluenza Virus 1 PCR Not Detected (NotDetected); Parainfluenza Virus 2 PCR Not Detected (NotDetected); Parainfluenza Virus 3 PCR Not Detected (NotDetected); Parainfluenza Virus 4 PCR Not Detected (NotDetected); Respiratory Syncytial VirusPCR Not Detected (NotDetected); Rhinovirus/Enterovirus PCR Not Detected (NotDetected)
[2023-03-31 16:58] LABS: Partial Thromboplastin Time 29 Seconds (21-31); Prothrombin Time 11.4 Seconds (9.0-12.0)
--- NOTE | 2023-03-31 17:50 | Emergency Department Note ---
Impression & Plan COVID ED Provider Note NAME: LIUS YOUSSEF AGE: 73 SEX: F : 1950 ARRIVES VIA: Walk-In INFORMANT: Patient, ED PROVIDER(S): Estefania Marino MD CHIEF COMPLAINT: Shortness of breath, weakness, cough HPI: This is a 73-year-old Tristanian-speaking female presenting for 3 days worth of nausea, vomiting, weakness, cough and shortness of breath. Patient is with her daughter who translates they declined Tristanian foot tender via iPad. Otherwise patient has had symptoms of nausea and vomiting after eating over the past 3 days. Has also had shortness of breath and cough as well over the past few days. Patient had fevers as per the daughter. Patient does live alone, now with a daughter. Denies any chest pain, pleurisy. ROS: See above HPI for pertinent positives & negatives. A total of 10 systems reviewed and were otherwise negative. PAST MEDICAL HISTORY: See Below PAST SURGICAL HISTORY: See Below FAMILY HISTORY: See Below SOCIAL HISTORY: See Below HOME MEDICATIONS: See Below ALLERGIES: See Below VITALS: See Below PHYSICAL EXAMINATION: General: resting comfortably in no acute distress Head: Normocephalic and atraumatic Eyes: Normal inspection, extraocular muscles intact Ear, nose, throat: Normal external exam Neck: Normal range of motion Respiratory: lungs clear to auscultation bilaterally Cardiovascular: Regular rate/rhythm, no murmur GI: soft, nontender, no guarding or rebound Extremities: nontender, moves all extremities Neuro: The patient awake and alert, appropriately conversive, no focal deficits, symmetric faces Skin: Warm, dry, and intact MEDICAL DECISION MAKING: This is a 73-year-old Tristanian-speaking female presenting for nausea, vomiting, weakness, cough for the past 3 days. Patient's constellation of viral versus pneumonia type symptoms. Patient blood work as well as chest x-ray and respiratory panel done at triage. Patient is COVID-19 positive. Upon my examination, patient is satting between 83 and 86% on room air, breathing normally. She has a good Plath on the monitor. She does intermittently improve into the low 90s between 90 and 92%. Pretty quickly dipped back down to the mid to high 80s -Chest Xray independently interpreted by me showing no pneumothorax, focal opacity, or pleural effusions, does reveal cardiomegaly. -Asked nursing staff to apply oxygen -Patient admitted for COVID-19 hypoxia. -Dr. Bagley will order further imaging and COVID-19 treatment Differential diagnosis: COVID-19, pneumonia, PE, ACS ER treatment provided: See below Diagnostics interpreted by me: ECG: ECG independently interpreted by me with sinus tachycardia, rate of 102, normal NE, normal QRS, normal QTc, no ST segment elevations consistent with STEMI criteria Cardiac Monitoring: An order was placed for continuous cardiac monitoring. The monitor shows a rate of 85 with sinus rhythm. Laboratory studies: As stated above and show below. Imaging studies: See below. Past Med/Surg History Medical History (Updated 04/01/23 @ 00:09 by Nirmal Bagley MD) Hypoxia hx, previously using O2 at home, now resolved Hx of headache dtr state "chronic daily headaches, but mom only takes meds if she has to" Hyperlipidemia History of prediabetes dtr stated "mom was told to watch her diet because her sugar was borderline" Hx of osteoarthritis Hx of venous disease dtr stated "my mom had leaky valves in the upper parts of her legs and she recently had the cauterized in the doctor's office." Hx of carpal tunnel syndrome bilat-no sx. History of cerebrovascular accident dtr stated "my mom never had a stroke" History of COVID-19 02/2021, home test and pcr, not hospitalized, low oxygen level w/shortness of breath>resolved. Helicobacter pylori gastritis Acute on chronic respiratory failure with hypoxemia dtr stated "she's had this since she had covid, but no longer seems to need her oxygen. Her oxygen levels have been good" Chest pain hx-daughter stated "mom complains about this all the time and they get it checked and Dr's say it all normal" Dysuria dtr stated "mom always complains about this, drAleida said it's muscle or nerve pain" Morbid obesity Epigastric pain dtr stated "mom complains about this, but dr's say there's no problems" Hepatic steatosis dtr stated "last test showed it was fine" DJD (degenerative joint disease) of knee Knee pain Lumbar radicular pain Sciatica Back pain Helicobacter pylori (H. pylori) infection hx Hypothyroidism, unspecified (04/18/12) Esophageal reflux (02/27/13) Atherosclerotic heart disease of [place] coronary artery without angina pectoris Arthralgia of multiple sites Bilateral pulmonary embolism 05/2017 after gallbladder sx--treated with AC therapy Thyroid cyst just monitoring Cyst of right kidney just monitoring Cyst of left kidney just monitoring GERD (gastroesophageal reflux disease) Hypertension Myocardial Infarction 1997, never had to be hospitalized; follows with Dr. Ya Surgical History Hx of cataract extraction BL H/O abdominal hysterectomy History of cholecystectomy History of colonoscopy History of esophagogastroduodenoscopy (EGD) History of appendectomy Family History Father Prostate cancer Sister Cancer of kidney Grandfather (Maternal) Stomach cancer Denies family history of Colon cancer Ovarian cancer Myocardial infarction Breast cancer Social History (Updated 03/08/23 @ 15:41 by Archana Brandt LPN) Smoking Status: Never smoker Second Hand Exposure: No; Do You Dip or Chew Tobacco: No; Hx Alcohol Use: No Hx Substance Use: No Preferred Language: Tristanian Communication Ability: Effective Communication Ability Comment: "dtr can translate anywhere she's allowed to go, but may need software design analyst" Communication Tools: Other Ship Engineer Required: No Beliefs That Will Affect Care: None marital status: / Current Living Situation: Alone current occupational status: retired Feels Safe at Home: Yes Diet: regular caffeine: No Physical Activity Frequency: Does not Exercise Seatbelt Use: always Do you think of yourself as: straight/heterosexual Gender Identity: Female Assistive Devices: Denture - Lower and Glasses Allergies Allergies Allergy/AdvReac Type Severity Reaction Status Date / Time azithromycin AdvReac Intermediate myalgia, Verified 03/31/23 20:47 other ciprofloxacin AdvReac Intermediate BLOOD IN Verified 03/31/23 20:47 STOOL, MYALGIA diltiazem AdvReac Intermediate HEADACHE, Verified 03/31/23 20:47 TACHYCARDIA verapamil AdvReac Intermediate myalgia, Verified 03/31/23 20:47 other orange AdvReac Unknown Unknown Verified 03/31/23 20:47 Home Meds Home Medications Medication Instructions Recorded Confirmed levocetirizine 5 mg tablet 5 mg PO QPM 06/16/20 03/31/23 Previous Rx's Medication Instructions Recorded omeprazole 20 mg capsule,delayed 20 mg PO BID #60 caps 09/13/22 release cholecalciferol (vitamin D3) 125 125 mcg PO QAM #90 tabs 10/06/22 mcg (5,000 unit) tablet (Vitamin D3) lisinopril 10 mg tablet 10 mg PO BID #60 tabs 11/14/22 clonidine HCl 0.1 mg tablet 0.1 mg PO TID PRN Blood Pressure 12/05/22 #90 tabs chlorthalidone 25 mg tablet 12.5 mg (1/2 x 25 mg) PO BID #90 12/27/22 tabs furosemide 20 mg tablet 20 mg PO QAM PRN Fluid Retention 03/08/23 #30 tabs Results & Data (ED) Vital Signs Vital Signs - 24 hr 03/31/23 14:35 03/31/23 16:48 03/31/23 17:49 Temperature 36.5 C Temperature Source Oral Pulse Rate 100 H Pulse Rate [Left Apical] 89 Pulse Rate [Left] 88 Pulse Rhythm [Left] Regular Pulse Strength [Left] Normal Respiratory Rate 20 20 18 Respiratory Effort / Characteristics Non-Labored Respiratory Depth Normal Respiratory Pattern Regular Blood Pressure 153/98 H Blood Pressure [Left Arm] 145/88 H Blood Pressure [Right Radial Artery] 154/97 H Blood Pressure Mean 116 Blood Pressure Mean [Left Arm] 107 Blood Pressure Mean [Right Radial Artery] 116 Pulse Oximetry 98 92 93 Oxygen Delivery Method Room Air Room Air Nasal Cannula Oxygen Flow Rate 2 Sepsis Recent Fever Within 48 Hours No Sepsis New/Unexplained Change in Mental Status No Sepsis Action Taken by Nursing No Action Required Oxygen Flow Rate - Titration Pulse Oximetry Post Tiitration 03/31/23 17:51 03/31/23 17:57 03/31/23 18:00 Temperature Temperature Source Pulse Rate 89 92 H Pulse Rate [Left Apical] Pulse Rate [Left] Pulse Rhythm [Left] Pulse Strength [Left] Respiratory Rate 18 Respiratory Effort / Characteristics Respiratory Depth Respiratory Pattern Blood Pressure 168/100 H Blood Pressure [Left Arm] Blood Pressure [Right Radial Artery] Blood Pressure Mean 122 Blood Pressure Mean [Left Arm] Blood Pressure Mean [Right Radial Artery] Pulse Oximetry 86 L 92 Oxygen Delivery Method Nasal Cannula Nasal Cannula Oxygen Flow Rate 0 2 Sepsis Recent Fever Within 48 Hours Sepsis New/Unexplained Change in Mental Status Sepsis Action Taken by Nursing Oxygen Flow Rate - Titration 2 Pulse Oximetry Post Tiitration 92 03/31/23 18:30 03/31/23 19:00 Temperature Temperature Source Pulse Rate 87 86 Pulse Rate [Left Apical] Pulse Rate [Left] Pulse Rhythm [Left] Pulse Strength [Left] Respiratory Rate 23 17 Respiratory Effort / Characteristics Respiratory Depth Respiratory Pattern Blood Pressure 175/93 H 166/99 H Blood Pressure [Left Arm] Blood Pressure [Right Radial Artery] Blood Pressure Mean 120 121 Blood Pressure Mean [Left Arm] Blood Pressure Mean [Right Radial Artery] Pulse Oximetry 92 91 Oxygen Delivery Method Nasal Cannula Nasal Cannula Oxygen Flow Rate 2 2 Sepsis Recent Fever Within 48 Hours Sepsis New/Unexplained Change in Mental Status Sepsis Action Taken by Nursing Oxygen Flow Rate - Titration Pulse Oximetry Post Tiitration Laboratory Data 03/31/23 16:07 03/31/23 16:07 Lab Results 03/31/23 03/31/23 Range/Units 15:55 16:07 WBC 8.73 (4.8-10.8) K/ul RBC 5.20 (4.20-5.40) M/uL Hgb 15.6 (12.0-16.0) g/dl Hct 46.7 (37.0-47.0) % MCV 89.8 (80.0-100.0) fL MCH 30.0 (25.0-34.0) pg MCHC 33.4 (32.0-36.0) g/dL RDW Std Deviation 42.0 (36.4-46.3) fL RDW Coeff of Missy 12.9 (11.5-14.5) % Plt Count 170 (130-400) K/uL MPV 10.1 (9.4-12.4) fL Immature Gran % (Auto) 0.5 % Neut % (Auto) 75.9 % Lymph % (Auto) 11.8 % [place] % (Auto) 11.3 % Eos % (Auto) 0.2 % Baso % (Auto) 0.3 % Neut # (Auto) 6.62 H (1.40-6.50) K/uL Lymph # (Auto) 1.03 L (1.20-3.40) K/uL [place] # (Auto) 0.99 H (0.11-0.59) K/uL Eos # (Auto) 0.02 (0.00-0.50) K/uL Baso # (Auto) 0.03 (0.00-0.20) K/uL Immature Gran # (Auto) 0.04 (0.01-0.20) K/uL PT 11.4 (9.0-12.0) Seconds INR 1.0 (0.9-1.1) APTT 29 (21-31) Seconds PTT Ratio 1.0 Sodium 135 L (136-145) mmol/L Potassium 3.4 L (3.5-5.1) mmol/L Chloride 98 (98-107) mmol/L Carbon Dioxide 28 (21-32) mmol/L Anion Gap 9 (3-11) BUN 25 H (6-23) mg/dl Creatinine 1.02 (0.6-1.2) mg/dl Est Cr Clr Drug Dosing Not Reportable Est GFR ( Amer) 62.8 ml/min Est GFR (Non-Af Amer) 54.1 ml/min BUN/Creatinine Ratio 24.5 H (10-20) Glucose 127 H (70-99(Fasting)) mg/dl Calcium 9.3 (8.6-10.3) mg/dl Total Bilirubin 1.3 H (0.2-1.0) mg/dl AST 26 (13-39) U/L ALT 41 (7-52) U/L Alkaline Phosphatase 63 (34-104) U/L C-Reactive Protein 9.60 H (0-0.5) mg/dl Total Protein 7.8 (6.0-8.3) gm/dl Albumin 4.2 (3.4-5.0) gm/dl Globulin 3.6 (2.5-4.0) gm/dl Albumin/Globulin Ratio 1.2 (0.9-2) Adenovirus (PCR) Not Detected (NotDetected) B. pertussis DNA (PCR) Not Detected (NotDetected) B.parapertussis DNA PCR Not Detected (NotDetected) C. pneumoniae DNA (PCR) Not Detected (NotDetected) Coronavirus OC43 (PCR) Not Detected (NotDetected) Coronavirus HKU1 (PCR) Not Detected (NotDetected) Coronavirus 229E (PCR) Not Detected (NotDetected) SARS-CoV-2 (PCR) DETECTED A (NotDetected) Coronavirus NL63 (PCR) Not Detected (NotDetected) Human Metapneumovir PCR Not Detected (NotDetected) Influenza Type A (PCR) Not Detected (NotDetected) Influenza Type B (PCR) Not Detected (NotDetected) M. pneumoniae (PCR) Not Detected (NotDetected) Parainfluenza 1 (PCR) Not Detected (NotDetected) Parainfluenza 2 (PCR) Not Detected (NotDetected) Parainfluenza 3 (PCR) Not Detected (NotDetected) Parainfluenza 4 (PCR) Not Detected (NotDetected) RSV (PCR) Not Detected (NotDetected) Entero/Rhino (PCR) Not Detected (NotDetected) Administered Medications Chlorthalidone (Chlorthalidone 25 Mg Tab) 12.5 mg PO BID MARGARITA Stop: 04/30/23 23:14 Last Admin: 04/01/23 00:08 Dose: 12.5 mg Documented By: NETTIE Enoxaparin Sodium (Enoxaparin Inj 40 Mg/0.4 Ml Syr) 40 mg SQ QPM MARGARITA Stop: 04/30/23 23:09 Last Admin: 04/01/23 00:07 Dose: 40 mg Documented By: NETTIE Lisinopril (Lisinopril 10 Mg Tab) 10 mg PO BID MARGARITA Stop: 04/30/23 23:14 Last Admin: 04/01/23 00:08 Dose: 10 mg Documented By: NETTIE Discontinued Medications Pantoprazole Sodium 40 mg/ (Syringe) 10 mls @ 5 mls/min IV NOW STA Stop: 03/31/23 20:25 Last Admin: 03/31/23 20:40 Dose: 5 mls/min Documented By: ZAC Ioversol (Optiray 320 125ml) 118 ml IV ONCE ONE Stop: 03/31/23 20:04 Last Admin: 03/31/23 20:03 Dose: 118 ml Documented By: CHUN Miscellaneous (Patient's Height &/Or Weight Needed) 1 each N/A ONE STA Stop: 03/31/23 23:55 Last Admin: 04/01/23 00:09 Dose: 1 each Documented By: NETTIE Ondansetron HCl (Ondansetron Inj 2 Mg/Ml 2 Ml Vial) 4 mg IV ONE STA Stop: 03/31/23 19:32 Last Admin: 03/31/23 20:27 Dose: 4 mg Documented By: MJJ Imaging Data Radiologist's Impression: Chest X-Ray 03/31/23 14:38 XR chest 1V not portable CLINICAL HISTORY: Shortness of breath. COMPARISON STUDY: Chest radiograph June 18, 2021. Chest CT June 30, 2021. FINDINGS: Lung volumes are normal. Lungs are clear. There is no pneumothorax or pleural effusion. Moderate cardiomegaly is unchanged. Mediastinal contours are normal. There is no evidence for pulmonary edema. IMPRESSION: No acute cardiopulmonary findings. Stable cardiomegaly. ACT 112: Negative or not required by law. Electronically signed by: Jaret Stevenson M.D. 03/31/2023 4:33 PM Abdomen/Pelvis CT 03/31/23 19:28 Exam(s): CT ABDOMEN + PELVIS With Contrast IV Amt: 118ml optiray 320 EXAM: CT Abdomen and Pelvis With Intravenous Contrast CLINICAL HISTORY: Reason for exam: Generalized abdominal pain, vomiting ?SBO. TECHNIQUE: Axial computed tomography images of the abdomen and pelvis with intravenous contrast. CTDI is 68.41 mGy and DLP is 2243.92 mGy-cm. Automated exposure control was utilized for the study. A dose lowering technique was utilized adhering to the principles of ALARA. CONTRAST: Patient received 118ml optiray 320 of IV contrast COMPARISON: No relevant prior studies available. FINDINGS: Lung bases: Unremarkable. No mass. No consolidation. ABDOMEN: Liver: Unremarkable. No mass. Gallbladder and bile ducts: Hepatic steatosis. Cholecystectomy. No ductal dilation. Pancreas: Unremarkable. No mass. No ductal dilation. Spleen: Unremarkable. No splenomegaly. Adrenals: Unremarkable. No mass. Kidneys and ureters: RIGHT renal cyst measures 2.8 cm. No hydronephrosis. Stomach and bowel: Diverticulosis, without acute diverticulitis. No bowel obstruction. No free air. PELVIS: Appendix: No findings to suggest acute appendicitis. Bladder: Decompressed urinary bladder. Reproductive: Unremarkable as visualized. ABDOMEN and PELVIS: Intraperitoneal space: See above. Bones/joints: Degenerative changes of the spine. No acute fracture. No dislocation. Soft tissues: Unremarkable. Vasculature: Atherosclerotic changes of the aorta. No abdominal aortic aneurysm. Lymph nodes: Unremarkable. No enlarged lymph nodes. IMPRESSION: Diverticulosis, without acute diverticulitis. No bowel obstruction. No free air. Electronically signed by: Dk Granados MD 03/31/23 20:59 PM Chest CTA 03/31/23 19:28 Exam(s): CTA CHEST IV Amt: 118ml optiray 320 EXAM: CT Angiography Chest With Intravenous Contrast CLINICAL HISTORY: Reason for exam: PE. TECHNIQUE: Axial computed tomographic angiography images of the chest with intravenous contrast. CTDI is 68.41 mGy and DLP is 2243.92 mGy-cm. Automated exposure control was utilized for the study. A dose lowering technique was utilized adhering to the principles of ALARA. MIP reconstructed images were created and reviewed. COMPARISON: No relevant prior studies available. FINDINGS: Pulmonary arteries: Unremarkable. No acute pulmonary embolism. Aorta: Atherosclerotic changes of the aorta. No thoracic aortic aneurysm. Lungs: Unremarkable. No mass. No consolidation. Pleural space: Unremarkable. No significant effusion. No pneumothorax. Heart: Unremarkable. No cardiomegaly. No significant pericardial effusion. No evidence of RV dysfunction. Mediastinum: Small hiatal hernia. Thyroid: Enlarged thyroid gland. Bones/joints: Degenerative changes of the spine. No acute fracture. No dislocation. Soft tissues: Unremarkable. Lymph nodes: Unremarkable. No enlarged lymph nodes. Liver: Hepatic steatosis. Gallbladder and bile ducts: Cholecystectomy. IMPRESSION: No acute pulmonary embolism. Electronically signed by: Dk Granados MD 03/31/23 20:41 PM Discharge Plan Visit Data Chief Complaint: Flu Like Symptoms Stated Complaint: FEVER, COUGH, VOMITING ED Provider: Estefania Marino Discharge Problem: COVID Patient Disposition: Admitted As Inpatient Discharge Instructions Interventions: ED Discharge Assessment Last Done: 03/31/23 22:00
--- NOTE | 2023-03-31 18:59 | History & Physical Report ---
Date of Service March 31, 2023 Assessment & Plan (1) COVID-19: Plan: 1st day of symptoms 03/28/23, day 4 on admission Previous COVID in 2021 treated with dexamethasone but no remdesivir due to outside treatment window Unvaccinated Discussed benefits and risks of dexamethasone and remdesivir and she wishes to start both. Meets treatment criteria due to increased oxygen requirement. (2) Hypoxia: Plan: Aim O2 sats > 90%, secondary to COVID Very unclear how much oxygen she should be on at home as uses periodically whenever she feels like it or O2 sats measure low however most recent PCP note she was 93% on room air therefore O2 requirement definitely seems increased from her baseline but aim on discharge of room air may not be needed and could just prolong hospitalization. 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 Most recently in October 2022 without resolution of symptoms and referred back to gastroenterology. Daily dexamethasone can make this worse although she tolerated this in 2021 wit hout worsening pain. Given vomiting will switch her PPI to IV 40 mg BID and add famotidine. I am unclear whether Carafate has been tried but if ongoing symptoms this could be considered. (4) Generalized abdominal pain: Plan: Worse than usual hence reason for CT to rule out alternative etiology - subsequently negative. Suspect generalized myalgias from COVID just making her chronic pain worse. (5) History of pulmonary embolism: Plan: Postcholecystectomy Lovenox for VTE prophylaxis (6) Hypertension: Plan: Medications listed as PRN however she takes these regularly including Lasix, lisinopril, chlorthalidone and clonidine (7) CAD (coronary artery disease): Plan: S/p myocardial infarction in 2006. Dobutamine stress echo showed no ischemic changes but poor image quality in anterior and inferior freedman. Not on regular aspirin presumably due to to have gastritis Not on statin due to myalgia Plan VTE prophylaxis - Lovenox 40 mg subcu daily Diet - clear liquid due to vomiting, advance diet as tolerated Disposition - admit to med/tele Admission and Anticipated Discharge Date Admission Date: Mar 31, 2023 History of Present Illness Chief Complaint: Flu-like symptoms Primary Care Provider: Mario Camara MD Adeline Rapp is a 73 year old female who presents to the ER with nausea, vomiting, weakness, myalgias, cough, fever for 3 days. History taken with both her daughter medical office assistant and [employer] seed tester service ([employer]). Symptoms progressively getting worse over this timeline and eating and drinking much less, using her oxygen all the time (usually uses this as needed only and at night). She has a significant history of pulmonary emboli following cholecystectomy. She does note chest pain on inspiration but also pain all over her body She also reports abdominal pain. This is not unusual for her with her h. pylori gastritis but appears to be much worse and now generalized. Associated nausea and vomiting again not unusual for her with her gastritis but much worse than usual. Allergies Allergy/AdvReac Type Severity Reaction Status Date / Time azithromycin AdvReac Intermediate myalgia, Verified 03/31/23 20:47 other ciprofloxacin AdvReac Intermediate BLOOD IN Verified 03/31/23 20:47 STOOL, MYALGIA diltiazem AdvReac Intermediate HEADACHE, Verified 03/31/23 20:47 TACHYCARDIA verapamil AdvReac Intermediate myalgia, Verified 03/31/23 20:47 other orange AdvReac Unknown Unknown Verified 03/31/23 20:47 Home Medications Medication Instructions Recorded Confirmed Type levocetirizine 5 mg tablet 5 mg PO QPM 06/16/20 03/31/23 History omeprazole 20 mg capsule,delayed 20 mg PO BID #60 caps 09/13/22 03/31/23 Rx release cholecalciferol (vitamin D3) 125 125 mcg PO QAM #90 tabs 10/06/22 03/31/23 Rx mcg (5,000 unit) tablet (Vitamin D3) lisinopril 10 mg tablet 10 mg PO BID #60 tabs 11/14/22 03/31/23 Rx clonidine HCl 0.1 mg tablet 0.1 mg PO TID PRN Blood Pressure 12/05/22 03/31/23 Rx #90 tabs chlorthalidone 25 mg tablet 12.5 mg (1/2 x 25 mg) PO BID #90 12/27/22 03/31/23 Rx tabs furosemide 20 mg tablet 20 mg PO QAM PRN Fluid Retention 03/08/23 03/31/23 Rx #30 tabs Past Med/Surg History Medical History (Updated 04/01/23 @ 00:09 by Nirmal Bagley MD) Hypoxia hx, previously using O2 at home, now resolved Hx of headache dtr state "chronic daily headaches, but mom only takes meds if she has to" Hyperlipidemia History of prediabetes dtr stated "mom was told to watch her diet because her sugar was borderline" Hx of osteoarthritis Hx of venous disease dtr stated "my mom had leaky valves in the upper parts of her legs and she recently had the cauterized in the doctor's office." Hx of carpal tunnel syndrome bilat-no sx. History of cerebrovascular accident dtr stated "my mom never had a stroke" History of COVID-19 02/2021, home test and pcr, not hospitalized, low oxygen level w/shortness of breath>resolved. Helicobacter pylori gastritis Acute on chronic respiratory failure with hypoxemia dtr stated "she's had this since she had covid, but no longer seems to need her oxygen. Her oxygen levels have been good" Chest pain hx-daughter stated "mom complains about this all the time and they get it checked and Dr's say it all normal" Dysuria dtr stated "mom always complains about this, dr. said it's muscle or nerve pain" Morbid obesity Epigastric pain dtr stated "mom complains about this, but dr's say there's no problems" Hepatic steatosis dtr stated "last test showed it was fine" DJD (degenerative joint disease) of knee Knee pain Lumbar radicular pain Sciatica Back pain Helicobacter pylori (H. pylori) infection hx Hypothyroidism, unspecified (04/18/12) Esophageal reflux (04/18/12) Atherosclerotic heart disease of [place] coronary artery without angina pectoris Arthralgia of multiple sites Bilateral pulmonary embolism 05/2017 after gallbladder sx--treated with AC therapy Thyroid cyst just monitoring Cyst of right kidney just monitoring Cyst of left kidney just monitoring GERD (gastroesophageal reflux disease) Hypertension Myocardial Infarction 1997, never had to be hospitalized; follows with Dr. Ya Surgical History Hx of cataract extraction BL H/O abdominal hysterectomy History of cholecystectomy History of colonoscopy History of esophagogastroduodenoscopy (EGD) History of appendectomy Family History Father Prostate cancer Sister Cancer of kidney Grandfather (Maternal) Stomach cancer Denies family history of Colon cancer Ovarian cancer Myocardial infarction Breast cancer Social History (Updated 03/08/23 @ 15:41 by Archana Brandt LPN) Smoking Status: Former smoker Second Hand Exposure: No; Do You Dip or Chew Tobacco: No; Tobacco Cessation Education Requested by Patient: No Hx Alcohol Use: No Hx Substance Use: No Preferred Language: Beninese Communication Ability: family tra Communication Ability Comment: "dtr can translate anywhere she's allowed to go, but may need seed tester" Communication Tools: Other Bindery Helper Required: Yes Beliefs That Will Affect Care: None marital status: / Current Living Situation: Alone Current Living Situation Comment: family close by to help current occupational status: retired Other Information That Helps Us Care for You: No Feels Safe at Home: Yes Safety Concerns: Feels Safe At This Time Diet: regular caffeine: No Physical Activity Frequency: Does not Exercise Seatbelt Use: always Do you think of yourself as: straight/heterosexual Gender Identity: Female Assistive Devices: Denture - Upper, Denture - Lower and Oxygen - Continuous Review of Systems Review of Systems: All systems reviewed & are unremarkable except as noted in HPI & below Physical Exam Constitutional: WD/WN, vitals as above Eyes: + anicteric sclerae; normal pupil size ENMT: external ear and nose normal, oropharynx normal Respiratory: normal respiratory effort; no respiratory distress Auscultation: + rhonchi (throughout); breath sounds present, no diminished lung sounds, no crackles and no wheezes Cardiovascular: RRR, no murmur, no edema Gastrointestinal (Abdomen): normal bowel sounds, soft, nontender, no hepatosplenomegaly Musculoskeletal: no cyanosis or clubbing, extremities motor strength 5/5 Skin: no rashes, warm and dry Neurologic: moves all extremities and awake; not confused Psychiatric: A+Ox3, euthymic affect Genitourinary: no CVA tenderness Results & Data Results & Data Vital Signs (Past 12 Hours) Vital Signs Temp Pulse Pulse Pulse Resp BP BP 03/31/23 18:00 92 H 18 168/100 H 03/31/23 17:57 89 03/31/23 17:51 03/31/23 17:49 89 18 03/31/23 16:48 88 20 145/88 H 03/31/23 14:35 36.5 C 100 H 20 153/98 H BP Pulse Ox O2 Del Method O2 Flow Rate 03/31/23 18:00 92 Nasal Cannula 2 03/31/23 17:57 03/31/23 17:51 86 L Nasal Cannula 0 03/31/23 17:49 154/97 H 93 Nasal Cannula 2 03/31/23 16:48 92 Room Air 03/31/23 14:35 98 Room Air Diagnostic Findings CT head/brain wo con CLINICAL HISTORY: 72 years-old Female with R51 - Headache. Acute headache TECHNIQUE: Multiple axial CT images of the head were obtained without contrast. A dose lowering technique was utilized adhering to the principles of ALARA. CT DOSE: 625.80 mGy.cm COMPARISON: 04/12/2021 FINDINGS: No acute intracranial hemorrhage, midline shift, intracranial mass, hydrocephalus, territorial ischemia or abnormal extra-axial collection. The calvarium is intact. The paranasal sinuses, mastoid air cells, and middle ear cavities are clear. IMPRESSION: No acute intracranial abnormality. XR chest 1V not portable CLINICAL HISTORY: Shortness of breath. COMPARISON STUDY: Chest radiograph June 18, 2021. Chest CT June 30, 2021. FINDINGS: Lung volumes are normal. Lungs are clear. There is no pneumothorax or pleural effusion. Moderate cardiomegaly is unchanged. Mediastinal contours are normal. There is no evidence for pulmonary edema. IMPRESSION: No acute cardiopulmonary findings. Stable cardiomegaly. EXAM: CT Angiography Chest With Intravenous Contrast CLINICAL HISTORY: Reason for exam: PE. TECHNIQUE: Axial computed tomographic angiography images of the chest with intravenous contrast. CTDI is 68.41 mGy and DLP is 2243.92 mGy-cm. Automated exposure control was utilized for the study. A dose lowering technique was utilized adhering to the principles of ALARA. MIP reconstructed images were created and reviewed. COMPARISON: No relevant prior studies available. FINDINGS: Pulmonary arteries: Unremarkable. No acute pulmonary embolism. Aorta: Atherosclerotic changes of the aorta. No thoracic aortic aneurysm. Lungs: Unremarkable. No mass. No consolidation. Pleural space: Unremarkable. No significant effusion. No pneumothorax. Heart: Unremarkable. No cardiomegaly. No significant pericardial effusion. No evidence of RV dysfunction. Mediastinum: Small hiatal hernia. Thyroid: Enlarged thyroid gland. Bones/joints: Degenerative changes of the spine. No acute fracture. No dislocation. Soft tissues: Unremarkable. Lymph nodes: Unremarkable. No enlarged lymph nodes. Liver: Hepatic steatosis. Gallbladder and bile ducts: Cholecystectomy. IMPRESSION: No acute pulmonary embolism. EXAM: CT Abdomen and Pelvis With Intravenous Contrast CLINICAL HISTORY: Reason for exam: Generalized abdominal pain, vomiting ?SBO. TECHNIQUE: Axial computed tomography images of the abdomen and pelvis with intravenous contrast. CTDI is 68.41 mGy and DLP is 2243.92 mGy-cm. Automated exposure control was utilized for the study. A dose lowering technique was utilized adhering to the principles of ALARA. CONTRAST: Patient received 118ml optiray 320 of IV contrast COMPARISON: No relevant prior studies available. FINDINGS: Lung bases: Unremarkable. No mass. No consolidation. ABDOMEN: Liver: Unremarkable. No mass. Gallbladder and bile ducts: Hepatic steatosis. Cholecystectomy. No ductal dilation. Pancreas: Unremarkable. No mass. No ductal dilation. Spleen: Unremarkable. No splenomegaly. Adrenals: Unremarkable. No mass. Kidneys and ureters: RIGHT renal cyst measures 2.8 cm. No hydronephrosis. Stomach and bowel: Diverticulosis, without acute diverticulitis. No bowel obstruction. No free air. PELVIS: Appendix: No findings to suggest acute appendicitis. Bladder: Decompressed urinary bladder. Reproductive: Unremarkable as visualized. ABDOMEN and PELVIS: Intraperitoneal space: See above. Bones/joints: Degenerative changes of the spine. No acute fracture. No dislocation. Soft tissues: Unremarkable. Vasculature: Atherosclerotic changes of the aorta. No abdominal aortic aneurysm. Lymph nodes: Unremarkable. No enlarged lymph nodes. IMPRESSION: Diverticulosis, without acute diverticulitis. No bowel obstruction. No free air. Medications Administered ER Medications Given: None ECG Rate (beats per minute): 102 Rhythm: sinus tachycardia Findings: + T-wave inversion (Lateral) Comparison ECG Date: from (Apr 12, 2021) Change: the following changes noted (TWI in lateral leads) Code Status & VTE Plan Code Status Full VTE Prophylaxis Plan VTE Prophylaxis will be ordered: Yes PG Care Time/CCT Total # of Minutes Spent Total Time Spent with Patient: Total time spent is greater than 50% in coordination of care (as documented) at patient's floor/unit and/or counseling patient: Coding Level of Care Code 44218 INT INP/OBS CARE 3/75MIN Diagnoses COVID-19 U07.1 Hypoxia R09.02 Helicobacter positive gastritis K29.70; B96.81 Generalized abdominal pain R10.84 History of pulmonary embolism Z86.711 Hypertension I10 Hypertension type: essential hypertension Coronary artery disease involving [place] coronary artery of [place] heart without angina pectoris I25.10 Associated angina: without angina Coronary Disease-Associated Artery/Lesion type: [place] artery [place] vs. transplanted heart: [place] heart (6) Hypertension Hypertension type: essential hypertension Qualified Code(s): I10 - Essential (primary) hypertension (7) CAD (coronary artery disease) Associated angina: without angina Coronary Disease-Associated Artery/Lesion type: [place] artery [place] vs. transplanted heart: [place] heart Qualified Code(s): I25.10 - Atherosclerotic heart disease of [place] coronary artery without angina pectoris
[2023-03-31] MEDS: OPTIRAY 320 125ml IV ONE (20:03)
[2023-03-31] MEDS: ONDANSETRON INJ 2 MG/ML 2 ML VIAL IV STA (20:27)
[2023-03-31] MEDS: PANTOprazole 40 MG in SYRINGE 0 ML IV STA (20:40)
--- NOTE | 2023-03-31 20:42 | CT Scan Report ---
Exam(s): CTA CHEST IV Amt: 118ml optiray 320 EXAM: CT Angiography Chest With Intravenous Contrast CLINICAL HISTORY: Reason for exam: PE. TECHNIQUE: Axial computed tomographic angiography images of the chest with intravenous contrast. CTDI is 68.41 mGy and DLP is 2243.92 mGy-cm. Automated exposure control was utilized for the study. A dose lowering technique was utilized adhering to the principles of ALARA. MIP reconstructed images were created and reviewed. COMPARISON: No relevant prior studies available. FINDINGS: Pulmonary arteries: Unremarkable. No acute pulmonary embolism. Aorta: Atherosclerotic changes of the aorta. No thoracic aortic aneurysm. Lungs: Unremarkable. No mass. No consolidation. Pleural space: Unremarkable. No significant effusion. No pneumothorax. Heart: Unremarkable. No cardiomegaly. No significant pericardial effusion. No evidence of RV dysfunction. Mediastinum: Small hiatal hernia. Thyroid: Enlarged thyroid gland. Bones/joints: Degenerative changes of the spine. No acute fracture. No dislocation. Soft tissues: Unremarkable. Lymph nodes: Unremarkable. No enlarged lymph nodes. Liver: Hepatic steatosis. Gallbladder and bile ducts: Cholecystectomy. IMPRESSION: No acute pulmonary embolism. Electronically signed by: Dk Granados MD 03/31/23 20:41 PM
--- NOTE | 2023-03-31 21:00 | CT Scan Report ---
Exam(s): CT ABDOMEN + PELVIS With Contrast IV Amt: 118ml optiray 320 EXAM: CT Abdomen and Pelvis With Intravenous Contrast CLINICAL HISTORY: Reason for exam: Generalized abdominal pain, vomiting ?SBO. TECHNIQUE: Axial computed tomography images of the abdomen and pelvis with intravenous contrast. CTDI is 68.41 mGy and DLP is 2243.92 mGy-cm. Automated exposure control was utilized for the study. A dose lowering technique was utilized adhering to the principles of ALARA. CONTRAST: Patient received 118ml optiray 320 of IV contrast COMPARISON: No relevant prior studies available. FINDINGS: Lung bases: Unremarkable. No mass. No consolidation. ABDOMEN: Liver: Unremarkable. No mass. Gallbladder and bile ducts: Hepatic steatosis. Cholecystectomy. No ductal dilation. Pancreas: Unremarkable. No mass. No ductal dilation. Spleen: Unremarkable. No splenomegaly. Adrenals: Unremarkable. No mass. Kidneys and ureters: RIGHT renal cyst measures 2.8 cm. No hydronephrosis. Stomach and bowel: Diverticulosis, without acute diverticulitis. No bowel obstruction. No free air. PELVIS: Appendix: No findings to suggest acute appendicitis. Bladder: Decompressed urinary bladder. Reproductive: Unremarkable as visualized. ABDOMEN and PELVIS: Intraperitoneal space: See above. Bones/joints: Degenerative changes of the spine. No acute fracture. No dislocation. Soft tissues: Unremarkable. Vasculature: Atherosclerotic changes of the aorta. No abdominal aortic aneurysm. Lymph nodes: Unremarkable. No enlarged lymph nodes. IMPRESSION: Diverticulosis, without acute diverticulitis. No bowel obstruction. No free air. Electronically signed by: Dk Granados MD 03/31/23 20:59 PM
[2023-03-31] MEDS ORDERED: ONDANSETRON INJ 2 MG/ML 2 ML VIAL IV PRN (22:46)
[2023-03-31] MEDS ORDERED: DEXAMETHASONE SOD INJ 4 MG/ML VIAL IV SCH (23:10)
[2023-04-01] MEDS: ENOXAPARIN INJ 40 MG/0.4 ML SYR SQ SCH (00:07)
[2023-04-01] MEDS: lisinopril 10 MG TAB PO SCH (00:08)
[2023-04-01] MEDS: CHLORTHALIDONE 25 MG TAB PO SCH (00:08)
[2023-04-01] MEDS: Patient's HEIGHT &/or WEIGHT Needed STA (00:09)
[2023-04-01] MEDS: REMDESIVIR 200 MG in SODIUM CHLORIDE 0.9% 210 ML IV STA (00:26)
[2023-04-01] MEDS: ACETAMINOPHEN 325 MG TAB PO PRN (00:26)
[2023-04-01] MEDS: cloNIDine HCL 0.1 MG TAB PO SCH ×2 (00:27→20:11)
[2023-04-01] MEDS: CETIRIZINE HCL 10 MG TABLET PO SCH (00:27)
[2023-04-01] MEDS: dexAMETHasone 6 MG in SYRINGE 0 ML IV ONE (00:28)
[2023-04-01] MEDS ORDERED: FAMOTIDINE 20 MG in SYRINGE 3 ML IV SCH (00:30)
[2023-04-01 06:59] LABS: Basophils # (auto) 0.02 K/uL (0.00-0.20); Basophils % (auto) 0.4 %; Hematocrit (blood only) 46.6 % (37.0-47.0); Hemoglobin 15.2 g/dl (12.0-16.0); Immature Granulocytes # (auto) 0.02 K/uL (0.01-0.20); Immature Granulocytes % (auto) 0.4 %; Lymphocytes # (auto) 0.62 K/uL (1.20-3.40); Lymphocytes % (auto) 11.4 %; Mean Corpuscular Hemoglobin 29.8 pg (25.0-34.0); Mean Corpuscular Hgb Conc 32.6 g/dL (32.0-36.0); Mean Corpuscular Volume 91.4 fL (80.0-100.0); Mean Platelet Volume 10.3 fL (9.4-12.4); Monocytes # (auto) 0.18 K/uL (0.11-0.59); Monocytes % (auto) 3.3 %; Neutrophils # (auto) 4.58 K/uL (1.40-6.50); Neutrophils % (auto) 84.5 %; Platelet Count 172 K/uL (130-400); RDW Standard Deviation 43.7 fL (36.4-46.3); White Blood Count 5.42 K/ul (4.8-10.8)
[2023-04-01 07:04] LABS: Appearance Urine Clear (Clear); Bacteria Urine Automated Negative (Negative); Blood Urine Negative (Negative); Color Urine Dark Yellow; Epithelial Cell Urine Auto >30 /lpf (0-5); Glucose Urine UA Negative (Negative); Ketones Urine Negative (Negative); Leukocyte Esterase Urine Negative (Negative); Nitrite Urine Negative (Negative); Protein Urine Trace (Negative); RBC Urine Automated 0-4 /hpf (0-4); Specific Gravity Urine > 1.045 (1.000-1.030); Urobilinogen Urine Negative (Negative)
[2023-04-01 07:15] LABS: Bilirubin Urine 1+ (Negative)
[2023-04-01 07:42] LABS: BUN Creatinine Ratio 24.6 (10-20); Creatinine Clr Calc Pharmacy 48.5 ml/min; Est GFR (African American) 46.8 ml/min; Est GFR (Non-African American) 40.4 ml/min; Potassium 3.6 mmol/L (3.5-5.1)
[2023-04-01] MEDS: FAMOTIDINE 20 MG in SYRINGE 3 ML IV SCH (08:04)
[2023-04-01] MEDS: PANTOprazole 40 MG in SYRINGE 0 ML IV SCH (08:04)
[2023-04-01] MEDS: FUROSEMIDE 20 MG TAB PO SCH (08:05)
[2023-04-01] MEDS: dexAMETHasone 6 MG in SYRINGE 0 ML IV SCH (08:05)
[2023-04-01] MEDS ORDERED: FAMOTIDINE 200 MG/20 ML VIAL IV SCH (09:00)
--- NOTE | 2023-04-01 11:52 | Hospitalist Progress Note ---
Date of Service April 01, 2023 Assessment & Plan (1) COVID-19: Plan: 1st day of symptoms 03/28/23, day 4 on admission Previous COVID in 2021 treated with dexamethasone but no remdesivir due to outside treatment window Unvaccinated Started on remdesivir and steroids, reports feeling better (2) Hypoxia: Plan: Aim O2 sats > 90%, secondary to COVID Very unclear how much oxygen she should be on at home as uses periodically whenever she feels like it or O2 sats measure low however most recent PCP note she was 93% on room air therefore O2 requirement definitely seems increased from her baseline but aim on discharge of room air may not be needed and could just prolong hospitalization. 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 Most recently in October 2022 without resolution of symptoms and referred back to gastroenterology. Daily dexamethasone can make this worse although she tolerated this in 2021 without worsening pain. Given vomiting will switch her PPI to IV 40 mg BID and add famotidine. I am unclear whether Carafate has been tried but if ongoing symptoms this could be considered. (4) Generalized abdominal pain: Plan: Worse than usual hence reason for CT to rule out alternative etiology - subsequently negative. Suspect generalized myalgias from COVID just making her chronic pain worse. (5) History of pulmonary embolism: Plan: Postcholecystectomy Lovenox for VTE prophylaxis (6) Hypertension: Plan: Medications listed as PRN however she takes these regularly including Lasix, lisinopril, chlorthalidone and clonidine (7) CAD (coronary artery disease): Plan: S/p myocardial infarction in 2006. Dobutamine stress echo showed no ischemic changes but poor image quality in anterior and inferior freedman. Not on regular aspirin presumably due to to have gastritis Not on statin due to myalgia Plan VTE prophylaxis - Lovenox 40 mg subcu daily Diet - clear liquid due to vomiting, advance diet as tolerated Disposition - admit to med/tele Admission and Anticipated Discharge Date Admission Date: March 31, 2023 Subjective Patient reports feeling better, denies fever or chills, shortness of breath, had episodes of diarrhea this morning Review of Systems Review of Systems: Denies any new symptoms except diarrhea Physical Exam Physical Exam: Head is atraumatic normocephalic Eyes sclera anicteric, pupils round and reactive to the light Neck is supple no JVD no carotid bruit Lungs clear to auscultation bilateral Heart S1-S2 regular, no murmurs gallops rubs or pressure Abdomen soft nontender nondistended, bowel sounds present Extremities no clubbing no cyanosis Neurologically she is alert awake oriented x 3, no focal deficit appreciated Results & Data Results & Data Vital Signs (Past 12 Hours) Vital Signs Temp Pulse Pulse Resp BP Pulse Ox O2 Del Method 04/01/23 11:45 36.6 C 59 L 18 105/67 95 Nasal Cannula 04/01/23 08:00 Nasal Cannula 04/01/23 07:53 36.6 C 80 16 110/73 94 Nasal Cannula 04/01/23 02:17 36.8 C 77 20 100/71 94 Nasal Cannula O2 Flow Rate 04/01/23 11:45 4 04/01/23 08:00 4 04/01/23 07:53 4 04/01/23 02:17 3.0 PG Care Time/CCT Total # of Minutes Spent Total Time Spent with Patient: Total time spent is greater than 50% in coordination of care (as documented) at patient's floor/unit and/or counseling patient: Coding Level of Care Code 99728 SUB INP/OBS CARE 2/35MIN Diagnoses COVID-19 U07.1 Hypoxia R09.02 Helicobacter positive gastritis K29.70; B96.81 Generalized abdominal pain R10.84 History of pulmonary embolism Z86.711 Hypertension I10 Hypertension type: essential hypertension Coronary artery disease involving [place] coronary artery of [place] heart without angina pectoris I25.10 Coronary Disease-Associated Artery/Lesion type: [place] artery [place] vs. transplanted heart: [place] heart Associated angina: without angina (6) Hypertension Hypertension type: essential hypertension Qualified Code(s): I10 - Essential (primary) hypertension (7) CAD (coronary artery disease) Coronary Disease-Associated Artery/Lesion type: [place] artery [place] vs. transplanted heart: [place] heart Associated angina: without angina Qualified Code(s): I25.10 - Atherosclerotic heart disease of [place] coronary artery without angina pectoris
[2023-04-01] MEDS ORDERED: MICONAZOLE NITRATE POWDER 85 GM EXT PRN (16:53)
[2023-04-01] MEDS: REMDESIVIR 100 MG in SODIUM CHLORIDE 0.9% 230 ML IV SCH (20:11)
[2023-04-01] MEDS: PANTOprazole 40 MG TAB PO SCH (20:18)
[2023-04-02 06:59] LABS: Basophils # (auto) 0.02 K/uL (0.00-0.20); Basophils % (auto) 0.3 %; Eosinophils # (auto) 0.02 K/uL (0.00-0.50); Eosinophils % (auto) 0.3 %; Hematocrit (blood only) 41.4 % (37.0-47.0); Hemoglobin 13.8 g/dl (12.0-16.0); Immature Granulocytes # (auto) 0.02 K/uL (0.01-0.20); Immature Granulocytes % (auto) 0.3 %; Lymphocytes # (auto) 1.69 K/uL (1.20-3.40); Lymphocytes % (auto) 21.9 %; Mean Corpuscular Hgb Conc 33.3 g/dL (32.0-36.0); Mean Platelet Volume 10.2 fL (9.4-12.4); Monocytes # (auto) 0.74 K/uL (0.11-0.59); Monocytes % (auto) 9.6 %; Neutrophils # (auto) 5.22 K/uL (1.40-6.50); Neutrophils % (auto) 67.6 %; Platelet Count 188 K/uL (130-400); RDW Standard Deviation 42.7 fL (36.4-46.3); White Blood Count 7.71 K/ul (4.8-10.8)
[2023-04-02 07:31] LABS: Albumin Globulin Ratio 1.1 (0.9-2); Albumin Level 3.6 gm/dl (3.4-5.0); BUN Creatinine Ratio 36.6 (10-20); Bilirubin,Total 0.4 mg/dl (0.2-1.0); Creatinine Clr Calc Pharmacy 50.7 ml/min; Est GFR (Non-African American) 43.2 ml/min; Globulin 3.4 gm/dl (2.5-4.0); Potassium 4.1 mmol/L (3.5-5.1)
[2023-04-02] MEDS: lisinopril 10 MG TAB PO SCH (08:38)
--- NOTE | 2023-04-02 13:01 | Hospitalist Progress Note ---
Date of Service April 02, 2023 Assessment & Plan (1) COVID-19: Plan: 1st day of symptoms 03/28/23, day 4 on admission Previous COVID in 2021 treated with dexamethasone but no remdesivir due to outside treatment window Unvaccinated Started on remdesivir and steroids, reports feeling better (2) Hypoxia: Plan: Aim O2 sats > 90%, secondary to COVID Very unclear how much oxygen she should be on at home as uses periodically whenever she feels like it or O2 sats measure low however most recent PCP note she was 93% on room air therefore O2 requirement definitely seems increased from her baseline but aim on discharge of room air may not be needed and could just prolong hospitalization. 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 Most recently in October 2022 without resolution of symptoms and referred back to gastroenterology. Daily dexamethasone can make this worse although she tolerated this in 2021 without worsening pain. continue PPI. (4) Generalized abdominal pain: Plan: Worse than usual hence reason for CT to rule out alternative etiology - subsequently negative. resolved tolerating diet (5) History of pulmonary embolism: Plan: Postcholecystectomy Lovenox for VTE prophylaxis (6) Hypertension: Plan: Medications listed as PRN however she takes these regularly including Lasix, lisinopril, chlorthalidone and clonidine meds adjusted will hold Lisinopril due to severe cough, probably due to covid (7) CAD (coronary artery disease): Plan: S/p myocardial infarction in 2006. Dobutamine stress echo showed no ischemic changes but poor image quality in anterior and inferior freedman. Not on regular aspirin presumably due to to have gastritis Not on statin due to myalgia (8) Chronic respiratory failure: Plan: on home oxygen continue oxygen suppl (9) MAYCOL (acute kidney injury): Plan: acute due to decreased po intake, diarrhea, hold lasix, lisinopril IV fluids Plan VTE prophylaxis - Lovenox 40 mg subcu daily Diet - clear liquid due to vomiting, advance diet as tolerated Disposition - admit to med/tele Admission and Anticipated Discharge Date Admission Date: March 31, 2023 Subjective Patient reports feeling better, denies fever or chills, severe cough, generalized weakness, poor appetite Review of Systems Review of Systems: reports cough, no fever, poor appetite Physical Exam Physical Exam: Head is atraumatic normocephalic Eyes sclera anicteric, pupils round and reactive to the light Neck is supple no JVD no carotid bruit Lungs clear to auscultation bilateral Heart S1-S2 regular, no murmurs gallops rubs or pressure Abdomen soft nontender nondistended, bowel sounds present Extremities no clubbing no cyanosis Neurologically she is alert awake oriented x 3, no focal deficit appreciated Results & Data Results & Data Vital Signs (Past 12 Hours) Vital Signs Temp Pulse Pulse Resp BP Pulse Ox O2 Del Method 04/02/23 11:40 36.7 C 57 L 16 120/76 97 Nasal Cannula 04/02/23 08:30 52 L 04/02/23 08:30 Nasal Cannula 04/02/23 07:48 36.5 C 58 L 20 121/70 97 Nasal Cannula 04/02/23 03:21 36.9 C 58 L 18 114/65 96 Nasal Cannula O2 Flow Rate 04/02/23 11:40 4 04/02/23 08:30 04/02/23 08:30 3 04/02/23 07:48 3 04/02/23 03:21 3.5 PG Care Time/CCT Total # of Minutes Spent Total Time Spent with Patient: Total time spent is greater than 50% in coordination of care (as documented) at patient's floor/unit and/or counseling patient: Coding Level of Care Code 26701 SUB INP/OBS CARE 2/35MIN Diagnoses COVID-19 U07.1 Hypoxia R09.02 Helicobacter positive gastritis K29.70; B96.81 Generalized abdominal pain R10.84 History of pulmonary embolism Z86.711 Hypertension I10 Hypertension type: essential hypertension Coronary artery disease involving [place] coronary artery of [place] heart without angina pectoris I25.10 Coronary Disease-Associated Artery/Lesion type: [place] artery [place] vs. transplanted heart: [place] heart Associated angina: without angina Chronic respiratory failure J96.10 MAYCOL (acute kidney injury) N17.9 (6) Hypertension Hypertension type: essential hypertension Qualified Code(s): I10 - Essential (primary) hypertension (7) CAD (coronary artery disease) Coronary Disease-Associated Artery/Lesion type: [place] artery [place] vs. transplanted heart: [place] heart Associated angina: without angina Qualified Code(s): I25.10 - Atherosclerotic heart disease of [place] coronary artery without angina pectoris
[2023-04-02] MEDS: SODIUM CHLORIDE 0.45 % 1,000 ML IV SCH (14:21)
[2023-04-02] MEDS: guaiFENesin SUGAR FREE 200 MG/10 ML UDC PO PRN (14:24)
[2023-04-03 08:31] LABS: Albumin Globulin Ratio 1.1 (0.9-2); Albumin Level 3.5 gm/dl (3.4-5.0); BUN Creatinine Ratio 30.3 (10-20); Bilirubin,Total 0.4 mg/dl (0.2-1.0); Calcium 8.8 mg/dl (8.6-10.3); Creatinine Clr Calc Pharmacy 57.2 ml/min; Est GFR (African American) 57.9 ml/min; Globulin 3.1 gm/dl (2.5-4.0); Potassium 3.7 mmol/L (3.5-5.1); Total Protein 6.6 gm/dl (6.0-8.3)
--- NOTE | 2023-04-03 10:45 | Hospitalist Progress Note ---
Date of Service April 03, 2023 Assessment & Plan (1) COVID-19: Plan: 1st day of symptoms was 03/28/23, day 4 on admission Previous COVID in 2021 treated with dexamethasone but no remdesivir due to outside treatment window Unvaccinated Started on remdesivir and steroids, reports feeling better (2) Hypoxia: Plan: Aim O2 sats > 90%, secondary to COVID Still on 3 liters of oxygen through nasal cannula, at home, occasionally uses oxygen Very unclear how much oxygen she should be on at home as uses periodically whenever she feels like it or O2 sats measure low however most recent PCP note she was 93% on room air therefore O2 requirement definitely seems increased from her baseline but aim on discharge of room air may not be needed and could just prolong hospitalization. 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 Most recently in October 2022 without resolution of symptoms and referred back to gastroenterology. Daily dexamethasone can make this worse although she tolerated this in 2021 without worsening pain. continue PPI. (4) Generalized abdominal pain: Plan: Worse than usual hence reason for CT to rule out alternative etiology - subsequently negative. resolved tolerating diet (5) History of pulmonary embolism: Plan: Lovenox for VTE prophylaxis (6) Hypertension: Plan: Medications listed as PRN however she takes these regularly including Lasix, lisinopril, chlorthalidone and clonidine meds adjusted will hold Lisinopril due to severe cough, probably due to covid (7) CAD (coronary artery disease): Plan: S/p myocardial infarction in 2006. Dobutamine stress echo showed no ischemic changes but poor image quality in anterior and inferior freedman. Not on regular aspirin presumably due to to have gastritis Not on statin due to myalgia (8) Chronic respiratory failure: Plan: on home oxygen continue oxygen suppl (9) MAYCOL (acute kidney injury): Plan: acute due to decreased po intake, diarrhea, hold lasix, lisinopril IV fluids Plan VTE prophylaxis - Lovenox 40 mg subcu daily Diet - clear liquid due to vomiting, advance diet as tolerated Disposition -continue to monitor Admission and Anticipated Discharge Date Admission Date: March 31, 2023 Subjective Patient seen and examined, speaks little Beninese, she is from [facility] Review of Systems Review of Systems: All systems reviewed are negative, apart from the ones contained in the history. Physical Exam Physical Exam: The patient is awake, alert and oriented 3, well developed and well nourished, normocephalic and atraumatic, lying in bed and in no acute distress. HEENT--PERRL, EOMI, mucous membranes and oropharynx mildly dry Neck--supple. No JVD. No bruits. Thyroid normal, trachea midline, no adenopathy. Heart--normal S1 and S2. No murmurs, rubs or gallops. Lungs--reduced air entry on auscultation Abdomen--normal bowel sounds and soft. Extremities--no cyanosis or clubbing. No edema. Dermatologic--normal skin turgor, normal color, no abnormal lymph nodes, no rash. Neurologic--cranial nerves II through XII grossly intact. Rheumatologic--normal range of motion. Psychiatric--normal affect. Results & Data Results & Data Vital Signs (Past 12 Hours) Vital Signs Temp Pulse Pulse Resp BP Pulse Ox O2 Del Method 04/03/23 08:01 97.9 F 69 19 142/90 H 96 Nasal Cannula 04/03/23 03:00 97.5 F L 54 L 23 106/72 98 Nasal Cannula 04/03/23 00:07 Nasal Cannula 04/02/23 23:30 58 L 04/02/23 23:00 97.5 F L 51 L 18 100/66 94 Nasal Cannula O2 Flow Rate 04/03/23 08:01 3.0 04/03/23 03:00 04/03/23 00:07 3 04/02/23 23:30 04/02/23 23:00 PG Care Time/CCT Total # of Minutes Spent Total Time Spent with Patient: Total time spent is greater than 50% in coordination of care (as documented) at patient's floor/unit and/or counseling patient: Coding Level of Care Code 18926 SUB INP/OBS CARE 2/35MIN Diagnoses COVID-19 U07.1 Hypoxia R09.02 Helicobacter positive gastritis K29.70; B96.81 Generalized abdominal pain R10.84 History of pulmonary embolism Z86.711 Hypertension I10 Hypertension type: essential hypertension Coronary artery disease involving [place] coronary artery of [place] heart without angina pectoris I25.10 Coronary Disease-Associated Artery/Lesion type: [place] artery [place] vs. transplanted heart: [place] heart Associated angina: without angina Chronic respiratory failure J96.10 MAYCOL (acute kidney injury) N17.9 Time Spent (min) 35 (6) Hypertension Hypertension type: essential hypertension Qualified Code(s): I10 - Essential (primary) hypertension (7) CAD (coronary artery disease) Coronary Disease-Associated Artery/Lesion type: [place] artery [place] vs. transplanted heart: [place] heart Associated angina: without angina Qualified Code(s): I25.10 - Atherosclerotic heart disease of [place] coronary artery without angina pectoris
[2023-04-04] MEDS ORDERED: CHLORASEPTIC (PHENOL) 1.4% SOLN 180 ML BTL MT PRN (05:45)
[2023-04-04 06:48] LABS: Albumin Globulin Ratio 1.2 (0.9-2); Albumin Level 3.6 gm/dl (3.4-5.0); BUN Creatinine Ratio 27.7 (10-20); Bilirubin,Total 0.6 mg/dl (0.2-1.0); Calcium 8.7 mg/dl (8.6-10.3); Creatinine Clr Calc Pharmacy 75.6 ml/min; Est GFR (African American) 80.5 ml/min; Est GFR (Non-African American) 69.5 ml/min; Globulin 2.9 gm/dl (2.5-4.0); Potassium 3.6 mmol/L (3.5-5.1); Total Protein 6.5 gm/dl (6.0-8.3)
--- NOTE | 2023-04-04 13:08 | Hospitalist Progress Note ---
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 Most recently in October 2022 without resolution of symptoms and referred back to gastroenterology. Daily dexamethasone can make this worse although she tolerated this in 2021 without worsening pain. continue PPI. (4) Generalized abdominal pain: Plan: Worse than usual hence reason for CT to rule out alternative etiology - subsequently negative. resolved tolerating diet (5) History of pulmonary embolism: Plan: Lovenox for VTE prophylaxis (6) Hypertension: Plan: Medications listed as PRN however she takes these regularly including Lasix, lisinopril, chlorthalidone and clonidine meds adjusted will hold Lisinopril due to severe cough, probably due to covid (7) CAD (coronary artery disease): Plan: S/p myocardial infarction in 2006. Dobutamine stress echo showed no ischemic changes but poor image quality in anterior and inferior freedman. Not on regular aspirin presumably due to to have gastritis Not on statin due to myalgia (8) Chronic respiratory failure: Plan: on home oxygen continue oxygen suppl (9) MAYCOL (acute kidney injury): Plan: acute due to decreased po intake, diarrhea, hold lasix, lisinopril IV fluids (10) Morbid obesity: Plan: Morbid obesity with BMI 42.5 Advised on diet and lifestyle changes Plan VTE prophylaxis - Lovenox 40 mg subcu daily Diet - clear liquid due to vomiting, advance diet as tolerated Disposition -continue to monitor hopefully discharge in next 24 to 48 hours Admission and Anticipated Discharge Date Admission Date: March 31, 2023 Subjective Patient seen and examined, speaks little Hungarian, she is from [facility], still have some cough and congestion Review of Systems Review of Systems: All systems reviewed are negative, apart from the ones contained in the history. Physical Exam Physical Exam: The patient is awake, alert and oriented 3, well developed and well nourished, normocephalic and atraumatic, lying in bed and in no acute distress. HEENT--PERRL, EOMI, mucous membranes and oropharynx mildly dry Neck--supple. No JVD. No bruits. Thyroid normal, trachea midline, no adenopathy. Heart--normal S1 and S2. No murmurs, rubs or gallops. Lungs--reduced air entry on auscultation Abdomen--normal bowel sounds and soft. Extremities--no cyanosis or clubbing. No edema. Dermatologic--normal skin turgor, normal color, no abnormal lymph nodes, no rash. Neurologic--cranial nerves II through XII grossly intact. Rheumatologic--normal range of motion. Psychiatric--normal affect. Results & Data Results & Data Vital Signs (Past 12 Hours) Vital Signs Temp Pulse Pulse Resp BP BP Pulse Ox 04/04/23 11:56 97.2 F L 62 18 141/93 H 96 04/04/23 08:00 50 L 04/04/23 08:00 04/04/23 07:37 97.7 F 51 L 18 127/77 97 04/04/23 03:00 98.6 F 51 L 22 122/71 97 O2 Del Method O2 Flow Rate 04/04/23 11:56 Room Air 04/04/23 08:00 04/04/23 08:00 Nasal Cannula 3 04/04/23 07:37 Room Air 04/04/23 03:00 Nasal Cannula PG Care Time/CCT Total # of Minutes Spent Total Time Spent with Patient: Total time spent is greater than 50% in coordination of care (as documented) at patient's floor/unit and/or counseling patient: Coding Level of Care Code 09608 SUB INP/OBS CARE 2/35MIN Diagnoses COVID-19 U07.1 Hypoxia R09.02 Helicobacter positive gastritis K29.70; B96.81 Generalized abdominal pain R10.84 History of pulmonary embolism Z86.711 Hypertension I10 Hypertension type: essential hypertension Coronary artery disease involving [place] coronary artery of [place] heart without angina pectoris I25.10 Coronary Disease-Associated Artery/Lesion type: [place] artery [place] vs. transplanted heart: [place] heart Associated angina: without angina Chronic respiratory failure J96.10 MAYCOL (acute kidney injury) N17.9 Morbid obesity E66.01 Time Spent (min) 35 (6) Hypertension Hypertension type: essential hypertension Qualified Code(s): I10 - Essential (primary) hypertension (7) CAD (coronary artery disease) Coronary Disease-Associated Artery/Lesion type: [place] artery [place] vs. transplanted heart: [place] heart Associated angina: without angina Qualified Code(s): I25.10 - Atherosclerotic heart disease of [place] coronary artery without angina pectoris
--- NOTE | 2023-04-05 13:36 | Hospitalist Progress Note ---
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 Most recently in October 2022 without resolution of symptoms and referred back to gastroenterology. Daily dexamethasone can make this worse although she tolerated this in 2021 without worsening pain. continue PPI. (4) Generalized abdominal pain: Plan: Worse than usual hence reason for CT to rule out alternative etiology - subsequently negative. resolved tolerating diet (5) History of pulmonary embolism: Plan: Lovenox for VTE prophylaxis (6) Hypertension: Plan: Medications listed as PRN however she takes these regularly including Lasix, lisinopril, chlorthalidone and clonidine meds adjusted will hold Lisinopril due to severe cough, probably due to covid (7) CAD (coronary artery disease): Plan: S/p myocardial infarction in 2006. Dobutamine stress echo showed no ischemic changes but poor image quality in anterior and inferior freedman. Not on regular aspirin presumably due to to have gastritis Not on statin due to myalgia (8) Chronic respiratory failure: Plan: on home oxygen continue oxygen suppl (9) MAYCOL (acute kidney injury): Plan: acute due to decreased po intake, diarrhea, hold lasix, lisinopril IV fluids (10) Morbid obesity: Plan: Morbid obesity with BMI 42.5 Advised on diet and lifestyle changes Plan VTE prophylaxis - Lovenox 40 mg subcu daily Diet - clear liquid due to vomiting, advance diet as tolerated Disposition -continue to monitor hopefully discharge in next 24 hours Admission and Anticipated Discharge Date Admission Date: March 31, 2023 Subjective Patient seen and examined, speaks little Swedish, she is from [facility], still have some cough and congestion, but much improved overall Review of Systems Review of Systems: All systems reviewed are negative, apart from the ones contained in the history. Physical Exam Physical Exam: The patient is awake, alert and oriented 3, well developed and well nourished, normocephalic and atraumatic, lying in bed and in no acute distress. HEENT--PERRL, EOMI, mucous membranes and oropharynx mildly dry Neck--supple. No JVD. No bruits. Thyroid normal, trachea midline, no adenopathy. Heart--normal S1 and S2. No murmurs, rubs or gallops. Lungs--reduced air entry on auscultation Abdomen--normal bowel sounds and soft. Extremities--no cyanosis or clubbing. No edema. Dermatologic--normal skin turgor, normal color, no abnormal lymph nodes, no rash. Neurologic--cranial nerves II through XII grossly intact. Rheumatologic--normal range of motion. Psychiatric--normal affect. Results & Data Results & Data Vital Signs (Past 12 Hours) Vital Signs Temp Pulse Pulse Resp BP Pulse Ox O2 Del Method 04/05/23 11:55 98.2 F 57 L 18 146/81 H 98 Nasal Cannula 04/05/23 08:12 98.1 F 57 L 18 146/81 H 98 Nasal Cannula 04/05/23 07:00 45 L 04/05/23 02:52 98.1 F 55 L 18 122/69 96 Nasal Cannula PG Care Time/CCT Total # of Minutes Spent Total Time Spent with Patient: Total time spent is greater than 50% in coordination of care (as documented) at patient's floor/unit and/or counseling patient: Coding Level of Care Code 10507 SUB INP/OBS CARE 2/35MIN Diagnoses COVID-19 U07.1 Hypoxia R09.02 Helicobacter positive gastritis K29.70; B96.81 Generalized abdominal pain R10.84 History of pulmonary embolism Z86.711 Hypertension I10 Hypertension type: essential hypertension Coronary artery disease involving [place] coronary artery of [place] heart without angina pectoris I25.10 Coronary Disease-Associated Artery/Lesion type: [place] artery [place] vs. transplanted heart: [place] heart Associated angina: without angina Chronic respiratory failure J96.10 MAYCOL (acute kidney injury) N17.9 Morbid obesity E66.01 Time Spent (min) 35 (6) Hypertension Hypertension type: essential hypertension Qualified Code(s): I10 - Essential (primary) hypertension (7) CAD (coronary artery disease) Coronary Disease-Associated Artery/Lesion type: [place] artery [place] vs. transplanted heart: [place] heart Associated angina: without angina Qualified Code(s): I25.10 - Atherosclerotic heart disease of [place] coronary artery without angina pectoris
[2023-04-06 08:56] LABS: Hematocrit (blood only) 45.2 % (37.0-47.0); Hemoglobin 14.7 g/dl (12.0-16.0); Mean Corpuscular Hemoglobin 29.6 pg (25.0-34.0); Mean Corpuscular Hgb Conc 32.5 g/dL (32.0-36.0); Mean Corpuscular Volume 90.9 fL (80.0-100.0); Mean Platelet Volume 10.4 fL (9.4-12.4); Platelet Count 206 K/uL (130-400); RDW Coefficient of Variation 12.6 % (11.5-14.5); RDW Standard Deviation 41.7 fL (36.4-46.3); Red Blood Count 4.97 M/uL (4.20-5.40); White Blood Count 8.87 K/ul (4.8-10.8)
[2023-04-06 09:10] LABS: BUN Creatinine Ratio 25.6 (10-20); Calcium 9.6 mg/dl (8.6-10.3); Creatinine Clr Calc Pharmacy 72.8 ml/min; Est GFR (African American) 77.1 ml/min; Est GFR (Non-African American) 66.6 ml/min; Potassium 4.1 mmol/L (3.5-5.1)
--- NOTE | 2023-04-06 10:40 | Discharge Summary ---
Date of Service April 06, 2023 Admission HPI Per Admitting Provider Adeline Rapp is a 73 year old female who presents to the ER with nausea, vomiting, weakness, myalgias, cough, fever for 3 days. History taken with both her daughter transplanter orchid and [place] historic interpreter service ([employer]). Symptoms progressively getting worse over this timeline and eating and drinking much less, using her oxygen all the time (usually uses this as needed only and at night). She has a significant history of pulmonary emboli following cholecystectomy. She does note chest pain on inspiration but also pain all over her body She also reports abdominal pain. This is not unusual for her with her h. pylori gastritis but appears to be much worse and now generalized. Associated nausea and vomiting again not unusual for her with her gastritis but much worse than usual. Principal Diagnosis COVID-19 pneumonia Discharge Exam The patient is awake, alert and oriented 3, well developed and well nourished, normocephalic and atraumatic, lying in bed and in no acute distress. HEENT--PERRL, EOMI, mucous membranes and oropharynx mildly dry Neck--supple. No JVD. No bruits. Thyroid normal, trachea midline, no adenopathy. Heart--normal S1 and S2. No murmurs, rubs or gallops. Lungs--reduced air entry on auscultation Abdomen--normal bowel sounds and soft. Extremities--no cyanosis or clubbing. No edema. Dermatologic--normal skin turgor, normal color, no abnormal lymph nodes, no rash. Neurologic--cranial nerves II through XII grossly intact. Rheumatologic--normal range of motion. Psychiatric--normal affect. Discharge Data Allergies Allergy/AdvReac Type Severity Reaction Status Date / Time azithromycin AdvReac Intermediate myalgia, Verified 03/31/23 20:47 other ciprofloxacin AdvReac Intermediate BLOOD IN Verified 03/31/23 20:47 STOOL, MYALGIA diltiazem AdvReac Intermediate HEADACHE, Verified 03/31/23 20:47 TACHYCARDIA verapamil AdvReac Intermediate myalgia, Verified 03/31/23 20:47 other orange AdvReac Unknown Unknown Verified 03/31/23 20:47 Consultations 03/31/23 18:33 ED Decision to Admit Stat Ordered Studies 03/31/23 19:28 CT abd pelvis IV con only Stat CT for pulmonary embolism PE [CT angio chest PE protocol] Stat Hospital Course (1) COVID-19: 1st day of symptoms was 03/28/23, day 4 on admission Previous COVID in 2021 treated with dexamethasone but no remdesivir due to outside treatment window Unvaccinated Completed a course of remdesivir Her symptoms are much improved, She expressed the desire to be discharged. 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 Most recently in October 2022 without resolution of symptoms and referred back to gastroenterology. Daily dexamethasone can make this worse although she tolerated this in 2021 w ithout worsening pain. continue PPI. (4) Generalized abdominal pain: Worse than usual hence reason for CT to rule out alternative etiology - subsequently negative. resolved tolerating diet (5) History of pulmonary embolism: Lovenox for VTE prophylaxis (6) Hypertension: Medications listed as PRN however she takes these regularly including Lasix, lisinopril, chlorthalidone and clonidine meds adjusted will hold Lisinopril due to severe cough, probably due to covid (7) CAD (coronary artery disease): S/p myocardial infarction in 2006. Dobutamine stress echo showed no ischemic changes but poor image quality in anterior and inferior freedman. Not on regular aspirin presumably due to to have gastritis Not on statin due to myalgia (8) Chronic respiratory failure: on home oxygen continue oxygen suppl (9) MAYCOL (acute kidney injury): acute due to decreased po intake, diarrhea, hold lasix, lisinopril IV fluids (10) Morbid obesity: Morbid obesity with BMI 42.5 Advised on diet and lifestyle changes Plan VTE prophylaxis - Lovenox 40 mg subcu daily Diet - clear liquid due to vomiting, advance diet as tolerated Disposition -continue to monitor hopefully discharge in next 24 hours Total Time Total Time Spent Total Time Spent (In Minutes): 35 Discharge Plan Discharge Items Patient Disposition: Home - Self-Care Reason For Visit: COVID, HYPOXIA Discharge Diagnosis: COVID Activity: Resume your previous activity Non-emergency contact: Primary Care Provider Call non-emergency contact if: you have any medication questions Follow-up/Referrals: Mario Camara MD [Primary Care Provider] - 04/11/23 1:30 pm (With Niecy Bob PA-C) Diet: Regular Addtl Attending Provider Instructions: Please make appointment to follow-up with her regular PCP Pending Studies at Discharge: No Stand-Alone Forms: My [facility], Smoking Cessation Medications and DC Order Prescriptions: Continued cholecalciferol (vitamin D3) [Vitamin D3] 125 mcg (5,000 unit) tablet 125 mcg PO QAM Qty: 90 1RF Rx Instructions: Daily with heaviest meal of the day lisinopril 10 mg tablet 10 mg PO BID Qty: 60 5RF clonidine HCl 0.1 mg tablet 0.1 mg PO TID PRN (Reason: Blood Pressure) Qty: 90 5RF omeprazole 20 mg capsule,delayed release(DR/EC) 20 mg PO BID Qty: 60 5RF chlorthalidone 25 mg tablet 12.5 mg PO BID Qty: 90 1RF furosemide 20 mg tablet 20 mg PO QAM PRN (Reason: Fluid Retention) Qty: 30 1RF levocetirizine 5 mg tablet 5 mg PO QPM Discharge Orders: Discharge Order (Routine); Ordered 04/06/23 Ordered By: Cesar Mondragon Admission Data Admit Date/Time: 03/31/23 20:04 Attending Provider: Cesar Mondragon Admit Provider: Nirmla Bagley Primary Care Provider: Mario Camara V. Other Providers: Nirmal Bagley Other Interventions: Discharge Summary Assessment (RN) Last Done: 04/06/23 09:49 Coding Level of Care Code 57893 INP/OBS DISCH >30 MIN Diagnoses COVID-19 U07.1 Hypoxia R09.02 Helicobacter positive gastritis K29.70; B96.81 Generalized abdominal pain R10.84 History of pulmonary embolism Z86.711 Hypertension I10 Hypertension type: essential hypertension Coronary artery disease involving tejon coronary artery of tejon heart without angina pectoris I25.10 Coronary Disease-Associated Artery/Lesion type: tejon artery [place] vs. transplanted heart: tejon heart Associated angina: without angina Chronic respiratory failure J96.10 MAYCOL (acute kidney injury) N17.9 Morbid obesity E66.01 Time Spent (min) 35
== END 2023-04-06 14:39 | disposition home or self-care (01) | DRG 178 ==
LOC: ED 14:29 → SUATTDRO 20:04 → 2E 20:04